=== PATIENT | female | born 1965 | race Two or more races ===

== ENCOUNTER 2020-09-24 10:29 | Outpatient (REF) | payer MEDICAID, SELFPAY ==
--- NOTE | ~2020-09-24 | MM_ITS ---
EXAMINATION: MM SCREENING DIGITAL BREAST TOMOSYNTHESIS, BILATERAL CLINICAL INFORMATION: Screening. Asymptomatic. The lifetime risk of breast cancer based on the Tyrer-Cuzick Model is 6%. COMPARISON: Mammography: 08/19/2019, 07/29/2018, 07/23/2017 TECHNIQUE: Digital breast tomosynthesis is performed in both the craniocaudal and mediolateral oblique views along with computer-aided detection (CAD). Synthesized 2D images are generated from the tomosynthesis. FINDINGS: The breasts are heterogeneously dense, which may obscure small masses (ACR BI-RADS breast composition Category c). There are no significant masses, abnormal calcifications, or other abnormalities. There is biopsy clip marker again noted posterior 1:00 left breast. Parenchymal pattern is similar to prior exams. The axilla and skin contours are unremarkable. No significant changes. MM/MM tomosynthesis screening BI IMPRESSION: No significant changes from prior studies. ASSESSMENT: BI-RADS 1: Negative RECOMMENDATION: Routine annual mammography screening. This patient's information was entered into a reminder system with a target due date for their next mammogram.
== END 2020-09-24 10:30 | disposition home or self-care (01) ==
LOC: HO.MAMMO 10:29
PROVIDERS: PCP Nurse Practitioner Family; Visit Provider Nurse Practitioner Family
DX: Z12.31 Encounter for screening mammogram for malignant neoplasm of breast (principal)
CPT/HCPCS: 77063; 77067

== ENCOUNTER 2021-01-19 10:30 | Emergency (ER) | payer MEDICAID, SELFPAY ==
--- NOTE | ~2021-01-19 | CT_ITS ---
EXAMINATION: CT ABDOMEN AND PELVIS WITHOUT CONTRAST CLINICAL INFORMATION: Left flank pain. COMPARISON: None TECHNIQUE: Multidetector volumetric imaging was performed from the superior aspect of the liver through the pubic symphysis. Sagittal and coronal reformatted images were obtained on the technologist's workstation. This CT examination was performed using dose optimization techniques as appropriate, variously including the following: *Automated exposure control *Adjustment of mA and/or kV according to patient size (this includes techniques or standardized protocols for targeted exams where dose is matched to indication/reason for exam; i.e. extremities or head) *Use of iterative reconstruction technique DLP: 600 mGy-cm FINDINGS: LUNG BASES: The visualized lung bases are unremarkable. LIVER, GALLBLADDER, AND BILIARY TREE: The liver is normal in size, shape, and attenuation. No focal hepatic lesion or biliary ductal dilatation is present. The gallbladder is unremarkable with no evidence of radiopaque gallstones, gallbladder wall thickening, or obvious pericholecystic inflammatory changes. PANCREAS: Unremarkable. SPLEEN: Unremarkable. ADRENAL GLANDS: Unremarkable. KIDNEYS AND URETERS: The kidneys are normal in size, shape, and attenuation. No hydronephrosis, hydroureter, or calculi seen. No perinephric stranding. BLADDER: There is diffuse bladder wall thickening measuring 5 mm. GASTROINTESTINAL TRACT: There is scattered stool and gas seen throughout the colon without any significant distention. The small bowel loops are normal caliber. Stomach is nondistended. Appendix is normal caliber. ABDOMINAL WALL: No significant hernia is appreciated. LYMPH NODES: Normal. VASCULAR: Unremarkable. PELVIC VISCERA: Unremarkable. OSSEOUS STRUCTURES: No lytic or sclerotic process seen. CT/CT abdomen pelvis wo con IMPRESSION: No acute intra-abdominal process seen. Mild constipation. No obstruction. Normal appendix No radiopaque urolith or hydroureteronephrosis seen.
[2021-01-19 10:34] VITALS: BP 128/75; PULSE 80; RESP 16; TEMP 36.4; O2SAT 96; BMI 33.2
[2021-01-19] MEDS: Lidocaine 4 % Patch ADH..PATCH 1 PATCH TRANSDERMA (11:01)
[2021-01-19] MEDS: oxyCODONE HCl Immed Release 5 MG TABLET PO (11:03)
[2021-01-19 11:14] LABS: Glucose Urine UA NEG (NEG); Leukocyte Esterase Urine NEG (NEG); Nitrite Urine NEG (NEG); Specific Gravity - Urine <= 1.005 (1.005-1.025); Urine Blood NEG (NEG); Urine Ketones NEG (NEG); Urine Protein NEG (NEG-TRACE)
[2021-01-19 11:15] LABS: Appearance Urine CLEAR; Color Urine STRAW
--- NOTE | 2021-01-19 12:18 | ED_ITS ---
HPI - Back Pain/Injury General Chief Complaint: Back Pain/Injury Stated Complaint: LOWER BACK PAIN Time Seen by Provider: 01/19/21 10:48 Source: patient Mode of arrival: ambulatory Limitations: no limitations History of Present Illness HPI Narrative: 55-year-old female with a past medical history of prediabetes, vertigo, hypothyroidism, hypertension hyperlipidemia presenting to the ED with complaints of atraumatic left mid to lower back pain that started approximately 3 days. She reports she has had back pain in the past although this is worse. She denies any other symptoms complaints or concerns at this time. Patient has been using Motrin and Flexeril and providing no symptomatic relief. MD elicited complaint: back pain Pertinent past history: prior back pain Onset (ago): day(s) (Three days worse today) Timing: constant and improved Severity: moderate Similar Symptoms Previously: Yes Quality: aching Location: lumbar spine and left flank Radiation: none Exacerbating factors: movement Relieving factors: none Context: other (She believes it started after mopping) Associated symptoms: denies other symptoms Work related injury: No Related Data Previous Rx's Medication Instructions Recorded acetaminophen [Tylenol Extra 1,000 mg PO QID PRN #14 tab 01/19/21 Strength] docusate sodium [Colace] 100 mg PO BID PRN #14 cap 01/19/21 lidocaine HCl [Aspercreme 1 appl TOPICAL BID PRN #120 g 01/19/21 (lidocaine HCl)] oxycodone 5 mg PO BID PRN #10 tab 01/19/21 prednisone 40 mg PO DAILY 5 Days #10 tab 01/19/21 Allergies Allergy/AdvReac Type Severity Reaction Status Date / Time No Known Allergies Allergy Unverified 04/12/20 16:38 Review of Systems Review of Systems: Constitutional : No trauma, No Weight loss, No Fever, No Chills, ENT/Mouth : No Hearing loss, No Ear Pain, No Nasal Congestion, No Sinus Pain, No Hoarseness, No sore throat, No Rhinorrhea, No Swallowing Difficulty Cardiovascular : No Chest Pain, No SOB Respiratory : No Cough, No Dyspnea Gastrointestinal : No Nausea, No Vomiting, No Diarrhea, No abdominal Pain, No Hematochezia, No Melena Genitourinary : No Dysuria, No Urinary Frequency, No Hematuria, No Urinary or Bowel Incontinence/retention Musculoskeletal : + Back pain, No neck pain, No joint stiffness, No joint swelling Skin : No Skin Lesions, No rash or signs of infection Neuro : No Weakness, No radiation, No Numbness, No Paresthesias, No headache, no loss of bowel or bladder incontinence, no saddle anesthesia, Focal weakness, No radiation Denies history of IV drug usage. Yes all other systems are reviewed and are negative [facility] Past Medical History Attestation statement: The following information was validated with the patient. Medical History Prediabetes Social History Social History Advance Directives: No Advance Directives Information Provided: No Patient : No Physical Exam Vital Signs: Vital Signs: Last Vital Signs Temp 97.6 F 01/19/21 10:34 Pulse 80 01/19/21 10:34 Resp 16 01/19/21 10:34 BP 128/75 01/19/21 10:34 Pulse Ox 96 01/19/21 10:34 Body Mass Index 33.2 vital signs have been reviewed as normal and appeared to be correct. Blood pressure normal. Heart rate normal. Respiration rate normal. Temperature normal. Oxygen saturation normal. Appearance: Alert. Oriented X3. No acute distress. Head: Normal external exam. Normocephalic. Atraumatic. No Cabrera signs noted. No raccoon eyes noted Eyes: PERRLA. EOMI. Conjunctiva and sclera normal. Eyelids normal. ENT: EAC normal. TM's Normal. Pharynx normal. Uvula midline. Moist mucous membranes. No trismus noted. No drooling noted. No muffled voice noted. Neck: Normal inspection. Neck supple. FROM. No adenopathy. Thyroid Normal. No meningeal signs. No neck mass noted. CVS: Normal heart rate and rhythm. Heart sound normal. No murmurs noted. Pulses normal throughout. Respiratory: No respiratory distress. Painless inspiration. Breath sounds normal. No wheezes/rales/rhonchi noted. Chest nontender. No accessory muscle usage noted or decreased air movement noted. Abdomen: Soft and nontender. Bowel sounds normal in all 4 quadrants. No distention noted. No organomegaly noted. No visible injury noted. Back: No CVA tenderness. Full range of motion noted. No obvious deformities, or edema. Mild para-spinal muscular tenderness from lumbar region to coccyx. Full ROM in back and lower extremities. 5/5 strength hip extension/flexion, abduc tion, adduction. Mild Lumbar pain with hip flexion against resistance. Straight leg raise test negative on right; Straight leg raise test negative on left; Reflexes normal ankle and knee bilaterally; EHL motor strength normal bilaterally. No rashes/lesion/induration/fluctuance or signs infection noted. Skin: Skin warm and dry. Normal skin color. Normal skin turgor. No rashes/lesions/lacerations noted. Extremities: No lower extremity edema. Extremities exhibit normal range of motion. Extremities nontender. Neuro: Oriented X 3. No motor deficit. No sensory deficit. Reflexes normal. Patient has a normal steady gait. Course Course Course Narrative: Pt c likely muscular pain, but could be herniated disc. Neuro exam shows no deficits. Not c/w AAA/epidural abscess/dissection.No high risk Hx (Incont, fever, immunosupp, recent surgery/LP, coag, signif trauma, wt loss, puls mass, hx/o Ca, TB, or IVDU) to warrant MRI. CT scan of abdomen pelvis without contrast obtained to evaluate for possible kidney stones although was negative. UA also within normal limits. Not c/w Pyelo/UTI/kidney stone/spinal fx. Not cauda equina syndrome. No additional imaging indicated at this time. DC c meds and f/u. MDM - Back Pain/Injury Medical Records Attestation: I reviewed the patient's medical records. Lab Data Attestation: I reviewed the patient's lab results. Labs: Lab Results 01/19/21 Range/Units 11:00 Urine Color STRAW Urine Appearance CLEAR Urine pH 6.0 (5.0-8.0) Ur Specific [place] <= 1.005 (1.005-1.025) Urine Protein NEG (NEG-TRACE) MG/DL Urine Glucose (UA) NEG (NEG) MG/DL Urine Ketones NEG (NEG) MG/DL Urine Blood NEG (NEG) Urine Nitrite NEG (NEG) Ur Leukocyte Esterase NEG (NEG) Imaging Data CT scan of abdomen pelvis without contrast: Attestation: I personally reviewed and interpreted this imaging study as follows: Radiologist's impression: FINDINGS: LUNG BASES: The visualized lung bases are unremarkable. LIVER, GALLBLADDER, AND BILIARY TREE: The liver is normal in size, shape, and attenuation. No focal hepatic lesion or biliary ductal dilatation is present. The gallbladder is unremarkable with no evidence of radiopaque gallstones, gallbladder wall thickening, or obvious pericholecystic inflammatory changes. PANCREAS: Unremarkable. SPLEEN: Unremarkable. ADRENAL GLANDS: Unremarkable. KIDNEYS AND URETERS: The kidneys are normal in size, shape, and attenuation. No hydronephrosis, hydroureter, or calculi seen. No perinephric stranding. BLADDER: There is diffuse bladder wall thickening measuring 5 mm. GASTROINTESTINAL TRACT: There is scattered stool and gas seen throughout the colon without any significant distention. The small bowel loops are normal caliber. Stomach is nondistended. Appendix is normal caliber. ABDOMINAL WALL: No significant hernia is appreciated. LYMPH NODES: Normal. VASCULAR: Unremarkable. PELVIC VISCERA: Unremarkable. OSSEOUS STRUCTURES: No lytic or sclerotic process seen. CT/CT abdomen pelvis wo con IMPRESSION: No acute intra-abdominal process seen. Mild constipation. No obstruction. Normal appendix No radiopaque urolith or hydroureteronephrosis seen. Discharge Plan Discharge Clinical Impression: Lumbar strain, Constipation, Muscle spasm Patient Disposition: Home, Self-Care Instructions: Constipation (ED), Low Back Strain (ED), Muscle Spasm (ED), Lower Back Exercises (ED) Prescriptions: New prednisone 20 mg tablet 40 mg PO DAILY 5 Days Qty: 10 RF: 0 acetaminophen [Tylenol Extra Strength] 500 mg tablet 1,000 mg PO QID PRN (Reason: fever or pain) Qty: 14 RF: 0 oxycodone 5 mg tablet 5 mg PO BID PRN (Reason: pain) Qty: 10 RF: 0 lidocaine HCl [Aspercreme (lidocaine HCl)] 4 % cream 1 appl topical BID PRN (Reason: pain) Qty: 120 RF: 0 docusate sodium [Colace] 100 mg capsule 100 mg PO BID PRN (Reason: Constipation) Qty: 14 RF: 0 Referrals: [facility] [Primary Care Provider] - 2 days Print Language: Greek
[2021-01-19 12:32] VITALS: RESP 17
== END 2021-01-19 12:41 | disposition home or self-care (01) ==
PROVIDERS: Physician Assistant Medical; Emergency Provider Emergency Medicine
DX: S39.012A Strain of muscle, fascia and tendon of lower back, initial encounter (principal); M62.838 Other muscle spasm; K59.00 Constipation, unspecified; I10 Essential (primary) hypertension; X58.XXXA Exposure to other specified factors, initial encounter; Y93.9 Activity, unspecified; Y92.9 Unspecified place or not applicable; Y99.9 Unspecified external cause status
CPT/HCPCS: 74176; 81003; 99284

== ENCOUNTER 2021-09-20 12:56 | Emergency (ER) | payer MEDICAID, SELFPAY ==
--- NOTE | 2021-09-20 | ECG_ITS ---
Test Reason : palpatations Blood Pressure : / mmHG Vent. Rate : 072 BPM Atrial Rate : 072 BPM P-R Int : 158 ms QRS Dur : 086 ms QT Int : 382 ms P-R-T Axes : 027 -16 -05 degrees QTc Int : 418 ms Normal sinus rhythm Minimal voltage criteria for LVH, may be normal variant ( R in aVL ) Borderline ECG No previous ECGs available Referred By: Generic ED Physician Electronically Signed By:LEONARDO REICH
--- NOTE | ~2021-09-20 | CT_ITS ---
EXAMINATION: CT ANGIOGRAM CHEST CLINICAL INFORMATION: Palpitations. Chest pain. Enlarged aorta. COMPARISON: Chest x-ray from earlier the same day TECHNIQUE: Multiple axial images were obtained through the chest after the administration of 70 mL of Omnipaque 350 intravenous contrast. Extensive vascular post-processing including two-dimensional and three-dimensional reformatted images were created and reviewed on an independent workstation. This CT examination was performed using dose optimization techniques as appropriate, variously including the following: *Automated exposure control *Adjustment of mA and/or kV according to patient size (this includes techniques or standardized protocols for targeted exams where dose is matched to indication/reason for exam; i.e. extremities or head) *Use of iterative reconstruction technique DLP: 440 mGy-cm FINDINGS: Evaluation of the proximal ascending thoracic aorta is limited due to artifact from respiratory motion. The thoracic aorta appears normal in caliber. The ascending thoracic aorta measures 3.1 x 3.2 cm, aortic arch 2.2 cm and descending thoracic aorta 2 cm in diameter. The descending thoracic aorta is tortuous. No evidence of aneurysm or dissection is seen. The great vessels appear normal in caliber. The heart is upper normal in size. There is no pericardial effusion. The pulmonary arteries appear normal in caliber. Dedicated CT PA gram was not performed however no pulmonary embolism is seen. The lungs are clear. There is no pleural effusion or pleural thickening. No chest wall mass or enlarged axillary lymph nodes are seen. Images through the upper abdomen demonstrate scarring in the pole of the right kidney. There may be a small left adrenal nodule. There are mild degenerative changes of the spine. CT/CT angio chest aorta IMPRESSION: Slightly limited exam due to artifact from motion. Normal caliber thoracic aorta. No evidence of aneurysm or dissection. The descending thoracic aorta is slightly tortuous. Right renal cortical thinning or scarring. Otherwise unremarkable exam. Fleischner guidelines were followed.
--- NOTE | ~2021-09-20 | XR_ITS ---
EXAMINATION: XR CHEST CLINICAL INFORMATION: Palpitations COMPARISON: None TECHNIQUE: Frontal view of the chest was obtained. FINDINGS: The cardiac silhouette is upper normal in size. The thoracic aorta may be slightly tortuous. Hilar and mediastinal contours are otherwise unremarkable. The lungs are clear. There is no pleural effusion or pneumothorax. Bony structures are unremarkable. XR/XR chest 1V IMPRESSION: Upper normal-size cardiac silhouette. Tortuous thoracic aorta.
[2021-09-20 12:58] VITALS: BP 134/75; PULSE 79; RESP 18; TEMP 36.7; O2SAT 99; BMI 34.7
--- NOTE | 2021-09-20 14:13 | ED_ITS ---
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 Patient states that for the last few weeks, she has had intermittent palpitations. Patient states that she was seen at an urgent care where they told her she has a sinus arrythmia. Patient states that she has high cholesterol and is pre-diabetic. Patient denies any dizziness, lightheadedness, abdominal pain, nausea, vomiting, fever, chills, blurry vision, double vision, loss of vision, chest pain, difficulty breathing, shortness of breath, back pain, night sweats, pain with urination, increased urinary frequency, increased urinary urgency, blood in her urine or stool, syncope or a near syncopal episode, recent trauma or falls, bowel incontinence, bladder incontinence, bowel retention, bladder retention, or any other complaints at this time. MD complaint: palpitations Related Data Previous Rx's Medication Instructions Recorded acetaminophen 500 mg tablet 1,000 mg PO QID PRN #14 tab 01/19/21 (Tylenol Extra Strength) docusate sodium 100 mg capsule 100 mg PO BID PRN #14 cap 01/19/21 (Colace) lidocaine HCl 4 % topical cream 1 appl TOPICAL BID PRN #120 g 01/19/21 (Aspercreme (lidocaine HCl)) oxycodone 5 mg tablet 5 mg PO BID PRN #10 tab 01/19/21 prednisone 20 mg tablet 40 mg PO DAILY 5 Days #10 tab 01/19/21 Allergies Allergy/AdvReac Type Severity Reaction Status Date / Time No Known Allergies Allergy Unverified 04/12/20 16:38 Review of Systems Constitutional: Constitutional: Reports no additional constitutional complaints, Denies chills, Denies fever(s) and Denies night sweats Eyes: Eyes: Reports no additional eye complaints, Denies blurry vision, Denies change in vision, Denies diplopia, Denies eye discharge, Denies loss of vision and Denies eye pain ENT: Denies dizziness Cardiovascular: Cardiovascular: Reports no additional cardiovascular complaints, Denies chest pain, Denies lightheadedness, Denies Loss of Cons ciousness and Denies dyspnea Respiratory: Respiratory: Reports no additional respiratory complaints and Denies dyspnea Gastrointestinal: Gastrointestinal: Reports no additional gastrointestinal complaints, Denies abdominal pain, Denies melena, Denies hematochezia, Denies change in bowel habits and Denies change in stool character Genitourinary: Genitourinary: Denies hematuria, Denies urinary frequency, Denies dysuria, Denies urinary incontinence, Denies urinary hesitancy and Denies urinary urgency Musculoskeletal: Musculoskeletal: Reports no additional musculoskeletal complaints, Denies numbness and Denies tingling Neurologic: Denies dizziness, Denies loss of vision, Denies numbness and Denies tingling Psychiatric: Psychiatric: Reports no additional psychiatric complaints Endocrine: Endocrine: Reports no additional endocrine complaints Hematologic/Lymphatic: Hematologic/Lymphatic: Reports no additional hematologic/lymphatic complaints Allergic/Immunologic: Allergic/Immunologic: Reports no additional allergic/immunologic complaints PMFSH Past Medical History Attestation statement: The following information was validated with the patient. Source: old records reviewed Medical History Prediabetes Social History Social History Advance Directives: No Advance Directives Information Provided: Yes Physical Exam Vital Signs: Vital Signs: Last Vital Signs Temp 98.0 F 09/20/21 12:58 Pulse 79 09/20/21 12:58 Resp 18 09/20/21 12:58 BP 134/75 09/20/21 12:58 Pulse Ox 99 09/20/21 12:58 BMI result Body Mass Index 34.7 Const: General: cooperative, no acute distress, alert and awake Nutritional Appearance: well nourished Orientation/consciousness: patient oriented x3 Limitations: no limitations HENMT: Head: Yes normal to inspection and Yes atraumatic Ears: hearing grossly normal bilaterally and external ears normal General nose exam: Normal external nose present, no nasal discharge noted and no epistaxis Face and sinus: Yes normal facial exam, No abrasion and No laceration Mouth: Normal oral and palatal mucosa present, no drooling and no muffled voice Eyes: General: appearance normal, both eyes and all related structures Periorbital: periorbital findings normal Eyelids: Yes eyelids normal Conjunctivae: conjunctivae normal Pupils: Equal, round and reactive pupils present EOM: EOMs intact bilaterally Neck: Neck: Yes normal visual inspection, Yes full ROM and Yes no lymphadenopathy Chest: Chest palpation & inspection: normal inspection of the chest Resp: Effort & Inspection: normal respiratory effort and able to speak in complete sentences Auscultation: clear to auscultation bilaterally Cardio: Rate: regular rate Rhythm: regular rhythm GI: Inspection: Yes normal to inspection Neuro: General: patient oriented x3 and moves all extremities Cranial nerves: Yes Equal, round and reactive pupils present Cognition (Neuro): normal cognition Motor exam (neuro): 5/5 motor strength present throughout Sensory Exam: Normal double simultaneous stimulation for sensation Coordination: [id number] test normal Extrem: General: Yes normal to inspection, Yes full ROM and Yes capillary refill normal Psych: Appearance: grossly normal Mental Status: mental status grossly norm al Affect: normal affect Attitude: cooperative Thought process: Normal thought process present Thought content: Normal thought content present Insight: Good insight present (Psych) MDM - Arrhythmia/Palpitations MDM Narrative Medical decision making narrative: Patient is a 56 year old female presenting to the emergency department today with palpitations. Patient's physical exam was unremarkable. Patient's blood work was unremarkable. Patient's EKG was unremarkable. Patient's chest x-ray showed no acute process however, it did show a torturus aorta. Patient's CT chest showed no acute process. I explained my physical exam findings as well as all test results to the patient. I answered all questions asked by the patient. I stressed the importance of the patient taking her medication as prescribed. 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 I stressed the importance of the patient returning to the emergency department immediately if her symptoms were to worsen or if she were to develop any dizziness, shortness of breath, difficulty breathing, chest pain, blurry vision, loss of vision, nausea, vomiting, abdominal pain, fever, chills, back pain, or any other complaints. Patient verbalized agreement and understanding with this treatment plan and discharge. Differential Diagnosis Differential diagnosis: Likely palpitations, ventricular premature beats and supraventricular tachycardia Medical Records Attestation: I reviewed the patient's medical records. Lab Data Attestation: I reviewed the patient's lab results. Result diagrams: 09/20/21 14:56 09/20/21 14:56 Labs: Lab Results 02/09/20/21 09/20/21 Range/Units 14:56 14:56 14:56 WBC 4.7 L (4.8-10.8) X10*3/uL RBC 4.46 (4.20-5.50) X10*6/uL Hgb 13.9 (12.0-16.0) g/dl Hct 40.1 (37.0-47.0) % MCV 89.9 (80.0-98.0) fL MCH 31.2 (27.0-33.0) pg MCHC 34.7 (31.0-35.0) g/dl RDW 12.0 (11.0-16.0) % Plt Count 250 (160-400) X10*3/uL MPV 9.4 (9.4-12.3) fL Immature Gran % (Auto) 0.2 (0.0-0.4) % Neut % (Auto) 44.2 L (45-73) % Lymph % (Auto) 40.5 H (20-40) % [place] % (Auto) 11.9 H (2-11) % Eos % (Auto) 2.8 (0-4) % Baso % (Auto) 0.4 (0-2) % Lymph # (Auto) 1.9 (1.2-4.9) X10*3/uL [place] # (Auto) 0.6 (0.1-1.2) X10*3/uL Eos # (Auto) 0.1 (0.0-0.4) X10*3/uL Baso # (Auto) 0.0 (0.0-0.2) X10*3/uL Abs Immat Gran (auto) 0.01 (0.00-0.03) X10*3/uL Absolute Neuts (auto) 2.1 (2.0-8.3) x10*3/uL Absolute Nucleated RBC 0.000 (0.0-0.012) X10*3/uL Nucleated RBC % (auto) 0.0 (0.0-0.2) /100WBC Sodium 141 (135-145) mmol/L Potassium 4.3 (3.3-5.1) mmol/L Chloride 104 (96-108) mmol/L Carbon Dioxide 28 (22-29) mmol/L Anion Gap 13 (12-20) BUN 13 (9-16) mg/dL Creatinine 0.74 (0.5-1.4) mg/dL Estim Creat Clear Calc 79.8 Estimated GFR > 60 Random Glucose 98 (60-115) mg/dL Calcium 10.1 (8.4-10.2) mg/dL Magnesium 2.1 (1.6-2.6) mg/dL Total Bilirubin 0.8 (0.0-1.0) mg/dL AST 19 (5-31) U/L ALT 24 (0-31) U/L Alkaline Phosphatase 73 (39-117) U/L Troponin I High Sens < 3.5 (<3.5-17.0) ng/L Total Protein 8.1 H (6.5-8.0) g/dL Albumin 4.5 (3.5-5.0) g/dL Imaging Data Chest x-ray: Attestation: I personally reviewed and interpreted this imaging study as follows: Radiologist's impression: EXAMINATION: XR CHEST CLINICAL INFORMATION: Palpitations COMPARISON: None TECHNIQUE: Frontal view of the chest was obtained. FINDINGS: The cardiac silhouette is upper normal in size. The thoracic aorta may be slightly tortuous. Hilar and mediastinal contours are otherwise unremarkable. The lungs are clear. There is no pleural effusion or pneumothorax. Bony structures are unremarkable. XR/XR chest 1V IMPRESSION: Upper normal-size cardiac silhouette. Tortuous thoracic aorta. ? Dictated By: Karena Mayo MD Signed By: Electronically signed by Karena Mayo MD 09/20/[address] scan chest: Attestation: I personally reviewed and interpreted this imaging study as follows: Radiologist's impression: EXAMINATION: CT ANGIOGRAM CHEST CLINICAL INFORMATION: Palpitations. Chest pain. Enlarged aorta.? COMPARISON: Chest x-ray from earlier the same day? TECHNIQUE: Multiple axial images were obtained through the chest after the administration of 70 mL of Omnipaque 350 intravenous contrast. Extensive vascular post-processing including two-dimensional and three-dimensional reformatted images were created and reviewed on an independent workstation. This CT examination was performed using dose optimization techniques as appropriate, variously including the following: *Automated exposure control *Adjustment of mA and/or kV according to patient size (this includes techniques or standardized protocols for targeted exams where dose is matched to indication/reason for exam; i.e. extremities or head) *Use of iterative reconstruction technique DLP: 440 mGy-cm FINDINGS: Evaluation of the proximal ascending thoracic aorta is limited due to artifact from respiratory motion. The thoracic aorta appears normal in caliber. The ascending thoracic aorta measures 3.1 x 3.2 cm, aortic arch 2.2 cm and descending thoracic aorta 2 cm in diameter. The descending thoracic aorta is tortuous. No evidence of aneurysm or dissection is seen. The great vessels appear normal in caliber. The heart is upper normal in size. There is no pericardial effusion. The pulmonary arteries appear normal in caliber. Dedicated CT PA gram was not performed however no pulmonary embolism is seen. The lungs are clear. There is no pleural effusion or pleural thickening. No chest wall mass or enlarged axillary lymph nodes are seen. Images through the upper abdomen demonstrate scarring in the pole of the right kidney. There may be a small left adrenal nodule. There are mild degenerative changes of the spine. CT/CT angio chest aorta IMPRESSION: Slightly limited exam due to artifact from motion. Normal caliber thoracic aorta. No evidence of aneurysm or dissection. The descending thoracic aorta is slightly tortuous. Right renal cortical thinning or scarring. Otherwise unremarkable exam.? ? Fleischner guidelines were followed. Dictated By: Karena Mayo MD Signed By: Electronically signed by Karena Mayo MD 09/20/21 1640 ECG Data Attestation: I personally reviewed and interpreted this ECG as follows: ECG interpretation date: 09/20/21 ECG interpretation time: 13:58 Prior ECG tracings: not available for review Interpretation: Vent. Rate : 072 BPM ? ? Atrial Rate : 072 BPM P-R Int : 158 ms? QRS Dur : 086 ms QT Int : 382 ms ? ? ? P-R-T Axes : 027 -16 -05 degrees QTc Int : 418 ms ? Normal sinus rhythm Minimal voltage criteria for LVH, may be normal variant ( R in aVL ) Borderline ECG No previous ECGs available Discharge Plan Discharge Clinical Impression: Heart palpitations Patient Disposition: Home, Self-Care Instructions: Heart Palpitations (DC) Additional Instructions: Follow up with your primary care provider. Return to the emergency department immediately if your symptoms worsen or if you develop any dizziness, shortness of breath, difficulty breathing, chest pain, blurry vision, loss of vision, nausea, vomiting, abdominal pain, fever, chills, back pain, or any other complaints. Prescriptions: No Action prednisone 20 mg tablet 40 mg PO DAILY 5 Days Qty: 10 0RF acetaminophen [Tylenol Extra Strength] 500 mg tablet 1,000 mg PO QID PRN (Reason: fever or pain) Qty: 14 0RF oxycodone 5 mg tablet 5 mg PO BID PRN (Reason: pain) Qty: 10 0RF lidocaine HCl [Aspercreme (lidocaine HCl)] 4 % cream 1 appl topical BID PRN (Reason: pain) Qty: 120 0RF docusate sodium [Colace] 100 mg capsule 100 mg PO BID PRN (Reason: Constipation) Qty: 14 0RF Print Language: Turkmen
[2021-09-20 15:00] LABS: MANUAL DIFF FLAG NO
[2021-09-20 15:02] LABS: Basophils Percent Auto 0.4 % (0-2); Eosinophils Absolute Auto 0.1 X10*3/uL (0.0-0.4); Eosinophils Percent Auto 2.8 % (0-4); Hematocrit 40.1 % (37.0-47.0); Hemoglobin 13.9 g/dl (12.0-16.0); Imm Gran Abs Auto 0.01 X10*3/uL (0.00-0.03); Imm Gran Pct Auto 0.2 % (0.0-0.4); Lymphocytes Absolute Auto 1.9 X10*3/uL (1.2-4.9); Lymphocytes Percent Auto 40.5 % (20-40); Mean Corpuscular HGB Conc 34.7 g/dl (31.0-35.0); Mean Corpuscular Hemoglobin 31.2 pg (27.0-33.0); Mean Corpuscular Volume 89.9 fL (80.0-98.0); Mean Platelet Volume 9.4 fL (9.4-12.3); Monocytes Absolute Auto 0.6 X10*3/uL (0.1-1.2); Monocytes Percent Auto 11.9 % (2-11); Neutrophils Absolute Auto 2.1 x10*3/uL (2.0-8.3); Neutrophils Percent Auto 44.2 % (45-73); Platelet Count 250 X10*3/uL (160-400); Red Blood Count 4.46 X10*6/uL (4.20-5.50); White Blood Count 4.7 X10*3/uL (4.8-10.8)
[2021-09-20 15:16] LABS: Alanine Aminotransferase 24 U/L (0-31); Albumin Level 4.5 g/dL (3.5-5.0); Alkaline Phosphatase 73 U/L (39-117); Anion Gap 13 (12-20); Aspartate Amino Transferase 19 U/L (5-31); Bilirubin Total 0.8 mg/dL (0.0-1.0); Blood Urea Nitrogen 13 mg/dL (9-16); Calcium 10.1 mg/dL (8.4-10.2); Carbon Dioxide 28 mmol/L (22-29); Chloride 104 mmol/L (96-108); Creatinine Clr Calc Pharmacy 79.8; Estimated Glomerular Filt Rate > 60; Glucose Random 98 mg/dL (60-115); Magnesium 2.1 mg/dL (1.6-2.6); Potassium 4.3 mmol/L (3.3-5.1); Sodium 141 mmol/L (135-145); Total Protein 8.1 g/dL (6.5-8.0)
[2021-09-20 15:25] LABS: Troponin-I High Sensitivity < 3.5 ng/L (<3.5-17.0)
[2021-09-20] MEDS: iohexoL 350 MG/ML 100 ML INFUS..BTL IV (16:11)
== END 2021-09-20 17:39 | disposition home or self-care (01) ==
PROVIDERS: Physician Assistant Medical; Emergency Provider Internal Medicine
DX: R00.2 Palpitations (principal); I49.9 Cardiac arrhythmia, unspecified; Z79.899 Other long term (current) drug therapy
CPT/HCPCS: 36415; 71045; 71275; 80053; 83735; 84484; 85025; 93005; 99283; 99284; Q9967

== ENCOUNTER 2021-10-01 13:15 | Outpatient (REF) | payer MEDICAID, SELFPAY ==
--- NOTE | ~2021-10-01 | MM_ITS ---
EXAMINATION: MM SCREENING DIGITAL BREAST TOMOSYNTHESIS, BILATERAL CLINICAL INFORMATION: Screening. Asymptomatic. The lifetime risk of breast cancer based on the Tyrer-Cuzick Model is 6%. COMPARISON: Mammography: 09/24/2020, 08/19/2019, 07/29/2018 TECHNIQUE: Digital breast tomosynthesis is performed in both the craniocaudal and mediolateral oblique views along with computer-aided detection (CAD). Synthesized 2D images are generated from the tomosynthesis. FINDINGS: The breasts are heterogeneously dense, which may obscure small masses (ACR BI-RADS breast composition Category c). There are no significant masses, abnormal calcifications, or other abnormalities. Parenchymal pattern is similar to prior studies. Biopsy clip marker again noted posterior central 12:30 o'clock left breast. There are no significant changes. MM/MM tomosynthesis screening BI IMPRESSION: No mammographic evidence of malignancy. ASSESSMENT: BI-RADS 1: Negative RECOMMENDATION: Routine annual mammography screening. This patient's information was entered into a reminder system with a target due date for their next mammogram.
== END 2021-10-01 13:16 | disposition home or self-care (01) ==
LOC: HO.MAMMO 13:15
PROVIDERS: PCP Registered Nurse Community Health; Visit Provider Registered Nurse Community Health
DX: Z12.31 Encounter for screening mammogram for malignant neoplasm of breast (principal)
CPT/HCPCS: 77063; 77067

== ENCOUNTER → 2021-11-21 12:28 | Outpatient (BNVA) | payer MEDICAID, SELFPAY | PROVIDERS: PCP Registered Nurse Community Health; Referring Provider Registered Nurse Community Health; Visit Provider Internal Medicine Cardiovascular Disease | DX: R00.2 Palpitations (principal) | CPT/HCPCS: 99202 ==

== ENCOUNTER → 2022-01-07 13:52 | Outpatient (REF) | payer MEDICAID, SELFPAY ==
--- NOTE | 2022-01-07 13:56 | CA_ITS ---
Transthoracic Echocardiogram Patient (Last, First, Middle): Nadege Whitney, Gender: Female Date of : 1965 Age: 56 Procedure Date: 01/07/2022 Procedure Type: Transthoracic Echocardiogram Location: OP Height: 152.4 cm Weight: 79.38 kg BSA: 1.76 m2 Heart Rate: bpm BP: 110 / 60 mmHg Manager Of Operations: TO/VH Referring MD: Isai Brooks MD Symptoms: R00.2 - Palpitations Study Quality: Adequate ECG Rhythm: Sinus Conclusions: - The left ventricular systolic function is normal. The calculated ejection fraction is 62% by biplane method. - No obvious valvular pathology seen on this study. Findings Left Ventricle Normal left ventricular cavity size. There is normal left ventricular wall thickness. The left ventricular systolic function is normal. The calculated ejection fraction is 62% by biplane method. There is no evidence of regional wall motion abnormalities. Diastolic function is normal for age. Right Ventricle Normal right ventricular cavity size and systolic function. Atria Both atria are normal in size. Aortic Valve There is a normal trileaflet aortic valve. There is no aortic valve stenosis. There is no aortic valve regurgitation. Mitral Valve The mitral valve appears normal. There is trace mitral valve regurgitation. There is no mitral valve stenosis. Pulmonic Valve The pulmonic valve is likely normal. Tricuspid Valve Normal tricuspid valve structure. There is trace tricuspid valve regurgitation. The pulmonary artery systolic pressure is normal. Great Vessels The aortic annulus, sinuses of valsalva, and asc aorta are normal in size. Venous The inferior vena cava is normal in size and collapses greater than 50% with inspiration. Pericardium/Pleural There is no evidence of pericardial effusion. Prior Study Comparison No prior study available for comparison. Recommendations, Care & Conclusions No obvious valvular pathology seen on this study. Measurements 2D Linear Measurements IVSd: 1.03 0.6-0.9/0.6-1.0 cm LVIDd: 4.60 3.9-5.3/4.2-5.9 cm LVIDd Index: 2.61 2.4-3.2/2.2-3.1 cm/m2 LVIDs: 3.03 2.0-3.6 cm LVPWd: 1.02 0.7-1.1 cm LA Diam: 2.60 2.7-3.8/3.0-4.0 cm LAIDs Index: 1.48 1.5-2.3 cm/m2 LV Mass: 204.61 67-162/88-224 g LV Mass Index: 116.26 43-95/49-115 g/m2 LVOT Diam: 2.10 3.0+(-)1.3 cm 2D Systolic Function EF 4C: 63.50 >55% EF 2C: 57.70 >55% EF BiP: 61.50 >55% Mitral Valve MV Pk E: 0.57 MV PK A: 0.63 MV Decel Time: 157.00 E/A: 0.90 E'Lateral: 10.30 E'Medial: 5.87 E/E' Med: 9.70 E/E' Lat: 5.50 PHT: 46.00 MVA PHT: 4.78 Decel Alcorn: 3.63 Aortic Valve AoV Pk Ronnie: 1.19 AoV Mn Ronnie: 0.85 AoV VTI: 0.25 AoV Pk Grad: 6.00 Aov Mn Grad: 3.00 MIKEL Cont.VTI: 2.64 LVOT LVOT Pk Ronnie: 0.90 LVOT Mn Ronnie: 0.62 LVOT VTI: 0.19 LVOT Pk Grad: 3.00 LVOT Mn Grad: 2.00 LVOT Diam: 2.10 LVOT Area: 3.46 Diastolic Function MV Pk E: 0.57 MV Pk A: 0.63 E/A: 0.90 E'Medial: 5.87 E/E' Med: 9.70 E' Laterial: 10.30 E/E' Lat: 5.50 Right Ventricle TAPSE (mm): 19.90 TVS' Ronnie: 11.60 Tricuspid Valve TR Pk Ronnie: 2.20 TR Pk Grad: 19.00 RA Press: 3.00 RVSP: 22.00 Great Vessels Aorta Sinus of Valsalva: 3.47 2.0-3.[address] Ridge: 2.57 1.7-3.4 cm Ao Asc: 3.10 2.1-3.4 cm Ao Arch: 2.50 Updated in Other Vendor System with Status of Final Elijah Childs MD electronically signed on 01/08/2022 9:17:27 AM with status of Final
--- NOTE | 2022-01-07 15:21 | ECG_ITS ---
Hook-up date: 2022-01-07 14:13:00 Duration: 47:52:00 Test Indications: PALPITATIONS Medications: [id number] QRS complexes 4 Ventricular ectopics which represent <1 % of total QRS comp. 2 Supraventricular ectopics which represent <1 % of total QRS comp. * Paced QRS complexs which represent % of total QRS comp. VENTRICULAR ECTOPY 4 Isolated 0 Bigeminal Cycles 0 Couplets 0 Runs 0 Beats in Runs * Beats LONGEST at * BPM at :: -- * Beats FASTEST at * BPM at :: -- SUPRAVENTRICULAR ECTOPY 2 Isolated 0 Couplets 0 Runs 0 Beats in Runs * Beats LONGEST at * BPM at :: -- * Beats FASTEST at * BPM at :: -- HEART RATES 52 MIN at 03:41:29 2022-01-08 72 AVG 109 MAX at 11:39:43 2022-01-08 LONGEST RR 1.0240 secs at 03:40:43 2022-01-08 S-T LEVELS Channel 1 - 128 mm at 14:13:00 2022-01-07 - 128 mm at 14:13:00 2022-01-07 Channel 2 - 128 mm at 14:13:00 2022-01-07 - 128 mm at 14:13:00 2022-01-07 Channel 3 - 128 mm at 03:33:21 -- - 128 mm at 03:33:21 Basic rhythm Normal sinus rhythm No long pause or profound bradycardia Very Rare ectopics Patient reported symptoms correlated with NSR Referred By: Isai Brooks Overread By: ISAI BROOKS MD
== END ==
LOC: HO.CARD 13:52
PROVIDERS: PCP Registered Nurse Community Health; Visit Provider Internal Medicine Cardiovascular Disease
DX: R00.2 Palpitations (principal)
CPT/HCPCS: 93225; 93226; 93306

== ENCOUNTER → 2022-01-21 13:39 | Outpatient (BNVA) | payer MEDICAID, SELFPAY | PROVIDERS: PCP Registered Nurse Community Health; Referring Provider Registered Nurse Community Health; Visit Provider Internal Medicine Cardiovascular Disease | DX: R00.2 Palpitations (principal) | CPT/HCPCS: 99212 ==

== ENCOUNTER 2022-06-13 08:50 | Outpatient (REF) | payer MEDICAID, SELFPAY ==
--- NOTE | ~2022-06-13 | MM_ITS ---
EXAMINATION: MM DIAGNOSTIC DIGITAL, RIGHT US BREAST TARGETED, RIGHT CLINICAL INFORMATION: Right axillary pain and swelling The lifetime risk of breast cancer based on the Tyrer-Cuzick Model is 5%. COMPARISON: Mammography: 10/01/2021 and studies dating back to 03/28/2014 TECHNIQUE: Digital mammography is performed in craniocaudal and mediolateral oblique views along with computer-aided detection (CAD). Targeted right breast ultrasound FINDINGS: There are scattered areas of fibroglandular density (ACR BI-RADS breast composition Category b). There are no significant masses, abnormal calcifications, or other abnormalities. There are no significant changes from prior study. Targeted right breast ultrasound did not demonstrate abnormal cystic or solid masses. No region of abnormal distal sound shadowing. No edematous change within the parenchyma is seen. There are a few prominent normal-appearing lymph nodes. There is some soft fluctuant tissue felt within the axilla but without circumscribed lipoma being identified. Results are discussed with the patient at time of visit. MM/MM diagnostic mammo unilat RT IMPRESSION: Stable appearance of the right breast without mammographic or ultrasound findings to suggest malignancy. ASSESSMENT: BI-RADS 1: Negative RECOMMENDATION: Routine annual mammography screening. Clinical follow-up for right axillary pain. This patient's information was entered into a reminder system with a target due date for their next mammogram.
== END 2022-06-13 08:51 | disposition home or self-care (01) ==
LOC: HO.MAMMO 08:50
PROVIDERS: PCP Registered Nurse; Visit Provider Registered Nurse
DX: M79.621 Pain in right upper arm (principal)
CPT/HCPCS: 76642; 77062; 77065

== ENCOUNTER 2022-07-03 10:47 | Outpatient (REF) | payer MEDICAID, SELFPAY ==
--- NOTE | ~2022-07-03 | XR_ITS ---
EXAMINATION: XR KNEE, LEFT CLINICAL INFORMATION: Chronic pain left knee COMPARISON: None TECHNIQUE: Four views of the left knee. FINDINGS: There is loss of medial compartment joint space with periarticular spurring. The lateral compartment joint space is preserved. Minimal loss of patellofemoral compartment joint space is seen. No visible acute fracture, bony erosive changes seen. No abnormal suprapatellar joint effusion seen. There is minimal anterosuperior patellar enthesophytes. The soft tissues are normal. XR/XR knee LT 4V IMPRESSION: Mild degenerative changes in the medial and patellofemoral compartments. No loose bodies, bony erosive changes or joint effusion. Minimal anterosuperior patellar enthesophytes.
== END 2022-07-03 10:48 | disposition home or self-care (01) ==
LOC: HO.XRAY 10:47
PROVIDERS: PCP Registered Nurse; Visit Provider Registered Nurse
DX: M25.562 Pain in left knee (principal)
CPT/HCPCS: 73564

== ENCOUNTER → 2022-09-09 14:36 | Outpatient (BNVA) | payer MEDICAID, SELFPAY | PROVIDERS: PCP Registered Nurse; Visit Provider Nurse Practitioner Family | DX: G47.19 Other hypersomnia (principal); R06.83 Snoring | CPT/HCPCS: 99202 ==

== ENCOUNTER → 2022-09-30 14:53 | Outpatient (REF) | payer MEDICAID, SELFPAY | LOC: HO.SL 14:53 | PROVIDERS: PCP Physician Assistant; Visit Provider Nurse Practitioner Family | DX: Z13.89 Encounter for screening for other disorder (principal) ==

== ENCOUNTER 2022-10-02 05:58 | Outpatient (REF) | payer MEDICAID, SELFPAY ==
--- NOTE | ~2022-10-02 | XR_ITS ---
EXAMINATION: XR KNEE AP STANDING CLINICAL INFORMATION: Right knee pain COMPARISON: None TECHNIQUE: AP bilateral standing view of the knees was obtained. FINDINGS: Bones and soft tissues are normal. No fracture or joint effusion. Alignment is anatomic. Mild narrowing of the bilateral medial tibiofemoral compartments with tiny osteophytes. No abnormal soft tissue calcification. XR/XR knee standing BI IMPRESSION: Mild osteoarthritis of the bilateral knees.
== END 2022-10-02 05:59 | disposition home or self-care (01) ==
LOC: HO.HOSX 05:58
PROVIDERS: Visit Provider Physician Assistant
DX: M17.12 Unilateral primary osteoarthritis, left knee (principal); M25.561 Pain in right knee
CPT/HCPCS: 73565; 99202

== ENCOUNTER 2022-10-31 14:23 | Outpatient (REF) | payer MEDICAID, SELFPAY ==
--- NOTE | ~2022-10-31 | MM_ITS ---
EXAMINATION: MM SCREENING DIGITAL BREAST TOMOSYNTHESIS, BILATERAL CLINICAL INFORMATION: Screening. Asymptomatic. The lifetime risk of breast cancer based on the Tyrer-Cuzick Model is 5%. COMPARISON: Mammography: 06/13/2022, 10/01/2021, 09/24/2020, 08/19/2019, 07/29/2018; ultrasound right breast 06/13/2022 TECHNIQUE: Digital breast tomosynthesis is performed in both the craniocaudal and mediolateral oblique views along with computer-aided detection (CAD). Synthesized 2D images are generated from the tomosynthesis. FINDINGS: The breasts are heterogeneously dense, which may obscure small masses (ACR BI-RADS breast composition Category c). There are no significant masses, abnormal calcifications, or other abnormalities. Parenchymal pattern is similar to prior studies. There is no developing density or architectural abnormality. There is a biopsy clip marker again seen posterior central 1:00 left breast. The axilla and skin contours are unremarkable. No significant changes. MM/MM tomosynthesis screening BI IMPRESSION: No mammographic evidence of malignancy. ASSESSMENT: BI-RADS 1: Negative RECOMMENDATION: Routine annual mammography screening. This patient's information was entered into a reminder system with a target due date for their next mammogram.
== END 2022-10-31 14:24 | disposition home or self-care (01) ==
LOC: HO.MAMMO 14:23
PROVIDERS: PCP Registered Nurse; Visit Provider Registered Nurse
DX: Z12.31 Encounter for screening mammogram for malignant neoplasm of breast (principal)
CPT/HCPCS: 77063; 77067

== ENCOUNTER → 2022-11-26 12:23 | Outpatient (REF) | payer MEDICAID, SELFPAY | LOC: HO.SL 12:23 | PROVIDERS: PCP Registered Nurse; Visit Provider Nurse Practitioner Family | DX: G47.19 Other hypersomnia (principal); R00.2 Palpitations; R06.83 Snoring | CPT/HCPCS: 95806 ==

== ENCOUNTER 2022-11-27 11:05 | Outpatient (REF) | payer MEDICAID, SELFPAY ==
--- NOTE | ~2022-11-27 | MR_ITS ---
EXAMINATION: MR BREAST WITHOUT AND WITH CONTRAST, BILATERAL CLINICAL INFORMATION: Right axillary pain. Prior reports of right axillary pain and swelling. Prior reports of chest pain and palpitations. COMPARISON: Mammography 10/31/2022. Chest CT 09/20/2021. TECHNIQUE: Imaging was performed with a dedicated breast coil. Prior to the administration of contrast, bilateral axial T1 and bilateral axial T2 weighted sequences were obtained. After the uneventful administration of?8.5 mL of Gadavist, dynamic contrast-enhanced VIBRANT series through the breasts in the axial plane were performed. Subtracted images were performed and reviewed. A delayed sagittal sequence through both breasts was acquired. Additionally, CAD post-processing, including maximum intensity projections, 3-D reconstructions and kinetic analysis, were performed an independent workstation and reviewed by the interpreting radiologist is a portion of this exam. FINDINGS: The breasts are comprised of scattered fibroglandular elements. The tissue undergoes mild background enhancement. LEFT BREAST: No left axillary mass. The left axillary lymph nodes are normal in appearance. Scattered foci of non-mass enhancement throughout the left breast. No suspicious mass, dominant non-mass enhancement or architectural distortion. No skin thickening or nipple retraction. A few T2 bright masses without enhancement in the left breast consistent with cysts, generally less than 10 mm in diameter. RIGHT BREAST: A suspicious 2 cm linear ductal non-mass enhancement at 12 o'clock (image 53/108) projecting 8 cm from the nipple. Type I enhancement kinetics. No mammographic correlate. Recommend MR biopsy. A suspicious 3 cm linear/segmental non-mass enhancement in the right breast 9 o'clock position, starting 6 cm from the nipple. Generally subthreshold enhancement kinetics. However, given MR morphology an MR biopsy is advised. A 6 mm linear enhancing right breast mass at 1 o'clock, 5 cm from the nipple. The mass is intensely T2 bright. Type I progressive enhancement kinetics. Linear nonenhancing septation, likely a fibroadenoma. Suggest MR directed diagnostic second look ultrasound. Biopsy as indicated. Although morphologically normal, right axillary nodes are slightly larger than those on the left. This is best appreciated on volume renderings. Recommend MR directed diagnostic ultrasound of the right axilla. Biopsy as indicated. There is no suspicious internal mammary chain or axillary adenopathy. Limited views of the chest and abdomen are unremarkable. MR/MR breast BI wo/w con IMPRESSION: 1. A suspicious 2 cm right breast linear ductal non-mass enhancement at 12 o'clock. Recommend MR biopsy. 2. A suspicious 3 cm linear/segmental non-mass enhancement at 9 o'clock on the right. Recommend MR biopsy. 3. An enhancing 6 mm right breast mass at 1 o'clock 5 cm from the nipple. Biopsy may be indicated. Recommend MR directed diagnostic second look ultrasound. 4. Nonspecific minor prominence of right axillary nodes. Recommend ultrasound and biopsy as indicated. ASSESSMENT: LEFT BREAST: BI-RADS 1-Negative RIGHT BREAST: BI-RADS 4, suspicious findings. RECOMMENDATIONS: 1. MR directed right MR biopsy 12 o'clock. 2. MR directed right biopsy 9 o'clock. 3. Right breast ultrasound mass 1 o'clock with biopsy as indicated. 4. Right axillary ultrasound for nodes. Biopsy as indicated.
== END 2022-11-27 11:06 | disposition home or self-care (01) ==
LOC: HO.MRI 11:05
PROVIDERS: PCP Registered Nurse; Visit Provider Registered Nurse
DX: M79.621 Pain in right upper arm (principal); N64.4 Mastodynia
CPT/HCPCS: 77049; A9585

== ENCOUNTER 2022-12-26 14:00 | Outpatient (RCR) | payer MEDICAID, SELFPAY ==
--- NOTE | 2022-11-19 14:10 | MHC.PT.EP ---
[facility] [place] Office [place] Office [place] Office [address] Laura Liang [address] [phone] F: [phone] F: [phone] F: [phone] F: [phone] Physical Therapy Plan of Care Date of Evaluation: Date of Surgery: Diagnosis: OA of L knee Assessment: Patient is a 57 year old R handed female who presents with s/s consistent with L knee pain. She does not work but does go to medical appointments, mu-ism and family gatherings. Patient past medical history includes pre-diabetic, chronic back pain and R cervical/shoulder pain. Current impairments include pain, posture, ROM, strength, activity tolerance and functional mobility. Functional limitations include decreased ability to stand, walk, perform yard work, get out into the community, negotiate stairs, sleep, and transfer. Patient is motivated with good rehab potential. Skilled PT will address impairments and functional limitations in order to achieve goals. Frequency and Duration: The patient will be seen 2x/week for 5 weeks Short Term Goals: I with HEP - 2 weeks AAROM flexion to 130 - 3 weeks SLB > 5 seconds - 3 weeks Halfway Goals: Able to walk/stand > 30 minutes without pain - 5 weeks LEFS 48/80 - 5 weeks LE strength 4/5 grossly - 5 weeks Max pain with ALDs - 5 weeks Treatment Plan: Modalities to reduce pain, spasms and effusion. Manual therapy to restore motion and function. Therapeutic exercise to improve strength and flexibility. Neuromuscular re-education for posture and balance. Therapeutic activities to return to functional activities of daily living. Electronically signed by: Dylon Smith, PT Please sign and return to therapist. Thank you for your referral.
--- NOTE | 2023-01-06 08:33 | MHC.PT.DC ---
[facility] [place] Office [place] Office [place] Office [address] Laura Liang [address] [phone] F: [phone] F: [phone] F: [phone] F: [phone] Physical Therapy Discharge Report Diagnosis: OA of L knee Date of Surgery: Date of Evaluation: 11/19/22 Date of Discharge: 12/27/22 Treatments to Date: 8 Cancellations to Date: No Shows to Date: Discharge Status: Improved Function Independent with HEP Discharge Summary: 12/26/22: pt has been feeling better overall with strenght. AAROM flexion 130. She is happy with progress and is ready and appropriate to d/c to HEP at this time. 12/24; Pt ROM WNL. Patella mobilty WNL. No c/o pain with palpation patella tendon. Pt I with HEP.. Pt has 1 [facility] PT VISIT AND SEES 12/26. 12/17; Pt challenged with balance exs. 12/10; Pt fatigued after exs. Challenged with STS.Pt also has L/S pain and had dif with supine to sit transfer. 12/03; Pt c/o L/S pain with SLR's. Pt had visible shaking with wall/TKE's. 12/01/22: pt continues to respond well to skilled PT. she does have other location pain but is doing well with exercise related to her knee. 11/28/22: pt is having less pain overall. skilled PT is focused on ROM, (AAROM flexion to 131 today), strength, balance and function. 11/25/22: pt has been feeling slightly better and compliant with HEP. we will continue to progress HEP NV. Patient is a 57 year old R handed female who presents with s/s consistent with L knee pain. 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 Patient past medical history includes pre-diabetic, chronic back pain and R cervical/shoulder pain. Current impairments include pain, posture, ROM, strength, activity tolerance and functional mobility. Functional limitations include decreased ability to stand, walk, perform yard work, get out into the community, negotiate stairs, sleep, and transfer. Patient is motivated with good rehab potential. Skilled PT will address impairments and functional limitations in order to achieve goals. martin Electronically signed by: Dylon Smith, PT Please sign and return to therapist. Thank you for your referral.
== END 2023-01-06 08:33 | disposition home or self-care (01) ==
LOC: HO.PTCHIC 14:00
PROVIDERS: PCP Registered Nurse; Visit Provider Physician Assistant
DX: M17.12 Unilateral primary osteoarthritis, left knee (principal)
CPT/HCPCS: 97110; 97140; 97162

== ENCOUNTER 2023-03-17 10:28 | Outpatient (AMB) | payer MEDICAID, SELFPAY ==
[2023-03-17 10:35] VITALS: BP 110/78; PULSE 73; O2SAT 96; BMI 35.2
--- NOTE | 2023-03-17 10:35 | A.OFFVIS_ITS ---
Intake Vital Signs 03/17/23 10:35 Height 5 ft Weight 180 lb BMI 35.2 BP 110/78 Blood Pressure Location Rt brachial Position Sitting Pulse 73 Pulse Source Pulse Oximeter Pulse Oximetry (%) 96 Oxygen Delivery Method Room Air Intake Visit Reasons: follow up for [place] - Confirmed Intake Note: Patient presents for follow up [place]. Licensed Insurance Agent Required: Yes Licensed Insurance Agent Name: Precious Masters Allergies No Known Allergies Allergy (Unverified 03/17/23 10:37) HPI HPI Comments History of Present Illness Details 57 y/o female patient presents for follow up of sleep study. The home sleep study result did not meet the criteria for sleep apnea. The AHI was 4/hr and oxygen aicha was 83%. Pt reports that the sleep study equipment was off when she woke up in the morning. Pt still experiences snoring, witnessed apneas, gasping episodes and excessive daytime sleepiness. She keeps falling asleep when she is inactive or in the car even very short distance. [facility] Medical History Prediabetes Surgical History Hx of tubal ligation Family History (Updated 09/09/22 @ 14:54 by NATY Jean) Father Tuberculosis Mother Diabetes Heart disease Thyroid condition Hyperlipidemia Sister Renal insufficiency Brother Thyroid condition Social History (Updated 10/02/22 @ 15:11 by NATY Garza) Alcohol intake: never Patient Tobacco Use Status: Never used Tobacco Current occupational status: unemployed Review of Systems Const All systems reviewed & are unremarkable except as noted in HPI and below ENT Reports Normal hearing present Neuro Reports Normal hearing present Physical Exam Vital Signs: BMI result Body Mass Index 35.2 Const General: cooperative and tired appearing Nutritional Appearance: obese Orientation/consciousness: patient oriented x3 Limitations: language barrier (Danish speaking only. ) HEENT Teeth and gingiva: other (mallampati grade 4) Neuro General: patient oriented x3 and gait normal Cranial nerves: Yes Bilaterally intact EOM present, Yes Normal facial strength present, Yes Midline tongue present, Yes Symmetric palate elevation present, Yes Normal hearing present, Yes Ability to bilaterally rotate head present and Yes Ability to bilaterally elevate shoulders present Cognition (Neuro): normal cognition Motor exam (neuro): 5/5 motor strength present throughout, Pronator motor function not present and no tremor noted Psych Appearance: grossly normal Mental Status: mental status grossly normal Affect: normal affect Attitude: cooperative Assessment & Plan Assessment & Plan (1) Excessive daytime sleepiness: Code(s): G47.19 - Other hypersomnia (2) Snoring: Code(s): R06.83 - Snoring Plan Pt's clinical symptoms including snoring, gasping and apnea episodes and excessive daytime sleepiness suspected [place] and the home sleep study result was inconclusive. Advised patient to undergo in lab sleep study for more detailed evaluation. Will f/u of sleep study result for appropriate treatment options. Orders: Orders RT PSG in-lab sleep study Today G47.19 - Other hypersomnia, I10 - Essential (primary) hypertension, R00.2 - Palpitations, R06.83 - Snoring Coding Level of Care Code Est Pt Level 3 (40531) Diagnoses Excessive daytime sleepiness G47.19 Snoring R06.83
== END 2023-03-17 10:45 | disposition home or self-care (01) ==
LOC: HO.HSMC 10:28
PROVIDERS: PCP Registered Nurse; Visit Provider Nurse Practitioner Family
DX: G47.19 Other hypersomnia (principal); R06.83 Snoring
CPT/HCPCS: 99213

== ENCOUNTER → 2023-03-17 10:28 | Outpatient (BNVA) | payer MEDICAID, SELFPAY | PROVIDERS: PCP Registered Nurse; Visit Provider Nurse Practitioner Family | DX: G47.19 Other hypersomnia (principal); R06.83 Snoring | CPT/HCPCS: 99213 ==

== ENCOUNTER → 2023-03-31 22:14 | Outpatient (BNV) | payer MEDICAID, SELFPAY | PROVIDERS: PCP Registered Nurse; Visit Provider Psychiatry & Neurology Neurology | DX: G47.33 Obstructive sleep apnea (adult) (pediatric) (principal) | CPT/HCPCS: 95810 ==

== ENCOUNTER → 2023-03-31 22:16 | Outpatient (REF) | payer MEDICAID, SELFPAY | LOC: HO.SL 22:16 | PROVIDERS: PCP Registered Nurse; Visit Provider Nurse Practitioner Family | DX: G47.33 Obstructive sleep apnea (adult) (pediatric) (principal); R06.83 Snoring; G47.19 Other hypersomnia | CPT/HCPCS: 95810 ==

== ENCOUNTER 2023-05-19 12:48 | Outpatient (AMB) | payer MEDICAID, SELFPAY ==
--- NOTE | 2023-05-19 12:51 | A.OFFVIS_ITS ---
Intake Vital Signs 05/19/23 12:53 Weight 179 lb 4 oz BP 130/60 Blood Pressure Location Lt brachial Position Sitting Pulse 69 Pulse Source Pulse Oximeter Pulse Oximetry (%) 96 Oxygen Delivery Method Room Air Intake Visit Reasons: 2 mnts f/u appt for sleep - Confirmed Intake Note: Pt presents today in fup [place] , pt states she sleeps very well, isnt a mouth breather like before Allergies No Known Allergies Allergy (Verified 05/19/23 12:55) HPI HPI Comments History of Present Illness Details 57 y/o female patient presents for follo w up of sleep study. The PSG sleep study result was significant for mild degree of sleep apnea. The AHI was 9/hr and oxygen aicha was 84%. She started APAP [id number] about two weeks ago. The compliance and therapy response reviewed. The usage days 14 days and average usage hours 3 hrs. The max pressure was 11 and the residual AHI was 0.7/hr. Pt reports sleeps well, less snoring, 8 hrs, feel refreshed and has more enerygy during daytime. [facility] Medical History Prediabetes Surgical History Hx of tubal ligation Family History Father Tuberculosis Mother Diabetes Heart disease Thyroid condition Hyperlipidemia Sister Renal insufficiency Brother Thyroid condition Social History Alcohol intake: never Patient Tobacco Use Status: Never used Tobacco Current occupational status: unemployed Review of Systems Const All systems reviewed & are unremarkable except as noted in HPI and below ENT Reports Normal hearing present Neuro Reports Normal hearing present Physical Exam Vital Signs: Last Vital Signs Pulse 69 05/19/23 12:53 BP 130/60 05/19/23 12:53 Pulse Ox 96 05/19/23 12:53 Oxygen Delivery Method Room Air 05/19/23 12:53 Const General: cooperative Nutritional Appearance: obese Orientation/consciousness: patient oriented x3 Limitations: language barrier (Persian speaking only. ) HEENT Teeth and gingiva: other (mallampati grade 4) Neuro General: patient oriented x3 and gait normal Cranial nerves: Yes Bilaterally intact EOM present, Yes Normal facial strength present, Yes Midline tongue present, Yes Symmetric palate elevation present, Yes Normal hearing present, Yes Ability to bilaterally rotate head present and Yes Ability to bilaterally elevate shoulders present Cognition (Neuro): normal cognition Motor exam (neuro): 5/5 motor strength present throughout, Pronator motor function not present and no tremor noted Psych Appearance: grossly normal Mental Status: mental status grossly normal Affect: normal affect Attitude: cooperative Assessment & Plan Assessment & Plan (1) [place] (obstructive sleep apnea): Comment: Mild degree of sleep apnea. The AHI was 9/hr and oxygen aicha was 84% Code(s): G47.33 - Obstructive sleep apnea (adult) (pediatric) Plan Continue to use APAP [id number] as patient experiences good clinical effects, less snoring and better quality sleep. Stressed compliance, use CPAP nightly and more than 4hrs. Wt reduction advised. Coding Level of Care Code Est Pt Level 3 (78060) Diagnoses TR[place] (obstructive sleep apnea) G47.33
[2023-05-19 12:53] VITALS: BP 130/60; PULSE 69; O2SAT 96
== END 2023-05-19 13:13 | disposition home or self-care (01) ==
PROVIDERS: PCP Registered Nurse; Visit Provider Nurse Practitioner Family
DX: G47.33 Obstructive sleep apnea (adult) (pediatric) (principal)
CPT/HCPCS: 99213

== ENCOUNTER → 2023-05-19 12:48 | Outpatient (BNVA) | payer MEDICAID, SELFPAY | PROVIDERS: PCP Registered Nurse; Visit Provider Nurse Practitioner Family | DX: G47.33 Obstructive sleep apnea (adult) (pediatric) (principal) | CPT/HCPCS: 99212 ==

== ENCOUNTER 2023-06-12 13:33 | Outpatient (REF) | payer MEDICAID, SELFPAY ==
--- NOTE | ~2023-06-12 | XR_ITS ---
EXAMINATION: XR LUMBOSACRAL SPINE CLINICAL INFORMATION: Lower back pain. COMPARISON: Lumbar spine radiographs dated 08/10/2019. TECHNIQUE: AP and lateral views of the lumbar spine and lateral view of the lumbosacral junction. FINDINGS: There is mild bony demineralization. Vertebral body heights are normal. There is a slight thoracolumbar dextroscoliosis. At L4-L5, there is a 6 mm anterolisthesis. No acute fracture or spondylolisthesis is seen. There is mild anterior spondylosis at L1-L2. The posterior elements are intact. There is facet arthropathy at L5-S1. The paravertebral soft tissues are unremarkable. XR/XR lumbar spine 2-3V IMPRESSION: 1. There is mild degenerative disc disease at L4-L5. 2. There is mild anterior spondylosis at L1-L2. 3. There is facet arthropathy at L5-S1. 4. There is a slight thoracolumbar dextroscoliosis.
--- NOTE | ~2023-06-12 | XR_ITS ---
EXAMINATION: XR HAND, RIGHT CLINICAL INFORMATION: Chronic right hand pain. COMPARISON: Radiographs dated 07/01/2016. TECHNIQUE: PA, lateral, and oblique views of the right hand. FINDINGS: Bony alignment and mineralization are normal. The proximal and distal carpal rows are intact. There is mild osteoarthritic change of the first carpometacarpal joint. No fracture or dislocation is seen. There is no abnormal bone erosion. No focal soft tissue swelling, gas or foreign body is seen. XR/XR hand RT min 3V IMPRESSION: 1. No fracture or dislocation is seen. 2. There is no abnormal bone erosion. 3. There is mild osteoarthritic change of the right first carpometacarpal joint.
== END 2023-06-12 13:34 | disposition home or self-care (01) ==
LOC: HO.HHCX 13:33
PROVIDERS: Visit Provider Registered Nurse
DX: M79.641 Pain in right hand (principal); M54.50 Low back pain, unspecified
CPT/HCPCS: 72100; 73130

== ENCOUNTER 2023-07-14 13:21 | Outpatient (AMB) | payer MEDICAID, SELFPAY ==
--- NOTE | 2023-07-14 13:36 | A.OFFVIS_ITS ---
Intake Vital Signs 07/14/23 13:48 Height 5 ft Weight 180 lb BMI 35.2 BP 138/82 Blood Pressure Location Rt brachial Pulse 72 Pulse Source Pulse Oximeter Pulse Oximetry (%) 96 Oxygen Delivery Method Room Air Intake Visit Reasons: DEGENERATIVE DISC DISEASE, LUMBAR/lvm Intake Note: Pain today 01/03 Web Operations Administrator Required: Yes Web Operations Administrator Language: Cpr Ambulance Driver Name: #[id number] Allergies No Known Allergies Allergy (Verified 05/19/23 12:55) HPI DEGENERATIVE DISC DISEASE, LUMBAR/lvm HPI Details Patient is a 57 years old Korean speaking female with past medical history of lumbar degenerative disc disease, back and knee arthritis, mild thoracolumbar dextroscoliosis presents today for initial evaluation of chronic low back pain. Denies any recent or past trauma, injury or falls. She attended physical therapy 4 months ago which increased her pain. Denies previous spine surgery or injections. Pain is constant and is rated at 9/10. Back pain is axial and also radiates into right buttock and right lateral hip. Pain affects her daily activities, functioning, sleep, social activities, mood and quality of life. She is interested in interventional treatments for her axial low back and right sacroiliac joint pain. She also reports mild bilateral knee pain which she would like to address later. Denies any fever, abdominal or groin pain, bladder or bowel incontinence or saddle anesthesia. Location Lower back pain, bilateral knee pain Duration Chronic pain >10 years Characteristics of symptom or complaint Shooting, aching, throbbing, sharp, stabbing, tiring, hurting, sore Aggravating or associated factors Prolonged sitting, standing, lifting, pulling, bending Relieving factors Laying down, Tylenol, Motrin, heat therapy Treatment PT- made pain worse PFSH Medical History Prediabetes Surgical History Hx of tubal ligation Family History Father Tuberculosis Mother Diabetes Heart disease Thyroid condition Hyperlipidemia Sister Renal insufficiency Brother Thyroid condition Social History Alcohol intake: never Patient Tobacco Use Status: Never used Tobacco Current occupational status: unemployed Review of Systems Const All systems reviewed & are unremarkable except as noted in HPI and below Denies body aches, Denies chills, Reports difficulty sleeping, Reports fatigue, Denies fever(s), Denies frequent falls, Denies malaise, Denies weakness and Denies weight loss Musc Reports as per HPI, Reports back pain, Denies myalgias, Reports arthralgias, Denies joint swelling, Reports limited range of motion, Denies muscle weakness, Denies numbness, Denies radiating pain into limb, Reports stiffness and Denies tingling Neuro Denies frequent falls, Denies numbness, Denies tingling and Denies weakness Endo Reports fatigue Physical Exam Vital Signs: Last Vital Signs Pulse 72 07/14/23 13:48 BP 138/82 07/14/23 13:48 Pulse Ox 96 07/14/23 13:48 Oxygen Delivery Method Room Air 07/14/23 13:48 BMI result Body Mass Index 35.2 General: Appears afebrile. Alert and oriented. Mood and affect appropriate. Follows and participates in conversation appropriately. Respiratory effort is unlabored. No cough. Able to transition from sit to stand unassisted. Ambulates with bilaterally normal heel strike and toe off. Back/Spine/Pelvis Other: Patient is able to walk and stand on heels and tip toes with no difficulties demonstrating good motor tone. No limping. Can flex forward to 70-75 degrees and extend to 5-10 degrees before experiencing lumbar pain. Demonstrates 5/5 strength of quadriceps bilaterally as well as flexion/dorsiflexion of bilateral feet against resistance. 2+ pedal pulses bilaterally. Straight leg rise with dorsiflexion negative bilaterally. +2 patellar and achilles reflexes bilaterally. Facet loading test positive bilaterally. Ti sign, Flavio?s, Gaenslen, Pelvic compression and Stinchfield tests are positive on the right. No groin pain with I/E hip rotations. Significant paraspinals tenderness mostly on the right side, mid and lower back. Valsalva maneuver negative. Cervical Spine: cervical ROM normal, cervical muscular tenderness and No Cervi gal spine tenderness Thoracic/Lumbar Spine: thoracic and lumbar spine normal to inspection, No Thoracic/lumbar spine scar(s), Lasegue's sign negative, straight leg raise negative bilaterally, pain with thoraco-lumbar ROM, No thoracic spinal tenderness and lumbar spinal tenderness (L4-S1) Pelvis: buttock tenderness on the right, no unilateral elevation of iliac crest and no sciatic notch tenderness Sacroiliac joints: on the right tender to palpation and on the left nontender Results Reviewed Results Reviewed: XR LUMBOSACRAL SPINE 06/12/23 CLINICAL INFORMATION: Lower back pain. COMPARISON: Lumbar spine radiographs dated 08/10/2019. FINDINGS: There is mild bony demineralization. Vertebral body heights are normal. There is a slight thoracolumbar dextroscoliosis. At L4-L5, there is a 6 mm anterolisthesis. No acute fracture or spondylolisthesis is seen. There is mild anterior spondylosis at L1-L2. The posterior elements are intact. There is facet arthropathy at L5-S1. The paravertebral soft tissues are unremarkable. IMPRESSION: 1. There is mild degenerative disc disease at L4-L5. 2. There is mild anterior spondylosis at L1-L2. 3. There is facet arthropathy at L5-S1. 4. There is a slight thoracolumbar dextroscoliosis. XR/XR knee standing BI 10/02/22 IMPRESSION: Mild osteoarthritis of the bilateral knees. Assessment & Plan Assessment & Plan (1) Lumbosacral spondylosis: Code(s): M47.817 - Spondylosis without myelopathy or radiculopathy, lumbosacral region (2) Muscle spasm of back: Code(s): M62.830 - Muscle spasm of back (3) Lumbar degenerative disc disease: Code(s): M51.36 - Other intervertebral disc degeneration, lumbar region (4) Sacroiliac joint pain: Code(s): M53.3 - Sacrococcygeal disorders, not elsewhere classified Plan Treatment options for axial low back and right SI joint pain are reviewed and discussed in detail with patient with assistance of medical project management instructor. Informational pamphlets provided to patient. For axial low back pain, schedule Diagnostic Bilateral L3-L4-DR L5 MBB with local and fluoroscopy. If she has significant relief from the diagnostic blocks for her axial low back pain, will consider either therapeutic injections, Sprint PNS or RFA depending on her preference. If no pain relief, will proceed with diagnostic right SIJ injection. Patient is not on anticoagulation. She is pre- diabetic. Scripts provided for acute on chronic low back pain for methocarbamol, naproxen and lidocaine patches. Side effects and precautions were reviewed with patient. All questions were answered and the patient is in agreement with the treatment plan. Will follow up after injections or sooner if needed. Justification for interventional therapy: ? Patient with average pain > 6/10 ? Patient has exhausted conservative therapy The risks, consequences, alternatives, and benefits of various treatment options were discussed with the patient in great detail, including conservative management, injections and procedures. Medications: New methocarbamol 750 mg PO Q8H 30 days PRN 90 tabs 0RF muscle spasm M47.817 - Spondylosis without myelopathy or radiculopathy, lumbosacral region, M62.830 - Muscle spasm of back naproxen Take it with food and full glass of water. 500 mg PO BID 30 days PRN 60 tabs 1RF pain M47.817 - Spondylosis without myelopathy or radiculopathy, lumbosacral region, M51.36 - Other intervertebral disc degeneration, lumbar region lidocaine 5% 1 patch topical DAILY 30 days 30 ea 1RF pain M47.817 - Spondylosis without myelopathy or radiculopathy, lumbosacral region Coding Level of Care Code New Pt Level 4 (05229) Diagnoses Lumbosacral spondylosis M47.817 Muscle spasm of back M62.830 Lumbar degenerative disc disease M51.36 Sacroiliac joint pain M53.3
[2023-07-14 13:48] VITALS: BP 138/82; PULSE 72; O2SAT 96; BMI 35.2
== END 2023-07-14 14:12 | disposition home or self-care (01) ==
PROVIDERS: PCP Registered Nurse; Visit Provider Nurse Practitioner Family
DX: M47.817 Spondylosis without myelopathy or radiculopathy, lumbosacral region (principal); M62.830 Muscle spasm of back; M51.36 Other intervertebral disc degeneration, lumbar region; M53.3 Sacrococcygeal disorders, not elsewhere classified
CPT/HCPCS: 99204

== ENCOUNTER → 2023-07-14 13:21 | Outpatient (BNVA) | payer MEDICAID, SELFPAY | PROVIDERS: PCP Registered Nurse; Visit Provider Nurse Practitioner Family | DX: M47.817 Spondylosis without myelopathy or radiculopathy, lumbosacral region (principal); M62.830 Muscle spasm of back; M51.36 Other intervertebral disc degeneration, lumbar region; M53.3 Sacrococcygeal disorders, not elsewhere classified | CPT/HCPCS: 99212 ==

== ENCOUNTER 2023-09-01 06:12 | Outpatient (REF) | payer MEDICAID, SELFPAY ==
--- NOTE | ~2023-09-01 | FL_ITS ---
EXAMINATION: XR FLUOROSCOPY WITH IMAGES CLINICAL INFORMATION: Other intervertebral disc degeneration, lumbar region COMPARISON: None available. TECHNIQUE: Fluoroscopy Supervised By: Dr. Umesh Peoples. Fluoroscopy Time: 0.6 minutes. Cumulative Dose: 14.8 mGy. DAP: 0.257 Gycm2. Images: 4. FINDINGS: Fluoroscopic guidance in treatment room On the first image, AP view, the tip of a needle is positioned adjacent to the left lateral L5 vertebral body with injection of contrast. On the second image, AP view, the tip of the needle is seen adjacent to the right lateral L5 vertebral body with contrast injected On the third image, oblique view, the tip of the needle projects over the right lateral L5 with injection of contrast. On the fourth image, oblique view, the tip of a needle projects over the right lateral L4 vertebral body with injection of contrast. FL/FL guidance in treatment room IMPRESSION: Fluoroscopic guidance provided for Dr. Peoples, as described above.
== END 2023-09-01 06:13 | disposition home or self-care (01) ==
LOC: CF 06:12
PROVIDERS: Visit Provider Anesthesiology
DX: M47.817 Spondylosis without myelopathy or radiculopathy, lumbosacral region (principal); M51.36 Other intervertebral disc degeneration, lumbar region
CPT/HCPCS: 64493; 64494; J2795; Q9967

== ENCOUNTER 2023-09-01 09:55 | Outpatient (AMB) | payer MEDICAID, SELFPAY ==
--- NOTE | 2023-09-01 10:06 | A.OFFVIS_ITS ---
Intake Vital Signs 09/01/23 10:58 09/01/23 10:58 Height 5 ft 5 ft Weight 180 lb 180 lb BMI 35.2 35.2 BP 146/72 H 130/78 Blood Pressure Location Lt brachial Lt brachial Position Sitting Sitting Respiration 12 12 Pulse 61 61 Pulse Source Pulse Oximeter Pulse Oximeter Pulse Oximetry (%) 97 96 Oxygen Delivery Method Room Air Room Air Comment pre-op post-op Intake Visit Reasons: BILATERAL DIAGNOSTIC L3, L4, DRL5 MBB Allergies No Known Allergies Allergy (Verified 09/01/23 10:59) PFSH Medical History Prediabetes Surgical History Hx of tubal ligation Family History Father Tuberculosis Mother Diabetes Heart disease Thyroid condition Hyperlipidemia Sister Renal insufficiency Brother Thyroid condition Social History Alcohol intake: never Patient Tobacco Use Status: Never used Tobacco Current occupational status: unemployed Physical Exam Vital Signs: Last Vital Signs Pulse 61 09/01/23 10:58 Resp 12 09/01/23 10:58 BP 130/78 09/01/23 10:58 Pulse Ox 96 09/01/23 10:58 Oxygen Delivery Method Room Air 09/01/23 10:58 BMI result Body Mass Index 35.2 Assessment & Plan Assessment & Plan (1) Lumbosacral spondylosis: Code(s): M47.817 - Spondylosis without myelopathy or radiculopathy, lumbosacral region Plan Diagnostic medial branch block L3,L4 dorsal ramus L5 bilateral.? ? ?Informed consent was explained to the patient. All questions were explained and? answered.? The patient was taken inside the operating room where she was positioned prone on the operating table. Time-out was performed delineating correct site, side, the nature of the procedure, patient's allergy, . All operating room staff was participating in OR time-out procedure. ? ? The lower back was prepped with ChloraPrep and draped with sterile towels.? C- arm was brought over the operating field and sq picture of L4-, L5 vertebra and S1 AREA were delineated on the screen.? Point of interest were delineated as confluence of superior articular process of L4 and L5 vertebra bilaterally with corresponding transverse processes as well as confluence of the sacral alae bilaterally with superior articular process of S1.? The projection of the point of interest to the skin were injected with the small amount of local anesthetic lidocaine 2% 1-1.5 cc.? After that 22 gauge 3.5 inch spinal needle was driven sequentially to the points of interest in tunnel vision fashion. After needles gently contacted the bone at the point of interests the needle was injected with small amount of the contrast.? The injection of the contrast did not demonstrate any intravascular or intrathecal spread of the contrast.? After that injection of the? ropivacaine 0.5%-1cc was performed at each needle location.??after that the needles were removed and Bandaids were applied. ? Upon completion of the injections? needle was? removed and sterile Band-Aids were applied.? The patient tolerated procedure very well. Orders: Orders FL guidance in treatment room Today M51.36 - Other intervertebral disc degeneration, lumbar region Coding Level of Care Code Procedure Only Diagnoses Lumbosacral spondylosis M47.817
[2023-09-01 10:58] VITALS: BP 130/78; BP 146/72; PULSE 61; RESP 12; O2SAT 96; O2SAT 97; BMI 35.2
== END 2023-09-01 11:19 | disposition home or self-care (01) ==
LOC: HO.PMCPRC 09:55
PROVIDERS: PCP Registered Nurse; Visit Provider Anesthesiology
DX: M47.817 Spondylosis without myelopathy or radiculopathy, lumbosacral region (principal)
CPT/HCPCS: 64493; 64494

== ENCOUNTER 2023-10-19 12:33 | Outpatient (REF) | payer MEDICAID, SELFPAY ==
--- NOTE | ~2023-10-19 | XR_ITS ---
EXAMINATION: XR FOOT, RIGHT CLINICAL INFORMATION: Order states calcaneal spur of right foot. COMPARISON: None available. TECHNIQUE: AP, lateral, and oblique views of the right foot. FINDINGS: Moderate plantar calcaneal spur. Mild degenerative changes with hypertrophic change in the 1st metatarsophalangeal joint. XR/XR foot RT min 3V IMPRESSION: 1. Moderate plantar calcaneal spur. 2. Mild degenerative changes 1st metatarsophalangeal joint. This study was presented today 10/19/2023 for interpretation. Stat results provided at this time as requested by referring provider.
== END 2023-10-19 12:34 | disposition home or self-care (01) ==
LOC: HO.HHCX 12:33
PROVIDERS: Visit Provider Internal Medicine
DX: M77.31 Calcaneal spur, right foot (principal)
CPT/HCPCS: 73630

== ENCOUNTER 2023-10-19 12:53 | Outpatient (REF) | payer MEDICAID, SELFPAY ==
[2023-10-19 16:10] LABS: MANUAL DIFF FLAG NO
[2023-10-19 16:21] LABS: Basophils Percent Auto 0.4 % (0-2); Eosinophils Absolute Auto 0.2 X10*3/uL (0.0-0.4); Eosinophils Percent Auto 4.4 % (0-4); Hematocrit 39.9 % (37.0-47.0); Hemoglobin 13.7 g/dl (12.0-16.0); Imm Gran Abs Auto 0.01 X10*3/uL (0.00-0.03); Imm Gran Pct Auto 0.2 % (0.0-0.4); Lymphocytes Absolute Auto 1.7 X10*3/uL (1.2-4.9); Mean Corpuscular HGB Conc 34.3 g/dl (31.0-35.0); Mean Corpuscular Hemoglobin 31.7 pg (27.0-33.0); Mean Corpuscular Volume 92.4 fL (80.0-98.0); Mean Platelet Volume 9.5 fL (9.4-12.3); Monocytes Absolute Auto 0.4 X10*3/uL (0.1-1.2); Monocytes Percent Auto 7.9 % (2-11); Neutrophils Absolute Auto 2.5 x10*3/uL (2.0-8.3); Neutrophils Percent Auto 52.1 % (45-73); Platelet Count 269 X10*3/uL (160-400); Red Blood Count 4.32 X10*6/uL (4.20-5.50); Red Cell Distribution Width 12.3 % (11.0-16.0); White Blood Count 4.8 X10*3/uL (4.8-10.8)
[2023-10-19 16:28] LABS: Estimated Average Glucose 114 mg/dL; Hemoglobin A1c % 5.6 % (<6.0)
[2023-10-19 16:55] LABS: Alanine Aminotransferase 20 U/L (0-31); Albumin Level 4.7 g/dL (3.5-5.0); Alkaline Phosphatase 72 U/L (39-117); Anion Gap 14 (12-20); Aspartate Amino Transferase 19 U/L (5-31); Bilirubin Total 0.9 mg/dL (0.0-1.0); Blood Urea Nitrogen 9 mg/dL (9-16); Calcium 9.8 mg/dL (8.4-10.2); Carbon Dioxide 28 mmol/L (22-29); Chloride 105 mmol/L (96-108); Cholesterol 181 mg/dL (<200); Estimated Glomerular Filt Rate > 60; Glucose Random 96 mg/dL (60-115); HDL Cholesterol 44 mg/dL (>40); LDL Cholesterol Calculated 107 mg/dL (<100); Sodium 143 mmol/L (135-145); Total Protein 8.4 g/dL (6.5-8.0); Triglycerides 151 mg/dL (<150)
[2023-10-19 17:16] LABS: TSH reflex Free T4 0.29 uIU/mL (0.32-4.0)
[2023-10-19 17:48] LABS: Free T4 (Free Thyroxine) 1.77 ng/dL (0.71-1.85)
[2023-10-20 04:37] LABS: HBS Num1 181.32 mIU/mL (0-7.99); HBc Num1 0.16 S/CO (0.00-0.79); HBsAGNum1 0.29 S/CO (0.00-0.99); HIV AB/AG Nonreactive (Nonreactive); HIV Num 1 0.05 S/CO (0.00-0.99); Hepatitis B Core Antibody Nonreactive (Nonreactive); Hepatitis B Surface Antigen Negative (Negative); ~Hepatitis B Surface Antibody REACTIVE (Nonreactive)
[2023-10-20 11:38] LABS: RPR Rapid Plasma Reagin NON-REACTIVE (NON-REACTIVE)
[2023-10-21 06:58] LABS: HCV Log PCR <1.18 NOT DETECTED Log IU/mL (NOT DETECTED); HepC Viral Load <15 NOT DETECTED IU/mL (NOT DETECTED)
== END 2023-10-19 12:54 | disposition home or self-care (01) ==
LOC: HO.HHCL 12:53
PROVIDERS: Visit Provider Registered Nurse
DX: Z00.00 Encounter for general adult medical examination without abnormal findings (principal); R09.81 Nasal congestion
CPT/HCPCS: 0241U; 36415; 80053; 80061; 83036; 84439; 84443; 85025; 86592; 86704; 86706; 87340; 87389; 87522

== ENCOUNTER 2023-10-19 15:42 | Outpatient (REF) | payer MEDICAID, SELFPAY ==
[2023-10-19 18:18] LABS: Influenza A PCR NEGATIVE (Negative); Influenza B PCR NEGATIVE (Negative); Resp Syncy Virus RNA Qual PCR NEGATIVE (Negative); SARS COV2 PCR INHOUSE NEGATIVE (Negative)
== END 2023-10-19 15:43 | disposition home or self-care (01) ==
LOC: HO.CHCLNP 15:42
PROVIDERS: Visit Provider Registered Nurse
DX: R09.81 Nasal congestion (principal)
CPT/HCPCS: 0241U

== ENCOUNTER 2023-10-28 10:50 | Outpatient (REF) | payer MEDICAID, SELFPAY ==
--- NOTE | ~2023-10-28 | XR_ITS ---
EXAMINATION: XR WRIST, RIGHT CLINICAL INFORMATION: Right wrist pain. COMPARISON: Right wrist 07/01/2016. Right hand 06/12/2023. TECHNIQUE: PA, lateral, and oblique views of the right wrist. FINDINGS: Mild degenerative changes at the triscaphe joint and the first carpometacarpal joint. There is a new well corticated 2 mm ossicle along the ulnar styloid when compared to 07/01/2016 which may represent a remote avulsion injury or ligamental calcification. This is similar to 06/12/2023. No acute fracture. No suspicious bone lesion. XR/XR wrist RT min 3V IMPRESSION: Mild degenerative changes at the triscaphe joint and first carpometacarpal joint.
== END 2023-10-28 10:51 | disposition home or self-care (01) ==
LOC: HO.HOSX 10:50
PROVIDERS: Visit Provider Physician Assistant
DX: M25.531 Pain in right wrist (principal)
CPT/HCPCS: 73110; 99212

== ENCOUNTER 2023-10-28 14:23 | Outpatient (AMB) | payer MEDICAID, SELFPAY ==
[2023-10-28 14:31] VITALS: BMI 35.2
--- NOTE | 2023-10-28 14:31 | A.OFFVIS_ITS ---
Intake Vital Signs 10/28/23 14:31 Height 5 ft Weight 180 lb BMI 35.2 Intake Visit Reasons: New Prob - RT Wrist pain Intake Note: Nadege a 58 year old right hand dominant female who presents today for an evaluation of right wrist pain. Patient reports ongoing pain for a year. She estates that she has noticed that her fingers also get swollen. No hx of injury. She states that her pain is on the dorsal aspect of the wrist and is radiates up to her forearm. Patient has finds mild relief when taking Tylenol/ibuprofen. Patient has tried icing but she states that her pain is worse when she applies it. Patient doesn't find relief when she is using her wrist brace. 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 She states she has pain at the dorsal aspect of her wrist which radiates up to her forearm. She also c/o swelling, numbness, and tingling in her 1st, 2nd, and 3rd finger. She denies any catching or locking in her hand. She finds mild relief with Tylenol and ibuprofen. She has tried icing however her pain gets worsened after applying it. She finds no relief with her wrist brace. She reports she now has pain in her left wrist as well. [facility] Medical History Prediabetes Surgical History Hx of tubal ligation Family History Father Tuberculosis Mother Diabetes Heart disease Thyroid condition Hyperlipidemia Sister Renal insufficiency Brother Thyroid condition Social History (Updated 10/28/23 @ 14:49 by NATY Garza) Alcohol intake: never Patient Tobacco Use Status: Never used Tobacco Current occupational status: unemployed Current occupation: right hand dominant Review of Systems Const All systems reviewed & are unremarkable except as noted in HPI and below Physical Exam Vital Signs: BMI result Body Mass Index 35.2 Extrem Other: Right elbow: Skin intact. No erythema or swelling. ROM full without pain. Tenderness over the lateral epicondyle and pain with resisted wrist extension. NVI. Assessment & Plan Assessment & Plan (1) Lateral epicondylitis, right elbow: Code(s): M77.11 - Lateral epicondylitis, right elbow Plan We discussed options which include PT, NSAIDs and injections. The patient will defer on the injection today and proceed with PT and NSAIDs. She was also given a prescription of Celebrex to help with her swelling and pain. If symptoms pe rsist, the patient will contact me for an injection, otherwise, PRN. Orders: Orders XR wrist RT min 3V Today M25.531 - Pain in right wrist OT Evaluation and Treatment Today M77.11 - Lateral epicondylitis, right elbow Medications: New celecoxib (Celebrex) 200 mg PO BID 60 caps 3RF 30 days Patient Instructions: Scribed for Tobias Lorenzana PA-C, by Riley Mccarthy clinical medical transcriptionist, on 10/28/2023 at 3:00 PM EST. I, Tobias Lorenzana PA-C, have personally reviewed and agree with the information entered by the scribe. Coding Level of Care Code New Pt Level 3 (18156) Diagnoses Lateral epicondylitis, right elbow M77.11
== END 2023-10-28 15:41 | disposition home or self-care (01) ==
PROVIDERS: PCP Registered Nurse; Visit Provider Physician Assistant
DX: M77.11 Lateral epicondylitis, right elbow (principal)
CPT/HCPCS: 99213

== ENCOUNTER 2023-11-20 12:05 | Outpatient (REF) | payer MEDICAID, SELFPAY ==
--- NOTE | ~2023-11-20 | MM_ITS ---
EXAMINATION: MM DIAGNOSTIC DIGITAL BREAST TOMOSYNTHESIS, BILATERAL US BREAST LIMITED, RIGHT MAMMOGRAPHY: CLINICAL INFORMATION: 58-year-old female, complaining of palpable subcutaneous mass in the right low axillary region, felt x2 days, marked by the technologist. Patient has history of benign right breast MR biopsy. Patient has history of benign left-sided biopsy in 2013. Patient here for bilateral screening as well. COMPARISON: Mammography: 10/31/2022, 06/13/2022, 10/01/2021, 09/24/2020 08/19/2019, and dating back to 2015. MRI breasts: 11/27/2022. TECHNIQUE: Digital breast tomosynthesis is performed in both the craniocaudal and mediolateral oblique views along with computer-aided detection (CAD). Synthesized 2D images are generated from the tomosynthesis. In addition, full-field right 3-D digital mediolateral view was obtained, as well as spot compression 3-D views in the right CC and MLO projections. This was followed by targeted right breast ultrasound. FINDINGS: The breasts are heterogeneously dense, which may obscure small masses (ACR BI-RADS breast composition Category c). A BB marker has been placed in the low axillary region indicating the area of palpable concern. There is a subjacent triangular-shaped isodense circumscribed mass, with one focus of fat attenuation, possibly a fatty hilum, correlating with the focus of palpable concern. This will be evaluated by ultrasound. Post benign biopsy clips noted in both breasts. There are a few subcentimeter oval and round masses in both breasts, predominantly within dense fibroglandular tissue, most consistent with small cysts. These are benign. There are no suspicious masses, suspicious grouped calcifications, or areas of architectural distortion in either breast. The parenchymal pattern is stable from prior exams. No skin abnormalities. No left axillary abnormalities. ULTRASOUND: CLINICAL INFORMATION: As above. COMPARISON: None TECHNIQUE: Targeted sonographic evaluation was performed using a high frequency linear transducer. Attention was given to the low right axilla in the region of palpable concern. Selected archived documentation. FINDINGS: RIGHT LOWER AXILLA: -Correlating with the focus of palpable concern, there is a 4 x 4 x 5 mm round hypoechoic subcutaneous mass, with surrounding echogenic fat, microlobulated margins, no associated skin thinning, internal color Doppler signal as well as surrounding increased color Doppler flow suggesting inflammation. Direct visualization of the overlying skin demonstrated no evidence of puncta or skin tract. The patient states she has not felt well x3 days. Abnormality is not painful. There is no overlying bruising. Overall, the finding is felt to most likely represent an inflamed lymph node in the subcutaneous region. Differential includes a focus of fat necrosis, or much less likely unusual presentation of a dermal sebaceous cyst. A three-week interval ultrasound follow-up is suggested to assess for resolution or interval change, as biopsy is contraindicated if the lesion is a sebaceous cyst which has become infected. MM/MM tomosynthesis diagnostic BI IMPRESSION: -There are no findings suggestive of malignancy in either breast. There are stable benign findings. -Focus of palpable concern in the right lower axilla appears to correlate with a hypoechoic, microlobulated 4 x 4 x 5 mm mass, with surrounding echogenic fat, internal and external increased color Doppler flow, possible fatty hilum on mammography, and no definite dermal origin. This is most likely a reactive lymph node versus a focus of fat necrosis, and much less likely a dermal lesion such as an inflamed sebaceous cyst. Because biopsy would be contraindicated in that case, and the patient states she has felt sick x3 days, a three-week close interval ultrasound follow-up is recommended to assess for resolution or interval change. If no change at that time, biopsy would be indicated. -Findings and recommendations were discussed with the patient who is in agreement with the overall plan. ASSESSMENT: BI-RADS 3: Probably Benign RECOMMENDATION: Repeat diagnostic ultrasound right axilla in 3 weeks. This patient's information was entered into a reminder system with a target due date for their next mammogram.
== END 2023-11-20 12:06 | disposition home or self-care (01) ==
LOC: HO.MAMMO 12:05
PROVIDERS: PCP Registered Nurse; Visit Provider Registered Nurse
DX: N63.31 Unspecified lump in axillary tail of the right breast (principal)
CPT/HCPCS: 76642; 77062; 77066

== ENCOUNTER → 2023-11-20 12:15 | Outpatient (BNV) | payer MEDICAID, SELFPAY | PROVIDERS: PCP Registered Nurse; Visit Provider Radiology Diagnostic Radiology | DX: N60.01 Solitary cyst of right breast (principal); N60.02 Solitary cyst of left breast | CPT/HCPCS: 76642; 77062; 77066 ==

== ENCOUNTER 2023-12-07 12:30 | Outpatient (REF) | payer MEDICAID, SELFPAY ==
--- NOTE | ~2023-12-07 | US_ITS ---
EXAMINATION: US DIAGNOSTIC ULTRASOUND BREAST, RIGHT CLINICAL INFORMATION: The patient presents for recommended, short interval three-week follow-up of a palpable sonographic finding of the right breast 12 cm from the nipple. This was noted on diagnostic ultrasound from 11/20/2023. COMPARISON: This study is compared with the prior ultrasound from 11/20/2023. TECHNIQUE: Ultrasound of the breast is performed with real-time damon scale imaging and color Doppler. FINDINGS: Sonography of the 11:00 position of the right breast 12 cm from the nipple was performed. In this location, there is an irregular hypoechoic structure measuring 5 mm x 4 mm x 4 mm. It has a poorly marginated echogenic cuff and surrounding hypervascularity. It does not have appeared to have a connection to the skin on sonography. When comparing with the prior study, it is not changed in overall size. Since this represents a palpable, sonographically indeterminate entity, ultrasound-guided biopsy is advised. Results are discussed with the patient at time of visit. US/US breast RT limited mamm only IMPRESSION: Ultrasound-guided biopsy advised for indeterminate 5 mm palpable mass at the 11:00 position of the right breast 12 cm from the nipple. ASSESSMENT: BI-RADS 4 - Suspicious finding RECOMMENDATION: Biopsy recommended This patient's information was entered into a reminder system with a target due date for their next mammogram.
== END 2023-12-07 12:31 | disposition home or self-care (01) ==
LOC: HO.MAMMO 12:30
PROVIDERS: PCP Registered Nurse; Visit Provider Registered Nurse
DX: R92.2 Inconclusive mammogram (principal)
CPT/HCPCS: 76642

== ENCOUNTER → 2023-12-07 13:00 | Outpatient (BNV) | payer MEDICAID, SELFPAY | PROVIDERS: PCP Registered Nurse; Visit Provider Radiology Diagnostic Radiology | DX: N63.10 Unspecified lump in the right breast, unspecified quadrant (principal) | CPT/HCPCS: 76642 ==

== ENCOUNTER 2023-12-08 13:38 | Outpatient (REF) | payer MEDICAID, SELFPAY | END 2023-12-08 13:39 | disposition home or self-care (01) | LOC: HO.LNP 13:38 | PROVIDERS: PCP Registered Nurse; Visit Provider Surgery | DX: M79.89 Other specified soft tissue disorders (principal) | CPT/HCPCS: 11402; 88304; 88307; 88312; 99202 ==

== ENCOUNTER 2023-12-08 13:38 | Outpatient (AMB) | payer MEDICAID, SELFPAY ==
--- NOTE | 2023-12-08 13:42 | MHC.OFFVIS ---
Vital Signs 12/08/23 13:45 Height 5 ft Weight 179 lb BMI 35.0 BP 118/67 Blood Pressure Location Rt brachial Position Sitting Pulse 60 Intake Visit Reasons: USBx RT 11 o'clock mass Intake Note: Patient referred for US guided bx 11 o'clock Rt br. Patient c/o: feels lump on Rt sup breast X2wks. Bx scheduled 12-09-23. Survey Instrument Operator Required: Yes Survey Instrument Operator Name: Precious ALFONSO Accompanied by: Self / Same As Patient Allergies No Known Allergies Allergy (Verified 12/08/23 13:47) Medication List - Last Reconciled 12/08/23 by Ky Murray MD albuterol sulfate 90 mcg/actuation (Ventolin HFA) 2 puffs inhalation Q6H PRN celecoxib (Celebrex) 200 mg PO BID 30 days cholecalciferol (vitamin D3) 50 mcg PO DAILY docusate sodium (Colace) 100 mg PO BID PRN fluticasone propionate 50 mcg/actuation 1 spray intranasal DAILY ibuprofen 600 mg PO QID PRN ketotifen fumarate 0.025%(0.035%) (Eye Itch Relief) 1 drp ophthalmic (eye) levothyroxine 137 mcg PO QAM lidocaine 5% 1 patch topical DAILY 30 days lidocaine HCl 4% (Aspercreme (lidocaine HCl)) 1 appl topical BID PRN loratadine 10 mg PO DAILY PRN methocarbamol 750 mg PO Q8H PRN 30 days multivitamin 1 tab PO DAILY naproxen 500 mg PO BID PRN 30 days pravastatin 40 mg PO BEDTIME pravastatin 80 mg PO BEDTIME propranolol 40 mg PO BID HPI Comments Details: Patient noticed a proximally 2 weeks ago soft tissue mass of the upper outer quadrant of her left breast. Quit steadily she had mammogram and ultrasound which confirmed this process. Patient has no other breast issues or complaints. She denies any other masses, discharge, skin changes. Family history negative for breast pathology. Patient is . Chart was reviewed and patient evaluated [facility] Medical History (Updated 12/08/23 @ 13:49 by NATY Coughlin) High cholesterol Prediabetes Surgical History (Updated 12/08/23 @ 14:41 by Ky Murray MD) Hx of tubal ligation Family History Father Tuberculosis Mother Diabetes Heart disease Thyroid condition Hyperlipidemia Sister Renal insufficiency Brother Thyroid condition Social History Alcohol intake: never Patient Tobacco Use Status: Never used Tobacco Current occupational status: unemployed Current occupation: right hand dominant Physical Exam Vital Signs: Last Vital Signs Pulse 60 12/08/23 13:45 BP 118/67 12/08/23 13:45 BMI result Body Mass Index 35.0 Chest Other: No obvious cervical, periclavicular, or axillary adenopathy bilaterally. Left breast negative. Right breast demonstrates a soft tissue mass in the upper-outer quadrant. This is consistent with a cystic type process perhaps an epidermal inclusion cyst. Breast exams otherwise negative. No evidence of any mass, discharges or other skin changes aside from what is noted above. Office Procedures Excision Details: After appropriate positioning, patient underwent 1% lidocaine and Betadine prep and a transverse incision was made in the upper outer quadrant of the soft tissue of the right breast and carried down through skin, subcutaneous tissue, were uneventfully excision of the soft tissue mass was performed. Specimen sent to pathology. Wound was irrigated, secured hemostasis, and closed using running subcuticular 3-0 Vicryl suture followed by Steri-Strips and sterile dressings. Patient tolerated procedure well. 81696-cqpbe/arms/legs 1.1-2cm Procedure code (CPT) selection complete Office Meds lidocaine 1 %-epinephrine 1:100,000 injection solution Performing Provider: Ky Murray MD Performing Location: [facility] Administered by: Ky Murray MD on 12/08/23 14:41 Dose Route Admin Location Dispensed Lot Number Expiration Date [facility] Director Athletic 10 mL Infiltration 10 mL Assessment & Plan Assessment & Plan (1) Soft tissue mass: Code(s): M79.89 - Other specified soft tissue disorders Category: Surgical Plan I discussed with the patient that this is a soft tissue mass and not likely to be a breast process. Recommendation is for the office excision of this. Risks, benefits, alternatives of this were reviewed with the patient and included but not limited to bleeding, infection, recurrence, numbness, pain, scarring and the patient wishes to proceed. All questions answered. Consent was signed. Orders: Orders AMB Excision Today M79.89 - Other specified soft tissue disorders Medications: New lidocaine-epinephrine 1 %-1:100,000 10 mL Infiltration ONCE 30 mL 0RF M79.89 - Other specified soft tissue disorders Patient Instructions: Patient has been given local instructions including shower in 2 days, no strenuous activities, ice periodically, Motrin or Tylenol and will see me as directed or p.r.n.. All questions answered. Coding Level of Care Code New Pt Level 5 (06808) Diagnoses Soft tissue mass M79.89 CPT Codes Trunk/Arms/Legs - CPT: 57199-inmrq/arms/legs 1.1-2cm ([id number])
[2023-12-08 13:45] VITALS: BP 118/67; PULSE 60; BMI 35.0
== END 2023-12-08 14:17 | disposition home or self-care (01) ==
PROVIDERS: PCP Registered Nurse; Visit Provider Surgery
DX: M79.89 Other specified soft tissue disorders (principal); L72.0 Epidermal cyst
CPT/HCPCS: 11402; 99204

== ENCOUNTER 2023-12-15 10:22 | Outpatient (AMB) | payer MEDICAID, SELFPAY ==
--- NOTE | 2023-12-15 10:38 | A.OFFVIS_ITS ---
Intake Visit Reasons: follow up USBx RT 11 o'clock mass Intake Note: Patient here s/o exc Rt upper chest. Reports incision healing well. Patient c/o: itch, tenderness along surrounding site on chest and breast. Denies oozing, redness. Desk Pens Assembler Required: No Accompanied by: Self / Same As Patient Allergies No Known Allergies Allergy (Verified 12/15/23 10:39) HPI Comments Details: Patient presents for follow-up. She has no incisional issues or complaints. Pathology is benign. PFSH Medical History High cholesterol Prediabetes Surgical History Hx of tubal ligation Family History Father Tuberculosis Mother Diabetes Heart disease Thyroid condition Hyperlipidemia Sister Renal insufficiency Brother Thyroid condition Social History Alcohol intake: never Patient Tobacco Use Status: Never used Tobacco Current occupational status: unemployed Current occupation: right hand dominant Physical Exam Chest Other: Incision clean dry and intact healing very well. Remainder breast exam negative Assessment & Plan Assessment & Plan (1) Soft tissue mass: Code(s): M79.89 - Other specified soft tissue disorders Category: Surgical Plan: Current plan is to obtain a follow-up right breast upper outer quadrant ultrasound and direct further therapy based on this in 6 months' time. All questions answered. Patient will see me after the ultrasound visit or p.r.n.. Patient was encouraged to self-breast exams. Plan See above Orders: Orders US breast RT limited 6 Months M79.89 - Other specified soft tissue disorders Coding Level of Care Code Global (70784) Diagnoses Soft tissue mass M79.89
== END 2023-12-15 10:46 | disposition home or self-care (01) ==
PROVIDERS: PCP Registered Nurse; Visit Provider Surgery
DX: M79.89 Other specified soft tissue disorders (principal)
CPT/HCPCS: 99024

== ENCOUNTER → 2023-12-15 10:22 | Outpatient (BNVA) | payer MEDICAID, SELFPAY | PROVIDERS: PCP Registered Nurse; Visit Provider Surgery | DX: M79.89 Other specified soft tissue disorders (principal) | CPT/HCPCS: 99212 ==

== ENCOUNTER 2024-01-11 11:30 | Outpatient (RCR) | payer MEDICAID, SELFPAY ==
--- NOTE | 2024-01-11 11:54 | MHC.OT.DC ---
[address] [phone] F: [phone] Occupational Therapy Discharge Note Patient Name: Nadege Whitney Provider: Tobias Lorenzana PA-C Diagnosis: (R)Lateral Epicondylitis Date of Evaluation: 11/12/23 Date of Discharge: 01/11/24 Treatments to Date: 11 Discharge Status: Achieved Goals Improved Function Independent with HEP Discharge Summary: Nadege was referred to Ot w/ right lateral epicondylitis. She is doing well overall with decrease in pain. She has good follow through w/ nighttime orthosis wear and CFB wear, reports decreasing strenuous activities at home, still having trouble with mopping and homecare tasks, but reports primarily due to hand pain versus elbow. Therapy goals met and pt Ind w/ self management of lateral epicondylitis. She does have right hand pain consistent w/ OA, she plans to speak w/ PCP for further management needs, but we have educated on simple joint protection, activity modification and exercises. Electronically Signed By: Abbey Urbano OTR/L CHT Reviewed/agree with student documentation: Therapist: Please Sign and return to therapist, thank you for your referral.
== END 2024-01-11 11:55 | disposition home or self-care (01) ==
LOC: HO.OT 11:30
PROVIDERS: PCP Registered Nurse; Visit Provider Physician Assistant
DX: M77.11 Lateral epicondylitis, right elbow (principal)
CPT/HCPCS: 29125; 97110; 97140; 97166; 97760

== ENCOUNTER 2024-02-23 12:45 | Outpatient (REF) | payer MEDICAID, SELFPAY ==
--- NOTE | ~2024-02-23 | XR_ITS ---
EXAMINATION: XR KNEE, LEFT CLINICAL INFORMATION: Chronic knee pain. COMPARISON: Left knee July 03, 2022 TECHNIQUE: Four views of the left knee. FINDINGS: Degenerative joint narrowing of the femoral tibial joint. Medial joint narrowing greater than lateral joint narrowing. Small marginal bone spurs of femur and tibia at the medial femoral tibial joint. Minimal joint narrowing of the patellofemoral joint. Compared to prior study July 03, 2022 there has not been substantial change. XR/XR knee LT 3V IMPRESSION: Degenerative joint narrowing of the femoral tibial joint. No significant change since July 03, 2022.
--- NOTE | ~2024-02-23 | XR_ITS ---
EXAMINATION: XR KNEE, RIGHT CLINICAL INFORMATION: Chronic knee pain. COMPARISON: Right knee October 02, 2022. TECHNIQUE: 3 views of the right knee. FINDINGS: Mild degenerative joint narrowing of the femoral tibial joint. Minimal marginal bone spurs of the distal femur involving the periarticular bone of the medial femoral tibial joint. Patellofemoral joint is normal. No bone erosions. No chondrocalcinosis. No joint effusion. Compared to prior study 2022 there is no substantial change. XR/XR knee RT 3V IMPRESSION: Mild degenerative joint narrowing of the femoral tibial joint.
== END 2024-02-23 12:46 | disposition home or self-care (01) ==
LOC: HO.HHCX 12:45
PROVIDERS: Visit Provider Registered Nurse
DX: M25.562 Pain in left knee (principal); M25.561 Pain in right knee; G89.29 Other chronic pain
CPT/HCPCS: 36415; 73562; 82306; 84439; 84443

== ENCOUNTER 2024-02-23 13:19 | Outpatient (REF) | payer MEDICAID, SELFPAY ==
[2024-02-23 17:40] LABS: TSH reflex Free T4 0.29 uIU/mL (0.32-4.0); Vitamin D 25-OH Total 76.8 ng/mL (>30)
[2024-02-23 18:38] LABS: Free T4 (Free Thyroxine) 1.51 ng/dL (0.71-1.85)
== END 2024-02-23 13:20 | disposition home or self-care (01) ==
LOC: HO.HHCL 13:19
PROVIDERS: Visit Provider Registered Nurse
DX: E03.8 Other specified hypothyroidism (principal); E55.9 Vitamin D deficiency, unspecified
CPT/HCPCS: 36415; 82306; 84439; 84443

== ENCOUNTER 2024-03-09 12:44 | Outpatient (AMB) | payer MEDICAID, SELFPAY ==
--- NOTE | 2024-03-09 12:49 | MHC.OFFVIS ---
Vital Signs 03/09/24 12:50 Height 5 ft Weight 181 lb BMI 35.3 Intake Visit Reasons: 4M follow up-CONF Intake Note: Patient presents for 4 month follow up. patient here for follow up Teaching Fellow Required: Yes Teaching Fellow Name: Precious Masters Information Interpreted: non-clinical & clinical Allergies No Known Allergies Allergy (Verified 03/09/24 12:54) HPI Comments Details: 58-yr-old female presents for follow-up visit of sleep apnea. Pt denies any significant interval medical history changes. Pt states she is using APAP, when she uses it, she sleeps well, feels more rested and more energized. She did not realize that she was not using it for at least 4 hrs. 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 She states she has not rec'd new CPAP supplies since receiving her machine. She also brought in a denial letter from [facility] for Oxygen to [facility], from Aug 2023- we called [facility]- they states likely the request for O2 was in error, and should have been for the APAP- which she now has. Compliance Report Usage 02/07/2024 - 03/07/2024 Usage days 18/30 days (60%) Usage days >= 4 hours 6 days (20%) Usage days < 4 hours 12 days (40%) Average usage (days used) 3 hours 15 minutes AirSense 11 AutoSet Serial number [id number] Mode AutoSet Min Pressure 5 cmH2O Max Pressure 15 cmH2O EPR Fulltime EPR level 2 Response Standard Therapy Pressure Maximum Pressure: 12.3 cmH2O Maximum Leaks: 27.4 Events per hour AI: 1.3 HI: 0.2 AHI: 1.5/hr Apnea Index Central: 0.1 Obstructive: 1.0 Unknown: 0.2/hr PFSH Medical History High cholesterol Prediabetes Surgical History Hx of tubal ligation Family History Father Tuberculosis Mother Diabetes Heart disease Thyroid condition Hyperlipidemia Sister Renal insufficiency Brother Thyroid condition Social History (Reviewed 03/09/24 @ 12:54 by PAULINE Jean Alcohol intake: never Patient Tobacco Use Status: Never used Tobacco Current occupational status: unemployed Current occupation: right hand dominant Review of Systems Const All systems reviewed & are unremarkable except as noted in HPI and below Physical Exam Vital Signs: BMI result Body Mass Index 35.3 Const General: no acute distress Orientation/consciousness: patient oriented x3 HEENT Other: Mallampati stage Resp Effort & Inspection: normal respiratory effort and able to speak in complete sentences Neuro General: patient oriented x3 Psych Mental Status: mental status grossly normal Speech and movement: Clear speech present Attitude: cooperative Results Reviewed Results Reviewed: PAP compliance report- see HPI Assessment & Plan Assessment & Plan (1) [place] (obstructive sleep apnea): Comment: Mild degree of sleep apnea. The AHI was 9/hr and oxygen aicha was 84% Code(s): G47.33 - Obstructive sleep apnea (adult) (pediatric) Category: Medical Plan Continue APAP 5-15 cmH2O w/ EPR 2 nightly w/ goal of using > 4 hours, as pt has had good clinical effect from use.. Clean CPAP machine and supplies routinely. Change CPAP supplies routinely- will request supply refill. order written. Pt to contact us or respiratory company, [facility], with any questions or concerns. Coding Level of Care Code Est Pt Level 3 (98032) Diagnoses [place] (obstructive sleep apnea) G47.33
[2024-03-09 12:50] VITALS: BMI 35.3
== END 2024-03-09 13:31 | disposition home or self-care (01) ==
PROVIDERS: PCP Registered Nurse; Visit Provider Nurse Practitioner Family
DX: G47.33 Obstructive sleep apnea (adult) (pediatric) (principal)
CPT/HCPCS: 99213

== ENCOUNTER → 2024-03-09 12:44 | Outpatient (BNVA) | payer MEDICAID, SELFPAY | PROVIDERS: PCP Registered Nurse; Visit Provider Nurse Practitioner Family | DX: G47.33 Obstructive sleep apnea (adult) (pediatric) (principal); Z99.89 Dependence on other enabling machines and devices | CPT/HCPCS: 99212 ==

== ENCOUNTER 2024-03-18 12:35 | Outpatient (REF) | payer MEDICAID, SELFPAY ==
[2024-03-18 14:17] LABS: TSH reflex Free T4 0.62 uIU/mL (0.32-4.0)
== END 2024-03-18 12:36 | disposition home or self-care (01) ==
LOC: HO.HHCL 12:35
PROVIDERS: Visit Provider Registered Nurse
DX: E03.8 Other specified hypothyroidism (principal)
CPT/HCPCS: 36415; 84443

== ENCOUNTER 2024-04-13 13:24 | Outpatient (AMB) | payer MEDICAID, SELFPAY ==
--- NOTE | 2024-04-13 13:49 | MHC.OFFVIS ---
Intake Visit Reasons: OV- B/L knee arthritis Intake Note: Nadege is a 58 year old female who presents today for a follow up of her bilateral knee OA. Patient reports she is looking to get a injection in her left knee. She states that her left knee is worse that her right. Patient would like to start with the left knee with the injection. She mentions that she was walking for 40 min and she felt both of her thighs numb. Software Engineer Web Services Services: Software Engineer Web Services Present ([place] ([id number])) Allergies No Known Allergies Allergy (Verified 04/13/24 13:57) Medication List - Last Reconciled 04/13/24 by Tobias Lorenzana PA-C albuterol sulfate 90 mcg/actuation (Ventolin HFA) 2 puffs inhalation Q6H PRN celecoxib (Celebrex) 200 mg PO BID 30 days cholecalciferol (vitamin D3) 50 mcg PO DAILY docusate sodium (Colace) 100 mg PO BID PRN fluticasone propionate 50 mcg/actuation 1 spray intranasal DAILY ibuprofen 600 mg PO QID PRN ketotifen fumarate 0.025%(0.035%) (Eye Itch Relief) 1 drp ophthalmic (eye) levothyroxine 137 mcg PO QAM lidocaine 5% 1 patch topical DAILY 30 days lidocaine HCl 4% (Aspercreme (lidocaine HCl)) 1 appl topical BID PRN loratadine 10 mg PO DAILY PRN methocarbamol 750 mg PO Q8H PRN 30 days multivitamin 1 tab PO DAILY naproxen 500 mg PO BID PRN 30 days pravastatin 40 mg PO BEDTIME pravastatin 80 mg PO BEDTIME propranolol 40 mg PO BID HPI HPI OV- B/L knee arthritis: Details: The patient is a 58-year-old female who returns to the office today with machine repairman on the speaker phone for bilateral knee arthritis. She states her left knee is worse than the right knee. She noticed numbness in her both thighs if she walks for 40 minutes or more. She denies getting injection on the last visit. She was previously seen in September 2022 for the knee and did underwent physical therapy with no benefit. She gets pain mostly in front of the knee. She denies having diabetes mellitus, but admits to having prediabetes with no diagnosis. [facility] Medical History High cholesterol Prediabetes Surgical History Hx of tubal ligation Family History Father Tuberculosis Mother Diabetes Heart disease Thyroid condition Hyperlipidemia Sister Renal insufficiency Brother Thyroid condition Social History Alcohol intake: never Patient Tobacco Use Status: Never used Tobacco Current occupational status: unemployed Current occupation: right hand dominant Review of Systems Const All systems reviewed & are unremarkable except as noted in HPI and below Physical Exam Const General: cooperative and no acute distress Orientation/consciousness: patient oriented x3 Resp Effort & Inspection: normal respiratory effort and able to speak in complete sentences Cardio Peripheral pulses: Peripheral pulses 2+ throughout Neuro General: patient oriented x3 Extrem Other: Bilateral knee: Skin intact, no erythema or joint effusion. Tenderness along the medial joint line. Full ROM with crepitus. Negative Carlo?s. No ligamentous laxity. NVI. Office Procedures Joint Injection/Aspiration Joint Injection/Aspiration Primary Site: right knee Secondary Site: left knee Prep: site was prepped using aseptic technique, ethochloride spray was applied and injection warnings given Injected: 40 mg of, DepoMedrol, with 8 mL of, 1% plain lidocaine and in the joint Approach Used: anterolateral Procedure: The patient tolerated the procedure well and there was some relief with the local anesthesia Coding 92956 - Glenohumeral/Tronchanteric Bursa/Intraarticular Procedure code (CPT) selection complete Results Reviewed Results Reviewed: XR knee RT 3V 02/23/24 IMPRESSION: Mild degenerative joint narrowing of the femoral tibial joint. Assessment & Plan Assessment & Plan (1) Osteoarthritis of knees, bilateral: Code(s): M17.0 - Bilateral primary osteoarthritis of knee Category: Medical Qualifiers: Osteoarthritis type: primary Qualified Code(s): M17.0 - Bilateral primary osteoarthritis of knee Plan We discussed options today, which include steroid injection. The patient did consent to move forward with the injection, which was tolerated well. I recommended rest, ice, and elevation and OTC anti-inflammatories as needed for discomfort. If symptoms persist over the next 6-8 weeks, they will contact the office, otherwise as needed. Scribed for Tobias Lorenzana PA-C, by Naa Rosario medical transcription radiology, on 04/13/2024 at 13:45 AM Tobias MOODY PA-C, have personally reviewed and agree with the information entered by the scribe. Coding Level of Care Code Est Pt Level 3 (34531) Complex EM visit Add On G2211 Diagnoses Primary osteoarthritis of both knees M17.0 Osteoarthritis type: primary CPT Codes Coding - Joint 7: 13767 - Glenohumeral/Tronchanteric Bursa/Intraarticular ([id number])
== END 2024-04-13 21:10 | disposition home or self-care (01) ==
LOC: HO.HOS 13:24
PROVIDERS: PCP Registered Nurse; Visit Provider Physician Assistant
DX: M17.0 Bilateral primary osteoarthritis of knee (principal)
CPT/HCPCS: 20610; 99213

== ENCOUNTER → 2024-04-13 13:24 | Outpatient (BNVA) | payer MEDICAID, SELFPAY | PROVIDERS: PCP Registered Nurse; Visit Provider Physician Assistant | DX: M17.0 Bilateral primary osteoarthritis of knee (principal) | CPT/HCPCS: 20610; 99212; J1010 ==

== ENCOUNTER 2024-05-23 11:48 | Outpatient (REF) | payer MEDICAID, SELFPAY ==
[2024-05-23 11:57] VITALS: BP 139/80; PULSE 55; RESP 16; TEMP 36; O2SAT 96; BMI 34.3
== END 2024-05-23 11:49 | disposition home or self-care (01) ==
LOC: HO.MS 11:48
PROVIDERS: PCP Registered Nurse; Visit Provider Ophthalmology
PROC: (CPT 11310; principal; 2024-05-23 15:10)
DX: L82.1 Other seborrheic keratosis (principal); L81.9 Disorder of pigmentation, unspecified
CPT/HCPCS: 11310 ×2; 88305; J2004

== ENCOUNTER 2024-06-10 12:49 | Outpatient (REF) | payer MEDICAID, SELFPAY | END 2024-06-10 12:50 | disposition home or self-care (01) | LOC: HO.CHCLNP 12:49 | PROVIDERS: Visit Provider Registered Nurse | DX: Z13.89 Encounter for screening for other disorder (principal) | CPT/HCPCS: 87633 ==

== ENCOUNTER 2024-07-28 09:27 | Outpatient (REF) | payer MEDICAID, SELFPAY ==
--- NOTE | ~2024-07-28 | US_ITS ---
CLINICAL HISTORY: ABD DISTENTION Exam: 1. Ultrasound of the abdomen, complete. 2. Duplex ultrasound of the main portal vein. Comparison: None. Findings: Liver is of diffuse increased echotexture without focal lesion or intrahepatic biliary ductal dilatation. Common bile duct is within normal limits. Gallbladder is unremarkable without gallbladder wall thickening, pericholecystic fluid, or cholelithiasis. Pancreas and spleen are unremarkable. Kidneys are of normal echotexture without focal lesion, nephrolithiasis, hydronephrosis. Aorta and inferior vena cava are patent. No free fluid. Duplex evaluation of the main portal vein was performed. This included real-time grayscale, color spectral Doppler analysis, and color Doppler flow imaging. Main portal vein is patent with hepatopetal flow. Impression: 1. Echogenic liver. This can be seen with fatty infiltration or medical liver disease. 2. Otherwise, unremarkable abdominal ultrasound. This document has been electronically signed by: Mark León MD on 07/30/2024 07:59:46
--- OUTSIDE RECORDS SUMMARY | 2024-07-28 09:29 | XMS_ITS ---
Author Organization [facility] Address [address] [place] [phone] Care Team Providers Care Order Booker Name Role Phone ABRAHAM CANELA MD Primary Care Provider Unavaila Xavier Fleming Unavailable [phone] ALLERGIES No Known Allergies REASON FOR VISIT Patient presents today for a discuss screening colonoscopy MEDICATIONS Medication SIG (Take, Route, Frequency, Duration) Notes Start Date End Date Status Multivitamin - TAKE 1 TABLET BY MOUTH EVERY DAY WITH FOOD Oral for 90 Z0000,Unavail able Active Levothyroxine Sodium 137 MCG TAKE 1 TABLET BY MOUTH EVERY DAY BEFORE BREAKFAST Orally Once a day E038,Unavaila ble Active Ventolin HFA 108 (90 Base) MCG/ACT INHALE 2 PUFFS BY MOUTH EVERY 6 HOURS NEEDED FOR WHEEZING Inhalation for 25 Active Pravastatin Sodium 80 MG TAKE 1 TABLET BY MOUTH AT BEDTIME Oral for 90 E7849,Unavail able Active Propranolol HCl 40 MG TAKE 1 TABLET BY MOUTH TWICE DAILY Oral for 90 Active Sodium Chloride Acti ve Meclizine HCl Active Sennosides 8.6 MG 2 tablets at bedtime as needed Orally Once a day for 30 day(s) Active Methocarbamol 750 MG 1 tablet Orally every 4 hrs for 30 day(s) Active Ketotifen Fumarate A ctive Omeprazole Magnesium 20 MG 1 tablet 1/2 to 1 hour before morning meal Orally Once a day for 30 day(s) Active Ibuprofen 600 MG TAKE 1 TABLET BY MOUTH EVERY 8 HOURS NEEDED FOR PAIN OR FEVER Oral for 33 Not-Taking Lidocaine 5 % APPLY 1 PATCH TOPICALLY TO SKIN, LEAVE ON FOR 12 HOURS AND OFF FOR 12 HOURS DIRECTED External for 30 [id number],Unavai lable Active Simethicone 80 MG 1 tablet after meals and at bedtime as needed Orally Four times a day Active Naprosyn 500 MG 1 tablet with food or milk as needed Orally every 12 hrs Active Loratadine 10 MG TAKE 1 TABLET BY MOUTH EVERY DAY NEEDED Oral for 90 Active D3 Super Strength 50 MCG (2000 UT) TAKE 1 CAPSULE BY MOUTH EVERY DAY Oral for 90 Active Acetaminophen Extra Strength 500 MG TAKE 1 TABLET BY MOUTH EVERY 8 HOURS NEEDED FOR MODERATE PAIN OR FEVER Oral for 10 Active SOCIAL HISTORY Tobacco Use: Social History Observation Description Date Details (start date - stop date) Never Smoker NA - NA Sex Assigned At : Social History Observation Description Sex Assigned At Unknown Tobacco Use/Smoking Question Answer Notes Patient is a nonsmoker Alcohol Screen Question Answer Notes Did you have a drink containing alcohol in the p ast year? No Points 0 Interpretation Negative PROBLEMS Problem Type ICD Code Onset Dates Problem Status W/U Status Risk SNOMED Code Notes Problem Colon cancer screening (Z12.11) Active confirmed Colon cancer screening (883049461) Problem Chronic GERD (K21.9) Active confirmed Gastroesophagea l reflux disease (disorder) (199901774) Problem Chronic constipation (K59.09) Active confirmed Chronic constipation (065441703) Problem Abdominal bloating (R14.0) Active confirmed Abdominal bloat ing (694433223) Problem Abdominal discomfort, epigastric (R10.13) Active confirmed Epigastric pain (05999724) VITAL SIGNS BMI 34.33 kg/m2 07/08/2024 Blood pressure systolic 00 mm Hg 07/08/20 24 Blood pressure diastolic 00 mm Hg 024 Height 4 ft 11 in in 07/08/2024 Weight 170 lbs 07/08/2024 Encounters Encounter Location Date Provider Diagnosis [facility] [address] [place] [phone] 07/08/2024 Xavier Valverde Colon cancer screeni ng Z12.11 ; Chronic GERD K21.9 ; Chronic constipation K59.09 ; Abdominal bloating R14.0 and Abdominal discomfort, epigastric R10.13 ASSESSMENTS Encounter Date Diagnosis Assessment Notes Treatment Notes Treatment Clinical Notes 07/08/2024 Colon cancer screening (ICD-10 - Z12.11) Stop Naprosyn for 1 week before the procedures 07/08/2024 Chronic GERD (ICD-10 - K21.9) 07/08/2024 Chronic constipation (ICD-10 - K59.09) 07/08/2024 Abdominal bloating (ICD-10 - R14.0) 07/08/2024 Abdominal discomfort, epigastric (ICD-10 - R10.13) PLAN OF TREATMENT Treatment Notes Assessment Notes Colon cancer screening Stop Naprosyn for 1 week before the procedures Pending Test Test Name Order Date US abdomen complete 07/08/2024 Future Test Test Name Order Date UPPER GI ENDOSCOPY 07/08/2024 COLONOSCOPY 07/08/2024 Next Appt Details Follow Up: prn, Reason: Provider Name:Xavier Chung Valverde , 10/17/2024 11:50:00 AM, [address] [place] [address], [phone], Progress Notes * Examination Category Sub-Category Detail Notes General Examination GENERAL APPEARANCE: pleasant , well nourished, well developed, in no acute distress HEAD: EYES: sclera non-icteric EARS: NOSE: THROAT: NECK/THYROID: no cervical lymphade nopathy, neck supple HEART: S1, S2 normal CHEST: LUNGS: clear to auscultatio n bilaterally ABDOMEN: normal bowel sounds, no guarding or rigidity, no guarding or rigidity, no masses palpable, soft, nontender, nondistended NEUROLOGIC: alert and oriented SKIN: nonjaundiced, no spi neftaly angiomata EXTREMITIES: no edema PERIPHERAL PULSES: BACK: BREASTS: MUSCULOSKELETAL: MALE GENITOURINARY: LYMPH NODES: RECTAL EXAM: FEMALE GENITOURINARY: ORAL CAVITY: mucosa moist
--- OUTSIDE RECORDS SUMMARY | 2024-07-28 09:30 | XMS_ITS | Patient Health Record ---
Author Organization [facility] Address [address] [place] [address] Care Team Providers Care Line Prep Cook Name Role Phone ABRAHAM CANELA MD Primary Care Provider Xavier Banda Unavailable [phone] ALLERGIES No Known Allergies REASON FOR REFERRAL Referring Provider First Name ABRAHAM Referring Provider Last Name HILTON Referred Organization [facility] Referred Provider Xavier Valverde Referred Address [address],[place], [place],[address], Referred Provider Specialty Gastroentero logy Referral Priority Routine MEDICATIONS Medication SIG (Take, Route, Frequency, Duration) Notes Start Date End Date Status Sodium Chloride Acti ve Meclizine HCl Active Multivitamin - TAKE 1 TABLET BY MOUTH EVERY DAY WITH FOOD Oral for 90 Z0000,Unavail able Active Sennosides 8.6 MG 2 tablets at bedtime as needed Orally Once a day for 30 day(s) Active Omeprazole Magnesium 20 MG 1 tablet 1/2 to 1 hour before morning meal Orally Once a day for 30 day(s) Active Methocarbamol 750 MG 1 tablet Orally every 4 hrs for 30 day(s) Active Ketotifen Fumarate A ctive Ibuprofen 600 MG TAKE 1 TABLET BY MOUTH EVERY 8 HOURS NEEDED FOR PAIN OR FEVER Oral for 33 Not-Taking Loratadine 10 MG TAKE 1 TABLET BY MOUTH EVERY DAY NEEDED Oral for 90 Active D3 Super Strength 50 MCG (1999 UT) TAKE 1 CAPSULE BY MOUTH EVERY DAY Oral for 90 Active Lidocaine 5 % APPLY 1 PATCH TOPICALLY TO SKIN, LEAVE ON FOR 12 HOURS AND OFF FOR 12 HOURS DIRECTED External for 30 [id number],Unavai lable Active Acetaminophen Extra Strength 500 MG TAKE 1 TABLET BY MOUTH EVERY 8 HOURS NEEDED FOR MODERATE PAIN OR FEVER Oral for 10 Active Levothyroxine Sodium 137 MCG TAKE 1 TABLET BY MOUTH EVERY DAY BEFORE BREAKFAST Orally Once a day E038,Unavaila ble Active Ventolin HFA 108 (90 Base) MCG/ACT INHALE 2 PUFFS BY MOUTH EVERY 6 HOURS NEEDED FOR WHEEZING Inhalation for 25 Active Simethicone 80 MG 1 tablet after meals and at bedtime as needed Orally Four times a day Active Pravastatin Sodium 80 MG TAKE 1 TABLET BY MOUTH AT BEDTIME Oral for 90 E7849,Unavail able Active Naprosyn 500 MG 1 tablet with food or milk as needed Orally every 12 hrs Active Propranolol HCl 40 MG TAKE 1 TABLET BY MOUTH TWICE DAILY Oral for 90 Active SOCIAL HISTORY Tobacco Use: Social History [...] screening (Z12.11) Active confirmed Colon cancer screening (976794133) Problem Chronic GERD (K21.9) Active confirmed Gastroesophagea l reflux disease (disorder) (916297333) Problem Chronic constipation (K59.09) Active confirmed Chronic constipation (664373875) Problem Abdominal bloating (R14.0) Active confirmed Abdominal bloat ing (185047280) Problem Abdominal discomfort, epigastric (R10.13) Active confirmed Epigastric pain (33705299) VITAL SIGNS Blood pressure diastolic 00 mm Hg 07/08/2024 Height 4 ft 11 in in 07/08/2024 Blood pressure systolic 00 mm Hg 07/08/2024 Weight 170 lbs 07/08/2024 BMI 34.33 kg/m2 07/08/2024 Encounters Encounter Location Date Provider Diagnosis [facility] [address] [place] [address] 07/08/2024 Xavier Valverde Colon cancer screeni ng [...] epigastric (ICD-10 - R10.13) PLAN OF TREATMENT Pending Test Test Name Order Date US abdomen complete 07/08/2024 Future Test Test Name Order Date UPPER GI ENDOSCOPY 07/08/2024 COLONOSCOPY 07/08/2024 Next Appt Details Provider Name:Xavier Sheldon Valverde , 10/17/2024 11:50:00 AM, [address] [place] [address] , [place], [place], [id number], Insurance Providers Payer Name Payer Address Payer Phone Subscriber Number Group Number Insured Name Patient Relationship to Insured Coverage Start Date Coverage End Date [facility] [address] [place] [address] [id number] JESUSITA MONGE Self - patient is the insured MEDICAL (GENERAL) HISTORY Medical History History ICD Code Heart papitations Pre-diabeteic Arthritis Hypothyroidism Hyperlipidemia Denies ID,DM,CVA,renal disease Asthma GERD Surgical History Surgery Date(Month/Year) BTL
== END 2024-07-28 09:28 | disposition home or self-care (01) ==
LOC: HO.US 09:27
PROVIDERS: PCP Registered Nurse; Visit Provider Internal Medicine
DX: R10.13 Epigastric pain (principal); R14.0 Abdominal distension (gaseous)
CPT/HCPCS: 76700

== ENCOUNTER → 2024-07-28 09:29 | Outpatient (BNV) | payer MEDICAID, SELFPAY | PROVIDERS: PCP Registered Nurse; Visit Provider Radiology Diagnostic Radiology | DX: K76.89 Other specified diseases of liver (principal) | CPT/HCPCS: 76700 ==

== ENCOUNTER 2024-08-12 11:35 | Outpatient (REF) | payer MEDICAID, SELFPAY | END 2024-08-12 11:36 | disposition home or self-care (01) | LOC: HO.MAMMO 11:35 | PROVIDERS: PCP Registered Nurse; Visit Provider Surgery | DX: Z13.89 Encounter for screening for other disorder (principal) ==

== ENCOUNTER 2024-09-08 12:47 | Outpatient (REF) | payer MEDICAID, SELFPAY ==
--- NOTE | ~2024-09-08 | US_ITS ---
EXAMINATION: US DIAGNOSTIC ULTRASOUND BREAST, RIGHT CLINICAL INFORMATION: Follow up after right axillary excisional biopsy of a benign probable sebaceous cysts.. COMPARISON: Comparison is made with relevant prior imaging. TECHNIQUE: Ultrasound of the breast is performed with real-time damon scale imaging and color Doppler. FINDINGS: Targeted color Doppler ultrasound in the axilla at 11:00 2 cm from nipple demonstrates normal fibroglandular breast tissue. There is no sonographic abnormality. The previously seen sebaceous cyst has been excised. Results are discussed with the patient at time of visit. US/US breast RT limited mamm only IMPRESSION: Normal fibronodular breast tissue. ASSESSMENT: BI-RADS 1: Negative RECOMMENDATION: Routine annual mammography screening. This patient's information was entered into a reminder system with a target due date for their next mammogram. Electronically signed by: Sherry Reyes DO 09/08/2024 01:26 PM YARELY
--- OUTSIDE RECORDS SUMMARY | 2024-09-08 12:54 | XMS_ITS | Clinical Summary ---
Author Organization [email or web address] Address [address] [facility] [address] [place] [address] Care Team Providers Care Control Clerk Head Name Role Phone PujaNeema laguna SALES PROJECT ENGINEER Primary Care Provider [phone] Avis Benson Unavailable [phone] Ciro Vegas DPM Unavailable [phone] Lara Lorenzana Unavailable Allergies No known active allergies Medications fluticasone (Flonase) 50 MCG/ACT nasal spray inhale 1 spray (50MCG) by intranasal route every day in each nostril 2 Active sodium chloride (Iosco) 0.65 % nasal spray 1 spray if needed in the morning, at noon, and at bedtime. 8 Active sennosides (Senokot) 8.6 MG tablet Take 1-2 tablets by mouth if needed at bedtime for constipation. 8 Active Skin Protectants, Misc. (eucerin) cream Apply topically every 12 (twelve) hours. 9 Active Capsaicin 0.025 % lotionIndications: Pain Apply 2 mg topically in the morning, at noon, and at bedtime. 60 mL 1 2 Active meclizine (Antivert) 25 MG tabletIndications: Meniere's disease, unspecified laterality Take 0.5 tablets (12.5 mg) by mouth if needed in the morning, at noon, and at bedtime for dizziness. 60 tablet 1 2 Active Diclofenac Sodium 1 % creamIndications:C hronic pain of left knee Apply 3x daily to the left knee for pain 50 g 2 3 Active ibuprofen 600 MG tabletIndications: Pain Take 1 tablet by mouth four times a day as needed for pain 60 tablet 2 3 Active ketotifen (Zaditor) 0.025 % ophthalmic solutionIndication s:Allergic conjunctivitis of both eyes Administer 1 drop into affected eye(s) if needed in the morning and at bedtime (eye itching and redness). 5 mL 3 3 Active albuterol (Ventolin HFA) 108 (90 Base) MCG/ACT inhaler INHALE 2 PUFFS BY MOUTH EVERY 6 HOURS NEEDED FOR WHEEZING 18 g 11 3 Active Acetaminophen Extra Strength 500 MG tabletIndications: Pain TAKE 2 TABLETS BY MOUTH EVERY 8 HOURS NEEDED FOR MILD PAIN, MODERATE PAIN, FEVER OR HEADACHE 100 tablet 2 3 Active ibuprofen 600 MG tablet Take 1 tablet (600 mg) by mouth every 8 (eight) hours if needed for moderate pain or fever. 100 tablet 3 3 Active pravastatin (Pravachol) 80 MG tabletIndications: Other hyperlipidemia TAKE 1 TABLET BY MOUTH AT BEDTIME 90 tablet 3 4 Active methocarbamol (Robaxin) 750 MG tablet Take 750 mg by mouth every 8 (eight) hours if needed for muscle spasms. 3 Active lidocaine (Lidoderm) 5 % patch APPLY 1 PATCH TOPICALLY TO SKIN, LEAVE ON FOR 12 HOURS AND OFF FOR 12 HOURS DIRECTED 4 Active naproxen (Naprosyn) 500 MG tablet TAKE 1 TABLET BY MOUTH TWICE DAILY NEEDED FOR PAIN TAKE WITH FOOD AND A FULL GLASS OF WATER 4 Active cholecalciferol (D3 Super Strength) 50 MCG (2000 UT) capsule TAKE 1 CAPSULE BY MOUTH EVERY DAY 90 capsule 3 4 Active loratadine (Claritin) 10 MG tablet TAKE 1 TABLET BY MOUTH EVERY DAY NEEDED 90 tablet 3 4 Active omeprazole OTC (PriLOSEC OTC) 20 MG EC tablet Take 1 tablet (20 mg) by mouth before breakfast. Do not crush, chew, or split. 30 tablet 11 4 025 Active glucose blood (FREESTYLE LITE) test stripIndications:I mpaired glucose tolerance 1 each by Other route Once daily. 100 each 11 4 Active TRUEplus Lancets 33G miscIndications:Im paired glucose tolerance Place 1 each on the skin Once daily. 100 each 11 4 Active Multiple Vitamin (Multivitamin) tabletIndications: Routine health maintenance TAKE 1 TABLET BY MOUTH EVERY DAY WITH FOOD 90 tablet 3 4 Active levothyroxine (Synthroid, Levoxyl) 125 MCG tabletIndications: Other specified hypothyroidism TAKE 1 TABLET BY MOUTH EVERY DAY BEFORE BREAKFAST 90 tablet 1 4 Active simethicone (Mylicon) 80 MG tabletIndications: Flatulence Take 1-2 tablets (80-160 mg) by mouth every 8 (eight) hours if needed (bloating, gasses). 60 tablet 3 4 Active propranolol (Inderal) 40 MG tablet Take 1 tablet (40 mg) by mouth every 12 (twelve) hours. 180 tablet 5 Active Active Problems Problem Noted Date Diagnosed Date Primary osteoarthritis of both knees 06/10/2024 Overview (06/12/2024): [place] [facility] Lorenzana. Received steroid injection left knee in Mar 2024 XR January 2024: Degenerative joint narrowing of the femoral tibial joint. (Bilateral) Plantar fascial fibromatosis 03/06/2024 Overview (06/12/2024): Followed by Dr. Vegas - [facility] Podiatry Received injection of right heel plantar fascia in October 2023 & Apr 2024. reports symptom relief s/p injection Assessment & Plan (03/06/2024 9:17 PM EDT): - Received injection of right heel plantar fascia in October 2023, reports symptom relief s/p injection Abnormal finding on mammography 03/06/2024 Overview (03/06/2024): 11/20/23: Mammo diagnostic bilateral, BIRADS 3. Recommended repeat diagnostic US of right axilla in 3 weeks. 12/07/23: US diagnostic right breast - BIRADS 4, recommended biopsy. 12/08/23: [facility] [place] - Dr. Murray. Referred for US guided biopsy 11 o'clock right breast. Impression - soft tissue mass and not likely to be a breast process recommendation for in office excision of the breast lesion. Pathology report: Fibroadipose tissue with abscess formation and lymphohistiocytic inflammation; no microorganisms identified. The differential includes an inflammatory response to a foreign body, infection or ruptured epidermal inclusion cyst. 12/15/23: [facility] [place] - Dr. Murray. Pathology benign, incision healing well. Plan: follow up right breast upper outer quadrant ultrasound and direct further therapy based on this in 6 months. Next mammo due: May 2024 Localized primary osteoarthr itis of carpometacarpal (CMC) joint of right wrist 07/05/2023 Overview (07/05/2023): XR Right hand 06/12/23: IMPRESSION: 1. No fracture or dislocation is seen. 2. There is no abnormal bone erosion. 3. There is mild osteoarthritic change of the right first carpometacarpal joint. Assessment & Plan (07/05/2023 10:13 PM EST): -Reviewed XR results, encouraged symptomatic management and discussed consideration of referral to specialist. -Referral to [facility] Ortho - Hand Specialist for further eval DDD (degenerative disc disease), lumbar 07/05/20 Overview (10/20/2023): May 2023: Lumbar XR: 1. There is mild degenerative disc disease at L4-L5. 2. There is mild anterior spondylosis at L1-L2. 3. There is facet arthropathy at L5-S1. 4. There is a slight thoracolumbar dextroscoliosis. Referral to [facility] [place] Pain Management placed 07/05/23: [facility] [place] [place] Pain Mangement - Dr. Peoples. Eval for spondylosis - completed diagnostic medial branch block L3, L4 dorsal ramus L5 bialteral. Assessment & Plan (07/05/2023 10:16 PM EST): -Discussed options including symptomatic management, physical therapy, physiatry. -Pt interested in referral to [facility] [place], referral sent Healthcare maintenance 06/12/2023 Overview (07/28/2024): Pap: NILM, HPV neg December 2020. Due December 2025 Mammo: Diagnostic mammo due May 2024 Colon CA screening: referral to GI placed 02/22/24 (Initial consult scheduled 07/08/24). Cologuard POSITIVE 07/22/24. Last PE: 02/22/24 Assessment & Plan (10/20/2023 8:07 PM EDT): -Lab work ordered as below, follow up for PE in 2-3 months. Pain, axillary, right 12/27/2022 Overview (03/11/2023): MRI results bilateral breasts 11/27/22 with the following impression: 1. A suspicious 2 cm right breast linear ductal non-mass enhancement at 12 o'clock. Recommend MR biopsy. 2. A suspicious 3 cm linear/segmental non-mass enhancement at 9 o'clock on the right. Recommend MR biopsy. 3. An enhancing 6 mm right breast mass at 1 o'clock 5cm from the nipple. Biopsy may be indicated. Recommend MR directed diagnostic second look ultrasound. 4. Nonspecific minor prominence of right axillary nodes. Recommend ultrasound and biopsy as indicated. Recommendations: 1. MR directed right MR biopsy 12 o'clock 2. MR directed right biopsy 9 o'clock 3. Right breast ultrasound mass 1 o'clock with biopsy as indicated 4. Right axillary ultrasound for nodes. Biopsy as indicated. -Following with [facility] -01/06/23: Breast, right, 1 o? clock, 5 cm from nipple, ultrasound guided core needle biopsy (ribbon clip): Fibroadenoma with myxoid stroma, apocrine metaplasia, sclerosing adenosis. No malignant or atypical lesions described. Recommend follow up in 6 months. -Referral to Plastic Surgeon on 03/11/23 Assessment & Plan (12/27/2022 2:36 PM EDT): Received benefit from PT right arm and interested in returning. Referral placed to renew PT services: ?? [facility] ?? Phone number: Essential tremor 07/01/2022 Assessment & Plan (03/11/2023 8:55 AM EDT): -Continue following with Neurology, renewal for referral placed 03/11/23 -Cont propranolol 40mg BID Assessment & Plan (07/02/2022 10:41 AM EST): -Continue following with Neurology -Cont propranolol 40mg BID Vitamin D deficiency 06/13/2022 Assessment & Plan (07/02/2022 10:42 AM EST): -Check Vit D levels Allergic rhinitis 11/20/2015 Hyperlipidemia 11/20/2015 Assessment & Plan (07/02/2022 10:41 AM EST): -Continue with pravastatin nightly and low fat diet Hypothyroidism 11/20/2015 Overview (03/06/2024): -Continue with levothyroxine 125mcg daily Lab Results Component Value Date TSH 0.47 08/19/2022 Assessment & Plan (06/12/2024 7:01 PM EST): - Repeat TSH ordered Assessment & Plan (03/06/2024 9:16 PM EDT): -Pt reports that she was given 137mcg instead of 125mcg during refill. Will re- check TSH, although may be overly suppressed given dosage. Return to 125mcg daily. Assessment & Plan (07/02/2022 10:42 AM EST): -Check TSH -Continues with levothyroxine 150mg daily Impaired glucose tolerance 11/20/2015 Assessment & Plan (07/02/2022 10:41 AM EST): -Referral to Nutrition Meniere's disease 11/20/2015 Assessment & Plan (07/02/2022 10:41 AM EST): -Currently recieving vestibular therapy at [facility], interested in possibly switching locations -Meclizine PRN -Pt to call with new referral info Obesity 11/20/2015 Palpitations 11/20/2015 TRENTON (obstructive sleep apnea) 11/20/2015 Overview (06/12/2024): 05/20/23: [facility] [place] [place] - JUDY Forbes. Started on APAP 5-15cm H20 2 weeks prior to PSG sleep study sig for mild degree sleep apnea. pt feeling better, less snoring, feels refreshed, and has more daytime energy. Consult Feb 2024: compliance data reviewed. Cont with current settings, using > 4 hrs/night. Supply company: [facility] Assessment & Plan (03/11/2023 8:52 AM EDT): -History of TRENTON -[place] sleep [place] [facility] 11/26/22 did not meet criteria for sleep apnea -Upcoming follow up scheduled with [facility] [place] [facility] Sleep for further discussion (Feb 2023) Assessment & Plan (07/02/2022 10:54 AM EST): -Last sleep study in 2014 -Pt reporting snoring at night, repeat sleep study to see if CPAP indicated at this time Resolved Problems Problem Noted Date Diagnosed Date Resolved Date Bronchitis 05/22/2023 06/12/2023 Assessment & Plan (05/22/2023 6:16 PM EDT): Pt w ongoing productive cough and wheezing -w reactive airway dx Denies hx of asthma VS wnl -received here albuterol NBX tx with improvement of wheezing -azithromycin 500 mg x1 f by 250 mg daily for 4 days -guaifenesin -supportive tx -albuterol inh prn -alarm signs and symptoms discussed w pt Encounters Date Type Department Care Team Description 08/12/2024 1:15 PM EST Immunization [facility] [address], [place] [phone] Mel Egan LPN Encounter for immunization (Primary Dx) 08/12/2024 Travel 08/08/2024 Refill [facility] [address], [place] [phone] Neema Landon FNP 08/08/2024 Refill [facility] [address] [place], [place] [phone] Neema Landon FNP 07/29/2024 Telephone [facility] [address] [place] [address] Anna Nieves RN Results 07/28/2024 Orders Only [facility] [address] [place] [address] Neema Landon SALES PROJECT ENGINEER Positive colorectal cancer screening using Cologuard test (Primary Dx); Healthcare maintenance 07/05/2024 Telephone [facility] [address] [place] [address] Neema Landon, SALES PROJECT ENGINEER 06/13/2024 3:00 PM EST Clinical Support [facility] [address] [place] [address] Impaired glucose tolerance (Primary Dx); Other hyperlipidemia 06/13/2024 Travel 06/10/2024 10:15 AM EST Office Visit [facility] [address] [place] [address] Neema Landon, SUSAN Viral syndrome (Primary Dx); Primary osteoarthritis of both knees; Healthcare maintenance; Other specified hypothyroidism; Flatulence; Plantar fascial fibromatosis; TRENTON (obstructive sleep apnea); Screening for colon cancer 06/10/2024 Orders Only [facility] [address] [place] [address] Neema Landon, SALES PROJECT ENGINEER 06/10/2024 Telephone [facility] [address] [place] [address] Neema Landon FNP TEST NOT PERFROMED 06/10/2024 Travel 06/09/2024 Telephone [facility] [address] [place] [address] Nica Mann MA Chart Prep from Last 3 Months Immunizations Name Administration Dates Next Due Hep B, adult 06/29/2008,01/31/2008,11/10/2007 Influenza injectable quadriv alent IIV4 with preservative 04/22/2019,07/09/2017,05/21/2015 Influenza injectable quadriv alent preservative free 06/12/2023,05/23/2022,05/08/2021,2017,07/01/2016 Influenza, IIV3, injectable 06/02/2014, 1 Influenza, Split (incl. sameera fied surface antigen) 04/21/2013,04/09/2012 Influenza, seasonal, injecta ble, preservative free 08/12/2024 Moderna Covid-19 Vaccine 12+ 08/21/2021,01/08/20 21,12/14/2020 Pfizer Covid-19 Vaccine 12+ 08/12/2024 Pfizer Covid-19 Vaccine 12+ Bivalent 05/23/2022 TD (adult), 2 Lf tetanus tox oid, preservative free, adsorbed 11/10/2007,06/25/1998 Tdap 03/10/2023,01/20/2013 Zoster, Recombinant 04/30/2020,02/29/2020 Family History Medical History Relation Name Comments Diabetes Mother Heart disease Mother Hypertension Mother renal disease Mother Hypertension Sister renal disease Sister Relation Name Status Comments Mother Sister Social History Tobacco Use Types Packs/Day Years Used Date Smoking Tobacco: Never Passive Smoke Exposure: Never Smokeless Tobacco: Never Tobacco Cessation:Counseling Given: Not Answered Alcohol Use Standard Drinks/Week Comments Never 0 (1 standard drink = 0.6 oz pur e alcohol) Alcohol Answer Date Recorded Frequency of Alcohol Consumption Not on file 02/22/2024 Average Number of Drinks Not on file 024 Frequency of Binge Drinking Not on file 01/25 Score 0 02/22/2024 Depression Answer Date Recorded Patient Health Questionnaire-9 Score 6 10/19/2023 Patient Health Questionnaire-9 Score 6 10/19/2023 Last PHQ-9: Questionnaire Data Not on file 0 10/19/2023 Housing Stability Answer Date Recorded What is your housing situation today? I have clara melo 02/12/[address] you li ve. Do you have problems with any of the following? None of the above 02/12/2024 Food Insecurity Answer Date Recorded Within the past 12 months, y ou worried that your food would run out before you got money to buy more: Never True 02/12/2024 Within the past 12 months,th e food you bought just didn't last and you didn't have enough money to get more: Never True Transportation Answer Date Recorded In the past 12 months, has l ack of transportation kept you from medical appts, meetings, work or from getting things needed for daily living? No 02/22/2024 Utilities Answer Date Recorded In the past 12 months, has t he electric, gas, oil or water company threatened to shut off services in your home? No 02/12/2024 Depression Answer Date Recorded Patient Health Questionnaire-2 Score 0 10/19/2023 Internet Access Answer Date Recorded Internet Access Q1 Yes 03/28/2024 Internet Access Q2 Not on file 03/28/2024 Comments Unknown Sex and Gender Information Value Date Recorded Sex Assigned at Female 05/26/2022 10:15 AM EDT Legal Sex Female 10:15 AM EDT Gender Identity Female 06/12/2023 7:10 AM EST Sexual Orientation Choose not to disclose 2021 10:15 AM EDT Last Filed Vital Signs Vital Sign Reading Time Taken Comments Blood Pressure 112/68 06/10/2024 10:10 AM EST Pulse 67 06/10/2024 10:10 AM EST Temperature 36.5 ??C (97.7 ??F) 06/10/2024 10:[address] Respiratory Rate 18 06/10/2024 10:10 AM EST Oxygen Saturation 96% 06/10/2024 10:10 AM EST Inhaled Oxygen Concentration - - Weight 80.4 kg (177 lb 3.2 oz) 06/16/2024 11:59 AM EST Height 151.8 cm (4' 11.76 ) 06/16/2024 11:59 AM EST Body Mass Index 34.89 06/16/2024 11:59 AM EST Plan of Treatment Health Maintenance Due Date Last Done Comments CT Colonography 1965 Colonoscopy 1965 FIT 1965 FOBT 1965 Sigmoidoscopy 1965 Pneumococcal Vaccine: 50+ Years (1 of 1 - PCV) 2015 Pap Smear 01/02/2024 01/01/2021 Diagnostic Breast Imaging 06/08/20242023, 11/20/2023, 11/20/2023 Depression Screening 10/18/2024 10/19/2023, 10/19/19 24 Alcohol/Substance Use Screening 02/21/2025 02/22/2024 SDOH Screening 02/21/2025 02/22/2024 Tobacco Screening 06/10/2025 06/10/2024 Colorectal Cancer Screening 07/22/2025 FIT DNA/Cologuard 07/22/2025 07/22/2024 Cervical Cancer Screening 01/01/2026 HPV/Cotest 01/01/2026 01/01/2021 Lipid Panel 10/18/2028 10/19/2023, 07/28, 07/02/2022, Additional history exists DTaP/Tdap/Td Vaccines (3 - Td or Tdap) 03/10/2033 03/10/2023, 01/20/2013, 11/10/2007, Additional history exists RSV Patients and Patients Aged 60 years or older (1 - 1-dose 75+ series) 2040 Hepatitis B Vaccines Completed 06/29/2008, 01/31/2008, 11/10/2007 Zoster Vaccines Completed 04/30/2020, 02/29/2020 HIV Screening Completed 10/19/2023, 05/08/2020 Hepatitis C Screening Completed 10/19/2023, 015 COVID-19 Vaccine Completed 08/12/2024, , 08/21/2021, Additional history exists Influenza Vaccine Completed 08/12/2024, , 05/23/2022, Additional history exists HIB Vaccines Aged Out No longer eligi ble based on patient's age to complete this topic HPV Vaccines Aged Out No longer eligi ble based on patient's age to complete this topic Hepatitis A Vaccines Aged Out No long er eligible based on patient's age to complete this topic IPV Vaccines Aged Out No longer eligi ble based on patient's age to complete this topic Meningococcal Vaccine Aged Out No dejan alan eligible based on patient's age to complete this topic RSV under 20 months Aged Out No longe r eligible based on patient's age to complete this topic Rotavirus Vaccines Aged Out No longer eligible based on patient's age to complete this topic Procedures Procedure Name Priority Date/Time Associated Diagnosis Comments US ABDOMEN COMPLETE Routine 07/30/2024 7 :59 AM EST LAB COLOGUARD?? COLON CANCER SCREEN Routine 07/22/2024 1:50 PM EST Screening for colon cancer POCT RAPID COVID ANTIGEN Routine 06/13/2024 8:55 AM EST Viral syndrome POCT INFLUENZA B Routine 06/13/2024 8:55 AM EST Viral syndrome POCT RAPID STREP A Routine 06/13/2024 8: 54 AM EST Viral syndrome POCT INFLUENZA A Routine 06/13/2024 8:53 AM EST Viral syndrome CANCELLED SEROLOGY Routine 06/10/2024 3: 06 PM EST RESPIRATORY VIRAL PANEL PCR Routine 06/10/2024 11:13 AM EST BI US BREAST LIMITED RIGHT Routine 12/07/2023 1:33 PM EDT HEPATITIS C VIRAL RNA, QUANTITATIVE, REAL-TIME PCR Routine 10/19/2023 1:00 PM EDT Healthcare maintenance HIV 1/2 ANTIGEN/ANTIBODY, FOURTH GENERATION W/RFL Routine 10/19/2023 1:00 PM EDT Healthcare maintenance LIPID PANEL, STANDARD Routine 10/19/2023 1:00 PM EDT Healthcare maintenance HPV MRNA E6/E7 Routine 01/01/2021 6:38 PM EDT THINPREP PAP Routine 01/01/2021 6:38 PM EDT from Last 3 Months or Most Recently Relevant to Health Maintenance Results * US Abdomen Complete (07/30/2024 7:59 AM EST) Anatomical Region Laterality Modality Abdomen Ultrasound 07/30/2024 7:5 9 AM EST Narrative 07/30/2024 8:01 AM EST ? [facility] [facility] ?[address] ?[place] [address] ? Ultrasound Report ? Signed ? Patient: Whitney,Nadege ?MR#: [id number] ?? [birth year] ? : 1965 ?Acct:[id number] ? Age/Sex: 59 / F ?ADM Date: 07/28/24 ? Loc: HO.US ? Attending Dr: Xavier Valverde MD ? Ordering Physician: Xavier Valverde MD ?? Date of Service: 07/28/24 ?? Procedure(s): US abdomen complete ?? Accession Number(s): [id number] ? cc: Neema Landon; Xavier Valverde MD ? CLINICAL HISTORY: ABD DISTENTION ? Exam: ? 1. Ultrasound of the abdomen, complete. ? 2. Duplex ultrasound of the main portal vein. ? Comparison: None. ? Findings: ? Liver is of diffuse increased echotexture without focal lesion or ?? intrahepatic biliary ductal dilatation. ?? Common bile duct is within normal limits. ?? Gallbladder is unremarkable without gallbladder wall thickening, ?? pericholecystic fluid, or cholelithiasis. ?? Pancreas and spleen are unremarkable. ?? Kidneys are of normal echotexture without focal lesion, nephrolithiasis, ?? hydronephrosis. ?? Aorta and inferior vena cava are patent. ?? No free fluid. ? Duplex evaluation of the main portal vein was performed. This included ?? real-time grayscale, color spectral Doppler analysis, and color Doppler ?? flow imaging. Main portal vein is patent with hepatopetal flow. ? Impression: ? 1. Echogenic liver. This can be seen with fatty infiltration or medical ?? liver disease. ? 2. Otherwise, unremarkable abdominal ultrasound. ? This document has been electronically signed by: Mark León MD on ?? 07/30/2024 07:59:46 ? Dictated By: ?Mark León MD ? Signed By: ?<Electronically signed by Mark León MD in OV> ? 07/30/24 0800 ? DD/ 0759 ? TD/TT: 07/30/24 0759 ? Radiation Control Specialist: ? Procedure Note Dionne Almonte - 07/30/[address] [address] Ultrasound Report Signed Patient: Nadege Whitney#: [id number] 02 : 1965Acct:[id number] Age/Sex: 59 / FADM Date: 07/28/24 Loc: HO.US Attending Dr: Xavier Valverde MD Ordering Physician: Xavier Valverde MD Date of Service: 07/28/24 Procedure(s): US abdomen complete Accession Number(s): [id number] cc: Neema Landon; Xavier Valverde MD CLINICAL HISTORY: ABD DISTENTION Exam: 1. Ultrasound of the abdomen, complete. 2. Duplex ultrasound of the main portal vein. Comparison: None. Findings: Liver is of diffuse increased echotexture without focal lesion or intrahepatic biliary ductal dilatation. Common bile duct is within normal limits. Gallbladder is unremarkable without gallbladder wall thickening, pericholecystic fluid, or cholelithiasis. Pancreas and spleen are unremarkable. Kidneys are of normal echotexture without focal lesion, nephrolithiasis, hydronephrosis. Aorta and inferior vena cava are patent. No free fluid. Duplex evaluation of the main portal vein was performed. This included real-time grayscale, color spectral Doppler analysis, and color Doppler flow imaging. Main portal vein is patent with hepatopetal flow. Impression: 1. Echogenic liver. This can be seen with fatty infiltration or medical liver disease. 2. Otherwise, unremarkable abdominal ultrasound. This document has been electronically signed by: Mark León MD on 07/30/2024 07:59:46 Dictated By: Mark León MD Signed By: <Electronically signed by Mark León MD in OV> 07/30/24 0800 DD/ 0759 TD/TT: 07/30/24 0759 Radiation Control Specialist: [facility] External Provider IMG US PROCEDURES Final Result * (ABNORMAL) Cologuard?? colon cancer screening (07/22/2024 1:50 PM EST) Cologuard Result Positive( A) Negative 07/27/2024 5:01 AM EST [employer] (CLIA #:[id number]) Comment: POSITIVE TEST RESULT. A positive Cologuard result should be followed with a colonoscopy or visual examination of the colon. The normal value (reference range) for this assay is negative. TEST DESCRIPTION: Composite algorithmic analysis of stool DNA-biomarkers with hemoglobin immunoassay. ?? Quantitative values of individual biomarkers are not reportable and are not associated with individual biomarker result reference ranges. Cologuard is intended for colorectal cancer screening of adults of either sex, 45 years or older, who are at average-risk for colorectal cancer (CRC). Cologuard has been approved for use by the U.S. FDA. The performance of Cologuard was established in a cross sectional study of average-risk adults aged 50-84. Cologuard performance in patients ages 45 to 49 years was estimated by sub-group analysis of near-age groups. Colonoscopies performed for a positive result may find as the most clinically significant lesion: colorectal cancer [4.0%], advanced adenoma (including sessile serrated polyps greater than or equal to 1cm diameter) [20%] or non- advanced adenoma [31%]; or no colorectal neoplasia [45%]. These estimates are derived from a prospective cross-sectional screening study of 10,000 individuals at average risk for colorectal cancer who were screened with both Cologuard and colonoscopy. (Dave Colon et al, N Engl J Med 2014;370(14):8355-2845.) Cologuard may produce a false negative or false positive result (no colorectal cancer or precancerous polyp present at colonoscopy follow up). A negative Cologuard test result does not guarantee the absence of CRC or advanced adenoma (pre-cancer). The current Cologuard screening interval is every 3 years. ([place] [employer] and U.S. Multi-Society Task Force). Cologuard performance data in a 10,000 patient pivotal study using colonoscopy as the reference method can be accessed at the following location: www.Golf121/results. Additional description of the Cologuard test process, warnings and precautions can be found at www.Liquiteriard.com. Stool specimen (specimen) 07/22/2024 1:50 PM EST 2024 12:04 PM EST Neema [facility] VANITA RAM Final Result [employer] (CLIA #:[id number]) [address] [place] [address], * POCT Rapid Covid-19 BinaxNOW (06/13/2024 8:55 AM EST) [facility] Rapid COVID Ag Negative Comment:internal controls pa ssed QC Media Lot # [id number] Lot# Expiration Date [id number] Swab 06/13/2024 8:55 AM EST Neema Phalen SALES PROJECT ENGINEER POINT OF CARE TEST ENTER/EDIT ORDERABLES Final Result * POCT Rapid Influenza B OSOM (06/13/2024 8:55 AM EST) [facility] Rapid Influenza B Ag Negative Negative, Indeterminate Comment:internal controls lisa ssed QC Media Lot # [id number] Lot# Expiration Date , Swab 06/13/2024 8:55 AM EST Neema Phalen SALES PROJECT ENGINEER POINT OF CARE TEST ENTER/EDIT ORDERABLES Final Result * POCT Rapid Strep A OSOM (06/13/2024 8:54 AM EST) [facility] Rapid Strep A Screen Negative Negative, None Detected Comment:internal controls lisa ssed QC Media Lot # [id number] Lot# Expiration Date ,025 Swab 06/13/2024 8:54 AM EST Neema Phalen SALES PROJECT ENGINEER POINT OF CARE TEST ENTER/EDIT ORDERABLES Final Result * POCT Rapid Influenza A OSOM (06/13/2024 8:53 AM EST) [facility] Rapid Influenza A Ag Negative Negative, Indeterminate Comment:internal controls pa ssed QC Media Lot # [id number] Lot# Expiration Date Swab Nasopharyngeal structure / Unknown 06/13/2024 8:53 AM EST us Neema Phalen SALES PROJECT ENGINEER POINT OF CARE TEST ENTER/EDIT ORDERABLES Final Result * Cancelled Serology (06/10/2024 3:06 PM EST) Cancelled Serology SEE NOTE [facility] Comment:RESPIRATORY PATHOGEN PANEL NOT PERFORMEDSPECIMEN REJECTED: ONLY THE SWAB TIP (FROM NASAL) SUBMITTEDIN THE VIRAL CULTURE MEDIA. PLEASE REORDER AND RECOLLECT ASNEEDED.Test not performed called to Sherrill Flaherty 06/10/24 at 1445 byHOMANDEEP. 06/10/2024 3:06 PM EST 06/10/2024 3:07 PM EST us Neema Landon SALES PROJECT ENGINEER HISTORICAL/NON ORDERABLE LABS Final Result [facility] [address] [place] [address] [phone] * Respiratory Viral Panel PCR (06/10/2024 11:13 AM EST) Pathologist [facility] Adenovirus PCR TNP Not Detect. [facility] Bordetella pertussis PCR TNP Not Detect. [facility] Bordetella parapertussis PCR TNP Not Detect. [facility] Chlamydia pneumoniae PCR TNP Not Detect. [facility] Coronavirus 229E PCR TNP Not Detect. [facility] Coronavirus HKU1 PCR TNP Not Detect. [facility] Coronavirus NL63 PCR TNP Not Detect. [facility] Coronavirus OC43 PCR TNP Not Detect. [facility] SARS-CoV-2 PCR TNP Not Detect. [facility] Comment:SARS-CoV-2 not detec jason by real-time RT-PCR.Note: If clinical suspicion for Sars-CoV-2 is high, continueto maintain precautions and consider repeat testing.Test results should be interpreted in the context ofclinical findings and other laboratory data.Rare polymorphisms exist that could lead to false-negativeor false-positive results. If results do not match theclinical findings, additional testing should be considered.Results reported to [facility].This test has been authorized by the FDA under the EmergencyUse Authorization (EUA) for use by authorized laboratories. Influenza A PCR TNP Not Detect. [facility] Influenza B PCR TNP Not Detect. [facility] Human metapneumovirus PCR TNP Not Detect. [facility] Rhino/Enterovirus PCR TNP Not Detect. [facility] Mycoplasma pneumoniae PCR TNP Not Detect. [facility] Parainfluenza 1 PCR TNP Not Detect. [facility] Parainfluenza 2 PCR TNP Not Detect. [facility] Parainfluenza 3 PCR TNP Not Detect. [facility] Parainfluenza 4 PCR TNP Not Detect. [facility] RSV PCR TNP Not Detect. [facility] Resp Panel NA Note See Note [facility] Comment:SPECIMEN REJECTED: O NLY SWAB TIP (FROM NASAL) SUBMITTED INTHE VIRAL CULTURE MEDIA. PLEASE REORDER AND RECOLLECT ASNEEDED.Test not performed called to Sherrill Flaherty 06/10/2024 at 1445by SARAHI. 06/10/2024 11:1 3 AM EST 06/10/2024 2:00 PM EST us Neema Landon SALES PROJECT ENGINEER LAB BLOOD ORDERABLES Final Res ult Performing Organization Address [facility]/State/[facility] Co de Phone Number [facility] [address] [place] [phone] * BI US Breast Limited Right (12/07/2023 1:33 PM EDT) Anatomical Region Laterality Modality Breast Right Ultrasound 12/07/2023 1:33 PM EDT Narrative 12/08/2023 7:00 AM EDT ? [facility] ? [address] ?[place] [address] ? Ultrasound Report ? Signed ? Patient: Whitney,Nadege ?MR#: [id number] ?? 02 ? : 1965 ?Acct:[id number] ? Age/Sex: 58 / F ?ADM Date: 05/13/24 ? Loc: HO.MAMMO ? Attending Dr: Neema DAVIS ? Ordering Physician: Neema Landon ?? Date of Service: 12/07/23 ?? Procedure(s): US breast RT limited mamm only ?? Accession Number(s): [id number] ? cc: Neema Landon ? EXAMINATION: ?? US DIAGNOSTIC ULTRASOUND BREAST, RIGHT ? CLINICAL INFORMATION: ? The patient presents for recommended, short interval three-week ?? follow-up of a palpable sonographic finding of the right breast 12 cm ?? from the nipple. This was noted on diagnostic ultrasound from ?? 11/20/2023. ? COMPARISON: ?? This study is compared with the prior ultrasound from 11/20/2023. ? TECHNIQUE: ?? Ultrasound of the breast is performed with real-time damon scale imaging ?? and color Doppler. ? FINDINGS: ?? Sonography of the 11:00 position of the right breast 12 cm from the ?? nipple was performed. In this location, there is an irregular ?? hypoechoic structure measuring 5 mm x 4 mm x 4 mm. It has a poorly ?? marginated echogenic cuff and surrounding hypervascularity. It does not ?? have appeared to have a connection to the skin on sonography. When ?? comparing with the prior study, it is not changed in overall size. ?? Since this represents a palpable, sonographically indeterminate entity, ?? ultrasound-guided biopsy is advised. Results are discussed with the ?? patient at time of visit. ? US/US breast RT limited mamm only ?? IMPRESSION: ?? Ultrasound-guided biopsy advised for indeterminate 5 mm palpable mass ?? at the 11:00 position of the right breast 12 cm from the nipple. ? ASSESSMENT: ? BI-RADS 4 - Suspicious finding ? RECOMMENDATION: ?? Biopsy recommended ? This patient's information was entered into a reminder system with a ?? target due date for their next mammogram. ? Dictated By: ?Carolin Ortiz MD ? Signed By: ?<Electronically signed by Carolin Ortiz MD in OV> ? 12/08/23 06 ? DD/ ? TD/TT: ? Radiation Control Specialist: ? Procedure Note Dionne Almonte - 12/08/2023 [facility] [address] [place], [place] [address] Ultrasound Report Signed Patient: Nadege WhitneyMR#: [id number] 02 : 1965Acct:[id number] Age/Sex: 58 / FADM Date: 12/07/23 Loc: HO.MAMMO Attending Dr: Neema DAVIS Ordering Physician: Neema Landon Date of Service: 12/07/23 Procedure(s): US breast RT limited mamm only Accession Number(s): [id number] cc: Neema Landon EXAMINATION: US DIAGNOSTIC ULTRASOUND BREAST, RIGHT CLINICAL INFORMATION: The patient presents for recommended, short interval three-week follow-up of a palpable sonographic finding of the right breast 12 cm from the nipple. This was noted on diagnostic ultrasound from 11/20/2023. COMPARISON: This study is compared with the prior ultrasound from 11/20/2023. TECHNIQUE: Ultrasound of the breast is performed with real-time damon scale imaging and color Doppler. FINDINGS: Sonography of the 11:00 position of the right breast 12 cm from the nipple was performed. In this location, there is an irregular hypoechoic structure measuring 5 mm x 4 mm x 4 mm. It has a poorly marginated echogenic cuff and surrounding hypervascularity. It does not have appeared to have a connection to the skin on sonography. When comparing with the prior study, it is not changed in overall size. Since this represents a palpable, sonographically indeterminate entity, ultrasound-guided biopsy is advised. Results are discussed with the patient at time of visit. US/US breast RT limited mamm only IMPRESSION: Ultrasound-guided biopsy advised for indeterminate 5 mm palpable mass at the 11:00 position of the right breast 12 cm from the nipple. ASSESSMENT: BI-RADS 4 - Suspicious finding RECOMMENDATION: Biopsy recommended This patient's information was entered into a reminder system with a target due date for their next mammogram. Dictated By: Carolin Ortiz MD Signed By: <Electronically signed by Carolin Ortiz MD in OV> 12/08/23 0656 DD/ 1333 TD/TT: Radiation Control Specialist: us Neema DAVIS IMG US PROCEDURES Final Result * Hepatitis C Viral RNA, Quantitative, Real-Time PCR (10/19/2023 1:00 PM EDT) Hepatitis C Viral Load <15 NOT DETECTED NOT DETECTED IU/mL [facility] HCV Log PCR <1.18 NOT DETECTED NOT DETECTED Log IU/mL [facility] Comment:This test was perfor med using Real-Time Polymerase ChainReaction.Reportable Range: 15 IU/mL to 100,000,000 IU/mL(1.18 Log IU/mL to 8.00 Log IU/mL).The analytical performance characteristics of thisassay have been determined by [employer].The modifications have not been cleared or approved bythe FDA. This assay has been validated pursuant to theCLIA regulations and is used for clinical purposes.For more information on this test, go to:http://education.[employer]/faq/LQP73w9(This link is being provided for informational/educational purposes only.)THIS TEST WAS PERFORMED AT[employer] [place] [phone] FIGUEROA MD Blood 10/19/2023 1:00 PM EDT 10/19/2023 3:55 PM EDT Neema Landon [facility] BLOOD ORDERABLES Final Res ult [facility] [address] [place] [phone] [phone] * HIV-1/2 Antigen and Antibodies, Fourth Generation, with Reflexes (10/19/2023 1:00 PM EDT) Pathologist [facility] HIV AB/AG Nonreactive Nonreactive [facility] Comment:HIV-1 p24 Ag and/or HIV-1/HIV-2 Ab not detected.A test result that is nonreactive does not exclude thepossibility of exposure to or infection with HIV-1 and/orHIV-2. Nonreactive results in this assay for individualswith prior exposure to HIV-1 and/or HIV-2 may be due toantigen and antibody levels that are below the limit ofdetection of this assay.The [employer] HIV Ag/Ab Combo assay result andsupplemental assay results should be interpreted inconjunction with the patient's clinical presentation,history and other laboratory results. If the results areinconsistent with clinical evidence, additional testing issuggested to confirm the result. Blood Venous blood specimen / Unknown 10/19/2023 1:00 PM EDT 10/19/2023 3:55 PM EDT Neema Landon [facility] BLOOD ORDERABLES Final Res ult [facility] [address] [place] [phone] * (ABNORMAL) Lipid Panel, Standard (10/19/2023 1:00 PM EDT) Triglycerides 151(H) <150 mg/dL [facility] Comment:Desirable Triglyceri de: less than 150 mg/dLBorderline High Triglyceride 150-199 mg/dLHigh Triglyceride: 200-499 mg/dLVery High Triglyceride: greater than or equal to 5OO mg/dL Cholesterol 181 <200 mg/dL [facility] Comment:Desirable Cholestero l: less than 200 mg/dLBorderline High Cholesterol: 200-239 mg/dLHigh Cholesterol: greater than 239 mg/dL LDL Cholesterol Calculated 107(H) <100 mg/dL [facility] Comment:Desirable LDL: less than 100 mg/dLNear Optimal/Above Optimal LDL: 110- 129 mg/dLBorderline High LDL: 130-159 mg/dLHigh LDL: 160-189 mg/dLVery High LDL: greater than or equal to 190 mg/dL HDL Cholesterol 44 >40 mg/dL [facility] Comment:Desirable HDL: great er than 40 mg/dL Note: This HDL assay may give artificially low results in patients with liver disease. Blood Venous blood specimen / Unknown 10/19/2023 1:00 PM EDT 10/19/2023 3:55 PM EDT Neema Landon [facility] BLOOD ORDERABLES Final Res ult Performing Organization Address [facility] Co de Phone Number [facility] [address] [place] [address] [phone] * THINPREP PAP (01/01/2021 6:38 PM EDT) Clinical Information: None given [facility] COMMENT SEE COMMENT [facility] Comment: EXPLANATORY NOTE: ? The Pap is a screening test for cervical cancer. It is ?? not a diagnostic test and is subject to false negative ?? and false positive results. It is most reliable when a ?? satisfactory sample, regularly obtained, is submitted ?? with relevant clinical findings and history, and when ?? the Pap result is evaluated along with historic and ?? current clinical information. ?? Substation Operator Automatic : SEE COMMENT [facility] Comment: YP, CT(ASCP) CT screening location: [address] ??[address] Interpretation/R esult: Negative for intraepithelial lesion or malignancy. [facility] LMP: NONE GIVEN [facility] Prev. BX: NONE [facility]IVEN [facility] Prev. PAP: NONE GIVEN [facility] SOURCE: None given [facility] Statement Of Adequacy: SEE COMMENT [facility] Comment: Satisfactory for evaluation. Endocervical/transformation zone component present. Age and/or menstrual status not provided 01/01/2021 6:38 PM EDT Jing Segundo NP LAB PATHOLOGY ORDERABLES Final Result Performing Organization Address City/[facility]/ZIP Co de Phone Number [facility] [address] * HPV mRNA E6/E7 (01/01/2021 6:38 PM EDT) HPV nRNA E6/E7 Not Detected Not Detected [facility] Comment: Methodology: Knife Operator-Mediated Amplification This assay detects E6/E7 viral messenger RNA (mRNA) from 14 high-risk HPV types (16,18,31,33,35,39,45,51,52,56,58,59,66,68). ? The analytical performance characteristics of this assay have been determined by [employer]. The modifications have not been cleared or approved by the FDA. This assay has been validated pursuant to the CLIA regulations and is used for clinical purposes. ?? For additional information, please refer to http://education.[employer]/faq/YWB328c5 (This link if provided for information/ educational purposes only.) NO COLLECTION DATE RECEIVED. WE HAVE USED THE DATE THE SPECIMEN WAS RECEIVED BY THIS LABORATORY THE COLLECTION DATE. IF THIS IS INCORRECT, PLEASE CONTACT CLIENT SERVICES. PHONE NUMBER: ?? 01/01/2021 6:38 PM EDT us Jing Segundo NP LAB BLOOD ORDERABLES Final Res ult Performing Organization Address City/State/[facility] Co de Phone Number [facility] [address] from Last 3 Months or Most Recently Relevant to Health Maintenance Insurance [employer] C3 Care Teams Control Clerk Head Relationship Specialty Start Date End Date Neema Landon FNP [address] [place] [address] PCP - General Family Medicine 03/26/22 Avis Benson [address] [place] [phone] Sleep Medicine 06/12/24 Ciro Vegas DPM [address] [place] [address] Podiatry 06/12/24 Lara Lorenzana PA [address] [place] [phone] Orthopaedic Surgery 06/12/24
--- OUTSIDE RECORDS SUMMARY | 2024-09-08 12:54 | XMS_ITS | Encounter Summary ---
Author Organization [employer] Address [address] [place] [address] Care Team Providers Care Color Making Supervisor Name Role Phone Neema Landon SENIOR POWER SCHEDULER Primary Care Provider [phone] Avis Benson Unavailable Ciro Vegas DPM Unavailable Lara Lorenzana Unavailable Reason for Visit * Reason Comments Med Refill Encounter Details Date Type Department Care Team (Late st Contact Info) Description 08/08/2024 Refill [facility] [address] [place] [address] Neema Landon FNP [address] [place] [address] Social History Tobacco Use Types Packs/Day Years Used Date Smoking Tobacco: Never Passive Smoke Exposure: Never Smokeless Tobacco: Never Alcohol Use Standard Drinks/Week Comments Never 0 [...] not to disclose 2021 10:15 AM EDT documented as of this encounter Plan of Treatment Not on file documented as of this encounter Visit Diagnoses Not on filedocumented in this encounter Additional Health Concerns Assessment Noted Time PHQ-9 Depression Total Score: 6 10/19/19 24 10:03 AM EDT documented as of this encounter Care Teams Color Making Supervisor Relationship Specialty Start Date End Date Neema Landon FNP [address] [place] [address] PCP - General Family Medicine 03/26/22 Avis Benson [address] [place] [address] [address] [place] [address] Sleep Medicine 06/12/24 Ciro Vegas DPM [address] [place] [address] Podiatry 06/12/24 Lara Lorenzana PA [address] [place] [address] [address] [place] [address] Orthopaedic Surgery 06/12/24 documented as of this encounter
--- OUTSIDE RECORDS SUMMARY | 2024-09-08 12:54 | XMS_ITS ---
Author Organization [facility] Address [address] [place] [phone] Care Team Providers Care Tracer Lathe Set Up Operator Name Role Phone ABRAHAM CANELA MD Primary Care Provider Unavaila Xavier Fleming Unavailable [phone] ALLERGIES No Known Allergies REASON FOR VISIT [...] FOR 12 HOURS DIRECTED External for 30 [id number],Unavai lable Active Simethicone 80 MG 1 tablet [...] screening (Z12.11) Active confirmed Colon cancer screening (038994982) Problem Chronic GERD (K21.9) Active confirmed Gastroesophagea l reflux disease (disorder) (916013348) Problem Chronic constipation (K59.09) Active confirmed Chronic constipation (102441331) Problem Abdominal bloating (R14.0) Active confirmed Abdominal bloat ing (638557295) Problem Abdominal discomfort, epigastric (R10.13) Active confirmed Epigastric pain (31905530) VITAL SIGNS BMI 34.33 kg/m2 07/08/2024 Blood pressure systolic 00 mm Hg 07/08/20 24 Blood pressure diastolic 00 mm Hg 024 Height 4 ft 11 in in 07/08/2024 Weight 170 lbs 07/08/2024 Encounters Encounter Location Date Provider Diagnosis [facility] [address] [place] [phone] 07/08/2024 Xavier Valverde Colon cancer screeni ng [...] Reason: Provider Name:Xavier Chung Valverde , 10/17/2024 10:50:00 AM, [address] [place] [address], [phone], Progress Notes * Examination Category Sub-Category Detail [...]
--- OUTSIDE RECORDS SUMMARY | 2024-09-08 12:54 | XMS_ITS | Patient Health Record ---
Author Organization [facility] Address [address] [place] [phone] Care Team Providers Care Body Mechanic Apprentice Name Role Phone ABRAHAM CANELA MD Primary Care Provider Xavier Banda [phone] ALLERGIES No Known Allergies RESULTS Component Value Reference Range Notes US abdomen complete (Not yet reviewed by provider) Interpretation: Performing Lab: Notes/Report: [address] [address] Ultrasound Report Signed Patient: Jesusita Monge MR#: [id number] 02 : 1965 Acct:[id number] Age/Sex: 59 / F ADM Date: 07/28/24 Loc: HO.US Attending Dr: Xavier Valverde MD Ordering Physician: Xavier Valverde MD Date of Service: 07/28/24 Procedure(s): US abdomen complete Accession Number(s): [id number] cc: Abraham Canela CARPET LAYER HELPER; Xavier Valverde MD CLINICAL HISTORY: ABD DISTENTION [...] León MD in OV> 07/30/24 0800 DD/ 8 TD/TT: 07/30/24758 Promotions Assistant Sales Marketing: REASON FOR REFERRAL Referring Provider First Name ABRAHAM Referring Provider Last Name [facility] Referred Organization [facility] Referred Provider Xavier Valverde Referred Address [address] [place] [address],[address],[address], Referred Provider Specialty Gastroentero logy Referral Priority [...] FOR 12 HOURS DIRECTED External for 30 [id number],Unavai lable Active Acetaminophen Extra Strength 500 MG [...] screening (Z12.11) Active confirmed Colon cancer screening (037850254) Problem Chronic GERD (K21.9) Active confirmed Gastroesophagea l reflux disease (disorder) (012254351) Problem Chronic constipation (K59.09) Active confirmed Chronic constipation (283992473) Problem Abdominal bloating (R14.0) Active confirmed Abdominal bloat ing (652729016) Problem Abdominal discomfort, epigastric (R10.13) Active confirmed Epigastric pain (59547842) VITAL SIGNS Blood pressure diastolic 00 mm Hg 07/08/2024 Height 4 ft 11 in in 07/08/2024 Blood pressure systolic 00 mm Hg 07/08/2024 Weight 170 lbs 07/08/2024 BMI 34.33 kg/m2 07/08/2024 Encounters Encounter Location Date Provider Diagnosis [facility] [address] [place] [phone] 07/08/2024 Xavier Valverde Colon cancer screeni ng [...] Name Order Date US abdomen complete 07/08/2024 US abdomen complete 07/30/2024 Future Test Test Name Order Date UPPER GI ENDOSCOPY 07/08/2024 COLONOSCOPY 07/08/2024 Next Appt Details Provider Name:Xavier Chung Valverde , 10/17/2024 10:50:00 AM, [address] [place] [address] , [place], [place], [phone], Insurance Providers Payer Name Payer Address Payer Phone Subscriber Number Group Number Insured Name Patient Relationship to Insured Coverage Start Date Coverage End Date [facility] [address] [place] [phone] [id number] JESUSITA MONGE Self - patient is the insured MEDICAL (GENERAL) HISTORY Medical History History ICD Code Heart papitations Pre-diabeteic Arthritis Hypothyroidism Hyperlipidemia Denies IA,DM,CVA,renal disease Asthma GERD Surgical History Surgery Date(Month/Year) BTL
--- OUTSIDE RECORDS SUMMARY | 2024-09-08 12:54 | XMS_ITS | Encounter Summary ---
Author Organization [employer] Address [address] [facility] 7t [place] [address] Care Team Providers Care Applications Packager Name Role Phone Pujajase Neema SLACKLINE OPERATOR Primary Care Provider [phone] Avis Benson Unavailable [phone] Ciro Vegas DPM Unavailable [phone] Lara Lorenzana Unavailable Reason for Visit * Reason Comments Med Refill Encounter Details Date Type Department Care Team (Late st Contact Info) Description 07/04/2023 Refill [facility] [address] [place] [address] Belia Duckworth MD [address] [place] [address] Social History Tobacco Use Types Packs/Day Years Used Date Smoking Tobacco: Never Passive Smoke Exposure: Never Smokeless Tobacco: Never Alcohol Use Standard Drinks/Week Comments Never 0 (1 standard drink = 0.6 oz pur e alcohol) Depression Answer Date Recorded Patient Health Questionnaire-9 Score 6 07/01/2022 Housing Stability Answer Date Recorded What is your housing situation today? I have clara lorie 05/11/[address] you li ve. Do you have problems with any of the following? None of the above 05/11/2023 Food Insecurity Answer Date Recorded Within the past 12 months, y ou worried that your food would run out before you got money to buy more: Never True 05/11/2023 Within the past 12 months,th e food you bought just didn't last and you didn't have enough money to get more: Never True Transportation Answer Date Recorded In the past 12 months, has l ack of transportation kept you from medical appts, meetings, work or from getting things needed for daily living? No 05/11/2023 Utilities Answer Date Recorded In the past 12 months, has t he electric, gas, oil or water company threatened to shut off services in your home? No 05/11/2023 Depression Answer Date Recorded Patient Health Questionnaire-2 Score 1 07/01/2022 Comments Unknown Sex and Gender Information Value [...] Noted Time PHQ-9 Depression Total Score: 6 07/01/20 22 9:18 AM EST documented as of this encounter Care Teams Applications Packager Relationship Specialty Start Date End Date Neema Landon FNP [address] [place] [address] PCP - General Family Medicine 03/26/22 Avis Benson [address] [place] [address] Sleep Medicine 06/12/24 Ciro Vegas DPM [address] [place] [address] Podiatry 06/12/24 Lara Lorenzana PA [address] [place] [address] Orthopaedic Surgery 06/12/24 documented as of this encounter
--- OUTSIDE RECORDS SUMMARY | 2024-09-08 12:54 | XMS_ITS | Encounter Summary ---
Author Organization [employer] Address [address] [facility] [address] 7t [place] [address] Care Team Providers Care Machine Cleaner Name Role Phone Neema Landon JAILER Primary Care Provider [phone] Avis Benson Unavailable [phone] Ciro Vegas DPM Unavailable [phone] Lara Lorenzana Unavailable Encounter Details Date Type Department Care Team (Latest Contact Info) Description 08/12/2024 Travel Social History Tobacco Use Types Packs/Day Years [...] housing situation today? I have clara lorie 02/12/[address] you li [...] documented as of this encounter Care Teams Machine Cleaner Relationship Specialty Start Date End Date Neema Landon FNP 230 [place] [address] PCP - General Family Medicine 03/26/22 Avis Benson [address] [place] [address] Sleep Medicine 06/12/24 Ciro Vegas DPM [address] [address] Podiatry 06/12/24 Lara Lorenzana PA [address] [place] [address] Orthopaedic Surgery 06/12/24 documented as of this encounter
--- OUTSIDE RECORDS SUMMARY | 2024-09-08 12:54 | XMS_ITS | Encounter Summary ---
Author Organization [employer] Address [address] [facility] [address] 7t [place] [address] Care Team Providers Care Consumer Advocate Name Role Phone Pujajase Neema MICROWAVE SUPERVISOR Primary Care Provider [phone] Avis Benson Unavailable [phone] Ciro Vegas DPM Unavailable [phone] Lara Lorenzana Unavailable Encounter Details Date Type Department Care Team (Late st Contact Info) Description 08/12/2024 1:15 PM EST Immunization [facility] [address] [place] [address] Mel Egan LPN Encounter for immunization (Primary Dx) Social History Tobacco Use Types Packs/Day Years [...] the past 12 months, has t he [employer], gas, oil or water [employer] threatened to shut off services in your [...] AM EDT documented as of this encounter Progress Notes * Mel Egan LPN - 08/12/2024 1:15 PM EST Subjective Patient ID: Nadege Whitney is a 59 y.o. female who presentshere to receive Fluarix Trivalent, Preservative-Free, [id number] seasonal Influenza vaccine. Pt's Influenza Intake form, and guardian reporting, indicated no contraindication to vaccination. Pt educated as to potential side effects of vaccine including fever, muscle aches & headache. Pt tolerated injection well and monitored for 15 minutes post injection. Pt here for 1208-8922 Trumakerkat, TVDeck, 12 yr+, vaccine. Pt questionnaire indicates that ptis eligible to receive vaccine. Pt denies allergies to vaccine components. Pt educated as to signs/symptoms of Covid infection and potential side effects of vaccination including low grade fevers, intermittent chills, fatigue, body aches and swelling/redness/pain at injection site. Pt informed of benefits of adequate hydration post vaccinations. Pt tolerated injection well and monitored for 15 minutes documented in this encounter Plan of Treatment Not on file documented as of this encounter Visit Diagnoses Diagnosis Encounter for immunization- Primary documented in this encounter Additional Health Concerns Assessment Noted Time PHQ-9 Depression Total Score: 6 10/19/19 24 10:03 AM EDT documented as of this encounter Care Teams Consumer Advocate Relationship Specialty Start Date End Date Neema Landon FNP [address] [place] [address] PCP - General Family Medicine 03/26/22 Avis Benson [address] [place] [address] Sleep Medicine 06/12/24 Ciro Vegas DPM [address] [place] [address] Podiatry 06/12/24 Lara Lorenzana PA [address] [place] [address] Orthopaedic Surgery 06/12/24 documented as of this encounter
--- OUTSIDE RECORDS SUMMARY | 2024-09-08 12:54 | XMS_ITS | Encounter Summary ---
Author Organization [employer] Address [address] [facility] [address] 7t [place] [address] Care Team Providers Care Intermission Coordinator Name Role Phone Neema Landon Primary Care Provider [phone] Avis Benson Unavailable [phone] Ciro Vegas DPM Unavailable [phone] Lara Lorenzana Unavailable Reason for Visit * Reason Onset Date Comments status on script 07/02/2022 Encounter Details Date Type Department Care Team (Late st Contact Info) Description 07/02/2022 Telephone [facility] [address] [place] [address] Neema Landon FNP [address] [place] [address] status on script Social History Tobacco Use Types Packs/Day Years Used Date Smoking Tobacco: Never Smokeless Tobacco: Never Alcohol Use Standard Drinks/Week Comments Never 0 (1 standard drink = 0.6 oz pur e alcohol) Depression Answer Date Recorded Patient Health Questionnaire-9 Score 6 07/01/2022 Depression Answer Date Recorded Patient Health Questionnaire-2 Score 1 07/01/2022 Comments Unknown Sex and Gender Information Value Date Recorded Sex Assigned at Female 05/26/2022 10:15 AM EDT Legal Sex Female 10:15 AM EDT Gender Identity Female 06/12/2023 7:10 AM EST Sexual Orientation Choose not to disclose 2021 10:15 AM EDT COVID-19 Exposure Response Date Recorded In the last 10 days, have yo u been in contact with someone who was confirmed or suspected to have Coronavirus/COVID-19? No / Unsure 07/01/2022 8:41 AM EST documented as of this encounter Miscellaneous Notes * Telephone Encounter - Nita Reich - 07/02/2022 2:09 PM EST TC from Pt calling requesting status on Rosuvastatin sodium 40mg. Pt stated was talked yesterday onappt with Provider. PCP Dipesh documented in this encounter Plan of Treatment Not on file documented as of this encounter Visit Diagnoses Not on filedocumented in this encounter Additional Health Concerns Assessment Noted Time PHQ-9 Depression Total Score: 6 07/01/20 22 9:18 AM EST documented as of this encounter Care Teams Intermission Coordinator Relationship Specialty Start Date End Date Neema Landon FNP [address] [place] [address] PCP - General Family Medicine 03/26/22 Avis Benson [address] [place] [address] Sleep Medicine 06/12/24 Ciro Vegas DPM [address] [place] [address] Podiatry 06/12/24 Lara Lorenzana PA [address] [place] [address] Orthopaedic Surgery 06/12/24 documented as of this encounter
--- OUTSIDE RECORDS SUMMARY | 2024-09-08 12:54 | XMS_ITS | Encounter Summary ---
Author Organization [facility] Address [address] [facility] [facility] [address] 7t [place] [address] Care Team Providers Care Pool Coordinator Name Role Phone Neema Landon Primary Care Provider [phone] Avis Benson Unavailable Ciro Vegas DPM Unavailable [phone] Lara Lorenzana Unavailable Encounter Details Date Type Department Care Team (Latest Contact Info) Description 04/04/2019 Abstract [facility] CONVERSION[facility] Dental, Provider, DDS Social History Tobacco Use Types Packs/Day Years Used Date Smoking Tobacco: Never Assessed Comments Unknown Sex and Gender Information Value [...] Diagnoses Not on filedocumented in this encounter Care Teams Pool Coordinator Relationship Specialty Start Date End Date Neema Landon FNP 230 [place] [address] PCP - General Family Medicine 03/26/22 Avis Benson [address] [facility] 3rd [place] [address] Sleep Medicine 06/12/24 Ciro Vegas DPM [address] [place] [address] Podiatry 06/12/24 Lara Lorenzana PA [address] [place] [address] 3[address] [place] [address] Orthopaedic Surgery 06/12/24 documented as of this encounter
== END 2024-09-08 12:48 | disposition home or self-care (01) ==
LOC: HO.MAMMO 12:47
PROVIDERS: PCP Registered Nurse; Visit Provider Surgery
DX: N60.01 Solitary cyst of right breast (principal)
CPT/HCPCS: 76642

== ENCOUNTER → 2024-09-08 13:00 | Outpatient (BNV) | payer MEDICAID, SELFPAY | PROVIDERS: PCP Registered Nurse; Visit Provider Internal Medicine | DX: Z86.000 Personal history of in-situ neoplasm of breast (principal) | CPT/HCPCS: 76642 ==

== ENCOUNTER 2024-09-21 10:30 | Outpatient (AMB) | payer MEDICAID, SELFPAY ==
--- NOTE | 2024-09-21 11:02 | MHC.OFFVIS ---
Vital Signs 09/21/24 11:05 Height 4 ft 11 in Weight 179 lb BMI 36.1 BP 120/80 Blood Pressure Location Lt brachial Position Sitting Pulse 73 Pulse Source Pulse Oximeter Pulse Oximetry (%) 96 Oxygen Delivery Method Room Air Intake Visit Reasons: Follow up 6mo Accompanied by: Self / Same As Patient Allergies No Known Allergies Allergy (Verified 09/21/24 11:05) HPI Comments Details: 59-yr-old female presents for follow-up visit of sleep apnea. Her sleep apnea management involves the use of a CPAP machine, which she describes as inconsistent in effectiveness due to her fluctuating adherence. Notably, her adherence decreased in July due to an episode of the flu, affecting symptom control. She is trying to use the CPAP for more than 4 hours, however her nighttime sleep is frequently disrupted due to her neighbor's below fighting and making a lot of noise. She does have residual daytime sleepiness, and takes daytime naps. She did not realize that she could use the CPAP during her daytime naps.Overall, she tolerates her CPAP machine well and finds it effective when she is able to use it more regularly. Her CPAP mask is over a year old, and the seal is broken down. She does clean her CPAP supplies regularly. She does use distilled water in her CPAP machine to water reservoir. [facility] Compliance Report Usage 06/23/2024 - 09/20/2024 Usage days 50/90 days (56 %) Usage days >= 4 hours 20 days (22 %) Usage days < 4 hours 30 days (33 %) Average usage (days used) 3 hours 15 minutes AirSense 11 AutoSet Serial number [id number] Mode AutoSet Min Pressure 5 cmH2O Max Pressure 15 cmH2O EPR Fulltime EPR level 2 Response Standard Therapy Pressure Maximum Pressure: 11.7 cmH2O Maximum Leaks: 34.3 Residual events per hour AI: AI: 1.1 HI: 0.1 AHI: 1.2 Apnea Index Central: 0.1 Obstructive: 0.7 Unknown: 0.3 PFSH Medical History High cholesterol Prediabetes Surgical History Hx of tubal ligation Family History Father Tuberculosis Mother Diabetes Heart disease Thyroid condition Hyperlipidemia Sister Renal insufficiency Brother Thyroid condition Social History Alcohol intake: never Patient Tobacco Use Status: Never used Tobacco Current occupational status: unemployed Current occupation: right hand dominant Physical Exam Vital Signs: Last Vital Signs Pulse 73 09/21/24 11:05 BP 120/80 09/21/24 11:05 Pulse Ox 96 09/21/24 11:05 Oxygen Delivery Method Room Air 09/21/24 11:05 BMI result Body Mass Index 36.1 Const General: no acute distress Orientation/consciousness: patient oriented x3 Resp Effort & Inspection: normal respiratory effort and able to speak in complete sentences Neuro General: patient oriented x3 Psych Mental Status: mental status grossly normal Speech and movement: Clear speech present Attitude: cooperative Assessment & Plan Assessment & Plan (1) TR[place]ON (obstructive sleep apnea): Comment: Mild degree of sleep apnea. The AHI was 9/hr and oxygen aicha was 84% Code(s): G47.33 - Obstructive sleep apnea (adult) (pediatric) Category: Medical Plan - Continue APAP 5-15 cmH2O w/ EPR 2 nightly w/ goal of using > 4 hours, as pt has had good clinical effect from use with good reduction in residual AHI. - Use CPAP while sleeping at night and during daytime naps, which should help improve overall PAP compliance rates. - Clean CPAP machine and supplies routinely. - Use distilled water in CPAP water reservoir. - Change CPAP supplies routinely. - New CPAP supply refill order written today. - Pt to contact us or respiratory company, [facility], with any questions or concerns. Pt to follow-up in 6 months or sooner prn. Patient was informed and verbally consented to the use of an ambient scribe for clinic note documentation during this visit. Coding Level of Care Code Est Pt Level 3 (72606) Diagnoses TRENTON (obstructive sleep apnea) G47.33
[2024-09-21 11:05] VITALS: BP 120/80; PULSE 73; O2SAT 96; BMI 36.1
--- OUTSIDE RECORDS SUMMARY | 2024-09-21 12:56 | XMS_ITS ---
Author Organization [facility] Address [address] [place] [address] Care Team Providers Care Railroad Police Name Role Phone ABRAHAM CANELA MD Primary Care Provider Unavaila Xavier Fleming Unavailable [phone] ALLERGIES No Known Allergies REASON FOR VISIT [...] FOR 12 HOURS DIRECTED External for 30 [id number],Unavai lable Active Simethicone 80 MG 1 tablet [...] screening (Z12.11) Active confirmed Colon cancer screening (913556116) Problem Chronic GERD (K21.9) Active confirmed Gastroesophagea l reflux disease (disorder) (819664751) Problem Chronic constipation (K59.09) Active confirmed Chronic constipation (892008036) Problem Abdominal bloating (R14.0) Active confirmed Abdominal bloat ing (548382921) Problem Abdominal discomfort, epigastric (R10.13) Active confirmed Epigastric pain (72612082) VITAL SIGNS Blood pressure systolic 00 mm Hg 07/08/20 24 Blood pressure diastolic 00 mm Hg 024 Height 4 ft 11 in in 07/08/2024 Weight 170 lbs 07/08/2024 BMI 34.33 kg/m2 07/08/2024 Encounters Encounter Location Date Provider Diagnosis [facility] [address] [place] [phone] 07/08/2024 Xavier Valverde Colon cancer screeni ng [...] Name:Xavier Chung Valverde , 10/17/2024 10:50:00 AM, [address] [place] [address], [phone], Progress Notes * Examination Category Sub-Category Detail [...]
--- OUTSIDE RECORDS SUMMARY | 2024-09-21 12:56 | XMS_ITS | Encounter Summary ---
Author Organization [employer] Address [address] [facility] [address] 7t [place] [address] Care Team Providers Care Plate Shear Operator Name Role Phone Neema Landon Primary Care Provider [phone] Avis Benson Unavailable [phone] Ciro Vegas DPM Unavailable Lara Lorenzana Unavailable Reason for Visit * Reason Onset Date Comments status on script 07/02/2022 Encounter Details Date Type Department Care Team (Late st Contact Info) Description 07/02/2022 Telephone [facility] MEDICINE 230 [place] [address] Neema Landon FNP [address] [place] [address] status on script Social History Tobacco Use [...] documented in this encounter Plan of Treatment Upcoming Encounters Date Type Department Care Team (Late st Contact Info) Description 10/21/2024 2:30 PM EDT Office Visit [facility] 505 [place] [address] Neema Landon FNP 505 [place] [address] documented as of this encounter Visit Diagnoses Not on filedocumented in this encounter Additional Health Concerns Assessment Noted Time PHQ-9 Depression Total Score: 6 07/01/20 22 9:18 AM EST documented as of this encounter Care Teams Plate Shear Operator Relationship Specialty Start Date End Date Neema Landon FNP [address] [place] [address] PCP - General Family Medicine 03/26/22 Avis Benson [address] [place] [address] Sleep Medicine 06/12/24 Ciro Vegas DPM [address] [place] [address] Podiatry 06/12/24 Lara Lorenzana PA [address] [place] [address] Orthopaedic Surgery 06/12/24 documented as of this encounter
--- OUTSIDE RECORDS SUMMARY | 2024-09-21 12:56 | XMS_ITS | Patient Health Record ---
Author Organization [facility] Address [address] [place] [phone] Care Team Providers Care Ski Technician Name Role Phone ABRAHAM CANELA MD Primary Care Provider Xavier Banda [phone] ALLERGIES No Known Allergies RESULTS Component Value Reference Range Notes US abdomen complete (Not yet reviewed by provider) Interpretation: Performing Lab: Notes/Report: [address] [address] Ultrasound Report Signed Patient: Jesusita Monge MR#: [id number] [birth year] : 1965 Acct:[id number] Age/Sex: 59 / F ADM Date: 07/28/24 Loc: HO.US Attending Dr: Xavier Valverde MD Ordering Physician: Xavier Valverde MD Date of Service: 07/28/24 Procedure(s): US abdomen complete Accession Number(s): [id number] cc: Abraham Canela BANKRUPTCY ATTORNEY; Xavier Valverde MD CLINICAL HISTORY: ABD DISTENTION [...] OV> 07/30/24 0800 DD/ 8 TD/TT: 07/30/24758 Upholstery Sewer: REASON FOR REFERRAL Referring Provider First Name ABRAHAM Referring Provider Last Name [facility] Referred Organization [facility] Referred Provider Xavier Valverde Referred Address [address] [place] [address],[address],[address], Referred Provider Specialty Gastroentero logy Referral Priority [...] FOR 12 HOURS DIRECTED External for 30 T15179,Unavai lable Active Acetaminophen Extra Strength 500 MG [...] screening (Z12.11) Active confirmed Colon cancer screening (325310529) Problem Abdominal bloating (R14.0) Active confirmed Abdominal bloat ing (582970223) Problem Abdominal discomfort, epigastric (R10.13) Active confirmed Epigastric pain (03126424) Problem Chronic constipation (K59.09) Active confirmed Chronic constipation (674048261) Problem Chronic GERD (K21.9) Active confirmed Gastroesophagea l reflux disease (disorder) (294600602) VITAL SIGNS Blood pressure diastolic 00 mm Hg 07/08/2024 Height 4 ft 11 in in 07/08/2024 Blood pressure systolic 00 mm Hg 07/08/2024 Weight 170 lbs 07/08/2024 BMI 34.33 kg/m2 07/08/2024 Encounters Encounter Location Date Provider Diagnosis [facility] [address] [place] [phone] 07/08/2024 Xavier Valverde Colon cancer screeni ng [...] Test Name Order Date US abdomen complete 07/30/2024 US abdomen complete 07/08/2024 Future Test Test Name Order Date UPPER GI ENDOSCOPY 07/08/2024 COLONOSCOPY 07/08/2024 Next Appt Details Provider Name:Xavier Chung Valverde , 10/17/2024 10:50:00 AM, [address] [place] [address] , [place], [place], [phone], Insurance Providers Payer Name Payer Address Payer Phone Subscriber Number Group Number Insured Name Patient Relationship to Insured Coverage Start Date Coverage End Date [facility]ICA[facility] [address] [place] [phone] [id number] JESUSITA MONGE Self - patient is the insured MEDICAL (GENERAL) HISTORY Medical History History ICD Code Heart papitations Pre-diabeteic Arthritis Hypothyroidism Hyperlipidemia Denies NV,DM,CVA,renal disease Asthma GERD Surgical History Surgery Date(Month/Year) BTL
--- OUTSIDE RECORDS SUMMARY | 2024-09-21 12:56 | XMS_ITS | Encounter Summary ---
Author Organization [employer] Address [address] [facility] [address] 7t [place] [address] Care Team Providers Care Powersaw Supervisor Name Role Phone Neema Landon SHEET METAL WORKER SUPERVISOR Primary Care Provider [phone] Avis Benson Unavailable [phone] Ciro Vegas DPM Unavailable Lara Lorenzana Unavailable Reason for Visit * Reason Onset Date Comments August recall 09/14/2024 Encounter Details Date Type Department Care Team ([facility] Contact Info) Description 09/14/2024 Telephone [facility] [address] [place] [address] Neema Landon FNP [address] [place] [address] August recall Social History Tobacco Use Types Packs/Day Years [...] AM EDT documented as of this encounter Miscellaneous Notes * Telephone Encounter - Nica Salinas MA - 09/14/2024 2:46 PM EST Telephone call to patient to schedule the following recall: Visit type: Follow up Appointment notes: Chronic conditions Patient agree to appointment on 10/21/2024 at 2:30 PM with Dipesh . documented in this encounter Plan of Treatment Upcoming Encounters Date Type Department Care Team ([facility] Contact Info) Description 10/21/2024 2:30 PM EDT Office Visit [facility]ED[facility] [address] [place] [address] Neema Landon FNP [address] [place] [address] documented as of this encounter Visit Diagnoses Not on filedocumented in this encounter Additional Health Concerns Assessment Noted Time PHQ-9 Depression Total Score: 6 10/19/19 24 10:03 AM EDT documented as of this encounter Care Teams Powersaw Supervisor Relationship Specialty Start Date End Date Neema Landon FNP [address] [place] [address] PCP - General Family Medicine 03/26/22 Avis Benson [address] [place] [address] Sleep Medicine 06/12/24 Ciro Vegas DPM [address] [place] [address] Podiatry 06/12/24 Lara Lorenzana PA [address] [place] [address] Orthopaedic Surgery 06/12/24 documented as of this encounter
--- OUTSIDE RECORDS SUMMARY | 2024-09-21 12:56 | XMS_ITS | Encounter Summary ---
Author Organization [employer] Address [address] [place] [address] Care Team Providers Care Showplace Manager Name Role Phone PujaNeema laguna CHEMICAL ENGINEERING TEACHER Primary Care Provider [phone] Avis Benson Unavailable [phone] Ciro Vegas DPM Unavailable [phone] Lara Lorenzana Unavailable Encounter Details Date Type Department Care Team (Late st Contact Info) Description 09/08/2024 Orders Only [facility] External Provider, [facility] Social History Tobacco Use Types Packs/Day Years [...] as of this encounter Plan of Treatment Upcoming Encounters Date Type Department Care Team (Late st Contact Info) Description 10/21/2024 2:30 PM EDT Office Visit [facility] [address] [place] [address] Neema Landon, SUSAN [address] [place] [address] documented as of this encounter Procedures Procedure Name Priority Date/Time Associated Diagnosis Comments BI US BREAST LIMITED RIGHT Routine 09/08/2024 1:00 PM EST documented in this encounter Results * BI US Breast Limited Right (09/08/2024 1:00 PM EST) Anatomical Region Laterality Modality Breast Right Ultrasound 09/08/2024 1:00 PM EST Narrative 09/08/2024 1:29 PM EST ? [facility] ? [address] ?[place] [address] ? Ultrasound Report ? Signed ? Patient: Whitney,Nadege ?MR#: [id number] ?? 02 ? : 1965 ?Acct:[id number] ? Age/Sex: 59 / F ?ADM Date: 02/13/25 ? Loc: HO.MAMMO ? Attending Dr: Ky Murray MD ? Ordering Physician: Ky Murray MD ?? Date of Service: 09/08/24 ?? Procedure(s): US breast RT limited mamm only ?? Accession Number(s): [id number] ? cc: Neema Landon; Ky Murray MD ? EXAMINATION: ?? US DIAGNOSTIC ULTRASOUND BREAST, RIGHT ? CLINICAL INFORMATION: ? Follow up after right axillary excisional biopsy of a benign probable ?? sebaceous cysts.. ? COMPARISON: ?? Comparison is made with relevant prior imaging. ? TECHNIQUE: ?? Ultrasound of the breast is performed with real-time damon scale imaging ?? and color Doppler. ? FINDINGS: ?? Targeted color Doppler ultrasound in the axilla at 11:00 2 cm from ?? nipple demonstrates normal fibroglandular breast tissue. There is no ?? sonographic abnormality. The previously seen sebaceous cyst has been ?? excised. ? Results are discussed with the patient at time of visit. ? US/US breast RT limited mamm only ?? IMPRESSION: ?? Normal fibronodular breast tissue. ? ASSESSMENT: ? BI-RADS 1: Negative ? RECOMMENDATION: ?? Routine annual mammography screening. ? This patient's information was entered into a reminder system with a ?? target due date for their next mammogram. ? Electronically signed by: ??Sherry Reyes DO ??09/08/2024 01:26 PM EST ? Dictated By: ?Sherry Reyes DO ? Signed By: ?<Electronically signed by Sherry Reyes, DO in OV> ? 09/08/24 1326 ? DD/ 1300 ? TD/TT: 09/08/24 1322 ? Senior Analysis Specialist: ? Procedure Note Gage, Dionne - 09/08/2024 [facility] [address] [place] [address] [place] [address] Ultrasound Report Signed Patient: Nadege WhitneyMR#: [id number] 02 : 1965Acct:[id number] Age/Sex: 59 / FADM Date: 09/08/24 Loc: HO.MAMMO Attending Dr: Ky Murray MD Ordering Physician: Ky Murray MD Date of Service: 09/08/24 Procedure(s): US breast RT limited mamm only Accession Number(s): [id number] cc: Neema Landon; Ky Murray MD EXAMINATION: US DIAGNOSTIC ULTRASOUND BREAST, RIGHT CLINICAL INFORMATION: Follow up after right axillary excisional biopsy of a benign probable sebaceous cysts.. COMPARISON: Comparison is made with relevant prior imaging. TECHNIQUE: Ultrasound of the breast is performed with real-time damon scale imaging and color Doppler. FINDINGS: Targeted color Doppler ultrasound in the axilla at 11:00 2 cm from nipple demonstrates normal fibroglandular breast tissue. There is no sonographic abnormality. The previously seen sebaceous cyst has been excised. Results are discussed with the patient at time of visit. US/US breast RT limited mamm only IMPRESSION: Normal fibronodular breast tissue. ASSESSMENT: BI-RADS 1: Negative RECOMMENDATION: Routine annual mammography screening. This patient's information was entered into a reminder system with a target due date for their next mammogram. Electronically signed by: Sherry Reyes DO 09/08/2024 01:26 PM [facility] Dictated By: Sherry Reyes DO Signed By: <Electronically signed by Sherry Reyes DO in OV> 09/08/24 1326 DD/ 1300 TD/TT: 09/08/24 1322 Senior Analysis Specialist: [facility] External Provider IMG US PROCEDURES Edited Result - Final documented in this encounter Visit Diagnoses Not on filedocumented in this encounter Additional Health Concerns Assessment Noted Time PHQ-9 Depression Total Score: 6 10/19/19 24 10:03 AM EDT documented as of this encounter Care Teams Showplace Manager Relationship Specialty Start Date End Date Neema Landon FNP [address] [place] [id number] PCP - General Family Medicine 03/26/22 Avis Benson [address] [place] [address] Sleep Medicine 06/12/24 Ciro Vegas DPM [address] [place] [address] Podiatry 06/12/24 Lara Lorenzana PA [address] [place] [phone] Orthopaedic Surgery 06/12/24 documented as of this encounter
--- OUTSIDE RECORDS SUMMARY | 2024-09-21 12:56 | XMS_ITS | Encounter Summary ---
Author Organization [employer] Address [address] [place] [address] Care Team Providers Care Tractor Drill Operator Name Role Phone Neema Landon NEWS PHOTOGRAPHER Primary Care Provider [phone] Avis Benson Unavailable Ciro Vegas DPM Unavailable Lara Lorenzana Unavailable Reason for Visit * Reason Comments Med Refill Encounter Details Date Type Department Care Team (Late st Contact Info) Description 08/08/2024 Refill [facility] [address] [place] [address] Neema Landon FNP [address] [place] [address] Social History Tobacco Use Types Packs/Day Years [...] 2:30 PM EDT Office Visit [facility] [address] [place] [address] Neema Landon FNP [address] [place] [address] documented as of this encounter Visit Diagnoses Not on filedocumented in this encounter Additional Health Concerns Assessment Noted Time PHQ-9 Depression Total Score: 6 10/19/19 24 10:03 AM EDT documented as of this encounter Care Teams Tractor Drill Operator Relationship Specialty Start Date End Date Neema Landon FNP [address] [place] [phone] PCP - General Family Medicine 03/26/22 Avis [facility] [address] [place] [address] Sleep Medicine 06/12/24 Ciro Vegas DPM [address] [place] [address] Podiatry 06/12/24 Lara Lorenzana PA [address] [place] [address] Orthopaedic Surgery 06/12/24 documented as of this encounter
--- OUTSIDE RECORDS SUMMARY | 2024-09-21 12:56 | XMS_ITS | Encounter Summary ---
Author Organization [employer] Address [address] [facility] [place] [address] Care Team Providers Care All Around Patternmaker Name Role Phone Pujajase Neema PROJECT MANAGER/DESIGN MANAGER Primary Care Provider [phone] Avis Benson Unavailable [phone] Ciro Vegas DPM Unavailable [phone] Lara Lorenzana Unavailable Reason for Visit * Reason Comments Med Refill Encounter Details Date Type Department Care Team (Late st Contact Info) Description 07/04/2023 Refill [facility] [address] [place] [address] Belia Duckworth MD [address] [place] [address] Social History Tobacco Use Types Packs/Day Years Used Date Smoking Tobacco: Never Passive Smoke Exposure: Never Smokeless Tobacco: Never Alcohol Use Standard Drinks/Week Comments Never 0 (1 standard drink = 0.6 oz pur e alcohol) Depression Answer Date Recorded Patient Health Questionnaire-9 Score 6 07/01/2022 Housing Stability Answer Date Recorded What is your housing situation today? I have claar lorie 05/11/[address] you [...] 10/21/2024 2:30 PM EDT Office Visit [facility] [address] [place] [address] Neema Landon FNP [address] [place] [address] documented as of this encounter Visit Diagnoses Not on filedocumented in this encounter Additional Health Concerns Assessment Noted Time PHQ-9 Depression Total Score: 6 07/01/20 22 9:18 AM EST documented as of this encounter Care Teams All Around Patternmaker Relationship Specialty Start Date End Date Neema Landon FNP [address] [place] [address] PCP - General Family Medicine 03/26/22 Avis Benson [address] [place] [address] 3rd [place] [address] Sleep Medicine 06/12/24 Ciro Vegas DPM [address] [place] [phone] Podiatry 06/12/24 Lara Lorenzana PA [address] [place] [address] [address]LO[address] [place] [address] Orthopaedic Surgery 06/12/24 documented as of this encounter
--- OUTSIDE RECORDS SUMMARY | 2024-09-21 12:56 | XMS_ITS | Clinical Summary ---
Author Organization [employer] Address [address] [facility] 7[address] [place] [address] Care Team Providers Care Head Start Director Name Role Phone PujaNeema laguna ANIMAL LABORATORY HELPER Primary Care Provider [phone] Avis Benson Unavailable [phone] Ciro Vegas DPM Unavailable [phone] Lara Lorenzana Unavailable Allergies No known active allergies Medications fluticasone (Flonase) 50 MCG/ACT nasal spray inhale 1 spray (50MCG) by intranasal route every day in each nostril 2 Active sodium chloride (Costilla) 0.65 % nasal spray 1 spray if [...] both knees 06/10/2024 Overview (06/12/2024): Following with [facility] Mela Lorenzana. Received steroid injection left knee in Mar 2024 XR January 2024: Degenerative joint narrowing of the femoral tibial joint. (Bilateral) Plantar fascial fibromatosis 03/06/2024 Overview (06/12/2024): Followed by Dr. Vegas - [facility] Podiatry Received injection of right heel plantar [...] breast - BIRADS 4, recommended biopsy. 12/08/23: [facility] General Surgeons - Dr. Murray. Referred for [...] infection or ruptured epidermal inclusion cyst. 12/15/23: [facility] Surgery - Dr. Murray. Pathology benign, incision [...] consideration of referral to specialist. -Referral to [facility] Ortho - Hand Specialist for further eval DDD (degenerative disc disease), lumbar 07/05/20 Overview (10/20/2023): May 2023: Lumbar XR: 1. There is mild degenerative disc disease at L4-L5. 2. There is mild anterior spondylosis at L1-L2. 3. There is facet arthropathy at L5-S1. 4. There is a slight thoracolumbar dextroscoliosis. Referral to [facility] Pain Management placed 07/05/23: [facility] Pain Mangement - Dr. Peoples. Eval for spondylosis - completed diagnostic medial branch block L3, L4 dorsal ramus L5 bialteral. Assessment & Plan (07/05/2023 10:16 PM EST): -Discussed options including symptomatic management, physical therapy, physiatry. -Pt interested in referral to [facility] Pain Management, referral sent Healthcare maintenance 06/12/2023 [...] for nodes. Biopsy as indicated. -Following with [facility] -01/06/23: Breast, right, 1 [...] Referral placed to renew PT services: ?? Health Plan [facility] ?? Phone number: Essential tremor 07/01/2022 Assessment [...] AM EST): -Currently recieving vestibular therapy at [facility], interested in possibly switching locations -Meclizine PRN -Pt to call with new referral info Obesity 11/20/2015 Palpitations 11/20/2015 [place] (obstructive sleep apnea) 11/20/2015 Overview (06/12/2024): 05/20/23: [facility] Neurology & Sleep - JUDY Forbes. Started on APAP 5-15cm H20 2 weeks prior to PSG sleep study sig for mild degree sleep apnea. pt feeling better, less snoring, feels refreshed, and has more daytime energy. Consult Feb 2024: compliance data reviewed. Cont with current settings, using > 4 hrs/night. Supply company: [facility] Assessment & Plan (03/11/2023 8:52 AM EDT): -History of [place] -Home sleep study through [facility] 11/26/22 did not meet criteria for sleep apnea -Upcoming follow up scheduled with [facility] Neuro and Sleep for further discussion (Feb [...] Encounters Date Type Department Care Team Description 09/14/2024 Telephone [facility] MED [facility] PEDS [address] [place], [place] [phone] Neema Landon FNP August recall 09/08/2024 Orders Only [facility] External Provider, [facility] 08/12/2024 1:15 PM EST Immunization [facility] MEDICINE [address] [place], [place] [phone] Mel Egan LPN Encounter for immunization (Primary Dx) 08/12/2024 Travel 08/08/2024 Refill [facility] MED[facility] [address] [place], [place] [phone] Neema Landon FNP 08/08/2024 Refill [facility] PEDS [address] [place], [place] [phone] Neema Landon FNP 07/29/2024 Telephone [facility] MED & PEDS [address] [place], [place] [phone] Anna Nieves RN Results 07/28/2024 Orders Only [facility]EDS [address] [place], [place] [phone] Neema Landon FNP Positive colorectal cancer screening using Cologuard test (Primary Dx); Healthcare maintenance 07/05/2024 Telephone [facility] MED & PEDS [address] [place], [place] [phone] Neema Landon FNP from Last 3 Months Immunizations Name Administration [...] is your housing situation today? I have claradanielle melo 02/12/[address] you [...] 06/16/2024 11:59 AM EST Plan of Treatment Upcoming Encounters Date Type Department Care Team (Late st Contact Info) Description 10/21/2024 2:30 PM EDT Office Visit [facility] MED & PEDS [address] [place] [address] Neema Landon, SUSAN [address] [place] [address] Health Maintenance Due Date Last Done Comments CT Colonography 1965 Colonoscopy 1965 FIT 1965 FOBT 1965 Sigmoidoscopy 1965 Pneumococcal Vaccine: 50+ Years (1 of 1 - PCV) 2015 Pap Smear 01/02/2024 01/01/2021 Depression Screening 10/18/2024 10/19/2023, 10/19/19 24 Alcohol/Substance Use Screening 02/21/2025 02/22/2024 SDOH Screening 02/21/2025 02/22/2024 Tobacco Screening 06/10/2025 06/10/2024 Colorectal Cancer Screening 07/22/2025 FIT DNA/Cologuard 07/22/2025 07/22/2024 Cervical Cancer Screening 01/01/2026 HPV/Cotest 01/01/2026 01/01/2021 Mammogram 09/08/2026 09/08/2024, 0509/2023, 11/20/2023, Additional history exists Lipid Panel 10/18/2028 10/19/2023, 07/28, 07/02/2022, Additional [...] LIMITED RIGHT Routine 09/08/2024 1:00 PM EST US ABDOMEN COMPLETE Routine 07/30/2024 7 :59 AM EST LAB COLOGUARD?? COLON CANCER SCREEN Routine 07/22/2024 1:50 PM EST Screening for colon cancer HEPATITIS C VIRAL RNA, QUANTITATIVE, REAL-TIME PCR [...] Recently Relevant to Health Maintenance Results * BI US Breast Limited Right (09/08/2024 1:00 PM EST) Anatomical Region Laterality Modality Breast Right Ultrasound 09/08/2024 1:00 PM EST Narrative 09/08/2024 1:29 PM EST ? [facility] [place] ? [address] ?[place] [address] ? Ultrasound Report ? Signed ? Patient: Whitney,Nadege ?MR#: [id number] ?? 02 ? : 1965 ?Acct:[id number] ? Age/Sex: 59 / F ?ADM Date: 09/08/24 ? Loc: HO.MAMMO ? Attending Dr: Ky Murray MD ? Ordering Physician: Ky Murray MD ?? Date of Service: 09/08/24 ?? Procedure(s): US breast RT limited mamm only ?? Accession Number(s): [id number] ? cc: Neema Landon; Ky Murray MD [...] ??Sherry Reyes DO ??09/08/2024 01:26 PM EST ?? RP ? Dictated By: ?Sherry Reyes DO ? Signed By: ?<Electronically signed by Sherry Reyes, DO in OV> ? 09/08/24 1326 ? DD/ 1300 ? TD/TT: 09/08/24 1322 ? Director Ship: ? Procedure Note Donabdiaster, Image - 09/08/2024 [facility] [address] [place] [address] Ultrasound Report Signed Patient: Nadege WhitneyMR#: [id number] 02 : 1965Acct:[id number] Age/Sex: 59 / FADM Date: 09/08/24 Loc: HO.MAMMO Attending Dr: Ky Murray MD Ordering Physician: Ky Murray MD Date of Service: 09/08/24 Procedure(s): US breast RT limited mamm only Accession Number(s): [id number] cc: Neema LandonP; Ky Murray MD EXAMINATION: US DIAGNOSTIC ULTRASOUND [...] by: Sherry Reyes DO 09/08/2024 01:26 PM EST RP Dictated By: Sherry Reyes DO Signed By: <Electronically signed by Sherry Reyes DO in OV> 09/08/24 1326 DD/ 1300 TD/TT: 09/08/24 1322 Director Ship: [facility] External Provider IMG US PROCEDURES Edited Result - Final * US Abdomen Complete (07/30/2024 7:59 AM EST) Anatomical Region Laterality Modality Abdomen Ultrasound 07/30/2024 7:59 AM EST Narrative 07/30/2024 8:01 AM EST ? [facility] ?[address] ?[place] [address] ? Ultrasound Report ? Signed ? Patient: Whitney,Nadege ?MR#: [id number] ?? 02 ? : 1965 ?Acct:[id number] ? Age/Sex: 59 / F ?ADM Date: 07/28/24 ? Loc: HO.US ? Attending Dr: Xavier Valverde MD ? Ordering Physician: Xavier Valverde MD ?? Date of Service: 07/28/24 ?? Procedure(s): US abdomen complete ?? Accession Number(s): [id number] ? cc: Neema Landon; Xavier Valverde MD [...] DD/ 0759 ? TD/TT: 07/30/24 0759 ? Director Ship: ? Procedure Note Donotuseinterpreter, Image - 07/30/2024 [place] [address] Ultrasound Report Signed Patient: Nadege WhitneyMR#: [id number] 02 : 1965Acct:[id number] Age/Sex: 59 / FADM Date: 07/28/24 Loc: HO.US Attending Dr: Xavier Valverde MD Ordering Physician: Xavier Valverde MD Date of Service: 07/28/24 Procedure(s): US abdomen complete Accession Number(s): [id number] cc: Neema Landon; Xavier Valverde MD CLINICAL [...] signed by Mark León MD in OV> 07/30/24799 DD/ 8 TD/TT: 07/30/24758 Director Ship: [facility] External Provider IMG US PROCEDURES Final Result * (ABNORMAL) Cologuard?? colon cancer screening (07/22/2024 1:50 PM EST) Cologuard Result Positive( A) Negative 07/27/2024 5:01 AM EST [facility] (CLIA #:[id number]) Comment: POSITIVE TEST RESULT. A positive Cologuard [...] screened with both Cologuard and colonoscopy. (Dave Wilson al, N Engl J Med 2014;370(14):4799-2993.) Cologuard may produce a false negative or false positive result (no colorectal cancer or precancerous polyp present at colonoscopy follow up). A negative Cologuard test result does not guarantee the absence of CRC or advanced adenoma (pre-cancer). The current Cologuard screening interval is every 3 years. ([place] Cancer Society and U.S. Multi-Society Task Force). Cologuard performance data in a 10,000 patient pivotal study using colonoscopy as the reference method can be accessed at the following location: www.[employer].com/results. Additional description of the Cologuard test process, warnings and precautions can be found at www.cologQqbaobao.comrd.com. Stool specimen (specimen) 07/22/2024 1:50 PM EST 2024 12:04 PM EST Neema Landon [facility]LE[facility] DI[facility]ST[facility] VANITA RAM Final Result [facility] (CLIA #:[id number]) [address] [place] [address], * Hepatitis C Viral RNA, Quantitative, Real-Time PCR (10/19/2023 1:00 PM EDT) Hepatitis C Viral Load <15 NOT DETECTED NOT DETECTED IU/mL [facility] HCV Log PCR <1.18 NOT DETECTED NOT DETECTED Log IU/mL [facility] Comment:This test was perfor med using Real-Time Polymerase ChainReaction.Reportable Range: 15 IU/mL to 100,000,000 IU/mL(1.18 Log IU/mL to 8.00 Log IU/mL).The analytical performance characteristics of thisassay have been determined by [employer] [facility].The modifications have not been cleared or approved bythe FDA. This assay has been validated pursuant to theCLIA regulations and is used for clinical purposes.For more information on this test, go to:http://education.[employer]/faq/RIZ94p6(This link is being provided for informational/educational purposes only.)THIS TEST WAS PERFORMED AT:[employer] [place] [id number] FIGUEROA MD Blood 10/19/2023 1:00 PM EDT 10/19/2023 3:55 PM EDT Neema Landon [facility] BLOOD ORDERABLES Final Res ult Performing Organization Address [facility] Co de Phone Number [facility] [address] [place] [address] [phone] * HIV-1/2 Antigen and Antibodies, Fourth Generation, with Reflexes (10/19/2023 1:00 PM EDT) Pathologist [facility] HIV AB/AG Nonreactive Nonreactive [facility] Comment:HIV-1 p24 Ag and/or HIV-1/HIV-2 Ab not detected.A test result that is nonreactive does not exclude thepossibility of exposure to or infection with HIV-1 and/orHIV-2. Nonreactive results in this assay for individualswith prior exposure to HIV-1 and/or HIV-2 may be due toantigen and antibody levels that are below the limit ofdetection of this assay.The [employer] HIV Ag/Ab Combo assay result andsupplemental assay results should be interpreted inconjunction with the patient's clinical presentation,history and other laboratory results. If the results areinconsistent with clinical evidence, additional testing issuggested to confirm the result. Blood Venous blood specimen / Unknown 10/19/2023 1:00 PM EDT 10/19/2023 3:55 PM EDT Neema Landon [facility] BLOOD ORDERABLES Final Res ult Performing Organization Address [facility]/ZIP Co de Phone Number [facility] [address] [place] [address] [phone] * (ABNORMAL) Lipid Panel, Standard (10/19/2023 1:00 PM EDT) Triglycerides 151(H) <150 mg/dL [facility] Comment:Desirable Triglyceri de: less than 150 mg/dLBorderline High Triglyceride 150-199 mg/dLHigh Triglyceride: 200-499 mg/dLVery High Triglyceride: greater than or equal to 5OO mg/dL Cholesterol 181 <200 mg/dL [facility] Comment:Desirable Cholestero l: less than 200 mg/dLBorderline High Cholesterol: 200-239 mg/dLHigh Cholesterol: greater than 239 mg/dL LDL Cholesterol Calculated 107(H) <100 mg/dL [facility] Comment:Desirable LDL: less than 100 mg/dLNear Optimal/Above Optimal LDL: 110- 129 mg/dLBorderline High LDL: 130-159 mg/dLHigh LDL: 160-189 mg/dLVery High LDL: greater than or equal to 190 mg/dL HDL Cholesterol 44 >40 mg/dL [facility] Comment:Desirable HDL: great er than 40 mg/dL Note: This HDL assay may give artificially low results in patients with liver disease. Blood Venous blood specimen / Unknown 10/19/2023 1:00 PM EDT 10/19/2023 3:55 PM EDT Neema Landon ANIMAL LABORATORY HELPER LAB BLOOD ORDERABLES Final Res ult [facility] [address] [place] [phone] * THINPREP PAP (01/01/2021 6:38 PM EDT) Clinical Information: None given [facility] COMMENT SEE COMMENT [facility]OUND[facility] ON [...] historic and ?? current clinical information. ?? Geothermal Plant Manager : SEE COMMENT [facility] Comment: YP, CT(ASCP) CT screening location: [address] ??[address] Interpretation/R esult: Negative for intraepithelial lesion or malignancy. [facility] LMP: NONE GIVEN [facility] Prev. BX: NONE GIVEN [facility] Prev. PAP: NONE GIVEN FOUNDAT[facility] ON LAB SYSTEM SOURCE: None given [facility] Statement Of Adequacy: SEE COMMENT [facility] Comment: Satisfactory for evaluation. Endocervical/transformation zone component present. Age and/or menstrual status not provided 01/01/2021 6:38 PM EDT Jing Sanya [facility] LAB PATHOLOGY ORDERABLES Final Result Performing Organization Address [facility] Co de Phone Number [facility] [address] * HPV mRNA E6/E7 (01/01/2021 6:38 PM EDT) HPV nRNA E6/E7 Not Detected Not Detected [facility] Comment: Methodology: Professor Of Fine Art-Mediated Amplification This assay detects E6/E7 viral messenger RNA (mRNA) from 14 high-risk HPV types (16,18,31,33,35,39,45,51,52,56,58,59,66,68). ? The analytical performance characteristics of this assay have been determined by [employer] [facility]. The modifications have not been cleared or approved by the FDA. This assay has been validated pursuant to the CLIA regulations and is used for clinical purposes. ?? For additional information, please refer to http://education.[employer]/faq/LFQ888d1 (This link if provided for information/ educational purposes only.) NO COLLECTION DATE RECEIVED. WE HAVE USED THE DATE THE SPECIMEN WAS RECEIVED BY THIS LABORATORY THE COLLECTION DATE. IF THIS IS INCORRECT, PLEASE CONTACT CLIENT SERVICES. PHONE NUMBER: ?? 01/01/2021 6:38 PM EDT Jing Sanya [facility] LAB BLOOD ORDERABLES Final Res ult Performing Organization Address [facility] Co de Phone Number [facility] [address] from Last 3 Months or Most Recently Relevant to Health Maintenance Insurance [facility] C3 * Guarantor: Nadege Whitney Account Type Relation to Patient Date of Phone Billing Address Personal/Family Self [address] Care Teams Head Start Director Relationship Specialty Start Date End Date Neema Landon FNP [address] [place] [phone] PCP - General Family Medicine 03/26/22 Avis Benson [address] [place] [phone] Sleep Medicine 06/12/24 Ciro Vegas DPM [address] [place] [address] Podiatry 06/12/24 Lara Lorenzana PA [address] [place] [address] Orthopaedic Surgery 06/12/24
--- OUTSIDE RECORDS SUMMARY | 2024-09-21 12:56 | XMS_ITS | Encounter Summary ---
Author Organization [employer] Address [address] [place] [address] Care Team Providers Care Vessel Traffic Officer Name Role Phone Neema Landon Primary Care Provider [phone] Avis Benson Unavailable Ciro Veags DPM Unavailable Lara Lorenzana Unavailable Encounter Details Date Type Department Care Team (Latest Contact Info) Description 04/04/2019 Abstract [facility] CONVERSIONS Dental, Provider, DDS Social History Tobacco [...] Description 10/21/2024 2:30 PM EDT Office Visit [facility] MED & PEDS [address] [place] [address] Neema Landon FNP [address] [place] [address] documented as of this encounter Visit Diagnoses Not on filedocumented in this encounter Care Teams Vessel Traffic Officer Relationship Specialty Start Date End Date Neema Landon FNP [address] [place] [phone] PCP - General Family Medicine 03/26/22 Avis Benson [address] [place] [phone] Sleep Medicine 06/12/24 Ciro Vegas DPM [address] [place] [phone] Podiatry 06/12/24 Lara Lorenzana PA [address] [place] [phone] Orthopaedic Surgery 06/12/24 documented as of this encounter
== END 2024-09-21 11:29 | disposition home or self-care (01) ==
PROVIDERS: PCP Registered Nurse; Visit Provider Nurse Practitioner Family
DX: G47.33 Obstructive sleep apnea (adult) (pediatric) (principal)
CPT/HCPCS: 99213

== ENCOUNTER → 2024-09-21 10:30 | Outpatient (BNVA) | payer MEDICAID, SELFPAY | PROVIDERS: PCP Registered Nurse; Visit Provider Nurse Practitioner Family | DX: G47.33 Obstructive sleep apnea (adult) (pediatric) (principal) | CPT/HCPCS: 99212 ==

== ENCOUNTER 2024-10-17 09:19 | Day surgery (SDC) | payer MEDICAID, SELFPAY ==
[2024-10-13 15:03] VITALS: BMI 34.3
--- NOTE | 2024-10-14 10:40 | HO.ANESPROP2 ---
Documented by User: Yajaira Lion NP 10/14/24 10:40 HPI - Anesthesia Eval Consult details Narrative: 59yo M for Upper Endoscopy and Colonoscopy [facility] Active Problems Active Problems: All Active Problems Osteoarthritis of knees, bilateral (Acute) Soft tissue mass (Acute) Lateral epicondylitis, right elbow (Acute) Sacroiliac joint pain (Acute) Lumbar degenerative disc disease (Acute) Muscle spasm of back (Acute) Lumbosacral spondylosis (Acute) [place] (obstructive sleep apnea) (Acute) Osteoarthritis of left knee (Acute) Excessive daytime sleepiness (Acute) Snoring (Acute) Palpitations (Acute) Hyperlipidemia (Acute) Hypertension (Acute) Hypothyroidism (Acute) Vertigo (Acute) Prediabetes (Acute) Past Medical History Medical History (Updated 10/13/24 @ 15:04 by Monica Vargas RN) GERD (gastroesophageal reflux disease) Asthma Hypothyroid Hyperlipidemia HTN (hypertension) Lumbar degenerative disc disease Arthritis Sleep apnea High cholesterol Prediabetes Family History Family History Father Tuberculosis Mother Diabetes Heart disease Thyroid condition Hyperlipidemia Sister Renal insufficiency Brother Thyroid condition Surgical History Surgical History (Updated 10/13/24 @ 15:03 by Monica Vargas RN) History of esophagogastroduodenoscopy (EGD) Hx of tubal ligation Social History Social History Are you a primary hearing care professional to a significant other at home: No Do you presently have visiting nurse or other home services: No Alcohol intake: never Patient Tobacco Use Status: Former Tobacco user Use of substances other than those prescribed or required for medical reasons: No Have you been hit, kicked, punched, or otherwise hurt by someone within the past year? If so, by whom?: No Are you DNR?: No Advance Directives: No Advance Directives Information Provided: Yes Recently lost weight without trying: No Nutrition Risks: No Nutritional Risk Patient : No Current occupational status: unemployed Current occupation: right hand dominant Meds Allergies Allergy/AdvReac Type Severity Reaction Status Date / Time No Known Allergies Allergy Verified 10/17/24 10:10 Home Medications ?Medication ?Instructions ?Recorded ?Confirmed ?Last Taken ?Type cholecalciferol (vitamin D3) 50 50 mcg PO DAILY 11/21/21 10/13/24 Unknown History mcg (2,000 unit) capsule fluticasone propionate 50 1 spray intranasal DAILY 11/21/21 10/13/24 Unknown History mcg/actuation nasal spray,suspension loratadine 10 mg tablet 10 mg PO DAILY PRN Allergy Symptoms 11/21/21 10/13/24 Unknown History multivitamin 1 tab PO DAILY 11/21/21 10/13/24 Unknown History propranolol 40 mg tablet 40 mg PO BID 01/21/22 10/13/24 Unknown History ibuprofen 600 mg tablet 600 mg PO QID PRN pain 10/02/22 04/13/24 Unknown History levothyroxine 137 mcg tablet 137 mcg PO QAM 10/02/22 10/17/24 10/17/24 History albuterol sulfate 90 mcg/actuation 2 puff inhalation Q6H PRN wheezing 07/14/23 10/13/24 Unknown History aerosol inhaler (Ventolin HFA) ketotifen fumarate 0.025 % (0.035 1 drp ophthalmic (eye) DAILY 07/14/23 10/13/24 Unknown History %) eye drops (Eye Itch Relief) itching of eye pravastatin 80 mg tablet 80 mg PO BEDTIME 07/14/23 10/13/24 Unknown History omeprazole 20 mg capsule,delayed 20 mg PO QAM 10/13/24 10/13/24 Unknown History release Exam Height,Weight and Vital Signs: Height 4 ft 11 in Weight 77.111 kg Assessment and Plan Assessment Anesthesia Assessment: Chart Reviewed Documented by User: Norbert Montoya MD 10/17/24 10:49 [facility] Past Medical History Medical History (Updated 10/13/24 @ 15:04 by Monica Vargas RN) GERD (gastroesophageal reflux disease) Asthma Hypothyroid Hyperlipidemia HTN (hypertension) Lumbar degenerative disc disease Arthritis Sleep apnea High cholesterol Prediabetes Family History Family History Father Tuberculosis Mother Diabetes Heart disease Thyroid condition Hyperlipidemia Sister Renal insufficiency Brother Thyroid condition Family history of problems with anesthesia: No Surgical History Surgical History (Updated 10/13/24 @ 15:03 by Monica Vargas RN) History of esophagogastroduodenoscopy (EGD) Hx of tubal ligation History of Problems with Anesthesia: No Social History Social History Are you a primary hearing care professional to a significant other at home: No Do you presently have visiting nurse or other home services: No Alcohol intake: never Patient Tobacco Use Status: Former Tobacco user Use of substances other than those prescribed or required for medical reasons: No Have you been hit, kicked, punched, or otherwise hurt by someone within the past year? If so, by whom?: No Are you DNR?: No Advance Directives: No Advance Directives Information Provided: Yes Recently lost weight without trying: No Nutrition Risks: No Nutritional Risk Patient : No Current occupational status: unemployed Current occupation: right hand dominant Meds Allergies Allergy/AdvReac Type Severity Reaction Status Date / Time No Known Allergies Allergy Verified 10/17/24 10:10 Home Medications ?Medication ?Instructions ?Recorded ?Confirmed ?Last Taken ?Type cholecalciferol (vitamin D3) 50 50 mcg PO DAILY 11/21/21 10/13/24 Unknown History mcg (2,000 unit) capsule fluticasone propionate 50 1 spray intranasal DAILY 11/21/21 10/13/24 Unknown History mcg/actuation nasal spray,suspension loratadine 10 mg tablet 10 mg PO DAILY PRN Allergy Symptoms 11/21/21 10/13/24 Unknown History multivitamin 1 tab PO DAILY 11/21/21 10/13/24 Unknown History propranolol 40 mg tablet 40 mg PO BID 01/21/22 10/13/24 Unknown History ibuprofen 600 mg tablet 600 mg PO QID PRN pain 10/02/22 04/13/24 Unknown History levothyroxine 137 mcg tablet 137 mcg PO QAM 10/02/22 10/17/24 10/17/24 History albuterol sulfate 90 mcg/actuation 2 puff inhalation Q6H PRN wheezing 07/14/23 10/13/24 Unknown History aerosol inhaler (Ventolin HFA) ketotifen fumarate 0.025 % (0.035 1 drp ophthalmic (eye) DAILY 07/14/23 10/13/24 Unknown History %) eye drops (Eye Itch Relief) itching of eye pravastatin 80 mg tablet 80 mg PO BEDTIME 07/14/23 10/13/24 Unknown History omeprazole 20 mg capsule,delayed 20 mg PO QAM 10/13/24 10/13/24 Unknown History release Exam Airway Mallampati Class: III TM Dist: >3cm Neck ROM: Full Assessment and Plan Assessment Anesthesia Assessment: Anesthesia Plan Discussed Final Anesthetic Review Family History of Problems with Anesthesia: No History of Problems with Anesthesia: No NPO: Yes ASA Class: III Final Preanesthetic Review: No Changes in Pt Med Stat, Meds/Allgs Chart Reviewed, Consent Obtained/Reviewed and Anes Risks/Benef Reviewed Patient Risk: Intermediate Procedure Risk: Low Anesthetic Plan Anesthetic Plan: TIVA Disposition: Standard PACU
[2024-10-17 10:11] VITALS: BP 118/74; PULSE 99; RESP 14; TEMP 36.7; O2SAT 94; BMI 34.7
[2024-10-17] MEDS: Lactated Ringers 1,000 ML 100 ML IVCONT (10:31)
[2024-10-17 10:32] LABS: Glucose, Whole Blood 108 mg/dL (60-115)
[2024-10-17 11:51] VITALS: BP 97/61; PULSE 93; RESP 16; TEMP 36.6; O2SAT 94
--- NOTE | 2024-10-17 11:58 | P.BOP_ITS ---
Brief Operative Note Date of Service: 10/17/24 Pre-op diagnosis: GERD, Screening Post-op diagnosis: other (Hiatal hernia, Colon polyps) Procedure: EGD with bx, Colonoscopy to the cecum with bx/removal of polyps Surgeon: Xavier Valverde MD Anesthesia: MAC Was an Data Acquisition Technician used for this Procedure?: No Estimated blood loss (mL): 2.0 Pathology: other (A. Gastric antrum B. Polyps at 20cm) Condition: stable Disposition: PACU
[2024-10-17 12:05] VITALS: BP 124/75; PULSE 84; RESP 16; O2SAT 94
[2024-10-17 12:20] VITALS: BP 116/77; PULSE 83; RESP 16; TEMP 36.8; O2SAT 95
--- NOTE | 2024-10-17 14:31 | OP_ITS ---
DATE OF SERVICE: 10/17/2024 SURGEON: Xavier Valverde MD INDICATIONS: The patient presents for evaluation of gastroesophageal reflux, abdominal discomfort, and colorectal cancer screening. Full consent has been obtained from her for both procedures, including risks of bleeding and perforation. PREOPERATIVE DIAGNOSIS: POSTOPERATIVE DIAGNOSIS: PROCEDURE PERFORMED: Esophagogastroduodenoscopy with biopsies, and colonoscopy to the cecum with biopsy and removal of polyps. ESTIMATED BLOOD LOSS: COMPLICATIONS: ANESTHESIA: Medication used, monitored anesthesia care. ASSISTANTS: SPECIMENS: PREOPERATIVE DIAGNOSES: Gastroesophageal reflux, abdominal discomfort, and colorectal cancer screening. POSTOPERATIVE DIAGNOSES: Gastroesophageal reflux, abdominal discomfort, and colorectal cancer screening, small hiatal hernia, small colon polyps, diverticulosis, and internal hemorrhoids. DESCRIPTION OF PROCEDURE: The patient was placed in the left lateral decubitus position. The Olympus video gastroscope was passed in the posterior oropharynx and upper esophagus under direct vision. The scope was passed slowly to the distal esophagus. The gastroesophageal junction appeared normal at 38 cm. There was no sign of any esophagitis nor Cerrato esophagus. There was a small hiatal hernia visible. The scope was advanced to the pylorus, and the duodenum was cannulated to the descending portion. The duodenum including the bulb appeared normal without mass or ulceration. The scope was withdrawn back in the stomach. The gastric antrum had some areas of pallor and erythema but no erosions or ulceration. There was good peristalsis. Biopsies were obtained from the antrum. The scope was retroflexed visualizing the proximal stomach carefully, which appeared normal, without any sign of mass or ulceration. The scope was straightened. The scope was withdrawn back to the esophagus. The esophageal mucosa appeared normal. The scope was withdrawn from the patient. She was turned around for the colonoscopy. The digital rectal exam revealed no abnormalities. The Olympus video pediatric colonoscope was entered into the rectum, advanced easily to the cecum. Once in the cecum, I did identify normal-appearing cecal pouch with appendiceal orifice and a normal-appearing ileocecal valve. There was transillumination of light deep in the right lower quadrant. The entire cecum and ileocecal valve appeared normal. The scope was slowly withdrawn assessing all mucosal surfaces carefully. Preparation was excellent. At 20 cm, were several less than 10 mm hyperplastic appearing polyps, several of which were biopsied. I did not visualize any other polyps, colitis, nor angiodysplasia. There was a mild amount of sigmoid diverticulosis. In the rectum, scope was retroflexed visualizing internal hemorrhoids, but no other pathology. The rectal mucosa appeared normal. The scope was straightened and withdrawn from the patient. She tolerated the procedure well and was returned to the recovery area in stable condition. IMPRESSION: 1. Small hiatal hernia. 2. Rule out gastritis. 3. Small colon polyps. 4. Diverticulosis. 5. Internal hemorrhoids. PLAN: The results of the biopsies will be checked. If the colon polyps are tubular adenomas, I would recommend a followup colonoscopy in 5 years. If they are all hyperplastic, I would recommend a followup coloscopy in 10 years. She will continue omeprazole for symptomatic relief of reflux. She did have a recent abdominal ultrasound in July that was negative for gallstones or any other pathology. MD DONNA Kim/VIDAL / [phone]
== END 2024-10-17 12:56 | disposition home or self-care (01) ==
PROVIDERS: PCP Registered Nurse; Visit Provider Internal Medicine
PROC: (CPT 45380; principal; 2024-10-17 10:50)
DX: Z12.11 Encounter for screening for malignant neoplasm of colon (principal); K63.5 Polyp of colon; K57.30 Diverticulosis of large intestine without perforation or abscess without bleeding; K64.8 Other hemorrhoids; K59.09 Other constipation; K21.9 Gastro-esophageal reflux disease without esophagitis; R10.13 Epigastric pain; R14.0 Abdominal distension (gaseous); K44.9 Diaphragmatic hernia without obstruction or gangrene; J45.909 Unspecified asthma, uncomplicated; E78.5 Hyperlipidemia, unspecified; E03.9 Hypothyroidism, unspecified; R73.03 Prediabetes; Z79.1 Long term (current) use of non-steroidal anti-inflammatories (NSAID); Z79.899 Other long term (current) drug therapy
CPT/HCPCS: 45380; 43239; 82947; 88305; 88313; 88342; J2003; J2704

== ENCOUNTER 2024-10-21 15:41 | Outpatient (REF) | payer MEDICAID, SELFPAY ==
[2024-10-21 17:58] LABS: MANUAL DIFF FLAG NO
[2024-10-21 18:05] LABS: Basophils Absolute Auto 0.1 X10*3/uL (0.0-0.2); Eosinophils Absolute Auto 0.2 X10*3/uL (0.0-0.4); Eosinophils Percent Auto 3.4 % (0-4); Hematocrit 37.4 % (37.0-47.0); Hemoglobin 12.8 g/dl (12.0-16.0); Imm Gran Abs Auto 0.01 X10*3/uL (0.00-0.03); Imm Gran Pct Auto 0.2 % (0.0-0.4); Lymphocytes Percent Auto 39.6 % (20-40); Mean Corpuscular HGB Conc 34.2 g/dl (31.0-35.0); Mean Corpuscular Hemoglobin 31.2 pg (27.0-33.0); Mean Corpuscular Volume 91.2 fL (80.0-98.0); Mean Platelet Volume 9.7 fL (9.4-12.3); Monocytes Absolute Auto 0.5 X10*3/uL (0.1-1.2); Monocytes Percent Auto 10.1 % (2-11); Neutrophils Absolute Auto 2.3 x10*3/uL (2.0-8.3); Neutrophils Percent Auto 45.7 % (45-73); Platelet Count 302 X10*3/uL (160-400); Red Cell Distribution Width 12.1 % (11.0-16.0); White Blood Count 4.9 X10*3/uL (4.8-10.8)
[2024-10-21 18:12] LABS: Estimated Average Glucose 120 mg/dL; Hemoglobin A1c % 5.8 % (<6.0)
[2024-10-21 18:24] LABS: Alanine Aminotransferase 13 U/L (0-31); Albumin Level 4.3 g/dL (3.5-5.0); Alkaline Phosphatase 69 U/L (39-117); Anion Gap 10 (12-20); Aspartate Amino Transferase 21 U/L (5-31); Bilirubin Total 0.6 mg/dL (0.0-1.0); Blood Urea Nitrogen 10 mg/dL (9-16); Calcium 9.3 mg/dL (8.4-10.2); Carbon Dioxide 28 mmol/L (22-29); Chloride 107 mmol/L (96-108); Estimated Glomerular Filt Rate > 60; Glucose Random 87 mg/dL (60-115); Potassium 3.8 mmol/L (3.3-5.1); Sodium 141 mmol/L (135-145); Total Protein 7.8 g/dL (6.5-8.0)
[2024-10-21 18:34] LABS: Creatinine Urine 67.83 mg/dL; Microalbum/Creatinine Ratio Ur 10.3 ug/mg cr (<30)
[2024-10-21 18:39] LABS: TSH reflex Free T4 0.71 uIU/mL (0.32-4.0)
== END 2024-10-21 15:42 | disposition home or self-care (01) ==
LOC: HO.CHCLDS 15:41
PROVIDERS: Visit Provider Registered Nurse
DX: Z00.00 Encounter for general adult medical examination without abnormal findings (principal)
CPT/HCPCS: 36415; 80053; 82043; 82570; 83036; 84443; 85025

== ENCOUNTER 2024-12-23 12:19 | Outpatient (REF) | payer MEDICAID, SELFPAY ==
--- OUTSIDE RECORDS SUMMARY | 2024-12-23 12:52 | XMS_ITS | Encounter Summary ---
Author Organization [employer] Address [address] [facility] [address] [place] [address] Care Team Providers Care Office Machine Mechanic Name Role Phone PujaNeema laguna COURT BAILIFF Primary Care Provider [phone] Avis Benson Unavailable [phone] Ciro Vegas DPM Unavailable [phone] Lara Lorenzana Unavailable Reason for Visit * Reason Comments Med Refill Encounter Details Date Type Department Care Team (Late st Contact Info) Description 07/04/2023 Refill [facility] [address] [place] [address] Belia Duckworth MD [address] [place] [address] Social History Tobacco Use Types Packs/Day Years [...] Upcoming Encounters Date Type Department Care Team ([facility] st Contact Info) Description 01/20/2025 11:30 AM EDT Office Visit [facility] [address] [place] [address] Neema Landon FNP [address] [place] [address] documented as of this encounter Visit Diagnoses Not on filedocumented in this encounter Additional Health Concerns Assessment Noted Time PHQ-9 Depression Total Score: 6 07/01/20 22 9:18 AM EST documented as of this encounter Care Teams Office Machine Mechanic Relationship Specialty Start Date End Date Neema Landon FNP [address] [place] [address] PCP - General Family Medicine 03/26/22 Avis Benson [address] [place] [address] [address] [place] [address] Sleep Medicine 06/12/24 Ciro Vegas DPM [address] [address] Podiatry 06/12/24 Lara Lorenzana PA [address] FLO[address] [place] [address] Orthopaedic Surgery 06/12/24 documented as of this encounter
== END 2024-12-23 12:20 | disposition home or self-care (01) ==
LOC: HO.MAMMO 12:19
PROVIDERS: PCP Registered Nurse; Visit Provider Registered Nurse
DX: Z12.31 Encounter for screening mammogram for malignant neoplasm of breast (principal)
CPT/HCPCS: 77063; 77067

== ENCOUNTER → 2024-12-23 13:00 | Outpatient (BNV) | payer MEDICAID, SELFPAY | PROVIDERS: PCP Registered Nurse; Visit Provider Internal Medicine | DX: Z12.31 Encounter for screening mammogram for malignant neoplasm of breast (principal) | CPT/HCPCS: 77063; 77067 ==

== ENCOUNTER 2025-01-20 12:46 | Outpatient (REF) | payer MEDICAID, SELFPAY ==
--- OUTSIDE RECORDS SUMMARY | 2025-01-20 13:21 | XMS_ITS | Encounter Summary ---
Author Organization [employer] Address [address] [facility] [address] [place] [address] Care Team Providers Care Solo Musician Name Role Phone PujaNeema laguna CITRIX ADMINISTRATOR Primary Care Provider [phone] Avis Benson Unavailable [phone] Ciro Vegas DPM Unavailable [phone] Lara Lorenzana Unavailable Reason for Visit * Reason Comments Med Refill Encounter Details Date Type Department Care Team (Late st Contact Info) Description 07/04/2023 Refill [facility] [address] [place] [address] Belia Duckworth MD [address] [place] [address] Social History Tobacco Use Types Packs/Day Years [...] Care Team (Late st Contact Info) Description 01/26/2025 1:00 PM EDT Clinical Support [facility] [address] [place] [address] 04/17/2025 10:30 AM EDT Office Visit [facility] [address] [place] [address] Neema Landon FNP [address] [place] [address] documented as of this encounter Visit Diagnoses Not on filedocumented in this encounter Additional Health Concerns Assessment Noted Time PHQ-9 Depression Total Score: 6 07/01/20 22 9:18 AM EST documented as of this encounter Care Teams Solo Musician Relationship Specialty Start Date End Date Neema Landon FNP [address] [place] [address] PCP - General Family Medicine 03/26/22 Avis Benson [address] [place] [address] Sleep Medicine 06/12/24 Ciro Vegas DPM [address] [place] [address] Podiatry 06/12/24 Lara Lorenzana PA [address] [place] [address] [address] [place] [address] Orthopaedic Surgery 06/12/24 documented as of this encounter
[2025-01-20 14:26] LABS: Rheumatoid Factor 15.2 IU/mL (<15.0)
[2025-01-20 14:34] LABS: C Reactive Protein 0.58 mg/dL (< or = 0.50)
[2025-01-20 14:57] LABS: Erythrocyte Sedimentation Rate 18 MM/HR (0-20)
[2025-01-23 10:50] LABS: Anti Nuclear Antibody Screen NEGATIVE (NEGATIVE)
== END 2025-01-20 12:47 | disposition home or self-care (01) ==
LOC: HO.CHCLDS 12:46
PROVIDERS: Visit Provider Registered Nurse
DX: M25.50 Pain in unspecified joint (principal)
CPT/HCPCS: 36415; 85652; 86038; 86140; 86431

== ENCOUNTER 2025-03-06 08:26 | Outpatient (REF) | payer MEDICAID, SELFPAY ==
--- OUTSIDE RECORDS SUMMARY | 2024-10-17 06:50 | XMS_ITS ---
Author Organization [facility] Address [address] [place] [phone] Care Team Providers Care Satellite Project Site Monitor Name Role Phone ABRAHAM CANELA MD Primary Care Provider Xavier Banda [phone] REASON FOR VISIT screening colonoscopy/reflux Encounters Encounter Location Date Provider Diagnosis [facility] [place] [address] [place] [id number] 10/17/2024 Xavier Valverde Colon cancer scree jorge [...] * HERMINIO MONGEB: 5 (59 yo F)Acc No.[id number]:10/17/2024 EGD and COL/MAC Patient: JESUSITA OWUSU Provider: Nabor Valverde MD :1965 A ge:59 Y S ex:Female Date:10/17/2024 Address:[facility] [place], [id number] Pcp:ABRAHAM CANELA MD Subjective: * Chief Complaints: [...] 5380 COLONOSCOPY AND BIOPSY, Modifiers: [place] , [address] UPPER GI ENDOSCOPY, BIOPSY * * The named appointment provid er may or may not be the originator of this progress note, and it is not deemed complete until electronically signed by the appointment provider. Sign off status: Pending * Provider: Nabor Valverde MD Date: 0 10/17/2024 Generated for Judi castro/Chuck/Miriamitting on: 0 03/07/2025 08:42 AM EDT
--- NOTE | ~2025-03-06 | XR_ITS ---
EXAMINATION: XR HAND 3 OR MORE VIEWS RIGHT HISTORY: M79.641 - Pain in right hand COMPARISON: Comparison is made with the prior examination dated 06/12/2023. FINDINGS: Three views of the right hand are submitted. Osseous mineralization is normal. There is no fracture or dislocation. There is mild osteoarthritis of the 1st carpometacarpal joint. The soft tissues are unremarkable. XR/XR hand RT min 3V IMPRESSION: Mild osteoarthritis of the 1st carpometacarpal joint. Electronically signed by: Xavier Guzman MD 03/06/2025 02:28 PM EDT
--- OUTSIDE RECORDS SUMMARY | 2025-03-07 08:43 | XMS_ITS | Clinical Summary ---
Author Organization [employer] Address [address] [place] [address] 7[address] [place] [address] Care Team Providers Care Distribution Center Manager Name Role Phone PujaNeema laguna PREASSEMBLER PRINTED CIRCUIT BOARD Primary Care Provider [phone] Avis Benson Unavailable [phone] Ciro Vegas DPM Unavailable [phone] Lara Lorenzana Unavailable Allergies No known active allergies Medications fluticasone (Flonase) 50 MCG/ACT nasal spray inhale 1 spray (50MCG) by intranasal route every day in each nostril 10/11/19 22 Active sodium chloride (Emery) 0.65 % nasal spray 1 spray if [...] both knees 06/10/2024 Overview (06/12/2024): Following with [facility] Mela Lorenzana. Received steroid injection left knee in Mar 2024 XR January 2024: Degenerative joint narrowing of the femoral tibial joint. (Bilateral) Plantar fascial fibromatosis 03/06/2024 Overview (06/12/2024): Followed by Dr. Vegas - [facility] Podiatry Received injection of right [...] breast - BIRADS 4, recommended biopsy. 12/08/23: [facility] General Surgeons - Dr. Murray. Referred for [...] infection or ruptured epidermal inclusion cyst. 12/15/23: [facility] Surgery - Dr. Murray. Pathology benign, incision [...] to specialist. Voltaren gel prescribed. -Referral to [facility] Ortho - Hand Specialist for further eval Assessment & Plan (07/05/2023 10:13 PM EST): -Reviewed XR results, encouraged symptomatic management and discussed consideration of referral to specialist. -Referral to [facility] Ortho - Hand Specialist for further eval DDD (degenerative disc disease), lumbar 07/05/20 Overview (10/20/2023): May 2023: Lumbar XR: 1. There is mild degenerative disc disease at L4-L5. 2. There is mild anterior spondylosis at L1-L2. 3. There is facet arthropathy at L5-S1. 4. There is a slight thoracolumbar dextroscoliosis. Referral to [facility] Pain Management placed 07/05/23: [facility] Pain Mangement - Dr. Peoples. Eval for spondylosis - completed diagnostic medial branch block L3, L4 dorsal ramus L5 bialteral. Assessment & Plan (07/05/2023 10:16 PM EST): -Discussed options including symptomatic management, physical therapy, physiatry. -Pt interested in referral to [facility] Pain Management, referral sent Healthcare maintenance 06/12/2023 Overview (01/20/2025): Pap: NILM, HPV neg December 2020. Due December 2025 Mammo: BIRADS 2 in November 2024 Colonoscopy: 10/17/2024 at [facility], hyperplastic polyps. Repeat 10 years. Last PE: [...] for nodes. Biopsy as indicated. -Following with [facility] -01/06/23: Breast, right, 1 o [...] returning. Referral placed to renew PT services: [facility] Phone number: Essential tremor 07/01/2022 Assessment & Plan (03/11/2023 8:55 AM EDT): -Continue following with Neurology, renewal for referral placed 03/11/23 -Cont propranolol 40mg BID Assessment & Plan (07/02/2022 10:41 AM EST): -Continue following with Neurology -Cont propranolol 40mg BID Vitamin D deficiency 06/13/2022 Assessment & Plan (01/20/2025 1:02 PM EDT): Lab Results Component Value Date [id number] 76.8 02/23/2024 - Continues on preventative dose [...] AM EST): -Currently recieving vestibular therapy at [facility], interested in possibly switching locations -Meclizine PRN -Pt to call with new referral info Obesity 11/20/2015 Palpitations 11/20/2015 TRENTON (obstructive sleep apnea) 11/20/2015 Overview (06/12/2024): 05/20/23: [facility] Neurology & Sleep - JUDY Forbes. Started on APAP 5-15cm H20 2 weeks prior to PSG sleep study sig for mild degree sleep apnea. pt feeling better, less snoring, feels refreshed, and has more daytime energy. Consult Feb 2024: compliance data reviewed. Cont with current settings, using > 4 hrs/night. Supply company: [facility] [facility] Assessment & Plan (01/20/2025 1:03 PM EDT): - Cont following with specialist Assessment & Plan (03/11/2023 8:52 AM EDT): -History of TRENTON -Home sleep study through [facility] 11/26/22 did not meet criteria for sleep apnea -Upcoming follow up scheduled with [facility] Neuro and Sleep for further discussion (Feb [...] Type Department Care Team Description 02/28/2025 Telephone [facility] [address] [place] [phone] Neema Landon FNP Med Refill 02/27/2025 Refill [facility] [address] [place] [address] Nadja Gonzáles MD 01/26/2025 1:00 PM EDT Clinical Support [facility] [address] [place] [address] Courtney Ayers RN Impacted cerumen of right ear [H61.21] 01/26/2025 Results Follow-Up [facility] [address] [place] [address] Neema Landon FNP Rheumatoid Factor, C-reactive Protein, Sed Rate by Modified Westergren, ANAYA Screen,IFA, with Reflex to Titer and Pattern 01/26/2025 Travel 01/20/2025 11:30 AM EDT Office Visit [facility] [address], [place] [phone] Neema Landon FNP Localized primary osteoarthritis of carpometacarpal (CMC) joint of right wrist (Primary Dx); Allergic conjunctivitis of both eyes; Polyarthralgia; Prediabetes; Vitamin D deficiency; TRENTON (obstructive sleep apnea); Healthcare maintenance; Excessive cerumen in right ear canal 01/20/2025 Patient Outreach [facility] [address] [place] [address] Neema Landon FNP Care Coordination (CHW outreach for SDOH PT-1 and food needs-LVM ) 01/20/2025 Travel 01/03/2025 Telephone [facility] [address], [place] [phone] Neema Landon FNP January01/03/2025 Travel 01/01/2025 Refill [facility] [address] [place] [address] Patricia Figueroa FNP 01/01/2025 Refill [facility] [address] [place] [address] Neema Landon FNP 12/23/2024 Orders Only [facility] [address], [place] [phone] Neema Landon FNP from Last 3 Months [...] Description 04/17/2025 10:30 AM EDT Office Visit [facility] [address] [place] [address] Neema Landon FNP [address] [place] [address] Health Maintenance Due Date Last Done Comments [...] Sedimentation Rate 18 0 - 20 MM/HR [facility] Comment:Patients with polycy themia and many hemoglobin abnormalitiesmay have depressed sed rates whereas patients with anemiamay have elevated sed rates. Blood Venous blood specimen / Unknown 01/20/2025 12:47 PM EDT 01/20/2025 2:10 PM EDT Neema Landon PREASSEMBLER [employer]ED [employer] BOARD LAB BLOOD ORDERABLES Final Res ult Performing Organization Address [facility] Co de Phone Number [facility] [address] [place] [phone] * (ABNORMAL) Rheumatoid Factor (01/20/2025 12:47 PM EDT) Rheumatoid Factor 15.2(H) <15.0 IU/mL [facility] Blood Venous blood specimen / Unknown 01/20/2025 12:47 PM EDT 01/20/2025 2:10 PM EDT Neema Landon PREASSEMBLER [employer]ARD LAB BLOOD ORDERABLES Final Res ult Performing Organization Address [facility] Co de Phone Number [facility] [address] [place] [phone] * (ABNORMAL) C-reactive Protein (01/20/2025 12:47 PM EDT) C Reactive Protein 0.58(H) < or = 0.50 mg/dL [facility] Blood Venous blood specimen / Unknown 01/20/2025 12:47 PM EDT 01/20/2025 2:05 PM EDT Neema Landon PREASSEM[employer]ER [employer]ARD LAB BLOOD ORDERABLES Final Res ult Performing Organization Address [facility] de Phone Number [facility] [address] [place] [phone] * ANAYA Screen,IFA, with Reflex to Titer and Pattern (01/20/2025 12:47 PM EDT) Anti Nuclear Antibody Screen NEGATIVE NEGATIVE [facility] Comment:ANAYA IFA is a first l [...] clinicallysuspected inflammatory myopathies.AC-0: NegativeInternational Consensus on ANAYA Patterns(https://doi.org/10.1515/insw-9963-8107)For additional information, please refer tohttp://education.[employer]/faq/QBX368(This link is being provided for informational/educational purposes only.)THIS TEST WAS PERFORMED AT:[address] [place] [phone] FIGUEROA MD ANAYA Titer [facility] ANAYA Pattern [facility] ANAYA TITER 2 (REF LAB) [facility] ANAYA Pattern 2 [facility] ANAYA TITER 3 [facility] ANAYA PATTERN 3 [facility] Blood Venous blood specimen / Unknown 01/20/2025 12:47 PM EDT 01/20/2025 2:10 PM EDT us Neema Landon PREASSEMBLER [employer] BOARD LAB BLOOD ORDERABLES Final Res ult [facility] [address] [place] [address] [phone] * BI Mammogram Screening Tomosynthesis Bilateral (12/23/2024 12:47 PM EDT) Anatomical Region Laterality Modality Breast Bilateral Mammography 12/23/2024 12:4 7 PM EDT Narrative 12/31/2024 11:24 AM EDT [address] [place] [address] Mammography Report Signed Patient: Nadege Whitney MR#: [id number] [birth year] : 1965 Acct:[id number] Age/Sex: 59 / F ADM Date: 12/23/24 Loc: MAMMO Attending Dr: Neema Landon PREASSEMBLER [employer] BOARD Ordering Physician: Neema Landon Results: 2Benig n Findings Date of Service: 12/23/24 Follow Up: 1 Year From Orig ina Mammogram Procedure(s): MM tomosynthesis screening BI Accession Number(s): [id number] cc: Neema Landon EXAMINATION: MM SCREENING DIGITAL [...] 12/31/24 1121 DD/ 1247 TD/TT: 12/23/24 1305 Aviation Electronic Warfare Operator: Procedure Note Donotuseinterpreter, Image - 12/31/2024 Aniket [facility] [address] [place], [place] [address] Mammography Report Signed Patient: Nadege WhitneyMR#: [id number] 02 : 1965Acct:[id number] Age/Sex: 59 / FADM Date: 12/23/24 Loc: MAMMO Attending Dr: Neema Landon PREASSEMBLER [employer] BOARD Ordering Physician: Neema Landon FNPResults: 2Benig n Findings Date of Service: 12/23/24Follow Up: 1 Year From Orig ina Mammogram Procedure(s): MM tomosynthesis screening BI Accession Number(s): [id number] cc: Neema Landon EXAMINATION: MM SCREENING DIGITAL [...] 12/31/24 1121 DD/ 1247 TD/TT: 12/23/24 1305 Aviation Electronic Warfare Operator: Neema Landon PREASSEMBLER [employer]ED [employer] BOARD IMG BI PROCEDURES Edited Resul t - Final * Hemoglobin A1c (10/21/2024 3:42 PM EDT) Hemoglobin A1c 5.8 <6.0 % [facility] Comment:Hemoglobin A1C Refer ence Range Adults: 4.8 - 6.0 % Non diabetic: < 6.0 % Goal: < 7.0 %Additional Action Suggested: > 8.0 %Note: Hemoglobin A1c results are invalid for patients with abnormal amounts of HbF. Blood transfusions may impact the HbA1c concentration in the patient sample. Estimated Average Glucose 120 mg/dL [facility] Comment:eAG = Estimated ave rage glucose which is %A1C expressed asaverage glucose, using the formula of the S6E-AutrrkrUhqpsmc Glucose study (ADAG), Diabetes Care, Vol.31,#8,2007 Blood Venous blood specimen / Unknown 10/21/2024 3:42 PM EDT 10/21/2024 5:57 PM EDT Neema Landon PREASSEMBLER [employer] BOARD LAB BLOOD ORDERABLES Final Res ult [facility] [address] [place] [address] [phone] * Colonoscopy (10/17/2024 7:22 AM EDT) Historical Provider HEALTH MAINTENANCE Final Result * (ABNORMAL) Cologuard?? colon cancer screening (07/22/2024 1:50 PM EST) Cologuard Result Positive( A) Negative 07/27/2024 5:01 AM EST [facility] (CLIA #:[id number]) Comment: POSITIVE TEST RESULT. A positive Cologuard [...] (Dave Wilson al, N Engl J Med 2014;370(14):0062-7321.) Cologuard may produce a false negative or false positive result (no colorectal cancer or precancerous polyp present at colonoscopy follow up). A negative Cologuard test result does not guarantee the absence of CRC or advanced adenoma (pre-cancer). The current Cologuard screening interval is every 3 years. ([place] Cancer Society and U.S. Multi-Society Task Force). Cologuard performance data in a 10,000 patient pivotal study using colonoscopy as the reference method can be accessed at the following location: www.[employer].Car reviews/results. Additional description of the Cologuard test process, warnings and precautions can be found at www.[employer].Car reviews. Stool specimen (specimen) 07/22/2024 1:50 PM EST 2024 12:04 PM EST Neema Landon [facility] VANITA RAM Final Result [facility] (CLIA #:[id number]) [address] [place] [address], * Hepatitis C Viral RNA, Quantitative, Real-Time PCR (10/19/2023 1:00 PM EDT) Hepatitis C Viral Load <15 NOT DETECTED NOT DETECTED IU/mL [facility] HCV Log PCR <1.18 NOT DETECTED NOT DETECTED Log IU/mL [facility] Comment:This test was perfor med using Real-Time Polymerase ChainReaction.Reportable Range: 15 IU/mL to 100,000,000 IU/mL(1.18 Log IU/mL to 8.00 Log IU/mL).The analytical performance characteristics of thisassay have been determined by [employer].The modifications have not been cleared or approved bythe FDA. This assay has been validated pursuant to theCLIA regulations and is used for clinical purposes.For more information on this test, go to:http://education.[employer]/faq/ODF74t8(This link is being provided for informational/educational purposes only.)THIS TEST WAS PERFORMED AT:[address] [place] [phone] FIGUEROA MD Blood 10/19/2023 1:00 PM EDT 10/19/2023 3:55 PM EDT us Neema Landon PREASSEMBLER [employer]ED [employer] BOARD LAB BLOOD ORDERABLES Final Res ult Performing Organization Address [facility]/ZIP Co de Phone Number [facility] [address] [place] [phone] * HIV-1/2 Antigen and Antibodies, Fourth Generation, with Reflexes (10/19/2023 1:00 PM EDT) Pathologist [facility] HIV AB/AG Nonreactive Nonreactive [facility] Comment:HIV-1 p24 Ag and/or HIV-1/HIV-2 Ab not detected.A test result that is nonreactive does not exclude thepossibility of exposure to or infection with HIV-1 and/orHIV-2. Nonreactive results in this assay for individualswith prior exposure to HIV-1 and/or HIV-2 may be due toantigen and antibody levels that are below the limit ofdetection of this assay.The [employer] HIV Ag/Ab Combo assay result andsupplemental assay results should be interpreted inconjunction with the patient's clinical presentation,history and other laboratory results. If the results areinconsistent with clinical evidence, additional testing issuggested to confirm the result. Blood Venous blood specimen / Unknown 10/19/2023 1:00 PM EDT 10/19/2023 3:55 PM EDT us Neema Landon PREASSEMBLER PR[employer] CIRCUIT BOARD LAB BLOOD ORDERABLES Final Res ult Performing Organization Address City/[facility]/ZIP Co de Phone Number [facility] [address] [place] [address] [phone] * (ABNORMAL) Lipid Panel, Standard (10/19/2023 1:00 PM EDT) Triglycerides 151(H) <150 mg/dL [facility] Comment:Desirable Triglyceri de: less than 150 mg/dLBorderline High Triglyceride 150-199 mg/dLHigh Triglyceride: 200-499 mg/dLVery High Triglyceride: greater than or equal to 5OO mg/dL Cholesterol 181 <200 mg/dL [facility] Comment:Desirable Cholestero l: less than 200 mg/dLBorderline High Cholesterol: 200-239 mg/dLHigh Cholesterol: greater than 239 mg/dL LDL Cholesterol Calculated 107(H) <100 mg/dL [facility] Comment:Desirable LDL: less than 100 mg/dLNear Optimal/Above Optimal LDL: 110- 129 mg/dLBorderline High LDL: 130-159 mg/dLHigh LDL: 160-189 mg/dLVery High LDL: greater than or equal to 190 mg/dL HDL Cholesterol 44 >40 mg/dL [facility] Comment:Desirable HDL: great er than 40 mg/dL Note: This HDL assay may give artificially low results in patients with liver disease. Blood Venous blood specimen / Unknown 10/19/2023 1:00 PM EDT 10/19/2023 3:55 PM EDT Neema Landon [facility] BLOOD ORDERABLES Final Res ult [facility] [address] [place] [address] [phone] * THINPREP PAP (01/01/2021 6:38 PM [...] along with historic and current clinical information. Quality Supervisor : SEE COMMENT [facility] Comment: YP, CT(ASCP) CT screening location: [place] [address] Interpretation/R esult: Negative for intraepithelial lesion or malignancy. [facility] LMP: NONE GIVEN [facility] Prev. BX: NONE GIVEN [facility] Prev. PAP: NONE GIVEN [facility] SOURCE: None given [facility] Statement Of Adequacy: SEE COMMENT [facility] Comment: Satisfactory for evaluation. Endocervical/transformation zone component present. Age and/or menstrual status not provided 01/01/2021 6:38 PM EDT Jing Segundo NP LAB PATHOLOGY ORDERABLES Final Result [facility] [address] * HPV mRNA E6/E7 (01/01/2021 6:38 PM EDT) HPV nRNA E6/E7 Not Detected Not Detected [facility] Comment: Methodology: Flotation Tender Helper-Mediated Amplification This assay detects E6/E7 viral messenger RNA (mRNA) from 14 high-risk HPV types (16,18,31,33,35,39,45,51,52,56,58,59,66,68). The analytical performance characteristics of this assay have been determined by [facility]. The modifications have not been cleared or approved by the FDA. This assay has been validated pursuant to the CLIA regulations and is used for clinical purposes. For additional information, please refer to http://education.[employer].Car reviews/faq/OBF634x0 (This link if provided for information/ educational purposes only.) NO COLLECTION DATE RECEIVED. WE HAVE USED THE DATE THE SPECIMEN WAS RECEIVED BY THIS LABORATORY THE COLLECTION DATE. IF THIS IS INCORRECT, PLEASE CONTACT CLIENT SERVICES. PHONE NUMBER: 01/01/2021 6:38 PM EDT Jing Arvidson OTOLOGIST LAB BLOOD ORDERABLES Final Res ult [facility] [address] from Last 3 Months or Most Recently Relevant to Health Maintenance Insurance Sw[employer] C3 * Guarantor: Nadege Whitney Account Type Relation to Patient Date of Phone Billing Address Personal/Family Self [address] Care Teams Distribution Center Manager Relationship Specialty Start Date End Date Neema Landon FNP [address] [place] [phone] PCP - General Family Medicine 03/26/22 Avis Benson [address] [place] [phone] Sleep Medicine 06/12/24 Ciro Vegas DPM [address] [place] [phone] Podiatry 06/12/24 Lara Lorenzana PA [address] [place] [address] [address] [place] [address] Orthopaedic Surgery 06/12/24
== END 2025-03-06 08:27 | disposition home or self-care (01) ==
LOC: HO.HOSX 08:26
DX: M18.11 Unilateral primary osteoarthritis of first carpometacarpal joint, right hand (principal); M65.4 Radial styloid tenosynovitis [de Quervain]; M79.641 Pain in right hand
CPT/HCPCS: 73130; 99212

== ENCOUNTER 2025-03-06 12:48 | Outpatient (AMB) | payer MEDICAID, SELFPAY ==
--- OUTSIDE RECORDS SUMMARY | 2024-10-17 06:50 | XMS_ITS ---
Author Organization [facility] Address [address] [place] [phone] Care Team Providers Care Senior Software Engineer Analytics Name Role Phone ABRAHAM CANELA MD Primary Care Provider Xavier Banda [phone] REASON FOR VISIT screening colonoscopy/reflux Encounters Encounter Location Date Provider Diagnosis [facility] [place] [address] [place] [id number] 10/17/2024 Xavier Valverde Colon cancer scree jorge [...] * HERMINIO MONGEB: 5 (59 yo F)Acc No.[id number]:10/17/2024 EGD and COL/MAC Patient: JESUSITA OWUSU Provider: Nabor Valverde MD :1965 A ge:59 Y S ex:Female Date:10/17/2024 Address:[facility] [place], [id number] Pcp:ABRAHAM CANELA MD Subjective: * Chief Complaints: [...] 5380 COLONOSCOPY AND BIOPSY, Modifiers: [place] , [address] UPPER GI ENDOSCOPY, BIOPSY * * The named appointment provid er may or may not be the originator of this progress note, and it is not deemed complete until electronically signed by the appointment provider. Sign off status: Pending * Provider: Nabor Valverde MD Date: 10/17/2024 Generated for Judi castro/Chuck/Miriamitting on: 0 03/06/2025 12:53 PM EDT
--- OUTSIDE RECORDS SUMMARY | 2025-03-06 12:53 | XMS_ITS | Clinical Summary ---
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 10/21/19 18 Active sennosides (Senokot) 8.6 MG tablet Take 1-2 tablets by mouth if needed at bedtime for constipation. 07/12/20 18 Active Skin Protectants, Misc. (eucerin) cream Apply topically every 12 (twelve) hours. 10/02/19 19 Active Capsaicin 0.025 % lotionIndications :Pain Apply 2 mg topically in the morning, at noon, and at bedtime. 60 mL 1 07/01/20 22 Active meclizine (Antivert) 25 MG tabletIndications :Meniere's disease, unspecified laterality Take 0.5 tablets (12.5 mg) by mouth if needed in the morning, at noon, and at bedtime for dizziness. 60 tablet 1 07/01/20 22 Active Diclofenac Sodium 1 % creamIndications: Chronic pain of left knee Apply 3x daily to the left knee for pain 50 g 2 08/19/19 23 Active ibuprofen 600 MG tabletIndications :Pain Take 1 tablet by mouth four times a day as needed for pain 60 tablet 2 09/11/19 23 Active albuterol (Ventolin HFA) 108 (90 Base) MCG/ACT inhaler INHALE 2 PUFFS BY MOUTH EVERY 6 HOURS NEEDED FOR WHEEZING 18 g 11 07/06/20 23 Active ibuprofen 600 MG tablet Take 1 tablet (600 mg) by mouth every 8 (eight) hours if needed for moderate pain or fever. 100 tablet 3 07/10/20 23 Active glucose blood (FREESTYLE LITE) test stripIndications: Impaired glucose tolerance 1 each by Other route Once daily. 100 each 02/22/20 24 Active TRUEplus Lancets 33G miscIndications:I mpaired glucose tolerance Place 1 each on the skin Once daily. 100 each 02/22/20 24 Active Multiple Vitamin (Multivitamin) tabletIndications :Routine health maintenance TAKE 1 TABLET BY MOUTH EVERY DAY WITH FOOD 90 tablet 3 05/23/20 24 Active simethicone (Mylicon) 80 MG tabletIndications :Flatulence Take 1-2 tablets (80-160 mg) by mouth every 8 (eight) hours if needed (bloating, gasses). 60 tablet 3 06/10/20 24 Active pravastatin (Pravachol) 80 MG tabletIndications :Other hyperlipidemia TAKE 1 TABLET BY MOUTH AT BEDTIME 90 tablet 3 10/08/19 25 Active naproxen (Naprosyn) 500 MG tabletIndications :Pain TAKE 1 TABLET BY MOUTH TWICE DAILY NEEDED FOR PAIN TAKE WITH FOOD AND A FULL GLASS OF WATER 60 tablet 2 10/22/19 25 Active Acetaminophen Extra Strength 500 MG tabletIndications :Pain TAKE 2 TABLETS BY MOUTH EVERY 8 HOURS NEEDED FOR MILD PAIN, MODERATE PAIN, FEVER OR HEADACHE 100 tablet 2 10/22/19 25 Active lidocaine (Lidoderm) 5 % patchIndications: Pain Remove & discard patch within 12 hours or as directed by MD.APPLY 1 PATCH TOPICALLY TO SKIN, LEAVE ON FOR 12 HOURS AND OFF FOR 12 HOURS DIRECTED 30 patch 2 10/22/19 25 Active methocarbamol (Robaxin) 750 MG tabletIndications :Pain Take 1 tablet (750 mg) by mouth every 8 (eight) hours if needed for muscle spasms. 60 tablet 1 10/22/19 25 Active levothyroxine (Synthroid, Levoxyl) 125 MCG tabletIndications :Other specified hypothyroidism TAKE 1 TABLET BY MOUTH EVERY DAY BEFORE BREAKFAST 90 tablet 1 11/17/19 25 Active omeprazole (PriLOSEC) [address] capsule TAKE 1 CAPSULE BY MOUTH EVERY DAY BEFORE BREAKFAST, DO NOT BREAK, CRUSH, DISSOLVE OR CHEW 90 capsule 3 01/03/20 25 Active loratadine (Claritin) 10 MG tablet TAKE 1 TABLET BY MOUTH EVERY DAY NEEDED 90 tablet 3 01/03/20 25 Active cholecalciferol 1000 units capsule Take 1,000 Units by mouth Once per day. 90 capsule 3 01/03/20 25 Active Ketotifen Fumarate 0.035 % solutionIndicatio ns:Allergic conjunctivitis of both eyes Administer 1 drop into affected eye(s) if needed in the morning and at bedtime (eye itching and redness). 10 mL 2 01/21/20 25 Active Diclofenac Sodium 1 % gel Apply thin layer by topical route (quantity as directed on package insert) to affected area of pain 3 times daily as needed. 50 g 3 01/21/20 25 Active propranolol (Inderal) 40 MG tablet TAKE 1 TABLET BY MOUTH EVERY TWELVE HOURS 180 tablet 1 02/29/20 25 Active propranolol (Inderal) 40 MG tablet TAKE 1 TABLET BY MOUTH EVERY TWELVE HOURS 180 tablet 11/18/19 25 2024 Discontinued Active Problems Problem Noted Date Diagnosed Date GERD (gastroesophageal reflux disease) Overview (10/23/2024): Cont omeprazole 20mg daily PRN EGD September 2024 - There was no sign of any esophagitis nor Cerrato esophagus. There was a small hiatal hernia visible Path demonstrated Antral-type mucosa with mild chronic inactive inflammation; no Helicobacter organisms seen. Primary osteoarthritis of both knees 06/10/2024 Overview (06/12/2024): Following with [facility] Mela Lorenzana. Received steroid injection left knee in Mar 2024 XR January 2024: Degenerative joint narrowing of the femoral tibial joint. (Bilateral) Plantar fascial fibromatosis 03/06/2024 Overview (06/12/2024): Followed by Dr. Vegas - [facility] Podiatry Received injection of right heel plantar [...] breast - BIRADS 4, recommended biopsy. 12/08/23: [facility] General Surgeons - Dr. Murray. Referred for [...] infection or ruptured epidermal inclusion cyst. 12/15/23: [facility] Surgery - Dr. Murray. Pathology benign, incision [...] right first carpometacarpal joint. Assessment & Plan (01/20/2025 1:03 PM EDT): -Reviewed XR results, encouraged symptomatic management and discussed consideration of referral to specialist. Voltaren gel prescribed. -Referral to [facility] Ortho - Hand Specialist for further eval Assessment & Plan (07/05/2023 10:13 PM EST): -Reviewed XR results, encouraged symptomatic management and discussed consideration of referral to specialist. -Referral to [facility] Ortho - Hand Specialist for further eval DDD (degenerative disc disease), lumbar 07/05/20 Overview (10/20/2023): May 2023: Lumbar XR: 1. There is mild degenerative disc disease at L4-L5. 2. There is mild anterior spondylosis at L1-L2. 3. There is facet arthropathy at L5-S1. 4. There is a slight thoracolumbar dextroscoliosis. Referral to [facility] Pain Management placed 07/05/23: [facility] Pain Mangement - Dr. Peoples. Eval for spondylosis - completed diagnostic medial branch block L3, L4 dorsal ramus L5 bialteral. Assessment & Plan (07/05/2023 10:16 PM EST): -Discussed options including symptomatic management, physical therapy, physiatry. -Pt interested in referral to [facility] Pain Management, referral sent Healthcare maintenance 06/12/2023 Overview (01/20/2025): Pap: NILM, HPV neg December 2020. Due December 2025 Mammo: BIRADS 2 in November 2024 Colonoscopy: 10/17/2024 at [facility], hyperplastic polyps. Repeat 10 years. Last PE: 02/22/24 Assessment & Plan (10/20/2023 [...] for nodes. Biopsy as indicated. -Following with [facility] -01/06/23: Breast, right, 1 o c lock, 5 cm from nipple, ultrasound guided core needle biopsy (ribbon clip): Fibroadenoma with myxoid stroma, apocrine metaplasia, sclerosing adenosis. No malignant or atypical lesions described. Recommend follow up in 6 months. -Referral to Plastic Surgeon on 03/11/23 Assessment & Plan (12/27/2022 2:36 PM EDT): Received benefit from PT right arm and interested in returning. Referral placed to renew PT services: [facility] Phone number: Essential tremor 07/01/2022 Assessment & Plan (03/11/2023 8:55 AM EDT): -Continue following with Neurology, renewal for referral placed 03/11/23 -Cont propranolol 40mg BID Assessment & Plan (07/02/2022 10:41 AM EST): -Continue following with Neurology -Cont propranolol 40mg BID Vitamin D deficiency 06/13/2022 Assessment & Plan (01/20/2025 1:02 PM EDT): Lab Results Component Value Date [id number] 76.8 02/23/2024 - Continues on preventative dose of 1000 units daily, may consider dc Assessment & Plan (07/02/2022 10:42 AM EST): [...] -Check TSH -Continues with levothyroxine 150mg daily Prediabetes 11/20/2015 Assessment & Plan (01/20/2025 1:01 PM EDT): Lab Results Component Value Date HGBA1C 5.8 10/21/2024 - Lifestyle interventions encouraged Assessment & Plan (07/02/2022 10:41 AM EST): -Referral to Nutrition Meniere's disease 11/20/2015 Assessment & Plan (07/02/2022 10:41 AM EST): -Currently recieving vestibular therapy at [facility], interested in possibly switching locations -Meclizine PRN -Pt to call with new referral info Obesity 11/20/2015 Palpitations 11/20/2015 TRENTON (obstructive sleep apnea) 11/20/2015 Overview (06/12/2024): 05/20/23: [facility] Neurology & Sleep - JUDY Forbes. Started on APAP 5-15cm H20 2 weeks prior to PSG sleep study sig for mild degree sleep apnea. pt feeling better, less snoring, feels refreshed, and has more daytime energy. Consult Feb 2024: compliance data reviewed. Cont with current settings, using > 4 hrs/night. Supply company: [facility] Assessment & Plan (01/20/2025 1:03 PM EDT): - Cont following with specialist Assessment & Plan (03/11/2023 8:52 AM EDT): -History of TRENTON -Home sleep study through [facility] 11/26/22 did not meet criteria for sleep apnea -Upcoming follow up scheduled with [facility] Neuro and Sleep for further discussion (Feb [...] Encounters Date Type Department Care Team Description 02/28/2025 Telephone [facility] [address] [place] [phone] Neema Landon FNP Med Refill 02/27/2025 Refill [facility] [address] [place] [address] Nadja Gonzáles MD 01/26/2025 1:00 PM EDT Clinical Support [facility] [address] [place] [address] Courtney Ayers RN Impacted cerumen of right ear [H61.21] 01/26/2025 Results Follow-Up [facility] [address] [place] [address] Neema Landon FNP Rheumatoid Factor, C-reactive Protein, Sed Rate by Modified Westergren, ANAYA Screen,IFA, with Reflex to Titer and Pattern 01/26/2025 Travel 01/20/2025 11:30 AM EDT Office Visit [facility] [address], [place] [phone] Neema Landon FNP Localized primary osteoarthritis of carpometacarpal (CMC) joint of right wrist (Primary Dx); Allergic conjunctivitis of both eyes; Polyarthralgia; Prediabetes; Vitamin D deficiency; TRENTON (obstructive sleep apnea); Healthcare maintenance; Excessive cerumen in right ear canal 01/20/2025 Patient Outreach [facility] [address] [place] [phone] Neema Landon FNP Care Coordination (CHW outreach for SDOH PT-1 and food needs-LVM ) 01/20/2025 Travel 01/03/2025 Telephone [facility] [address], [place] [phone] Neema Landon FNP January01/03/2025 Travel 01/01/2025 Refill [facility] [address] [place] [address] Patricia Figueroa FNP 01/01/2025 Refill [facility] [address] [place] [address] Neema Landon FNP 12/23/2024 Orders Only [facility] [address], [place] [phone] Neema Landon FNP from Last 3 Months Immunizations Immunization Administration Dates Next Due Hep B, adult [...] Answer Date Recorded Patient Health Questionnaire-9 Score 4 10/21/2024 Patient Health Questionnaire-9 Score 4 10/21/2024 Last PHQ-9: Questionnaire Data Not on file 0 10/21/2024 Housing Stability Answer Date Recorded What is [...] Date Recorded Patient Health Questionnaire-2 Score 1 10/21/2024 Internet Access Answer Date Recorded Internet Access [...] Sign Reading Time Taken Comments Blood Pressure 130/75 01/20/2025 11:36 AM EDT Pulse 64 01/20/2025 11:36 AM EDT Temperature 36.5 C (97.7 F) 01/20/2025 11:36 AM EDT Respiratory Rate 14 01/20/2025 11:36 AM EDT Oxygen Saturation 98% 01/20/2025 11:36 AM EDT Inhaled Oxygen Concentration - - Weight 80.7 kg (178 lb) 01/20/2025 11:36 AM EDT Height 151.1 cm (4' 11.5 ) 01/20/2025 11:36 AM E DT Body Mass Index 35.35 01/20/2025 11:36 AM EDT Plan of Treatment Upcoming Encounters Date Type Department Care Team (Late st Contact Info) Description 04/17/2025 10:30 AM EDT Office Visit [facility] [address] [place] [address] Neema Landon FNP [address] [place] [address] Health Maintenance Due Date Last Done Comments CT Colonography 1965 FIT 1965 FOBT 1965 Sigmoidoscopy 1965 Disability Screening 1965 Alcohol/Substance Use Screening 1977 Pneumococcal Vaccine: 50+ Years (1 of 1 - PCV) 2015 Pap Smear 01/02/2024 01/01/2021 SDOH Screening 02/21/2025 02/22/2024 Influenza Vaccine (#1) 2025 , 06/12/2023, 05/23/2022, Additional history exists Depression Screening 10/21/2025 10/21/2024, 10/22/19 25 Diabetes: Hemoglobin A1C 10/21/2025 025, 10/19/2023, 05/08/2020 Tobacco Screening 10/21/2025 10/21/2024 Mammogram 12/23/2025 12/23/2024, 08/27, 12/07/2023, Additional history exists Cervical Cancer Screening 01/01/2026 HPV/Cotest 01/01/2026 01/01/2021 FIT DNA/Cologuard 07/22/2027 07/22/2024 Lipid Panel 10/18/2028 10/19/2023, 07/28, 07/02/2022, Additional history exists DTaP/Tdap/Td Vaccines (3 - Td or Tdap) 03/10/2033 03/10/2023, 01/20/2013, 11/10/2007, Additional history exists Colonoscopy 10/17/2034 10/17/2024 Colorectal Cancer Screening 10/17/2034 RSV Patients and Patients Aged 60 years or older (1 - 1-dose 75+ series) 2040 Hepatitis B Vaccines Completed 06/29/2008, 01/31/2008, 11/10/2007 Zoster Vaccines Completed 04/30/2020, 02/29/2020 HIV Screening Completed 10/19/2023, 05/08/2020 Hepatitis C Screening Completed 10/19/2023, 015 COVID-19 Vaccine Completed 08/12/2024, , 08/21/2021, Additional history exists HIB Vaccines Aged Out [...] patient's age to complete this topic Meningococcal B Vaccine Aged Out No l onger eligible based on patient's age to complete [...] Procedure Name Priority Date/Time Associated Diagnosis Comments ANAYA SCREEN, IFA, W/REFL TITER AND PATTERN Routine 01/20/2025 12:47 PM EDT Polyarthralgia SED RATE BY MODIFIED WESTERGREN Routine 01/20/2025 12:47 PM EDT Polyarthralgia C-REACTIVE PROTEIN Routine 01/20/2025 12 :47 PM EDT Polyarthralgia RHEUMATOID FACTOR Routine 01/20/2025 12: 47 PM EDT Polyarthralgia BI MAMMOGRAM SCREENING TOMOSYNTHESIS BILATERAL Routine 12/23/2024 12:47 PM EDT HEMOGLOBIN A1C Routine 10/21/2024 3:42 PM EDT Healthcare maintenance HM COLONOSCOPY Routine 10/17/2024 7:22 AM EDT LAB COLOGUARD COLON CANCER SCREEN Routine 07/22/2024 1:50 PM [...] Recently Relevant to Health Maintenance Results * Sed Rate by Modified Westergren (01/20/2025 12:47 PM EDT) Erythrocyte Sedimentation Rate 18 0 - 20 MM/HR [facility] Comment:Patients with polycy themia and many hemoglobin abnormalitiesmay have depressed sed rates whereas patients with anemiamay have elevated sed rates. Blood Venous blood specimen / Unknown 01/20/2025 12:47 PM EDT 01/20/2025 2:10 PM EDT Neema Landon NOUGAT CANDY MAKER HELPER LAB BLOOD ORDERABLES Final Res ult Performing Organization Address [facility] Co de Phone Number [facility] [address] [place] [phone] * (ABNORMAL) Rheumatoid Factor (01/20/2025 12:47 PM EDT) Rheumatoid Factor 15.2(H) <15.0 IU/mL [facility] Blood Venous blood specimen / Unknown 01/20/2025 12:47 PM EDT 01/20/2025 2:10 PM EDT Neema Landon NOUGAT CANDY MAKER HELPER LAB BLOOD ORDERABLES Final Res ult Performing Organization Address [facility] Co de Phone Number [facility] [address] [place] [phone] * (ABNORMAL) C-reactive Protein (01/20/2025 12:47 PM EDT) C Reactive Protein 0.58(H) < or = 0.50 mg/dL [facility] Blood Venous blood specimen / Unknown 01/20/2025 12:47 PM EDT 01/20/2025 2:05 PM EDT Neema Landon NOUGAT CANDY MAKER HELPER LAB BLOOD ORDERABLES Final Res ult Performing Organization Address [facility] de Phone Number [facility] [address] [place] [phone] * ANAYA Screen,IFA, with Reflex to Titer and Pattern (01/20/2025 12:47 PM EDT) Anti Nuclear Antibody Screen NEGATIVE NEGATIVE [facility] Comment:ANAYA IFA is a first l ine screen for detecting thepresence of up to approximately 150 autoantibodies invarious autoimmune diseases. A negative ANAYA IFA resultsuggests an ANAYA-associated autoimmune disease is notpresent at this time, but is not definitive. If thereis high clinical suspicion for Sjogren's syndrome,testing for anti-SS-A/Ro antibody should be considered.Anti-Aimee-1 antibody should be considered for clinicallysuspected inflammatory myopathies.AC-0: NegativeInternational Consensus on ANAYA Patterns(https://doi.org/10.1515/pgjw-0219-6021)For additional information, please refer tohttp://education.Time Bomb Deals/faq/HXS140(This link is being provided for informational/educational purposes only.)THIS TEST WAS PERFORMED AT:[facility] [place] [phone] FIGUEROA MD ANAYA Titer [facility] ANAYA Pattern [facility] ANAYA TITER 2 (REF LAB) [facility] ANAYA Pattern 2 [facility] ANAYA TITER 3 [facility] ANAYA PATTERN 3 [facility] Blood Venous blood specimen / Unknown 01/20/2025 12:47 PM EDT 01/20/2025 2:10 PM EDT us Neema Landon NOUGAT CANDY MAKER HELPER LAB BLOOD ORDERABLES Final Res ult [facility] [address] [place] [phone] [phone] * BI Mammogram Screening Tomosynthesis Bilateral (12/23/2024 12:47 PM EDT) Anatomical Region Laterality Modality Breast Bilateral Mammography 12/23/2024 12:4 7 PM EDT Narrative 12/31/2024 11:24 AM EDT [address] [place] [address] Mammography Report Signed Patient: Nadege Whitney MR#: [id number] [birth year] : 1965 Acct:[id number] Age/Sex: 59 / F ADM Date: 12/23/24 Loc: MAMMO Attending Dr: Neema Landon NOUGAT CANDY MAKER HELPER Ordering Physician: Neema Landon Results: 2Benig n Findings Date of Service: 12/23/24 Follow Up: 1 Year From Orig ina Mammogram Procedure(s): MM tomosynthesis screening BI Accession Number(s): [id number] cc: Neema Landon EXAMINATION: MM SCREENING DIGITAL BREAST TOMOSYNTHESIS, BILATERAL CLINICAL INFORMATION: Screening. Asymptomatic. COMPARISON: Mammography: Comparison is made with available priors TECHNIQUE: Digital breast mammography with tomosynthesis is performed in both the craniocaudal and mediolateral oblique views along with computer-aided detection (CAD). FINDINGS: The breasts are heterogeneously dense, which may obscure small masses (ACR BI-RADS breast composition Category c). Bilateral marker clips. There are no significant masses, abnormal calcifications, or other abnormalities. MM/MM tomosynthesis screening BI IMPRESSION: No mammographic evidence of malignancy. ASSESSMENT: BI-RADS BI-RADS 2 - Benign Findings RECOMMENDATION: Routine annual mammography screening. 1 year F/U This examination should not preclude the clinical evaluation of a suspicious palpable abnormality. This patient's information was entered into a reminder system with a target due date for their next mammogram. Electronically signed by: Sherry Reyes DO 12/31/2024 11:21 AM EDT Dictated By: Sherry Reyes DO Signed By: <Electronically signed by Sherry Reyes DO in OV> 12/31/24 1121 DD/ 1247 TD/TT: 12/23/24 1305 Furniture Designer: Procedure Note Donotuseinterpreter, Image - 12/31/2024 Aniket [facility] [address] [place], [place] [address] Mammography Report Signed Patient: Nadege WhitneyMR#: [id number] 02 : 1965Acct:[id number] Age/Sex: 59 / FADM Date: 12/23/24 Loc: MAMMO Attending Dr: Neema Landon NOUGAT CANDY MAKER HELPER Ordering Physician: Neema Landon FNPResults: 2Benig n Findings Date of Service: 12/23/24Follow Up: 1 Year From Orig ina Mammogram Procedure(s): MM tomosynthesis screening BI Accession Number(s): [id number] cc: Neema aLndon EXAMINATION: MM SCREENING DIGITAL BREAST TOMOSYNTHESIS, BILATERAL CLINICAL INFORMATION: Screening. Asymptomatic. COMPARISON: Mammography: Comparison is made with available priors TECHNIQUE: Digital breast mammography with tomosynthesis is performed in both the craniocaudal and mediolateral oblique views along with computer-aided detection (CAD). FINDINGS: The breasts are heterogeneously dense, which may obscure small masses (ACR BI-RADS breast composition Category c). Bilateral marker clips. There are no significant masses, abnormal calcifications, or other abnormalities. MM/MM tomosynthesis screening BI IMPRESSION: No mammographic evidence of malignancy. ASSESSMENT: BI-RADS BI-RADS 2 - Benign Findings RECOMMENDATION: Routine annual mammography screening. 1 year F/U This examination should not preclude the clinical evaluation of a suspicious palpable abnormality. This patient's information was entered into a reminder system with a target due date for their next mammogram. Electronically signed by: Sherry Reyes DO 12/31/2024 11:21 AM EDT Dictated By: Sherry Reyes DO Signed By: <Electronically signed by Sherry Reyes DO in OV> 12/31/24 1121 DD/ 1247 TD/TT: 12/23/24 1305 Furniture Designer: Neema Landon NOUGAT CANDY MAKER HELPER IMG BI PROCEDURES Edited Resul t - Final * Hemoglobin A1c (10/21/2024 3:42 PM EDT) Hemoglobin A1c 5.8 <6.0 % [facility] Comment:Hemoglobin A1C Refer ence Range Adults: 4.8 - 6.0 % Non diabetic: < 6.0 % Goal: < 7.0 %Additional Action Suggested: > 8.0 %Note: Hemoglobin A1c results are invalid for patients with abnormal amounts of HbF. Blood transfusions may impact the HbA1c concentration in the patient sample. Estimated Average Glucose 120 mg/dL [facility] Comment:eAG = Estimated ave rage glucose which is %A1C expressed asaverage glucose, using the formula of the V4J-DvtryltPiopaec Glucose study (ADAG), Diabetes Care, Vol.31,#8,2007 Blood Venous blood specimen / Unknown 10/21/2024 3:42 PM EDT 10/21/2024 5:57 PM EDT Neema Landon NOUGAT CANDY MAKER HELPER LAB BLOOD ORDERABLES Final Res ult [facility] [address] [place] [phone] [phone] * Colonoscopy (10/17/2024 7:22 AM EDT) Historical Provider HEALTH MAINTENANCE Final Result * (ABNORMAL) Cologuard?? colon cancer screening (07/22/2024 1:50 PM EST) Cologuard Result Positive( A) Negative 07/27/2024 5:01 AM EST [place] (CLIA #:[id number]) Comment: POSITIVE TEST RESULT. A positive Cologuard result should be followed with a colonoscopy or visual examination of the colon. The normal value (reference range) for this assay is negative. TEST DESCRIPTION: Composite algorithmic analysis of stool DNA-biomarkers with hemoglobin immunoassay. Quantitative values of individual biomarkers are not [...] (Dave Wilson al, N Engl J Med 2014;370(14):8236-7744.) Cologuard may produce a false negative or false positive result (no colorectal cancer or precancerous polyp present at colonoscopy follow up). A negative Cologuard test result does not guarantee the absence of CRC or advanced adenoma (pre-cancer). The current Cologuard screening interval is every 3 years. ([place] [employer] and U.S. Multi-Society Task Force). Cologuard performance data in a 10,000 patient pivotal study using colonoscopy as the reference method can be accessed at the following location: www.Jamii.Edicy/results. Additional description of the Cologuard test process, warnings and precautions can be found at www.BBL Enterprisesrd.Edicy. Stool specimen (specimen) 07/22/2024 1:50 PM EST 2024 12:04 PM EST Neema Landon [facility] DIAGNOSTICS VANITA RAM Final Result [place] (CLIA #:[id number]) [address] [place] [address], * Hepatitis C Viral RNA, Quantitative, Real-Time PCR (10/19/2023 1:00 PM EDT) Hepatitis C Viral Load <15 NOT DETECTED NOT DETECTED IU/mL [facility] HCV Log PCR <1.18 NOT DETECTED NOT DETECTED Log IU/mL [facility] Comment:This test was perfor med using Real-Time Polymerase ChainReaction.Reportable Range: 15 IU/mL to 100,000,000 IU/mL(1.18 Log IU/mL to 8.00 Log IU/mL).The analytical performance characteristics of thisassay have been determined by [facility].The modifications have not been cleared or approved bythe FDA. This assay has been validated pursuant to theCLIA regulations and is used for clinical purposes.For more information on this test, go to:http://education.Ku6/faq/MUO59a3(This link is being provided for informational/educational purposes only.)THIS TEST WAS PERFORMED AT:[facility] [place] [id number] FIGUEROA MD Blood 10/19/2023 1:00 PM EDT 10/19/2023 3:55 PM EDT us Neema Landon NOUGAT CANDY MAKER HELPER LAB BLOOD ORDERABLES Final Res ult Performing Organization Address [facility]/ZIP Co de Phone Number [facility] [address] [place] [address] [phone] * HIV-1/2 Antigen and Antibodies, Fourth Generation, with Reflexes (10/19/2023 1:00 PM EDT) Pathologist [facility] HIV AB/AG Nonreactive Nonreactive [facility] Comment:HIV-1 p24 Ag and/or HIV-1/HIV-2 Ab not detected.A test result that is nonreactive does not exclude thepossibility of exposure to or infection with HIV-1 and/orHIV-2. Nonreactive results in this assay for individualswith prior exposure to HIV-1 and/or HIV-2 may be due toantigen and antibody levels that are below the limit ofdetection of this assay.The [employer] HIV Ag/Ab Combo assay result andsupplemental assay results should be interpreted inconjunction with the patient's clinical presentation,history and other laboratory results. If the results areinconsistent with clinical evidence, additional testing issuggested to confirm the result. Blood Venous blood specimen / Unknown 10/19/2023 1:00 PM EDT 10/19/2023 3:55 PM EDT us Neema Landon [employer]OUGAT [employer]AND[employer] MAKER HELPER LAB BLOOD ORDERABLES Final Res ult Performing Organization Address City/[facility]/ZIP Co de Phone Number [facility] [address] [place] [address] [phone] * (ABNORMAL) Lipid Panel, Standard (10/19/2023 1:00 PM EDT) Triglycerides 151(H) <150 mg/dL [facility] Comment:Desirable Triglyceri de: less than 150 mg/dLBorderline High Triglyceride 150-199 mg/dLHigh Triglyceride: 200-499 mg/dLVery High Triglyceride: greater than or equal to 5OO mg/dL Cholesterol 181 <200 mg/dL [facility] Comment:Desirable Cholestero l: less than 200 mg/dLBorderline High Cholesterol: 200-239 mg/dLHigh Cholesterol: greater than 239 mg/dL LDL Cholesterol Calculated 107(H) <100 mg/dL [facility] Comment:Desirable LDL: less than 100 mg/dLNear Optimal/Above Optimal LDL: 110- 129 mg/dLBorderline High LDL: 130-159 mg/dLHigh LDL: 160-189 mg/dLVery High LDL: greater than or equal to 190 mg/dL HDL Cholesterol 44 >40 mg/dL [facility] Comment:Desirable HDL: great er than 40 mg/dL Note: This HDL assay may give artificially low results in patients with liver disease. Blood Venous blood specimen / Unknown 10/19/2023 1:00 PM EDT 10/19/2023 3:55 PM EDT Neema Landon [facility] LAB BLOOD ORDERABLES Final Res ult [facility] [address] [place] [address] [phone] * THINPREP PAP (01/01/2021 6:38 PM EDT) Clinical Information: None given [facility] COMMENT SEE COMMENT [facility] Comment: EXPLANATORY NOTE: The Pap is a screening test for cervical cancer. It is not a diagnostic test and is subject to false negative and false positive results. It is most reliable when a satisfactory sample, regularly obtained, is submitted with relevant clinical findings and history, and when the Pap result is evaluated along with historic and current clinical information. Environmental Conflict Manager : SEE COMMENT [facility] Comment: YP, CT(ASCP) CT screening location: [place] [address] Interpretation/R esult: Negative for intraepithelial lesion or malignancy. [facility] LMP: NONE [facility]EN [facility] Prev. BX: NONE [facility]IV[facility] Prev. PAP: NONE [facility]IVEN [facility] SOURCE: None given [facility] Statement Of Adequacy: SEE COMMENT [facility] Comment: Satisfactory for evaluation. Endocervical/transformation zone component present. Age and/or menstrual status not provided 01/01/2021 6:38 PM EDT Jing Segundo NP LAB PATHOLOGY ORDERABLES Final Result [facility] [address] * HPV mRNA E6/E7 (01/01/2021 6:38 PM EDT) HPV nRNA E6/E7 Not Detected Not Detected [facility] Comment: Methodology: Rice Dryer Mechanic-Mediated Amplification This assay detects E6/E7 viral messenger RNA (mRNA) from 14 high-risk HPV types (16,18,31,33,35,39,45,51,52,56,58,59,66,68). The analytical performance characteristics of this assay have been determined by [facility]. The modifications have not been cleared or approved by the FDA. This assay has been validated pursuant to the CLIA regulations and is used for clinical purposes. For additional information, please refer to http://education.[employer].Edicy/faq/KHJ038r4 (This link if provided for information/ educational purposes only.) NO COLLECTION DATE RECEIVED. WE HAVE USED THE DATE THE SPECIMEN WAS RECEIVED BY THIS LABORATORY THE COLLECTION DATE. IF THIS IS INCORRECT, PLEASE CONTACT CLIENT SERVICES. 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
--- NOTE | 2025-03-06 13:03 | MHC.OFFVIS ---
Vital Signs 03/06/25 13:04 Height 4 ft 11 in Weight 171 lb BMI 34.5 Handedness Right Intake Visit Reasons: New prob- RT wrist CMC joint OA Intake Note: Nadege is a 59 year old right hand dominant female who presents today for a new problem visit for evaluation of right wrist CMC joint osteoarthritis. Patient reports pain has been present for a very long time, but recently it has worsened, primarily on the dorsal aspect, with associated numbness. She feels like her hands are too weak, having difficulty opening lids. She describes the pain as itch . She is concerned for some small veins that are more popping out around the same area of pain. Patient is also expressing worsening right index finger locking and catching. Patient is taking naproxen with some relief. Denies previous injuries or surgeries to the hands. Allergies No Known Allergies Allergy (Verified 03/06/25 13:10) HPI HPI New prob- RT wrist CMC joint OA: Details: Nadege is a 59 year old right hand dominant female who presents today for a new problem visit for evaluation of right wrist CMC joint osteoarthritis. Patient reports pain has been present for a very long time, but recently it has worsened, primarily on the dorsal aspect, with associated numbness. She feels like her hands are too weak, having difficulty opening lids. She describes the pain as itch . Patient reports that the pain radiates from the base of the thumb into the thumb itself, and into the forearm. She is concerned for some small veins that are more popping out around the same area of pain. Patient is also expressing worsening right index finger locking and catching. Patient is taking naproxen with some relief. Denies previous injuries or surgeries to the hands. [facility] Medical History (Updated 03/06/25 @ 18:16 by TAYLOR Chen) GERD (gastroesophageal reflux disease) Asthma Hypothyroid Hyperlipidemia HTN (hypertension) Lumbar degenerative disc disease Arthritis Sleep apnea High cholesterol Prediabetes Surgical History (Updated 10/13/24 @ 15:03 by Monica Vargas RN) History of esophagogastroduodenoscopy (EGD) Hx of tubal ligation Family History Father Tuberculosis Mother Diabetes Heart disease Thyroid condition Hyperlipidemia Sister Renal insufficiency Brother Thyroid condition Social History Are you a primary adult live in caregiver to a significant other at home: No Do you presently have visiting nurse or other home services: No Alcohol intake: never Patient Tobacco Use Status: Former Tobacco user Current occupational status: unemployed Current occupation: right hand dominant Review of Systems Const All systems reviewed & are unremarkable except as noted in HPI and below Physical Exam Vital Signs: BMI result Body Mass Index 34.5 Extrem Other: Patient is alert, oriented, and in no acute distress. Neuro: Normal sensation of the tips of all digits of the right hand at this time Vascular: Cap refill brisk Pain: Tenderness to palpation noted of right radial styloid Mildly positive CMC grind on the right Significant pain with Parish test on the right ROM: Patient is able to make a closed fist and extend all digits of the right hand fully and without difficulty Skin: No lacerations or abrasions. General: No ecchymosis, erythema, or evidence of infection. Psych: Appears grossly normal Affect normal Attitude cooperative Results Reviewed Results Reviewed: X-rays obtained in the office today and independently reviewed by me, Mynor Braun PA-C, demonstrate [id number] osteoarthritis of the 1st CMC joint of the right thumb. Assessment & Plan Assessment & Plan (1) Arthritis of carpometacarpal (CMC) joint of right thumb: Code(s): M18.11 - Unilateral primary osteoarthritis of first carpometacarpal joint, right hand Category: Medical (2) De Quervain's tenosynovitis, right: Code(s): M65.4 - Radial styloid tenosynovitis [de Quervain] Category: Medical Plan 1. De Quervain tenosynovitis, right 2. Right basal joint arthritis Patient is educated about these conditions Patient is educated about the treatment options available, namely occupational therapy, injections, and potential surgical intervention if other more conservative treatment measures fail Patient would like to proceed with occupational therapy and bracing Patient is educated that based on her physical exam findings, I feel it is much more likely that it is her de Quervain tenosynovitis that has causing her significant pain rather than her basal joint arthritis, however it is possible that both are causing her discomfort Patient understands this OT referral placed for range of motion and strengthening of the right thumb and wrist in the setting of de Quervain tenosynovitis and basal joint arthritis Follow-up as needed with any acute concerns Orders: Orders XR hand RT min 3V Today M79.641 - Pain in right hand OT Evaluation and Treatment Today M18.11 - Unilateral primary osteoarthritis of first carpometacarpal joint, right hand, M65.4 - Radial styloid tenosynovitis [de Quervain] Coding Level of Care Code New Pt Level 3 (57516) Diagnoses Arthritis of carpometacarpal (CMC) joint of right thumb M18.11 De Quervain's tenosynovitis, right M65.4
[2025-03-06 13:04] VITALS: BMI 34.5
== END 2025-03-06 13:31 | disposition home or self-care (01) ==
LOC: HO.HOS 12:49
PROVIDERS: PCP Registered Nurse
DX: M18.11 Unilateral primary osteoarthritis of first carpometacarpal joint, right hand (principal); M65.4 Radial styloid tenosynovitis [de Quervain]
CPT/HCPCS: 99213

== ENCOUNTER → 2025-03-06 12:51 | Outpatient (BNV) | payer MEDICAID, SELFPAY | PROVIDERS: Visit Provider Radiology Diagnostic Radiology | DX: M79.641 Pain in right hand (principal) | CPT/HCPCS: 73130 ==

== ENCOUNTER 2025-03-24 10:59 | Outpatient (AMB) | payer MEDICAID, SELFPAY ==
--- OUTSIDE RECORDS SUMMARY | 2024-10-17 06:50 | XMS_ITS ---
Author Organization [facility] Address [address] [place] [phone] Care Team Providers Care Metal Sander And Finisher Name Role Phone ABRAHAM CANELA MD Primary Care Provider Xavier Banda [phone] REASON FOR VISIT screening colonoscopy/reflux Encounters Encounter Location Date Provider Diagnosis [facility] [place] [address] [place] [id number] 10/17/2024 Xavier Valverde Colon cancer scree jorge [...] * HERMINIO MONGEB: 5 (59 yo F)Acc No.[id number]:10/17/2024 EGD and COL/MAC Patient: JESUSITA OWUSU Provider: Nabor Valverde MD :1965 A ge:59 Y S ex:Female Date:10/17/2024 Address:[facility] [place], [id number] Pcp:ABRAHAM CANELA MD Subjective: * Chief Complaints: [...] 5380 COLONOSCOPY AND BIOPSY, Modifiers: [place] , [address] UPPER GI ENDOSCOPY, BIOPSY * * The named appointment provid er may or may not be the originator of this progress note, and it is not deemed complete until electronically signed by the appointment provider. Sign off status: Pending * Provider: Nabor Valverde MD Date: 0 10/17/2024 Generated for Judi castro/Chuck/Miriamitting on: 0 03/24/2025 11:43 AM EDT
--- NOTE | 2025-03-24 11:26 | A.OFFVIS_ITS ---
Vital Signs 03/24/25 11:27 Height 4 ft 11 in Weight 181 lb BMI 36.6 BP 120/80 Blood Pressure Location Rt brachial Position Sitting Pulse 67 Pulse Oximetry (%) 95 Oxygen Delivery Method Room Air Intake Visit Reasons: 6 mnts f/u appt Intake Note: Patient presents 6 month follow up for TRENTON- compliance in chart Chamfering Machine Operator Required: Yes Chamfering Machine Operator Services: Chamfering Machine Operator Offered & Declined Chamfering Machine Operator Name: When provider comes in Accompanied by: Self / Same As Patient Allergies No Known Allergies Allergy (Verified 03/24/25 11:26) HPI Comments Details: 59-yr-old female presents for follow-up visit of sleep apnea. Patient reports she continues to sleep well with her CPAP machine and feels better when she uses it. However, she also note some sleep interruptions due to leg cramps and joint pains can interfere with her sleep quality. She does have a history of anemia. She endorses some restlessness at rest. However, she is again having an issue with her mask. Her daughter has called her respiratory company to have this addressed-they are waiting on a response. She does clean her CPAP supplies regularly. She does use distilled water in her CPAP machine to water reservoir. [facility] Compliance Report Usage 12/17/2024 - 03/19/2025 Usage days 70% Usage days >= 4 hours 41% Usage days < 4 hours 30 days (33 %) Average usage (days used) 4 hours 14 minutes AirSense 11 AutoSet Serial number [id number] Mode AutoSet Min Pressure 5-15 cmH2O EPR level 2 Response Maximum Pressure: 13.3 cmH2O Median leaks 1.5 L/min Maximum Leaks: 19.3 L/min Residual AHI: 1.2 per hour [facility] Medical History (Updated 03/24/25 @ 12:12 by SUSAN Huber) Anemia GERD (gastroesophageal reflux disease) Asthma Hypothyroid Hyperlipidemia HTN (hypertension) Lumbar degenerative disc disease Arthritis Sleep apnea High cholesterol Prediabetes Surgical History History of esophagogastroduodenoscopy (EGD) Hx of tubal ligation Family History Father Tuberculosis Mother Diabetes Heart disease Thyroid condition Hyperlipidemia Sister Renal insufficiency Brother Thyroid condition Social History Are you a primary daytime caregiver to a significant other at home: No Do you presently have visiting nurse or other home services: No Alcohol intake: never Patient Tobacco Use Status: Former Tobacco user Current occupational status: unemployed Current occupation: right hand dominant Physical Exam Vital Signs: Last Vital Signs Pulse 67 03/24/25 11:27 BP 120/80 03/24/25 11:27 Pulse Ox 95 03/24/25 11:27 Oxygen Delivery Method Room Air 03/24/25 11:27 BMI result Body Mass Index 36.6 Const General: no acute distress Orientation/consciousness: patient oriented x3 Resp Effort & Inspection: normal respiratory effort and able to speak in complete sentences Neuro General: patient oriented x3 Cranial nerves: Yes CN's II-XII intact bilaterally Gait exam (Neuro): Normal gait present Psych Mental Status: mental status grossly normal Speech and movement: Clear speech present Attitude: cooperative Assessment & Plan Assessment & Plan (1) TRENTON (obstructive sleep apnea): Comment: Mild degree of sleep apnea. The AHI was 9/hr and oxygen aicha was 84% Code(s): G47.33 - Obstructive sleep apnea (adult) (pediatric) Category: Medical (2) Muscle spasm of both lower legs: Code(s): M62.838 - Other muscle spasm Category: Medical Plan * Continue APAP 5-15 cmH2O w/ EPR 2 nightly w/ goal of using > 4 hours, as pt has had good clinical effect from use with good reduction in residual AHI. * Use CPAP while sleeping at night and during daytime naps, which should help improve overall PAP compliance rates. * Clean CPAP machine and supplies routinely. * Use distilled water in CPAP water reservoir. * Change CPAP supplies routinely. * Contact us or respiratory company, [facility], with any questions or concerns. * Check labs for common etiologies of leg cramps, fatigue, joint pains which are interfering with sleep quality. Will follow-up upon review of above and patient to follow-up in clinic in 6 months or sooner prn. Orders: Orders Ferritin 03/24/25 D64.9 - Anemia, unspecified, E78.5 - Hyperlipidemia, unspecified, I10 - Essential (primary) hypertension, M17.12 - Unilateral primary osteoarthritis, left knee, M62.838 - Other muscle spasm IRON PROFILE 03/24/25 D64.9 - Anemia, unspecified, E78.5 - Hyperlipidemia, unspecified, I10 - Essential (primary) hypertension, M17.12 - Unilateral primary osteoarthritis, left knee, M62.838 - Other muscle spasm C Reactive Protein 03/24/25 D64.9 - Anemia, unspecified, E78.5 - Hyperl ipidemia, unspecified, I10 - Essential (primary) hypertension, M17.12 - Unilateral primary osteoarthritis, left knee, M62.838 - Other muscle spasm Methylmalonic Acid 03/24/25 D64.9 - Anemia, unspecified, E78.5 - Hyperlipidemia, unspecified, I10 - Essential (primary) hypertension, M17.12 - Unilateral primary osteoarthritis, left knee, M62.838 - Other muscle spasm Magnesium 03/24/25 D64.9 - Anemia, unspecified, E78.5 - Hyperlipidemia, unspecified, I10 - Essential (primary) hypertension, M17.12 - Unilateral primary osteoarthritis, left knee, M62.838 - Other muscle spasm Complete Blood Count Auto Diff 03/24/25 D64.9 - Anemia, unspecified, E78.5 - Hyperlipidemia, unspecified, I10 - Essential (primary) hypertension, M17.12 - Unilateral primary osteoarthritis, left knee, M62.838 - Other muscle spasm Comprehensive Kimberly. Panel Fast 03/24/25 D64.9 - Anemia, unspecified, E78.5 - Hyperlipidemia, unspecified, I10 - Essential (primary) hypertension, M17.12 - Unilateral primary osteoarthritis, left knee, M62.838 - Other muscle spasm Vitamin B12 and Folate 03/24/25 D64.9 - Anemia, unspecified, E78.5 - Hyperlipidemia, unspecified, I10 - Essential (primary) hypertension, M17.12 - Unilateral primary osteoarthritis, left knee, M62.838 - Other muscle spasm Vitamin D 25-OH (D2 and D3) 03/24/25 D64.9 - Anemia, unspecified, E55.9 - Vitamin D deficiency, unspecified, E78.5 - Hyperlipidemia, unspecified, I10 - Essential (primary) hypertension, M17.12 - Unilateral primary osteoarthritis, left knee, M62.838 - Other muscle spasm Vitamin B1 03/24/25 D64.9 - Anemia, unspecified, E51.9 - Thiamine deficiency, unspecified, E78.5 - Hyperlipidemia, unspecified, I10 - Essential (primary) hypertension, M17.12 - Unilateral primary osteoarthritis, left knee, M62.838 - Other muscle spasm Vitamin B6 03/24/25 D64.9 - Anemia, unspecified, E78.5 - Hyperlipidemia, unspecified, I10 - Essential (primary) hypertension, M17.12 - Unilateral primary osteoarthritis, left knee, M62.838 - Other muscle spasm Homocysteine 03/24/25 D64.9 - Anemia, unspecified, E78.5 - Hyperlipidemia, unspecified, I10 - Essential (primary) hypertension, M17.12 - Unilateral primary osteoarthritis, left knee, M62.838 - Other muscle spasm Coding Level of Care Code Est Pt Level 4 (10917) Diagnoses TRENTON (obstructive sleep apnea) G47.33 Muscle spasm of both lower legs M62.838
[2025-03-24 11:27] VITALS: BP 120/80; PULSE 67; O2SAT 95; BMI 36.6
--- OUTSIDE RECORDS SUMMARY | 2025-03-24 11:43 | XMS_ITS | Patient Health Record ---
Author Organization [facility] Address [address] [place] [address] Care Team Providers Care Glass Polisher Name Role Phone ABRAHAM CANELA MD Primary Care Provider Xavier Banda [phone] Allergies No Known Allergies Results Component Value Reference Range Notes US abdomen complete Reviewed date:10/16/2024 08:36:38 PM Interpretation: Performing Lab: Notes/Report: [address] [address] Ultrasound Report Signed Patient: Jesusita Monge MR#: [id number] [birth year] : 1965 Acct:[id number] Age/Sex: 59 / F ADM Date: 07/28/24 Loc: HO.US Attending Dr: Xavier Valverde MD Ordering Physician: Xavier Valverde MD Date of Service: 07/28/24 Procedure(s): US abdomen complete Accession Number(s): [id number] cc: Abraham Canela GRANITE WORKER; Xavier Valverde MD CLINICAL HISTORY: ABD DISTENTION [...] OV> 07/30/24 0800 DD/ 8 TD/TT: 07/30/24758 Matching Machine Operator: Glucose, Whole Blood Reviewed date:10/17/2024 10:29:37 PM Interpretation: Performing Lab:[facility], [address] [place] [id number] Notes/Report: Glucose, Whole Blood 108 60-115 mg/dL METER # : [id number] Pathology (Not yet reviewed by provider) Interpretation: Performing Lab:[address] [address] Notes/Report: Reason For Referral Referring Provider First Name ABRAHAM Referring Provider Last Name [facility] Referred Organization [facility] Referred Provider Xavier Valverde Referred Address [address] [place] [address],[address],[address], Referred Provider Specialty Gastroentero logy Referral Priority Routine Medications Medication SIG (Take, Route, Frequency, Duration) Notes [...] FOR 12 HOURS DIRECTED External for 30 G49672,Unavai lable Active Acetaminophen Extra Strength 500 MG [...] MOUTH TWICE DAILY Oral for 90 Active Social History Tobacco Use: Social History Observation Description Date Details (start date - stop date) Never Smoker NA - NA Tobacco Use/Smoking Question Answer Notes Patient is a nonsmoker Alcohol Screen Question Answer Notes Did you have a drink containing alcohol in the p ast year? No Points 0 Interpretation Negative Problems Problem Type SNOMED Code ICD Code Onset Dates Problem Status W/U Status Risk Notes Problem Colon cancer screening (376501323) Colon cancer screening (Z12.11) Active confirmed Problem Abdominal bloating (176039102) Abdominal bloating (R14.0) Active confirmed Problem Epigastric pain (89825927) Abdominal discomfort, epigastric (R10.13) Active confirmed Problem Chronic constipation (944908757) Chronic constipation (K59.09) Active confirmed Problem Gastroesophageal reflux disease (disorder) (454159008) Chronic GERD (K21.9) Active confirmed Vital Signs Blood pressure diastolic 00 mm Hg 07/08/2024 Height 4 ft 11 in in 07/08/2024 Blood pressure systolic 00 mm Hg 07/08/2024 Weight 170 lbs 07/08/2024 BMI 34.33 kg/m2 07/08/2024 Encounters Encounter Location Date Provider Diagnosis [facility] Outpatient [address] [place] [phone] 10/17/2024 Xavier Valverde Colon cancer screeni ng Z12.11 ; Colon polyps K63.5 ; Diverticulosis of large intestine without perforation or abscess without bleeding K57.30 ; Other hemorrhoids K64.8 ; Hiatal hernia K44.9 and Gastro-esophageal reflux disease without esophagitis K21.9 [facility] [address] [place] [address] 07/08/2024 Xavier Valverde Colon cancer screeni ng Z12.11 ; Chronic GERD K21.9 ; Chronic constipation K59.09 ; Abdominal bloating R14.0 and Abdominal discomfort, epigastric R10.13 [facility] [address] [place] [address] 10/14/2024 Xavier Valverde [facility] [address] [place] [phone] 10/17/2024 Xavier Valverde Assessments Encounter Date Diagnosis (ICD Code) Assessment Notes Treatment Notes Treatment Clinical Notes Section Notes 10/17/2024 Colon cancer screening (ICD-10 - Z12.11) 10/17/2024 Colon polyps (ICD-10 - K63.5) 07/08/2024 Colon cancer screening (ICD-10 - Z12.11) Stop Naprosyn for 1 week before the procedures Overall, Jesusita appears well. We did review her GI symptoms and I did recommend an upper endoscopy for evaluation of her ongoing issues of reflux which it sound like she has had on a long-standing basis. It would be important to rule out any component of significant esophagitis, Cerrato's esophagus, and/or hiatal hernia. I advised her to continue omeprazole but to try using it daily to see if that gives her better and longer lasting Relief. I also recommended a colonoscopy primarily for screening purposes as she has never had one. We did review the rationale for that regard to colon cancer prevention. Full consent was obtained from her for both procedures, including risks of bleeding and perforation. The procedures will be done monitored anesthesia care. In regard to her abdominal discomfort I advised her that this most likely is related to some constipation and some mild irritable bowel syndrome. I did advise to continue the simethicone as needed and to continue her Metamucil on a daily basis with plenty of water. I did recommend abdominal ultrasound to definitively exclude symptomatic gallstones as a contributing factor as well. Of note, we will have a pediatrician/medical doctor present on the day of her procedures at the hospital. Jesusita was comfortable with this plan. Thank you again for allowing me to participate in Jesusita's care. I shall continue to keep you advised of her progress. 07/08/2024 Chronic GERD (ICD-10 - K21.9) Overall, Jesusita appears well. We did review her GI symptoms and I did recommend an upper endoscopy for evaluation of her ongoing issues of reflux which it sound like she has had on a long-standing basis. It would be important to rule out any component of significant esophagitis, Cerrato's esophagus, and/or hiatal hernia. I advised her to continue omeprazole but to try using it daily to see if that gives her better and longer lasting Relief. I also recommended a colonoscopy primarily for screening purposes as she has never had one. We did review the rationale for that regard to colon cancer prevention. Full consent was obtained from her for both procedures, including risks of bleeding and perforation. The procedures will be done monitored anesthesia care. In regard to her abdominal discomfort I advised her that this most likely is related to some constipation and some mild irritable bowel syndrome. I did advise to continue the simethicone as needed and to continue her Metamucil on a daily basis with plenty of water. I did recommend abdominal ultrasound to definitively exclude symptomatic gallstones as a contributing factor as well. Of note, we will have a pediatrician/medical doctor present on the day of her procedures at the hospital. Jesusita was comfortable with this plan. Thank you again for allowing me to participate in Jesusita's care. I shall continue to keep you advised of her progress. 10/17/2024 Diverticulosis of large intestine without perforation or abscess without bleeding (ICD-10 - K57.30) 07/08/2024 Chronic constipation (ICD-10 - K59.09) Overall, Jesusita appears well. We did review her GI symptoms and I did recommend an upper endoscopy for evaluation of her ongoing issues of reflux which it sound like she has had on a long-standing basis. It would be important to rule out any component of significant esophagitis, Cerrato's esophagus, and/or hiatal hernia. I advised her to continue omeprazole but to try using it daily to see if that gives her better and longer lasting Relief. I also recommended a colonoscopy primarily for screening purposes as she has never had one. We did review the rationale for that regard to colon cancer prevention. Full consent was obtained from her for both procedures, including risks of bleeding and perforation. The procedures will be done monitored anesthesia care. In regard to her abdominal discomfort I advised her that this most likely is related to some constipation and some mild irritable bowel syndrome. I did advise to continue the simethicone as needed and to continue her Metamucil on a daily basis with plenty of water. I did recommend abdominal ultrasound to definitively exclude symptomatic gallstones as a contributing factor as well. Of note, we will have a pediatrician/medical doctor present on the day of her procedures at the hospital. Jesusita was comfortable with this plan. Thank you again for allowing me to participate in Jesusita's care. I shall continue to keep you advised of her progress. 10/17/2024 Other hemorrhoids (ICD-10 - K64.8) 07/08/2024 Abdominal bloating (ICD-10 - R14.0) Overall, Jesusita appears well. We did review her GI symptoms and I did recommend an upper endoscopy for evaluation of her ongoing issues of reflux which it sound like she has had on a long-standing basis. It would be important to rule out any component of significant esophagitis, Cerrato's esophagus, and/or hiatal hernia. I advised her to continue omeprazole but to try using it daily to see if that gives her better and longer lasting Relief. I also recommended a colonoscopy primarily for screening purposes as she has never had one. We did review the rationale for that regard to colon cancer prevention. Full consent was obtained from her for both procedures, including risks of bleeding and perforation. The procedures will be done monitored anesthesia care. In regard to her abdominal discomfort I advised her that this most likely is related to some constipation and some mild irritable bowel syndrome. I did advise to continue the simethicone as needed and to continue her Metamucil on a daily basis with plenty of water. I did recommend abdominal ultrasound to definitively exclude symptomatic gallstones as a contributing factor as well. Of note, we will have a pediatrician/medical doctor present on the day of her procedures at the hospital. Jesusita was comfortable with this plan. Thank you again for allowing me to participate in Jesusita's care. I shall continue to keep you advised of her progress. 10/17/2024 Hiatal hernia (ICD-10 - K44.9) 07/08/2024 Abdominal discomfort, epigastric (ICD-10 - R10.13) Overall, Jesusita appears well. We did review her GI symptoms and I did recommend an upper endoscopy for evaluation of her ongoing issues of reflux which it sound like she has had on a long-standing basis. It would be important to rule out any component of significant esophagitis, Cerrato's esophagus, and/or hiatal hernia. I advised her to continue omeprazole but to try using it daily to see if that gives her better and longer lasting Relief. I also recommended a colonoscopy primarily for screening purposes as she has never had one. We did review the rationale for that regard to colon cancer prevention. Full consent was obtained from her for both procedures, including risks of bleeding and perforation. The procedures will be done monitored anesthesia care. In regard to her abdominal discomfort I advised her that this most likely is related to some constipation and some mild irritable bowel syndrome. I did advise to continue the simethicone as needed and to continue her Metamucil on a daily basis with plenty of water. I did recommend abdominal ultrasound to definitively exclude symptomatic gallstones as a contributing factor as well. Of note, we will have a pediatrician/medical doctor present on the day of her procedures at the hospital. Jesusita was comfortable with this plan. Thank you again for allowing me to participate in Jesusita's care. I shall continue to keep you advised of her progress. 10/17/2024 Gastro-esophageal reflux disease without esophagitis (ICD-10 - K21.9) Plan Of Treatment Pending Test Test Name Order Date Pathology 10/17/2024 US abdomen complete 07/08/2024 Future Test Test Name Order Date UPPER GI ENDOSCOPY 07/08/2024 COLONOSCOPY 07/08/2024 Insurance Providers Payer Name Payer Address Payer Phone Subscriber Number Group Number Insured Name Patient Relationship to Insured Coverage Start Date Coverage End Date [facility] [address] [place] [phone] [id number] SALEEM JESUSITA Self - patient is the insured Medical (General) History Medical History History ICD Code Heart papitations Pre-diabeteic Arthritis Hypothyroidism Hyperlipidemia Denies [place],DM,CVA,renal disease Asthma GERD Surgical History Surgery Date(Month/Year) BTL
== END 2025-03-24 12:16 | disposition home or self-care (01) ==
LOC: HO.HSMS 11:00
PROVIDERS: PCP Registered Nurse; Visit Provider Nurse Practitioner Family
DX: G47.33 Obstructive sleep apnea (adult) (pediatric) (principal); M62.838 Other muscle spasm
CPT/HCPCS: 99214

== ENCOUNTER → 2025-03-24 10:59 | Outpatient (BNVA) | payer MEDICAID, SELFPAY | PROVIDERS: PCP Registered Nurse; Visit Provider Nurse Practitioner Family | DX: G47.33 Obstructive sleep apnea (adult) (pediatric) (principal); M62.838 Other muscle spasm; D64.9 Anemia, unspecified; M17.12 Unilateral primary osteoarthritis, left knee; E78.5 Hyperlipidemia, unspecified; I10 Essential (primary) hypertension | CPT/HCPCS: 99212 ==

== ENCOUNTER 2025-03-30 09:27 | Outpatient (REF) | payer MEDICAID, SELFPAY ==
--- OUTSIDE RECORDS SUMMARY | 2024-10-17 06:50 | XMS_ITS ---
Author Organization [facility] Address [address] [place] [phone] Care Team Providers Care Brand Coordinator Name Role Phone ABRAHAM CANELA MD Primary Care Provider Xavier Banda [phone] REASON FOR VISIT screening colonoscopy/reflux Encounters Encounter Location Date Provider Diagnosis [facility] [place] [address] [place] [id number] 10/17/2024 Xavier Valverde Colon cancer scree jorge [...] * HERMINIO MONGEB: 5 (59 yo F)Acc No.[id number]:10/17/2024 EGD and COL/MAC Patient: JESUSITA OWUSU Provider: Nabor Valverde MD :1965 A ge:59 Y S ex:Female Date:10/17/2024 Address:[facility] [id number] Pcp:ABRAHAM CANELA MD Subjective: * Chief Complaints: [...] 5380 COLONOSCOPY AND BIOPSY, Modifiers: [place] , [address] UPPER GI ENDOSCOPY, BIOPSY * * The named appointment provid er may or may not be the originator of this progress note, and it is not deemed complete until electronically signed by the appointment provider. Sign off status: Pending * Provider: Nabor Valverde MD Date: 0 10/17/2024 Generated for Judi castro/Chuck/Monicasmitting on: 0 03/30/2025 10:11 AM EDT
[2025-03-30 10:02] LABS: MANUAL DIFF FLAG NO
--- OUTSIDE RECORDS SUMMARY | 2025-03-30 10:12 | XMS_ITS | Encounter Summary ---
Author Organization [facility] Address [address] [place] [address] Care Team Providers Care Detail Sergeant Name Role Phone Neema Landon DRIVER Primary Care Provider [phone] Avis Benson Unavailable Ciro Vegas DPM Unavailable Lara Lorenzana Unavailable Reason for Visit * Reason Comments Med Refill Encounter Details Date Type Department Care Team ([facility] Contact Info) Description 08/08/2024 Refill [facility] [address] [place] [address] Neema Landon FNP [address] [place] [address] Social History Tobacco Use Types Packs/Day Years [...] Description 04/17/2025 10:30 AM EDT Office Visit [facility] MED [facility] PEDS [address] [place] [address] Neema Landon FNP [address] [place] [address] documented as of this encounter Visit Diagnoses Not on filedocumented in this encounter Additional Health Concerns Assessment Noted Time PHQ-9 Depression Total Score: 6 10/19/19 24 10:03 AM EDT documented as of this encounter Care Teams Detail Sergeant Relationship Specialty Start Date End Date Neema Landon FNP [address] [place] [phone] PCP - General Family Medicine 03/26/22 Avis Benson [address] [place] [address] [address] [place] [address] Sleep Medicine 06/12/24 Ciro Vegas DPM [address] [place] [id number] Podiatry 06/12/24 Lara Lorenzana PA [address] [place] [address] Orthopaedic Surgery 06/12/24 documented as of this encounter
--- OUTSIDE RECORDS SUMMARY | 2025-03-30 10:12 | XMS_ITS | Patient Health Record ---
Author Organization [facility] Address [address] [place] [phone] Care Team Providers Care Radioactivity Technician Name Role Phone ABRAHAM CANELA MD Primary Care Provider Xavier Banda [phone] Allergies No Known Allergies Results Component Value Reference Range Notes US abdomen complete Reviewed date:10/16/2024 08:36:38 PM Interpretation: Performing Lab: Notes/Report: [address] [address] Ultrasound Report Signed Patient: Jesusita Monge MR#: [id number] 02 : 1965 Acct:[id number] Age/Sex: 59 / F ADM Date: 07/28/24 Loc: HO.US Attending Dr: Xavier Valverde MD Ordering Physician: Xavier Valverde MD Date of Service: 07/28/24 Procedure(s): US abdomen complete Accession Number(s): [id number] cc: Abraham Canela TRAVELING SECRETARY; Xavier Valverde MD CLINICAL HISTORY: ABD DISTENTION [...] OV> 07/30/24 0800 DD/ 8 TD/TT: 07/30/24758 Construction Quality Control Manager: Glucose, Whole Blood Reviewed date:10/17/2024 10:29:37 PM Interpretation: Performing Lab:[facility], [address] [place] [id number] Notes/Report: Glucose, Whole Blood 108 60-115 mg/dL METER # : [id number] Pathology (Not yet reviewed by provider) Interpretation: Performing Lab:[address] [address] Notes/Report: Reason For Referral Referring Provider First Name ABRAHAM Referring Provider Last Name [facility] Referred Organization [facility] Referred Provider Xavier Valverde Referred Address [address] [place] [address],[address],[address], Referred Provider Specialty Gastroentero logy Referral Priority [...] FOR 12 HOURS DIRECTED External for 30 K03401,Unavai lable Active Acetaminophen Extra Strength 500 MG [...] Status Risk Notes Problem Colon cancer screening (983005352) Colon cancer screening (Z12.11) Active confirmed Problem Abdominal bloating (986126710) Abdominal bloating (R14.0) Active confirmed Problem Epigastric pain (93351353) Abdominal discomfort, epigastric (R10.13) Active confirmed Problem Chronic constipation (198882866) Chronic constipation (K59.09) Active confirmed Problem Gastroesophageal reflux disease (disorder) (826891747) Chronic GERD (K21.9) Active confirmed Vital Signs Blood pressure diastolic 00 mm Hg 07/08/2024 Height 4 ft 11 in in 07/08/2024 Blood pressure systolic 00 mm Hg 07/08/2024 Weight 170 lbs 07/08/2024 BMI 34.33 kg/m2 07/08/2024 Encounters Encounter Location Date Provider Diagnosis [facility] [address] [place] [id number] 10/17/2024 Xavier Valverde Colon cancer screeni ng Z12.11 ; Colon polyps K63.5 ; Diverticulosis of large intestine without perforation or abscess without bleeding K57.30 ; Other hemorrhoids K64.8 ; Hiatal hernia K44.9 and Gastro-esophageal reflux disease without esophagitis K21.9 [facility] [address] [place] [address] 07/08/2024 Xavier Valverde Colon cancer screeni ng Z12.11 ; Chronic GERD K21.9 ; Chronic constipation K59.09 ; Abdominal bloating R14.0 and Abdominal discomfort, epigastric R10.13 [facility] [address] [place] [address] 10/14/2024 Xavier Valverde [facility] [address] [place] [phone] 10/17/2024 Xavier Valverde Assessments Encounter Date Diagnosis [...] well. Of note, we will have a medical delivery driver present on the day of her procedures [...] well. Of note, we will have a medical delivery driver present on the day of her procedures [...] well. Of note, we will have a medical delivery driver present on the day of her procedures [...] well. Of note, we will have a medical delivery driver present on the day of her procedures [...] well. Of note, we will have a medical delivery driver present on the day of her procedures [...] Start Date Coverage End Date [facility] [address] [place] [phone] [id number] SALEEM JESUSITA Self - patient is the insured Medical (General) History Medical History History ICD Code Heart papitations Pre-diabeteic Arthritis Hypothyroidism Hyperlipidemia Denies NH,DM,CVA,renal disease Asthma GERD Surgical History Surgery Date(Month/Year) BTL
--- OUTSIDE RECORDS SUMMARY | 2025-03-30 10:12 | XMS_ITS | Clinical Summary ---
Author Organization [employer] Address [address] [facility] [address] [place] [address] Care Team Providers Care Industrial Laborer Name Role Phone PujaNeema laguna BOBBIN TRUCKER Primary Care Provider [phone] Avis Benson Unavailable [phone] Ciro Vegas DPM Unavailable [phone] Lara Lorenzana Unavailable Allergies No known active allergies Medications fluticasone (Flonase) 50 MCG/ACT nasal spray inhale 1 spray (50MCG) by intranasal route every day in each nostril 2 Active sodium chloride ([place]) 0.65 % nasal spray 1 spray if [...] for pain 60 tablet 2 3 Active albuterol (Ventolin HFA) 108 (90 Base) MCG/ACT inhaler INHALE 2 PUFFS BY MOUTH EVERY 6 HOURS NEEDED FOR WHEEZING 18 g 11 3 Active ibuprofen 600 MG tablet Take 1 tablet (600 mg) by mouth every 8 (eight) hours if needed for moderate pain or fever. 100 tablet 3 3 Active glucose blood (FREESTYLE LITE) test stripIndications:I mpaired glucose tolerance 1 each by Other route Once daily. 100 each 11 4 Active TRUEplus Lancets 33G miscIndications:Im paired glucose tolerance Place 1 each on the skin Once daily. 100 each 11 4 Active Multiple Vitamin (Multivitamin) tabletIndications: Routine health maintenance TAKE 1 TABLET BY MOUTH EVERY DAY WITH FOOD 90 tablet 3 4 Active simethicone (Mylicon) 80 MG tabletIndications: Flatulence Take 1-2 tablets (80-160 mg) by mouth every 8 (eight) hours if needed (bloating, gasses). 60 tablet 3 4 Active pravastatin (Pravachol) 80 MG tabletIndications: Other hyperlipidemia TAKE 1 TABLET BY MOUTH AT BEDTIME 90 tablet 3 5 Active naproxen (Naprosyn) 500 MG tabletIndications: Pain TAKE 1 TABLET BY MOUTH TWICE DAILY NEEDED FOR PAIN TAKE WITH FOOD AND A FULL GLASS OF WATER 60 tablet 2 5 Active Acetaminophen Extra Strength 500 MG tabletIndications: Pain TAKE 2 TABLETS BY MOUTH EVERY 8 HOURS NEEDED FOR MILD PAIN, MODERATE PAIN, FEVER OR HEADACHE 100 tablet 2 5 Active lidocaine (Lidoderm) 5 % patchIndications:P ain Remove & discard patch within 12 hours or as directed by .APPLY 1 PATCH TOPICALLY TO SKIN, LEAVE ON FOR 12 HOURS AND OFF FOR 12 HOURS DIRECTED 30 patch 2 5 Active methocarbamol (Robaxin) 750 MG tabletIndications: Pain Take 1 tablet (750 mg) by mouth every 8 (eight) hours if needed for muscle spasms. 60 tablet 1 5 Active levothyroxine (Synthroid, Levoxyl) 125 MCG tabletIndications: Other specified hypothyroidism TAKE 1 TABLET BY MOUTH EVERY DAY BEFORE BREAKFAST 90 tablet 1 5 Active omeprazole (PriLOSEC) [address] capsule TAKE 1 CAPSULE BY MOUTH EVERY DAY BEFORE BREAKFAST, DO NOT BREAK, CRUSH, DISSOLVE OR CHEW 90 capsule 3 5 Active loratadine (Claritin) 10 MG tablet TAKE 1 TABLET BY MOUTH EVERY DAY NEEDED 90 tablet 3 5 Active cholecalciferol 1000 units capsule Take 1,000 Units by mouth Once per day. 90 capsule 3 5 Active Ketotifen Fumarate 0.035 % solutionIndication s:Allergic conjunctivitis of both eyes Administer 1 drop into affected eye(s) if needed in the morning and at bedtime (eye itching and redness). 10 mL 2 5 Active Diclofenac Sodium 1 % gel Apply thin layer by topical route (quantity as directed on package insert) to affected area of pain 3 times daily as needed. 50 g 3 5 Active propranolol (Inderal) 40 MG tablet TAKE 1 TABLET BY MOUTH EVERY TWELVE HOURS 180 tablet 1 5 Active Active Problems Problem Noted Date [...] both knees 06/10/2024 Overview (06/12/2024): Following with [facility] Mela Lorenzana. Received steroid injection left knee in Mar 2024 XR January 2024: Degenerative joint narrowing of the femoral tibial joint. (Bilateral) Plantar fascial fibromatosis 03/06/2024 Overview (06/12/2024): Followed by Dr. Vegas - [facility] Podiatry Received injection of right heel [...] breast - BIRADS 4, recommended biopsy. 12/08/23: [facility] General Surgeons - Dr. Murray. Referred for [...] infection or ruptured epidermal inclusion cyst. 12/15/23: [facility] Surgery - Dr. Murray. Pathology benign, incision [...] to specialist. Voltaren gel prescribed. -Referral to [facility] Ortho - Hand Specialist for further eval Assessment & Plan (07/05/2023 10:13 PM EST): -Reviewed XR results, encouraged symptomatic management and discussed consideration of referral to specialist. -Referral to [facility] Ortho - Hand Specialist for further eval DDD (degenerative disc disease), lumbar 07/05/20 Overview (10/20/2023): May 2023: Lumbar XR: 1. There is mild degenerative disc disease at L4-L5. 2. There is mild anterior spondylosis at L1-L2. 3. There is facet arthropathy at L5-S1. 4. There is a slight thoracolumbar dextroscoliosis. Referral to [facility] Pain Management placed 07/05/23: [facility] Pain Mangement - Dr. Peoples. Eval for spondylosis - completed diagnostic medial branch block L3, L4 dorsal ramus L5 bialteral. Assessment & Plan (07/05/2023 10:16 PM EST): -Discussed options including symptomatic management, physical therapy, physiatry. -Pt interested in referral to [facility] Pain Management, referral sent Healthcare maintenance 06/12/2023 Overview (01/20/2025): Pap: NILM, HPV neg December 2020. Due December 2025 Mammo: BIRADS 2 in November 2024 Colonoscopy: 10/17/2024 at [facility], hyperplastic polyps. Repeat 10 years. Last PE: [...] for nodes. Biopsy as indicated. -Following with [facility] -01/06/23: Breast, right, 1 [...] returning. Referral placed to renew PT services: [facility] [place] Phone number: Essential tremor 07/01/2022 Assessment & Plan (03/11/2023 8:55 AM EDT): -Continue following with Neurology, renewal for referral placed 03/11/23 -Cont propranolol 40mg BID Assessment & Plan (07/02/2022 10:41 AM EST): -Continue following with Neurology -Cont propranolol 40mg BID Vitamin D deficiency 06/13/2022 Assessment & Plan (01/20/2025 1:02 PM EDT): Lab Results Component Value Date [id number] 76.8 02/23/2024 - Continues on preventative dose [...] AM EST): -Currently recieving vestibular therapy at [facility], interested in possibly switching locations -Meclizine PRN -Pt to call with new referral info Obesity 11/20/2015 Palpitations 11/20/2015 TRENTON (obstructive sleep apnea) 11/20/2015 Overview (06/12/2024): 05/20/23: [facility] Neurology & Sleep - JUDY Forbes. Started on APAP 5-15cm H20 2 weeks prior to PSG sleep study sig for mild degree sleep apnea. pt feeling better, less snoring, feels refreshed, and has more daytime energy. Consult Feb 2024: compliance data reviewed. Cont with current settings, using > 4 hrs/night. Supply company: Formerly [facility] Assessment & Plan (01/20/2025 1:03 PM EDT): - Cont following with specialist Assessment & Plan (03/11/2023 8:52 AM EDT): -History of TRENTON -Home sleep study through [facility] 11/26/22 did not meet criteria for sleep apnea -Upcoming follow up scheduled with [facility] Neuro and Sleep for further discussion (Feb [...] Type Department Care Team Description 02/28/2025 Telephone [facility] [address] [place] [phone] Neema Landon FNP Med Refill 02/27/2025 Refill [facility] [address] [place] [address] Nadja Gonzáles MD 01/26/2025 1:00 PM EDT Clinical Support [facility] [address] [place] [address] Courtney Ayers RN Impacted cerumen of right ear [H61.21] 01/26/2025 Results Follow-Up [facility] [address] [place] [address] Neema Landon FNP Rheumatoid Factor, C-reactive Protein, Sed Rate by Modified Westergren, ANAYA Screen,IFA, with Reflex to Titer and Pattern 01/26/2025 Travel 01/20/2025 11:30 AM EDT Office Visit [facility] [address] [place] [address] Neema Landon FNP Localized primary osteoarthritis of carpometacarpal (CMC) joint of right wrist (Primary Dx); Allergic conjunctivitis of both eyes; Polyarthralgia; Prediabetes; Vitamin D deficiency; TRENTON (obstructive sleep apnea); Healthcare maintenance; Excessive cerumen in right ear canal 01/20/2025 Patient Outreach [facility] [address] [place] [address] Neema Landon FNP Care Coordination (CHW outreach for SDOH PT-1 and food needs-LVM ) 01/20/2025 Travel 01/03/2025 Telephone [facility] [address] [place], [place] [phone] Neema Landon FNP January01/03/2025 Travel 01/01/2025 Refill [facility] [address] [place] [address] Patricia Figueroa FNP 01/01/2025 Refill [facility] [address] [place] [address] Neema Landon FNP from Last 3 Months [...] 04/17/2025 10:30 AM EDT Office Visit [facility] [address] [place] [address] Neema Landon, SUSAN [address] [place] [address] Health Maintenance Due Date Last Done Comments CT Colonography 1965 FIT 1965 Sigmoidoscopy 1965 Disability Screening 1965 Alcohol/Substance Use Screening 1977 Pneumococcal Vaccine: 50+ Years (1 of 1 - PCV) 2015 Pap Smear 01/02/2024 01/01/2021 SDOH Screening 02/21/2025 02/22/2024 Influenza Vaccine (#1) 2025 , 06/12/2023, 05/23/2022, Additional history exists FOBT 07/22/2025 07/22/2024 Depression Screening 10/21/2025 10/21/2024, 10/22/19 25 Diabetes: [...] Sedimentation Rate 18 0 - 20 MM/HR [facility] Comment:Patients with polycy themia and many hemoglobin abnormalitiesmay have depressed sed rates whereas patients with anemiamay have elevated sed rates. Blood Venous blood specimen / Unknown 01/20/2025 12:47 PM EDT 01/20/2025 2:10 PM EDT Neema Landon BOBBIN TRUCKER LAB BLOOD ORDERABLES Final Res ult Performing Organization Address [facility] Co de Phone Number [facility] [address] [place] [phone] * (ABNORMAL) Rheumatoid Factor (01/20/2025 12:47 PM EDT) Rheumatoid Factor 15.2(H) <15.0 IU/mL [facility] Blood Venous blood specimen / Unknown 01/20/2025 12:47 PM EDT 01/20/2025 2:10 PM EDT Neema Landon BOBBIN TRUCKER LAB BLOOD ORDERABLES Final Res ult Performing Organization Address [facility] Co de Phone Number [facility] [address] [place] [phone] * (ABNORMAL) C-reactive Protein (01/20/2025 12:47 PM EDT) Pathologist [facility] C Reactive Protein 0.58(H) < or = 0.50 mg/dL [facility] Blood Venous blood specimen / Unknown 01/20/2025 12:47 PM EDT 01/20/2025 2:05 PM EDT Neema Landon BOBBIN TRUCKER LAB BLOOD ORDERABLES Final Res ult Performing Organization Address [facility] Co de Phone Number [facility] [address] [place] [phone] * ANAYA Screen,IFA, with Reflex to Titer and Pattern (01/20/2025 12:47 PM EDT) Pathologist [facility] Anti Nuclear Antibody Screen NEGATIVE NEGATIVE [facility] Comment:ANAYA IFA is a first l [...] clinicallysuspected inflammatory myopathies.AC-0: NegativeInternational Consensus on ANAYA Patterns(https://doi.org/10.1515/pqok-9236-7315)For additional information, please refer tohttp://education.Paxata/faq/SMM493(This link is being provided for informational/educational purposes only.)THIS TEST WAS PERFORMED AT:[facility] [place] [phone] FIGUEROA MD ANAYA Titer TNP [facility] ANAYA Pattern TNP [facility] ANAYA TITER 2 (REF LAB) [facility] ANA[facility] Pattern 2 TNP [facility] ANAYA TITER 3 [facility] ANAYA PATTERN 3 [facility] Blood Venous blood specimen / Unknown 01/20/2025 12:47 PM EDT 01/20/2025 2:10 PM EDT us Neema DAVIS LAB BLOOD ORDERABLES Final Res ult [facility] [address] [place] [phone] [phone] * BI Mammogram Screening Tomosynthesis Bilateral (12/23/2024 12:47 PM EDT) Anatomical Region Laterality Modality Breast Bilateral Mammography 12/23/2024 12:4 7 PM EDT Narrative 12/31/2024 11:24 AM EDT [facility] [address] [place] [address] Mammography Report Signed Patient: Nadege Whitney MR#: [id number] 02 : 1965 Acct:[id number] Age/Sex: 59 / F ADM Date: 12/23/24 Loc: HO.MAMMO Attending Dr: Neema DAVIS Ordering Physician: Neema Landon Results: 2Benig n Findings Date of Service: 12/23/24 Follow Up: 1 Year From Orig inal Mammogram Procedure(s): MM tomosynthesis screening BI Accession Number(s): [id number] cc: Neema Landon EXAMINATION: MM SCREENING DIGITAL [...] 12/31/24 1121 DD/ 1247 TD/TT: 12/23/24 1305 Carpet Weaver: Procedure Note Donotuseinterpreter, Image - 12/31/2024 [facility] [address] [place] [address] Mammography Report Signed Patient: Nadege WhitneyMR#: [id number] 02 : 1965Acct:[id number] Age/Sex: 59 / FADM Date: 12/23/24 Loc: HO.MAMMO Attending Dr: Neema Landon BOBBIN TRUCKER Ordering Physician: Neema LandonPResults: 2Benig n Findings Date of Service: 12/23/24Follow Up: 1 Year From Orig inal Mammogram Procedure(s): MM tomosynthesis screening BI Accession Number(s): [id number] cc: Neema Landon EXAMINATION: MM SCREENING DIGITAL [...] 12/31/24 1121 DD/ 1247 TD/TT: 12/23/24 1305 Carpet Weaver: Neema DAVIS IMG BI PROCEDURES Edited Resul t - Final * Hemoglobin A1c (10/21/2024 3:42 PM EDT) Hemoglobin A1c 5.8 <6.0 % [facility] Comment:Hemoglobin A1C Refer ence Range Adults: 4.8 - 6.0 % Non diabetic: < 6.0 % Goal: < 7.0 %Additional Action Suggested: > 8.0 %Note: Hemoglobin A1c results are invalid for patients with abnormal amounts of HbF. Blood transfusions may impact the HbA1c concentration in the patient sample. Estimated Average Glucose 120 mg/dL [facility] Comment:eAG = Estimated ave rage glucose which is %A1C expressed asaverage glucose, using the formula of the N8L-ThoyndkQeszimx Glucose study (ADAG), Diabetes Care, Vol.31,#8,2007 Blood Venous blood specimen / Unknown 10/21/2024 3:42 PM EDT 10/21/2024 5:57 PM EDT Neema Landon BOBBIN TRUCKER LAB BLOOD ORDERABLES Final Res ult [facility] [address] [place] [phone] [phone] * Hm Colonoscopy (10/17/2024 7:22 AM EDT) Historical Provider MD HEALTH MAINTENANCE Final Result * (ABNORMAL) Cologuard?? colon cancer screening (07/22/2024 1:50 PM EST) Cologuard Result Positive( A) Negative 07/27/2024 5:01 AM EST [facility] (CLIA #:[id number]) Comment: POSITIVE TEST RESULT. A positive Cologuard [...] (Dave Wilson al, N Engl J Med 2014;370(14):8594-8432.) Cologuard may produce a false negative or false positive result (no colorectal cancer or precancerous polyp present at colonoscopy follow up). A negative Cologuard test result does not guarantee the absence of CRC or advanced adenoma (pre-cancer). The current Cologuard screening interval is every 3 years. ([place] Cancer Society and U.S. Multi-Society Task Force). Cologuard performance data in a 10,000 patient pivotal study using colonoscopy as the reference method can be accessed at the following location: www.VIVA.CoreFlow/results. Additional description of the Cologuard test process, warnings and precautions can be found at www.iPaymentrd.CoreFlow. Stool specimen (specimen) 07/22/2024 1:50 PM EST 2024 12:04 PM EST Neema Landon [facility] VANITA RAM Final Result [facility] (CLIA #:[id number]) [address] [place] [address], * Hepatitis C Viral RNA, Quantitative, Real-Time PCR (10/19/2023 1:00 PM EDT) Hepatitis C Viral Load <15 NOT DETECTED NOT DETECTED IU/mL [facility] HCV Log PCR <1.18 NOT DETECTED NOT DETECTED Log IU/mL [facility] Comment:This test was perfor med using Real-Time Polymerase ChainReaction.Reportable Range: 15 IU/mL to 100,000,000 IU/mL(1.18 Log IU/mL to 8.00 Log IU/mL).The analytical performance characteristics of thisassay have been determined by [employer].The modifications have not been cleared or approved bythe FDA. This assay has been validated pursuant to theCLIA regulations and is used for clinical purposes.For more information on this test, go to:http://education.Ziva Software/faq/CRR04e8(This link is being provided for informational/educational purposes only.)THIS TEST WAS PERFORMED AT:[facility] [place] [phone] FIGUEROA MD Blood 10/19/2023 1:00 PM EDT 10/19/2023 3:55 PM EDT Neema Landon [facility] BLOOD ORDERABLES Final Res ult Performing Organization Address City/[facility]/ZIP Co de Phone Number [facility] [address] [place] [address] [phone] * HIV-1/2 Antigen and Antibodies, Fourth Generation, with Reflexes (10/19/2023 1:00 PM EDT) Pathologist [facility] HIV AB/AG Nonreactive Nonreactive [facility] Comment:HIV-1 p24 Ag and/or HIV-1/HIV-2 Ab not detected.A test result that is nonreactive does not exclude thepossibility of exposure to or infection with HIV-1 and/orHIV-2. Nonreactive results in this assay for individualswith prior exposure to HIV-1 and/or HIV-2 may be due toantigen and antibody levels that are below the limit ofdetection of this assay.The [employer] HIV Ag/Ab Combo assay result andsupplemental assay results should be interpreted inconjunction with the patient's clinical presentation,history and other laboratory results. If the results areinconsistent with clinical evidence, additional testing issuggested to confirm the result. Blood Venous blood specimen / Unknown 10/19/2023 1:00 PM EDT 10/19/2023 3:55 PM EDT Neema Landon [facility] BLOOD ORDERABLES Final Res ult Performing Organization Address City/[facility]/ZIP Co de Phone Number [facility] [address] [place] [address] [phone] * (ABNORMAL) Lipid Panel, Standard (10/19/2023 1:00 PM EDT) Pathologist [facility] Triglycerides 151(H) <150 mg/dL [facility] Comment:Desirable Triglyceri de: less than 150 mg/dLBorderline High Triglyceride 150-199 mg/dLHigh Triglyceride: 200-499 mg/dLVery High Triglyceride: greater than or equal to 5OO mg/dL Cholesterol 181 <200 mg/dL [facility] Comment:Desirable Cholestero l: less than 200 mg/dLBorderline High Cholesterol: 200-239 mg/dLHigh Cholesterol: greater than 239 mg/dL LDL Cholesterol Calculated 107(H) <100 mg/dL [facility] Comment:Desirable LDL: less than 100 mg/dLNear Optimal/Above Optimal LDL: 110- 129 mg/dLBorderline High LDL: 130-159 mg/dLHigh LDL: 160-189 mg/dLVery High LDL: greater than or equal to 190 mg/dL HDL Cholesterol 44 >40 mg/dL [facility] Comment:Desirable HDL: great er than 40 mg/dL Note: This HDL assay may give artificially low results in patients with liver disease. Blood Venous blood specimen / Unknown 10/19/2023 1:00 PM EDT 10/19/2023 3:55 PM EDT Neema Landon [facility] LAB BLOOD ORDERABLES Final Res ult [facility] [address] [place] [phone] * THINPREP PAP (01/01/2021 6:38 PM EDT) Clinical Information: None given [facility] COMMENT SEE COMMENT [facility] [...] along with historic and current clinical information. Crop Adjuster : SEE COMMENT [facility] Comment: YP, CT(ASCP) CT screening location: [address] [address] Interpretation/R esult: Negative for intraepithelial lesion or malignancy. [facility] LMP: NONE GIVEN [facility] Prev. BX: NONE GIVEN [facility] Prev. PAP: NONE GIVEN [facility] SOURCE: None given [facility] Statement Of Adequacy: SEE COMMENT [facility] Comment: Satisfactory for evaluation. Endocervical/transformation zone component present. Age and/or menstrual status not provided 01/01/2021 6:38 PM EDT Jing Sanya JIMÉNEZ LAB PATHOLOGY ORDERABLES Final Result Performing Organization Address [facility] de Phone Number [facility] [address] * HPV mRNA E6/E7 (01/01/2021 6:38 PM EDT) HPV nRNA E6/E7 Not Detected Not Detected [facility] Comment: Methodology: Propagator Laborer-Mediated Amplification This assay detects E6/E7 viral messenger RNA (mRNA) from 14 high-risk HPV types (16,18,31,33,35,39,45,51,52,56,58,59,66,68). The analytical performance characteristics of this assay have been determined by [employer]. The modifications have not been cleared or approved by the FDA. This assay has been validated pursuant to the CLIA regulations and is used for clinical purposes. For additional information, please refer to http://education.Total-trax.CoreFlow/faq/MMP521v1 (This link if provided for information/ educational purposes only.) NO COLLECTION DATE RECEIVED. WE HAVE USED THE DATE THE SPECIMEN WAS RECEIVED BY THIS LABORATORY THE COLLECTION DATE. IF THIS IS INCORRECT, PLEASE CONTACT CLIENT SERVICES. PHONE NUMBER: 01/01/2021 6:38 PM EDT Jing Segundo NP LAB BLOOD ORDERABLES Final Res ult Performing Organization Address [facility] Co de Phone Number [facility] [address] from Last 3 Months or Most Recently Relevant to Health Maintenance Insurance C3 Care Teams Industrial Laborer Relationship Specialty Start Date End Date Neema Landon FNP [address] [place] [phone] PCP - General Family Medicine 03/26/22 Avis Benson [address] [place] [phone] Sleep Medicine 06/12/24 Ciro Vegas DPM [address] [place] [phone] Podiatry 06/12/24 Lara Lorenzana PA [address] [place] [phone] Orthopaedic Surgery 06/12/24
--- OUTSIDE RECORDS SUMMARY | 2025-03-30 10:12 | XMS_ITS | Encounter Summary ---
Author Organization [employer] Address [address] [facility] 7t [place] [address] Care Team Providers Care Atomic Physics Professor Name Role Phone PujaNeema laguna PIGMENT PUSHER Primary Care Provider [phone] Avis Benson Unavailable [phone] Ciro Vegas DPM Unavailable [phone] Lara Lorenzana Unavailable Reason for Visit * Reason Comments Med Refill Encounter Details Date Type Department Care Team (Late st Contact Info) Description 07/04/2023 Refill [facility] WALK-IN CENTER [address] [place] [address] Belia Duckworth MD [address] [place] [address] Social History Tobacco Use Types Packs/Day Years [...] Upcoming Encounters Date Type Department Care Team ([facility] st Contact Info) Description 04/17/2025 10:30 AM EDT Office Visit [facility] MED & PEDS [address] [place] [address] Neema Landon FNP 505 [place] [address] documented as of this encounter Visit Diagnoses Not on filedocumented in this encounter Additional Health Concerns Assessment Noted Time PHQ-9 Depression Total Score: 6 07/01/20 22 9:18 AM EST documented as of this encounter Care Teams Atomic Physics Professor Relationship Specialty Start Date End Date Neema Landon FNP [address] [place] [address] PCP - General Family Medicine 03/26/22 Avis Benson [address] [place] [address] [address] [place] [address] Sleep Medicine 06/12/24 Ciro Vegas DPM [address] [address] Podiatry 06/12/24 Lara Lorenzana PA [address] 3RD FLOOR [place] [address] Orthopaedic Surgery 06/12/24 documented as of this encounter
--- OUTSIDE RECORDS SUMMARY | 2025-03-30 10:12 | XMS_ITS | Encounter Summary ---
Author Organization [employer] Address [address] [facility] 7t [place] [address] Care Team Providers Care Sports Information Director Name Role Phone Neema Landon Primary Care Provider [phone] Avis Benson Unavailable Ciro Vegas DPM Unavailable [phone] Lara Lorenzana Unavailable Reason for Visit * Reason Onset Date Comments status on script 07/02/2022 Encounter Details Date Type Department Care Team (Late st Contact Info) Description 07/02/2022 Telephone [facility] MEDICINE [address] [place] [address] Neema Landon FNP [address] [place], [place] [phone] status on script Social History Tobacco Use [...] Description 04/17/2025 10:30 AM EDT Office Visit [facility] MED & PEDS [address] [place] [address] Neema Landon FNP [address] [place] [address] documented as of this encounter Visit Diagnoses Not on filedocumented in this encounter Additional Health Concerns Assessment Noted Time PHQ-9 Depression Total Score: 6 07/01/20 22 9:18 AM EST documented as of this encounter Care Teams Sports Information Director Relationship Specialty Start Date End Date Neema Landon FNP [address] [place] [address] PCP - General Family Medicine 03/26/22 Avis Benson [address] [place] [address] Sleep Medicine 06/12/24 Ciro Vegas DPM [address] [place] [address] Podiatry 06/12/24 Lara Lorenzana PA [address] [place] [id number] Orthopaedic Surgery 06/12/24 documented as of this encounter
--- OUTSIDE RECORDS SUMMARY | 2025-03-30 10:12 | XMS_ITS | Encounter Summary ---
Author Organization [employer] Address [address] [facility] [address] 7t [place] [address] Care Team Providers Care Automatic Lehr Operator Name Role Phone PujaNeema laguna ENVIRONMENTAL HEALTH INSPECTOR Primary Care Provider [phone] Avis Benson Unavailable [phone] Ciro Vegas DPM Unavailable [phone] Lara Lorenzana Unavailable Encounter Details Date Type Department Care Team (Late st Contact Info) Description 10/21/2024 Orders Only [facility] MED & PEDS [address] [place] [address] Provider, MD Brent Social History Tobacco Use Types Packs/Day Years [...] AM EDT documented as of this encounter Functional Status * Over the past 2 weeks, how often have you been bothered by any of the following problems? Question Answer Date of Assessment Author Patient Health Questionnaire-2 Score 1 10/21/2024 2:20 PM EDT Nica Mann [place] * Little interest or pleasure in doing things Answer Date of Assessment Author Several days 10/21/2024 2:20 PM EDT Nica Napier [place] * Feeling down, depressed, or hopeless Answer Date of Assessment Author Not at all 10/21/2024 2:20 PM EDT Nica Napier [place] * Trouble falling or staying asleep, or sleeping too much Answer Date of Assessment Author More than half the days 10/21/2024 2:20 PM EDT Nica Zapien [place] * Feeling tired or having little energy Answer Date of Assessment Author Several days 10/21/2024 2:20 PM EDT Nica Napier [place] * Poor appetite or overeating Answer Date of Assessment Author Not at all 10/21/2024 2:20 PM EDT Nica Napier [place] * Feeling bad about yourself - or that you are a failure or have let yourself or your family down Answer Date of Assessment Author Not at all 10/21/2024 2:20 PM EDT Nica Napire MA * Trouble concentrating on things, such as reading the newspaper or watching television Answer Date of Assessment Author Not at all 10/21/2024 2:20 PM EDT Nica Napier MA * Moving or speaking so slowly that other people could have noticed? Or the opposite - being so fidgety or restless that you have been moving around a lot more than usual. Answer Date of Assessment Author Not at all 10/21/2024 2:20 PM EDT Nica Napier MA * Thoughts that you would be better off or hurting yourself in some way Answer Date of Assessment Author Not at all 10/21/2024 2:20 PM EDT Nica Napier MA * Patient Health Questionnaire-9 Score Answer Date of Assessment Author 4 10/21/2024 2:20 PM EDT Nica Napier MA * How difficult have these problems made it for you to do your work, take care of things at home, or get along with other people? Answer Date of Assessment Author Very difficult 10/21/2024 2:20 PM EDT Nica Napier [place] documented as of this encounter Plan of Treatment Upcoming Encounters Date Type Department Care Team (Late st Contact Info) Description 04/17/2025 10:30 AM EDT Office Visit [facility] MED & PEDS [address] [place] [address] Neema Landon FNP [address] [place] [address] documented as of this encounter Procedures Procedure Name Priority Date/Time Associated Diagnosis Comments HM COLONOSCOPY Routine 10/17/2024 7:22 AM EDT documented in this encounter Results * Hm Colonoscopy (10/17/2024 7:22 AM EDT) us Historical Provider HEALTH MAINTENANCE Final Result documented in this encounter Visit Diagnoses Not on filedocumented in this encounter Additional Health Concerns Assessment Noted Time PHQ-9 Depression Total Score: 4 10/22/19 25 2:20 PM EDT documented as of this encounter Care Teams Automatic Lehr Operator Relationship Specialty Start Date End Date Neema Landon FNP [address] [place] [address] PCP - General Family Medicine 03/26/22 Avis Benson [address] [place] [address] Sleep Medicine 06/12/24 Ciro Vegas DPM [address] [address] Podiatry 06/12/24 Lara Lorenzana PA [address] [place] [address] Orthopaedic Surgery 06/12/24 documented as of this encounter
--- OUTSIDE RECORDS SUMMARY | 2025-03-30 10:12 | XMS_ITS | Encounter Summary ---
Author Organization [employer] Address [address] [place] [address] 7t [place] [address] Care Team Providers Care Form Drafter Name Role Phone Neema Landon Primary Care Provider [phone] Avis Benson Unavailable [phone] Ciro Vegas DPM Unavailable Lara Lorenzana Unavailable Encounter Details Date Type Department Care Team (Latest Contact Info) Description 04/04/2019 Abstract [facility] CONVERSIONS Dental, Provider, DDS Social History [...] Description 04/17/2025 10:30 AM EDT Office Visit [facility] MED & PEDS [address] [place] [address] Neema Landon FNP [address] [place] [address] documented as of this encounter Visit Diagnoses Not on filedocumented in this encounter Care Teams Form Drafter Relationship Specialty Start Date End Date Neema Landon FNP [address] [place] [address] PCP - General Family Medicine 03/26/22 Avis Benson [address] [place] [address] Sleep Medicine 06/12/24 Ciro Vegas DPM [address] [place] [address] Podiatry 06/12/24 Lara Lorenzana PA [address] [place] [address] Orthopaedic Surgery 06/12/24 documented as of this encounter
[2025-03-30 10:29] LABS: Hematocrit 36.7 % (37.0-47.0); Hemoglobin 12.7 g/dl (12.0-16.0); Imm Gran Abs Auto 0.01 X10*3/uL (0.00-0.03); Imm Gran Pct Auto 0.2 % (0.0-0.4); Lymphocytes Absolute Auto 1.8 X10*3/uL (1.2-4.9); Mean Corpuscular HGB Conc 34.6 g/dl (31.0-35.0); Mean Corpuscular Hemoglobin 31.7 pg (27.0-33.0); Mean Corpuscular Volume 91.5 fL (80.0-98.0); NRBC Abs Auto 0.000 X10*3/uL (0.0-0.012); NRBC Pct Auto 0.0 /100WBC (0.0-0.2); Platelet Count 274 X10*3/uL (160-400); Red Blood Count 4.01 X10*6/uL (4.20-5.50); White Blood Count 4.6 X10*3/uL (4.8-10.8)
[2025-03-30 11:06] LABS: Alanine Aminotransferase 21 U/L (0-31); Albumin Level 4.9 g/dL (3.5-5.0); Alkaline Phosphatase 77 U/L (39-117); Anion Gap 14 (12-20); Aspartate Amino Transferase 24 U/L (5-31); Blood Urea Nitrogen 16 mg/dL (9-16); Calcium 9.7 mg/dL (8.4-10.2); Carbon Dioxide 29 mmol/L (22-29); Chloride 104 mmol/L (96-108); Estimated Glomerular Filt Rate > 60; Iron 88 mcg/dL (30-160); Magnesium 2.2 mg/dL (1.6-2.6); Percent Iron Saturation 31 % (15-50); Potassium 4.2 mmol/L (3.3-5.1); Sodium 143 mmol/L (135-145); Total Iron Binding Capacity 283 mcg/dL (228-428); Total Protein 8.1 g/dL (6.5-8.0); Unsaturated Iron Binding 195 ug/dL
[2025-03-30 11:27] LABS: Ferritin 92 ng/mL (10-250)
[2025-03-30 11:33] LABS: Folate 9.5 ng/mL (> or = 4.0); Vitamin B12 239 pg/mL (200-900)
[2025-04-05 08:59] LABS: Vitamin D 25-OH, D2 <4 ng/mL; Vitamin D 25-OH, D3 45 ng/mL; Vitamin D 25-OH, Total 45 ng/mL (30-100)
== END 2025-03-30 09:28 | disposition home or self-care (01) ==
LOC: HO.LAB 09:27
PROVIDERS: PCP Registered Nurse; Visit Provider Nurse Practitioner Family
DX: M62.838 Other muscle spasm (principal); D64.9 Anemia, unspecified; M17.12 Unilateral primary osteoarthritis, left knee; E78.5 Hyperlipidemia, unspecified; I10 Essential (primary) hypertension; E51.9 Thiamine deficiency, unspecified; E55.9 Vitamin D deficiency, unspecified
CPT/HCPCS: 36415; 80053; 82306; 82607; 82728; 82746; 83090; 83540; 83735; 83921; 84207; 84425; 85025; 86140

== ENCOUNTER 2025-04-07 13:00 | Outpatient (RCR) | payer MEDICAID, SELFPAY ==
--- NOTE | 2025-03-17 14:58 | MHC.OT.EP ---
[facility] Office [address] [facility] 2[address] [facility] [phone] F: [phone] F: [phone] Occupational Therapy Plan of Care Patient Name: Nadege Whitney Date of Evaluation: 03/17/25 Diagnosis: R CMC J OA R DE QUERVAINS Pain Location: radial wrist/thumb Pain Score: 6 Pain Scale Used: Numeric (0 - 10) Aggravating Factors: Alleviating Factors: Assessment: Pt is a 59 yr old R hand dominant female who reports pain in the radial side of her R wrist and thumb. She has a previous dx. of Tenosynovitis of her 1st DC and returned to the MD w/ pain to her R CMC J and MP J of her R thumb. She is observed wearing a comfort cool OTC splint and reports minimal improvement. She presents today w/ atrophy of her thenar, (+) palpation of her R CMC J , and a positive finklestein. She would benefit from skilled OT therapy for education on joint protection, ROM, & strength to increase the functional use of her R hand Frequency and Duration: The patient will be seen 1 x a week for 4 weeks Short Term Goals: Foot Press Operator Goals: Pt will report being compliant w/ HEP Pt will be compliant w/ jt protection techniques Pt will report 2/10 pain w/ activity Treatment Plan: Therapeutic Activity Home Exercise Program Splinting Neuro Re-ed Patient Education Desensitization/Sensory Re-ed Edema Control ADL Training Ultrasound NMES Paraffin Fluidotherapy MHP Cold Packs Joint Mobilization Soft Tissue Mobilization Kinesiotaping Electronically Signed By: Antonia Sandoval OTR/L Please Sign and return to therapist. Thank you once again for your referral.
== END 2025-05-22 11:29 | disposition home or self-care (01) ==
LOC: HO.OT 13:00
PROVIDERS: PCP Registered Nurse
DX: M18.11 Unilateral primary osteoarthritis of first carpometacarpal joint, right hand (principal); M65.4 Radial styloid tenosynovitis [de Quervain]
CPT/HCPCS: 97035; 97110; 97140; 97165; 97535

== ENCOUNTER 2025-05-01 10:17 | Outpatient (REF) | payer MEDICAID, SELFPAY ==
--- OUTSIDE RECORDS SUMMARY | 2024-10-17 06:50 | XMS_ITS ---
Author Organization [facility] Address [address] [place] [phone] Care Team Providers Care Division Officer Weapons Department Name Role Phone ABRAHAM CANELA MD Primary Care Provider Xavier Banda [phone] REASON FOR VISIT screening colonoscopy/reflux Encounters Encounter Location Date Provider Diagnosis [facility] [place] [address] [place] [id number] 10/17/2024 Xavier Valverde Colon cancer scree jorge Z12.11 ; Colon polyps K63.5 ; Diverticulosis of large intestine without perforation or abscess without bleeding K57.30 ; Other hemorrhoids K64.8 ; Hiatal hernia K44.9 and Gastro-esophageal reflux disease without esophagitis K21.9 Assessments Encounter Date Diagnosis (ICD Code) Assessment Notes Treatment Notes Treatment Clinical Notes Section Notes 10/17/2024 Colon cancer screening (ICD-10 - Z12.11) 10/17/2024 Colon polyps (ICD-10 - K63.5) 10/17/2024 Diverticulosis of large intestine without perforation or abscess without bleeding (ICD-10 - K57.30) 10/17/2024 Other hemorrhoids (ICD-10 - K64.8) 10/17/2024 Hiatal hernia (ICD-10 - K44.9) 10/17/2024 Gastro-esophageal reflux disease without esophagitis (ICD-10 - K21.9) Plan Of Treatment No Information Progress Notes * HERMINIO MONGEB: 5 (59 yo F)Acc No.[id number]:10/17/2024 EGD and COL/MAC Patient: JESUSITA OWUSU Provider: Nabor Valverde MD :1965 A ge:59 Y S ex:Female Date:10/17/2024 Address:[facility] [place], [id number] Pcp:ABRAHAM CANELA MD Subjective: * Chief Complaints: * 1 . Screening colonoscopy/reflux. * Medical History: Objective: * Vitals: Assessment: * Assessment: 1. C olon cancer screening - Z12.11 (Primary) 2 . C olon polyps - K63.5? 3. D iverticulosis of large intestine without perforation or abscess without bleeding - K57.30 4 . O ther hemorrhoids - K64.8 5 . H iatal hernia - K44.9 6 . G juanita-esophageal reflux disease without esophagitis - K21.9? Plan: * Treatment: * Procedure Codes: 4 5380 COLONOSCOPY AND BIOPSY, Modifiers: [place] , [address] UPPER GI ENDOSCOPY, BIOPSY * * The named appointment provid er may or may not be the originator of this progress note, and it is not deemed complete until electronically signed by the appointment provider. Sign off status: Pending * Provider: Nabor Valverde MD Date: 0 10/17/2024 Generated for Judi castro/Chuck/eTphilipsmitting on: 1 12:03 PM EDT
--- OUTSIDE RECORDS SUMMARY | 2025-05-01 12:03 | XMS_ITS | Encounter Summary ---
Author Organization [employer] Address [address] [place] [address] 7t [place] [address] Care Team Providers Care Barrel Racer Name Role Phone Neema Landon Primary Care Provider [phone] Avis Benson Unavailable Ciro Vegas DPM Unavailable [phone] Lara Lorenzana Unavailable Reason for Visit * Reason Comments Med Refill Encounter Details Date Type Department Care Team ([facility] st Contact Info) Description 08/08/2024 Refill [facility] MED & PEDS [address] [place] [address] Neema Landon FNP [address] [place] [address] Social History Tobacco Use Types Packs/Day Years [...] Female 06/12/2023 7:10 AM EST Sexual Orientation Straight 04/17/2025 10 :42 AM EDT documented as of this encounter Plan of Treatment Upcoming Encounters Date Type Department Care Team ([facility] st Contact Info) Description 07/17/2025 11:30 AM EST Office Visit [facility] MED & PEDS [address] [place] [address] Neema Landon FNP [address] [place] [address] documented as of this encounter Visit Diagnoses Not on filedocumented in this encounter Additional Health Concerns Assessment Noted Time PHQ-9 Depression Total Score: 6 10/19/19 24 10:03 AM EDT documented as of this encounter Care Teams Barrel Racer Relationship Specialty Start Date End Date Neema Landon FNP [address] [place] [address] PCP - General Family Medicine 03/26/22 Avis Benson [address] [place] [address] 3[address] [place] [address] Sleep Medicine 06/12/24 Ciro Vegas DPM [address] [place] [address] Podiatry 06/12/24 Lara Lorenzana PA [address] [place] [address] Orthopaedic Surgery 06/12/24 documented as of this encounter
--- OUTSIDE RECORDS SUMMARY | 2025-05-01 12:03 | XMS_ITS | Encounter Summary ---
Author Organization [employer] Address [address] [place] [address] 7 [place] [address] Care Team Providers Care Administrative Nursing Supervisor Name Role Phone Neema Landon Primary Care Provider Avis Benson Unavailable Ciro Vegas DPM Unavailable Lara Lorenzana Unavailable Reason for Visit * Reason Onset Date Comments status on script 07/02/2022 Encounter Details Date Type Department Care Team (Late st Contact Info) Description 07/02/2022 Telephone [facility] MEDICINE [address] [place] [address] Neema Landon FNP [address] [place], [place] [phone] status on script Social History Tobacco Use [...] Orientation Straight 04/17/2025 10 :42 AM EDT COVID-19 Exposure Response Date Recorded [...] Care Team (Late st Contact Info) Description 07/17/2025 11:30 AM EST Office Visit [facility] MED & PEDS [address] [place] [address] Neema Landon FNP [address] [place] [address] documented as of this encounter Visit Diagnoses Not on filedocumented in this encounter Additional Health Concerns Assessment Noted Time PHQ-9 Depression Total Score: 6 07/01/20 22 9:18 AM EST documented as of this encounter Care Teams Administrative Nursing Supervisor Relationship Specialty Start Date End Date Neema Landon FNP [address] [place] [address] PCP - General Family Medicine 03/26/22 Avis Benson [address] [place] [address] Sleep Medicine 06/12/24 Ciro Vegas DPM [address] [place] [address] Podiatry 06/12/24 Lara Lorenzana PA [address] [place] [address] Orthopaedic Surgery 06/12/24 documented as of this encounter
--- OUTSIDE RECORDS SUMMARY | 2025-05-01 12:03 | XMS_ITS | Clinical Summary ---
Author Organization [employer] Address [address] [place] [address] [address] [place] [address] Care Team Providers Care Sander Hand Name Role Phone PujaNeema laguna COMMUNITY CASE MANAGER Primary Care Provider [phone] Avis Benson Unavailable [phone] Ciro Vegas DPM Unavailable [phone] Lara Lorenzana Unavailable Allergies No known active allergies Medications fluticasone (Flonase) 50 MCG/ACT nasal spray inhale 1 spray (50MCG) by intranasal route every day in each nostril Active sodium chloride ([place]) 0.65 % nasal spray 1 spray if needed in the morning, at noon, and at bedtime. 018 Active Skin Protectants, Misc. (eucerin) cream Apply topically every 12 (twelve) hours. 019 Active Capsaicin 0.025 % lotionIndications :Pain Apply 2 mg topically in the morning, at noon, and at bedtime. 60 mL 1 022 Active meclizine (Antivert) 25 MG tabletIndications :Meniere's disease, unspecified laterality Take 0.5 tablets (12.5 mg) by mouth if needed in the morning, at noon, and at bedtime for dizziness. 60 tablet 1 022 Active albuterol (Ventolin HFA) 108 (90 Base) MCG/ACT inhaler INHALE 2 PUFFS BY MOUTH EVERY 6 HOURS NEEDED FOR WHEEZING 18 g 11 023 Active ibuprofen 600 MG tablet Take 1 tablet (600 mg) by mouth every 8 (eight) hours if needed for moderate pain or fever. 100 tablet 3 023 Active Multiple Vitamin (Multivitamin) tabletIndications :Routine health maintenance TAKE 1 TABLET BY MOUTH EVERY DAY WITH FOOD 90 tablet 3 024 Active simethicone (Mylicon) 80 MG tabletIndications :Flatulence Take 1-2 tablets (80-160 mg) by mouth every 8 (eight) hours if needed (bloating, gasses). 60 tablet 3 024 Active pravastatin (Pravachol) 80 MG tabletIndications :Other hyperlipidemia TAKE 1 TABLET BY MOUTH AT BEDTIME 90 tablet 3 025 Active naproxen (Naprosyn) 500 MG tabletIndications :Pain TAKE 1 TABLET BY MOUTH TWICE DAILY NEEDED FOR PAIN TAKE WITH FOOD AND A FULL GLASS OF WATER 60 tablet 2 025 Active Acetaminophen Extra Strength 500 MG tabletIndications :Pain TAKE 2 TABLETS BY MOUTH EVERY 8 HOURS NEEDED FOR MILD PAIN, MODERATE PAIN, FEVER OR HEADACHE 100 tablet 2 025 Active lidocaine (Lidoderm) 5 % patchIndications: Pain Remove & discard patch within 12 hours or as directed by MD.APPLY 1 PATCH TOPICALLY TO SKIN, LEAVE ON FOR 12 HOURS AND OFF FOR 12 HOURS DIRECTED 30 patch 2 025 Active methocarbamol (Robaxin) 750 MG tabletIndications :Pain Take 1 tablet (750 mg) by mouth every 8 (eight) hours if needed for muscle spasms. 60 tablet 1 025 Active levothyroxine (Synthroid, Levoxyl) 125 MCG tabletIndications :Other specified hypothyroidism TAKE 1 TABLET BY MOUTH EVERY DAY BEFORE BREAKFAST 90 tablet 1 025 Active omeprazole (PriLOSEC) [address] capsule TAKE 1 CAPSULE BY MOUTH EVERY DAY BEFORE BREAKFAST, DO NOT BREAK, CRUSH, DISSOLVE OR CHEW 90 capsule 3 025 Active loratadine (Claritin) 10 MG tablet TAKE 1 TABLET BY MOUTH EVERY DAY NEEDED 90 tablet 3 025 Active cholecalciferol 1000 units capsule Take 1,000 Units by mouth Once per day. 90 capsule 3 025 Active Ketotifen Fumarate 0.035 % solutionIndicatio ns:Allergic conjunctivitis of both eyes Administer 1 drop into affected eye(s) if needed in the morning and at bedtime (eye itching and redness). 10 mL 2 025 Active propranolol (Inderal) 40 MG tablet TAKE 1 TABLET BY MOUTH EVERY TWELVE HOURS 180 tablet 1 025 Active Bisacodyl EC 5 MG EC tablet TAKE 2 TABLETS BY MOUTH TWICE DAILY, AT 3 IN THE AFTERNOON AND AT 7 IN THE EVENING BEFORE COLONOSCOPY 025 Active Diclofenac Sodium 1 % gelIndications:De generation of intervertebral disc of lumbar region with discogenic back pain Apply thin layer by topical route (quantity as directed on package insert) to affected area of pain 3 times daily as needed. 50 g 3 025 Active docusate sodium (Colace) 100 MG capsuleIndication s:Constipation, unspecified constipation type Take 1 capsule (100 mg) by mouth if needed each day for constipation. 90 capsule 1 025 Active TRUEplus Lancets 33G miscIndications:I mpaired glucose tolerance USE TO TEST BLOOD SUGAR EVERY DAY 100 each 11 025 Active glucose blood (FREESTYLE LITE) test stripIndications: Impaired glucose tolerance USE TO TEST BLOOD SUGAR EVERY DAY 100 each 11 025 Active sennosides (Senokot) 8.6 MG tablet Take 1-2 tablets by mouth if needed at bedtime for constipation. 018 2024 Discontinued(T herapy completed) Diclofenac Sodium 1 % creamIndications: Chronic pain of left knee Apply 3x daily to the left knee for pain 50 g 2 023 2024 Discontinued(D uplicate order (will not trigger notification to Pharmacy)) ibuprofen 600 MG tabletIndications :Pain Take 1 tablet by mouth four times a day as needed for pain 60 tablet 2 023 2024 Discontinued(T herapy completed) glucose blood (FREESTYLE LITE) test stripIndications: Impaired glucose tolerance 1 each by Other route Once daily. 100 each 11 024 2024 Discontinued(R eorder (will not trigger notification to Pharmacy)) TRUEplus Lancets 33G miscIndications:I mpaired glucose tolerance Place 1 each on the skin Once daily. 100 each 11 024 2024 Discontinued(R eorder (will not trigger notification to Pharmacy)) Diclofenac Sodium 1 % gel Apply thin layer by topical route (quantity as directed on package insert) to affected area of pain 3 times daily as needed. 50 g 3 025 2024 Discontinued(R eorder (will not trigger notification to Pharmacy)) Active Problems Problem Noted Date Diagnosed Date Hypertension 04/17/2025 Lateral epicondylitis, right elbow 04/17/2025 Muscle spasm of back 04/17/2025 Sacroiliac joint pain 04/17/2025 Vertigo 04/17/2025 Lumbosacral spondylosis 04/17/2025 Constipation 04/17/2025 Assessment & Plan (04/17/2025 2:51 PM EDT): - Previous trial of senna but DC d/t diarrhea - Plan: start colace daily prn. Reviewed med safety and SE GERD (gastroesophageal reflux disease) Overview (10/23/2024): Cont omeprazole 20mg daily PRN EGD September 2024 - There was no sign of any esophagitis nor Cerrato esophagus. There was a small hiatal hernia visible Path demonstrated Antral-type mucosa with mild chronic inactive inflammation; no Helicobacter organisms seen. Primary osteoarthritis of both knees 06/10/2024 Overview (06/12/2024): [place] [facility] [place]ela Lorenzana. Received steroid injection left knee in Mar 2024 XR January 2024: Degenerative joint narrowing of the femoral tibial joint. (Bilateral) Plantar fascial fibromatosis 03/06/2024 Overview (06/12/2024): Followed by Dr. Vegas - [facility] Received injection of right heel plantar fascia in October 2023 & Apr 2024. reports symptom relief s/p injection Assessment & Plan (03/06/2024 9:17 PM EDT): - Received injection of right heel plantar fascia in October 2023, reports symptom relief s/p injection Localized primary osteoarthr itis of carpometacarpal (CMC) joint of right wrist 07/05/2023 Overview (04/16/2025): - XR Right hand 06/12/23: mild osteoarthritic change of the right first carpometacarpal joint. - Established with [facility] Cont Feb 2025 w/ plan for OT and bracing to address right basal joint arthritis and tenosynovitis Assessment & Plan (01/20/2025 1:03 PM EDT): -Reviewed XR results, encouraged symptomatic management and discussed consideration of referral to specialist. Voltaren gel prescribed. -Referral to [facility] - Hand Specialist for further eval Assessment & Plan (07/05/2023 10:13 PM EST): -Reviewed XR results, encouraged symptomatic management and discussed consideration of referral to specialist. -Referral to [facility] - Hand Specialist for further eval DDD (degenerative disc disease), lumbar 07/05/20 Overview (10/20/2023): May 2023: Lumbar XR: 1. There is mild degenerative disc disease at L4-L5. 2. There is mild anterior spondylosis at L1-L2. 3. There is facet arthropathy at L5-S1. 4. There is a slight thoracolumbar dextroscoliosis. Referral to [facility] Pain Management placed 07/05/23: [facility] [place] Mang[facility] - Dr. Peoples. Eval for spondylosis - completed diagnostic medial branch block L3, L4 dorsal ramus L5 bialteral. Assessment & Plan (04/16/2025 3:42 PM EDT): -Discussed options including symptomatic management, physical therapy, physiatry. -Pt interested in referral to [facility], referral sent Assessment & Plan (07/05/2023 10:16 PM EST): -Discussed options including symptomatic management, physical therapy, physiatry. -Pt interested in referral to [facility], referral sent Healthcare maintenance 06/12/2023 Overview (04/17/2025): Pap: NILM, HPV neg December 2020. Due December 2025 Mammo: BIRADS 2 on 12/23/24 Colonoscopy: 10/17/2024 [place] [facility], hyperplastic polyps. Repeat 10 years. Last PE: 04/17/25 Health Care Proxy: paperwork given 04/17/25 Assessment & Plan (10/20/2023 8:07 PM EDT): [...] for nodes. Biopsy as indicated. -Following with [facility] -01/06/23: Breast, right, 1 [...] returning. Referral placed to renew PT services: [facility] [place] Phone number: Essential tremor 07/01/2022 Assessment & Plan (04/17/2025 2:50 PM EDT): -Continue following with Neurology, renewal for referral placed 03/11/23 -Cont propranolol 40mg BID Assessment & Plan (03/11/2023 8:55 AM EDT): -Continue following with Neurology, renewal for referral placed 03/11/23 -Cont propranolol 40mg BID Assessment & Plan (07/02/2022 10:41 AM EST): -Continue following with Neurology -Cont propranolol 40mg BID Vitamin D deficiency 06/13/2022 Assessment & Plan (04/17/2025 2:48 PM EDT): Lab Results Component Value Date [id number] 45 03/30/2025 - Continues on preventative dose of 1000 units daily, may consider dc Assessment & Plan (01/20/2025 1:02 PM EDT): Lab Results Component Value Date [id number] 76.8 02/23/2024 - Continues on preventative dose of 1000 units daily, may consider dc Assessment & Plan (07/02/2022 10:42 AM EST): -Check Vit D levels Allergic rhinitis 11/20/2015 Hyperlipidemia 11/20/2015 Overview (04/16/2025): Lab Results Component Value Date TRIG 151 (H) 10/19/2023 TRIG 273 (H) 08/19/2022 CHOL 181 10/19/2023 LDLCHOLCAL 107 (H) 10/19/2023 HDL 44 10/19/2023 Assessment & Plan (04/17/2025 2:46 PM EDT): -Continue with pravastatin nightly and low fat diet -Repeat fasting lipid panel Assessment & Plan (07/02/2022 10:41 AM EST): -Continue with pravastatin nightly and low fat diet Hypothyroidism 11/20/2015 Overview (04/16/2025): -Continue with levothyroxine 125mcg daily Lab Results Component Value Date TSH 0.71 10/21/2024 Assessment & Plan (06/12/2024 7:01 PM EST): [...] 150mg daily Prediabetes 11/20/2015 Assessment & Plan (04/17/2025 2:48 PM EDT): Lab Results Component Value Date HGBA1C 5.8 10/21/2024 - Lifestyle interventions encouraged Assessment & Plan (01/20/2025 1:01 PM EDT): Lab Results Component Value Date HGBA1C 5.8 10/21/2024 - Lifestyle interventions encouraged Assessment & Plan (07/02/2022 10:41 AM EST): -Referral to Nutrition Meniere's disease 11/20/2015 Assessment & Plan (07/02/2022 10:41 AM EST): -Currently recieving vestibular therapy at [facility], interested in possibly switching locations -Meclizine PRN -Pt to call with new referral info Obesity 11/20/2015 Palpitations 11/20/2015 TRENTON (obstructive sleep apnea) 11/20/2015 Overview (04/16/2025): Following with [facility] Sleep (JESSY Forbes/JESSY Benson) Cont APAP 5-15 cm H20 with goal using > 4 hrs/night Supply company: [facility] Assessment & Plan (04/16/2025 3:42 PM EDT): - last available consult Feb 2025. Good compliance and good response to therapy. Cont with current therapy. Assessment & Plan (01/20/2025 1:03 PM EDT): - Cont following with specialist Assessment & Plan (03/11/2023 8:52 AM EDT): -History of TRENTON -[place] sleep study through [facility] 11/26/22 did not meet criteria for sleep apnea -Upcoming follow up scheduled with [facility] Sleep for further discussion (Feb 2023) Assessment & Plan (07/02/2022 10:54 AM EST): -Last sleep study in 2014 -Pt reporting snoring at night, repeat sleep study to see if CPAP indicated at this time Resolved Problems Problem Noted Date Diagnosed Date Resolved Date Excessive daytime sleepiness 04/17/2025 04/17/2025 Soft tissue mass 04/17/2025 04/17/2025 Osteoarthritis of knees, bilateral 04/17/2025 04/17/2025 Osteoarthritis of left knee 04/17/2025 04/17/2025 Snoring 04/17/2025 04/17/2025 Lumbar degenerative disc disease 04/17/2025 04/17/2025 Abnormal finding on mammography 03/06/2024 04/17/2025 Overview (03/06/2024): 11/20/23: Mammo diagnostic bilateral, BIRADS 3. Recommended repeat diagnostic US of right axilla in 3 weeks. 12/07/23: US diagnostic right breast - BIRADS 4, recommended biopsy. 12/08/23: [facility] General [...] infection or ruptured epidermal inclusion cyst. 12/15/23: [facility] Surgery - Dr. Murray. Pathology benign, incision healing well. Plan: follow up right breast upper outer quadrant ultrasound and direct further therapy based on this in 6 months. Next mammo due: May 2024 Bronchitis 05/22/2023 06/12/2023 Assessment & Plan (05/22/2023 [...] Encounters Date Type Department Care Team Description 04/24/2025 Refill [facility] [address] [place] [address] Neema Landon FNP Impaired glucose tolerance 04/17/2025 10:30 AM EDT Office Visit [facility] [address] [place] [address] Neema Landon FNP Encounter for routine history and physical examination of adult (Primary Dx); Dietary counseling; Exercise counseling; TRENTON (obstructive sleep apnea); Degeneration of intervertebral disc of lumbar region with discogenic back pain; Essential tremor; Localized primary osteoarthritis of carpometacarpal (CMC) joint of right wrist; Plantar fascial fibromatosis; Primary osteoarthritis of both knees; Healthcare maintenance; Gastroesophageal reflux disease without esophagitis; Other specified hypothyroidism; Prediabetes; Vitamin D deficiency; Other hyperlipidemia; Constipation, unspecified constipation type 04/17/2025 Travel 04/16/2025 Travel 04/14/2025 Telephone [facility] [address] [place] [address] Neema Landon FNP Chart Prep 04/10/2025 Patient Outreach [address] [address] Neema Landon FNP Pre-visit Planning (SDOH screening negative and Tobacco screening negative) 03/30/2025 Orders Only GENERIC EXTERNAL DATA DEPARTMENT Provider, Generic External Data 02/28/[address] [address] Neema Landon FNP Med Refill 02/27/[address] [address] Nadja Gonzáles MD from Last 3 Months Immunizations Immunization Administration Dates Next Due Hep B, adult 06/29/2008,01/31/2008,11/10/2007 Influenza injectable quadriv alent IIV4 with preservative 04/22/2019,07/09/2017,05/21/2015 Influenza injectable quadriv alent preservative free 06/12/2023,05/23/2022,05/08/2021,2017,07/01/2016 Influenza, IIV3, injectable 06/02/2014, 1 Influenza, Injectable, MDCK, preservative free 04/17/2025 Influenza, Split (incl. sameera fied surface antigen) 04/21/2013,04/09/2012 Influenza, seasonal, injecta ble, preservative free 08/12/2024 Moderna Covid-19 Vaccine 12+ 08/21/2021,01/08/20 21,12/14/2020 Pfizer Covid-19 Vaccine 12+ 08/12/2024 Pfizer Covid-19 Vaccine 12+ Bivalent 05/23/2022 Pneumococcal Conjugate PCV 20 04/17/2025 TD (adult), 2 Lf tetanus tox oid, [...] housing situation today? I have clara melo 04/10/[address] you li ve. Do you have problems with any of the following? None of the above 04/10/2025 Food Insecurity Answer Date Recorded Within the past 12 months, y ou worried that your food would run out before you got money to buy more: Never True 04/10/2025 Within the past 12 months,th e food you bought just didn't last and you didn't have enough money to get more: Never True Transportation Answer Date Recorded In the past 12 months, has l ack of transportation kept you from medical appts, meetings, work or from getting things needed for daily living? No 04/10/2025 Utilities Answer Date Recorded In the past 12 months, has t he electric, gas, oil or water company threatened to shut off services in your home? No 04/10/2025 Depression Answer Date Recorded Patient Health Questionnaire-2 Score 1 10/21/2024 Internet Access Answer Date Recorded Internet Access Q1 Yes 04/10/2025 Internet Access Q2 Not on file 04/10/2025 Comments Unknown Sex and Gender Information Value Date Recorded Sex Assigned at Female 05/26/2022 10:15 AM EDT Legal Sex Female 10:15 AM EDT Gender Identity Female 06/12/2023 7:10 AM EST Sexual Orientation Straight 04/17/2025 10 :42 AM EDT Last Filed Vital Signs Vital Sign Reading Time Taken Comments Blood Pressure 116/70 04/17/2025 10:53 AM EDT Pulse 62 04/17/2025 10:53 AM EDT Temperature 36.3 C (97.3 F) 04/17/2025 10:53 AM EDT Respiratory Rate 10 04/17/2025 10:53 AM EDT Oxygen Saturation 96% 04/17/2025 10:53 AM EDT Inhaled Oxygen Concentration - - Weight 81.2 kg (179 lb) 04/17/2025 10:53 AM EDT Height 151.1 cm (4' 11.5 ) 04/17/2025 10:53 AM E DT Body Mass Index 35.55 04/17/2025 10:53 AM EDT Plan of Treatment Upcoming Encounters Date Type Department Care Team (Late st Contact Info) Description 07/17/2025 11:30 AM EST Office Visit [facility] [address] [place] [address] Neema Landon, SUSAN [address] [place] [address] Health Maintenance Due Date Last Done Comments CT Colonography 1965 FIT 1965 Sigmoidoscopy 1965 Pap Smear 01/02/2024 01/01/2021 FOBT 07/22/2025 07/22/2024 Depression Screening 10/21/2025 10/21/2024, 10/22/19 Diabetes: Hemoglobin A1C 10/21/2025 025, 10/19/2023, 05/08/2020 Tobacco Screening 10/21/2025 10/21/2024 Mammogram 12/23/2025 12/23/2024, 08/27, 12/07/2023, Additional history exists Cervical Cancer Screening 01/01/2026 HPV/Cotest 01/01/2026 01/01/2021 SDOH Screening 04/10/2026 04/10/2025 Alcohol/Substance Use Screening 04/17/2026 04/17/2025 Disability Screening 04/17/2026 04/17/2025 FIT DNA/Cologuard 07/22/2027 07/22/2024 Lipid Panel 10/18/2028 [...] 08/21/2021, Additional history exists Influenza Vaccine Completed 04/17/2025, , 06/12/2023, Additional history exists Pneumococcal Vaccine: 50+ Years Completed 04/17/2025 HIB Vaccines Aged Out No longer eligi [...] Procedure Name Priority Date/Time Associated Diagnosis Comments VITAMIN B6 Routine 03/30/2025 10:00 AM EDT VITAMIN D 25-OH (D2 AND D3) Routine 03/30/2025 10:00 AM EDT VITAMIN B1 Routine 03/30/2025 10:00 AM EDT METHYLMALONIC ACID Routine 03/30/2025 10 :00 AM EDT HOMOCYSTEINE Routine 03/30/2025 10:00 AM EDT VITAMIN B12/FOLATE, SERUM PANEL Routine 03/30/2025 10:00 AM EDT FERRITIN Routine 03/30/2025 10:00 AM EDT C-REACTIVE PROTEIN Routine 03/30/2025 10 :00 AM EDT IRON AND TOTAL IRON BINDING CAPACITY Routine 03/30/2025 10:00 AM EDT MAGNESIUM Routine 03/30/2025 10:00 AM EDT COMPREHENSIVE METABOLIC PANEL, FASTING Routine 03/30/2025 10:00 AM EDT CBC WITH AUTO DIFFERENTIAL Routine 03/30/2025 10:00 AM EDT BI MAMMOGRAM SCREENING TOMOSYNTHESIS BILATERAL Routine 12/23/2024 [...] Recently Relevant to Health Maintenance Results * (ABNORMAL) Comprehensive Metabolic Panel, Fasting (03/30/2025 10:00 AM EDT) Sodium 143 135 - 145 mmol/L [facility] Potassium 4.2 3.3 - 5.1 mmol/L [facility] Chloride 104 96 - 108 mmol/L [facility] Carbon Dioxide 29 22 - 29 mmol/L [facility] Anion Gap 14 12 - 20 [facility] Urea Nitrogen (BUN) 16 9 - 16 mg/dL [facility] Creatinine, Serum 0.74 0.5 - 1.4 mg/dL [facility] Estimated Glomerular Filt Rate >60 [facility] Comment:Chronic Kidney Disea se: Estimated GFR < 60 mL/min/1.40v0Skuiio Kidney Disease: Estimated GFR < 15 mL/min/1.73m2 Glucose Fasting 105(H) 60 - 99 mg/dL [facility] Comment:A fasting glucose fr om 100-125 mg/dl is considered impaired(pre-diabetes). Calcium 9.7 8.4 - 10.2 mg/dL [facility] Bilirubin, Total 0.8 0.0 - 1.0 mg/dL [facility] Aspartate Amino Transferase 24 5 - 31 U/L [facility] Alanine Aminotransferase 21 0 - 31 U/L [facility] Total Protein 8.1(H) 6.5 - 8.0 g/dL [facility] Albumin Level 4.9 3.5 - 5.0 g/dL [facility] Alkaline Phosphatase 77 39 - 117 U/L [facility] 03/30/2025 10:0 0 AM EDT 03/30/2025 10:00 AM EDT us Generic External Data Provider LAB BLOOD ORDERAB LES Final Result [facility] [address] [place] [phone] * VITAMIN D 25-OH (D2 AND D3) (03/30/2025 10:00 AM EDT) Vitamin D, 25-OH, D2 <4 ng/mL [facility] Comment:This test was develo rose and its analytical performancecharacteristics have been determined by [employer] [place], [place]. It hasnot been cleared or approved by the U.S. Food and DrugAdministration. This assay has been validated pursuantto the CLIA regulations and is used for clinicalpurposes.THIS TEST WAS PERFORMED AT:[facility] [id number] [place] [id number] ZHONG MD,PHD Vitamin D, 25-OH, D3 45 ng/mL [facility] Comment:This test was leóno ped and its analytical performancecharacteristics have been determined by [facility] [place], [place]. It hasnot been cleared or approved by the U.S. Food and DrugAdministration. This assay has been validated pursuantto the CLIA regulations and is used for clinicalpurposes. Vitamin D, 25-OH, Total 45 30 - 100 ng/mL [facility] Comment:Vitamin D, 25-Hydrox y reports concentrations of twocommon forms, 25-OHD2 and 25-OHD3. 25-OHD3 indicatesboth endogenous production and supplementation.25-OHD2 is an indicator of exogenous sources such asdiet or supplementation. Therapy is based onmeasurement of Total 25-OHD, with levels <20 ng/mLindicative of Vitamin D deficiency, while levelsbetween 20 ng/mL and 30 ng/mL suggest insufficiency.Optimal levels are > or = 30 ng/mL.For additional information, please refer [email or web address](This link is being provided for informational/educational purposes only.) 03/30/2025 10:0 0 AM EDT 03/30/2025 10:00 AM EDT us Generic External Data Provider LAB BLOOD ORDERAB LES Final Result [facility] [address] [place] [phone] * Vitamin B12 (Cobalamin) and Folate Panel, Serum (03/30/2025 10:00 AM EDT) Vitamin B12 239 200 - 900 pg/mL [facility] Comment:NORMAL 200-900 PG/ML INDETERMINATE 160-199 PG/ML DEFICIENT < 160 PG/ML Folate 9.5 > or = 4.0 ng/mL [facility] Comment:Reference Values:> o r = 4.0 ng/mL< 4.0 ng/mL suggests folate deficiency Methotrexate, aminopterin and folinic acid(leucovorin) are chemotherapeutic agents whose molecularstructures are similar to folate; therefore, the Architectfolate assay cannot be used for patients using these drugs. 03/30/2025 10:0 0 AM EDT 03/30/2025 10:00 AM EDT us Generic External Data Provider LAB BLOOD ORDERAB LES Final Result [facility] [address] [place], [place] [phone] * (ABNORMAL) CBC auto differential (03/30/2025 10:00 AM EDT) White Blood Count 4.6(L) 4.8 - 10.8 X10*3/uL [facility] Red Blood Count 4.01(L) 4.20 - 5.50 X10*6/uL [facility] Hemoglobin 12.7 12.0 - 16.0 g/dl [facility] Hematocrit 36.7(L) 37.0 - 47.0 % [facility] Mean Corpuscular Volume 91.5 80.0 - 98.0 fL [facility] Mean Corpuscular Hemoglobin 31.7 27.0 - 33.0 pg [facility] Mean Corpuscular HGB Conc 34.6 31.0 - 35.0 g/dl [facility] Red Cell Distribution Width 12.3 11.0 - 16.0 % [facility] Platelet Count 274 160 - 400 X10*3/uL [facility] Mean Platelet Volume 9.4 9.4 - 12.3 fL [facility] Neutrophils Percent Auto 47.6 45 - 73 % [facility] Imm Gran Pct Auto 0.2 0.0 - 0.4 % [facility] Lymphocytes Percent Auto 38.8 20 - 40 % [facility] Monocytes Percent Auto 9.0 2 - 11 % [facility] Eosinophils Percent Auto 3.7 0 - 4 % [facility] Basophils Percent Auto 0.7 0 - 2 % [facility] NRBC Pct Auto 0.0 0.0 - 0.2 /100WBC [facility] Neutrophils Absolute Auto 2.2 2.0 - 8.3 x10*3/uL [facility] Imm Gran Abs Auto 0.01 0.00 - 0.03 X10*3/uL [facility] Lymphocytes Absolute Auto 1.8 1.2 - 4.9 X10*3/uL [facility] Monocytes Absolute Auto 0.4 0.1 - 1.2 X10*3/uL [facility] Eosinophils Absolute Auto 0.2 0.0 - 0.4 X10*3/uL [facility] Basophils Absolute Auto 0.0 0.0 - 0.2 X10*3/uL [facility] NRBC Abs Auto 0.000 0.0 - 0.012 X10*3/uL [facility] 03/30/2025 10:0 0 AM EDT 03/30/2025 10:00 AM EDT us Generic External Data Provider LAB BLOOD ORDERAB LES Final Result [facility] [address] [place] [phone] * Methylmalonic Acid (03/30/2025 10:00 AM EDT) Methylmalonic Acid 96 55 - 335 nmol/L [facility] Comment: Serum methylmalonic acid (MMA) levels are used todiagnose and monitor several rare inborn errors ofmetabolism, including methylmalonic aciduria. Theenzymatic conversion of MMA to succinic acid requiresvitamin B12 (adenosyl-cobalamin) as a cofactor. SerumMMA levels are also used for assessing functionalvitamin B12 deficiency. Vitamin B12 is essential forfetal neurodevelopment, particularly early inpregnancy. Undiagnosed maternal vitamin B12 deficiencymay be associated with adverse / outcomes,such as neural tube defects and intrauterine growthrestriction.[facility] utilized Multi-Modal Decomposition(MMD) analysis to establish first and second trimester-specific MMA reference intervals in , as givenbelow:MMA, First trimester (<13 wks gestation): 58-167 nmol/LMMA, Second trimester (13-23 wks gestation):63-241 nmol/LThis test was developed and its analytical performancecharacteristics have been determined by [employer]. It has not been cleared or approved by theA. This assay has been validated pursuant to the CLIAregulations and is used for clinical purposes.THIS TEST WAS PERFORMED AT:LPATH/[facility] [id number] [place] [address]LVBODPRVIC ZHONG MD,PHD 03/30/2025 10:0 0 AM EDT 03/30/2025 10:00 AM EDT Generic External Data Provider LAB BLOOD ORDERAB LES Final Result Performing Organization Address [facility]/ZIP Co de Phone Number [facility] [address] [place] [phone] * Iron And Total Iron Binding Capacity (03/30/2025 10:00 AM EDT) Iron 88 30 - 160 mcg/dL [facility] Total Iron Binding Capacity 283 228 - 428 mcg/dL [facility] Percent Iron Saturation 31 15 - 50 % [facility] Unsaturated Iron Binding 195 ug/dL [facility] 03/30/2025 10:0 0 AM EDT 03/30/2025 10:00 AM EDT us Generic External Data Provider LAB BLOOD ORDERAB LES Final Result Performing Organization Address [facility] de Phone Number [facility] [address] [place] [phone] * (ABNORMAL) C-reactive Protein (03/30/2025 10:00 AM EDT) C Reactive Protein 0.56(H) < or = 0.50 mg/dL [facility] 03/30/2025 10:0 0 AM EDT 03/30/2025 10:00 AM EDT Generic External Data Provider LAB BLOOD ORDERAB LES Final Result Performing Organization Address [facility] de Phone Number [facility] [address] [place] [phone] * Vitamin B1 (03/30/2025 10:00 AM EDT) Vitamin B1 19 8 - 30 nmol/L [facility] Comment:Vitamin supplementat ion within 24 hours prior toblood draw may affect the accuracy of the results.This test was developed and its analytical performancecharacteristics have been determined by [place]. It hasnot been cleared or approved by the U.S. Food and DrugAdministration. This assay has been validated pursuantto the CLIA regulations and is used for clinicalpurposes.THIS TEST WAS PERFORMED AT:[id number] [place] [address]RJGKAJLVIC ZHONG MD,PHD 03/30/2025 10:0 0 AM EDT 03/30/2025 10:00 AM EDT Generic External Data Provider LAB BLOOD ORDERAB LES Final Result Performing Organization Address [facility] de Phone Number [facility] [address] [place] [phone] * Vitamin B6, Plasma (03/30/2025 10:00 AM EDT) Vitamin B6 12.5 2.1 - 21.7 ng/mL [facility] Comment:Vitamin supplementat ion within 24 hours prior toblood draw may affect the accuracy of the results.This test was developed and its analytical performancecharacteristics have been determined by [place]. It hasnot been cleared or approved by the U.S. Food and DrugAdministration. This assay has been validated pursuantto the CLIA regulations and is used for clinicalpurposes.THIS TEST WAS PERFORMED AT:[id number] [place] [address]DKCLQREVIC ZHONG MD,PHD 03/30/2025 10:0 0 AM EDT 03/30/2025 10:00 AM EDT Generic External Data Provider LAB BLOOD ORDERAB LES Final Result Performing Organization Address [facility]/ZIP Co de Phone Number [facility] [address] [place] [phone] * Magnesium (03/30/2025 10:00 AM EDT) Magnesium 2.2 1.6 - 2.6 mg/dL [facility] 03/30/2025 10:0 0 AM EDT 03/30/2025 10:00 AM EDT Generic External Data Provider LAB BLOOD ORDERAB LES Final Result Performing Organization Address [facility] Co de Phone Number [facility] [address] [place] [phone] [phone] * Homocysteine (03/30/2025 10:00 AM EDT) Homocysteine 10.3 < or = 13.4 umol/L [facility] Comment:Homocysteine is incr eased by functional deficiency offolate or vitamin B12. Testing for methylmalonic aciddifferentiates between these deficiencies. Other causesof increased homocysteine include renal failure, folateantagonists such as methotrexate and phenytoin, andexposure to nitrous oxide.Lora Escobar et al., Nu Audio Visual Technician Med. 1999;131(5):331-9.THIS TEST WAS PERFORMED AT:[facility] [address] [address]QGGQLKENNA FIGUEROA MD 03/30/2025 10:0 0 AM EDT 03/30/2025 10:00 AM EDT us Generic External Data Provider LAB BLOOD ORDERAB LES Final Result Performing Organization Address City/[facility]/ZIP Co de Phone Number [facility] [address] [place] [phone] * Ferritin (03/30/2025 10:00 AM EDT) Ferritin 92 10 - 250 ng/mL [facility] 03/30/2025 10:0 0 AM EDT 03/30/2025 10:00 AM EDT Generic External Data Provider LAB BLOOD ORDERAB LES Final Result Performing Organization Address [facility] de Phone Number [facility] [address] [place] [phone] * BI Mammogram Screening Tomosynthesis Bilateral (12/23/2024 12:47 PM EDT) Anatomical Region Laterality Modality Breast Bilateral Mammography 12/23/2024 12:4 7 PM EDT Narrative 12/31/2024 11:24 AM EDT [facility] [address] [place] [address] Mammography Report Signed Patient: Nadege Whitney MR#: [id number] [birth year] : 1965 Acct:[id number] Age/Sex: 59 / F ADM Date: 12/23/24 Loc: HO.MAMMO Attending Dr: Neema Landon COMMUNITY CASE MANAGER Ordering Physician: Neema Landon Results: 2Benig n Findings Date of Service: 12/23/24 Follow Up: 1 Year From Orig inal Mammogram Procedure(s): MM tomosynthesis screening BI Accession Number(s): [id number] cc: Neema Landon EXAMINATION: MM SCREENING DIGITAL [...] 12/31/24 1121 DD/ 1247 TD/TT: 12/23/24 1305 Computer Operations Technician: Procedure Note Donotuseinterpreter, Image - 12/31/20[facility] [address] [place] [address] Mammography Report Signed Patient: Nadege WhitneyMR#: [id number] 02 : 1965Acct:[id number] Age/Sex: 59 / FADM Date: 12/23/24 Loc: HO.MAMMO Attending Dr: Neema Landon COMMUNITY CASE MANAGER Ordering Physician: Neema Landon FNPResults: 2Benig n Findings Date of Service: 12/23/24Follow Up: 1 Year From Orig inal Mammogram Procedure(s): MM tomosynthesis screening BI Accession Number(s): [id number] cc: Neema Landon EXAMINATION: MM SCREENING DIGITAL [...] Sherry Reyes DO 12/31/2024 11:21 AM EDT RP Dictated By: Sherry Reyes DO Signed By: <Electronically signed by Sherry Reyes DO in OV> 12/31/24 1121 DD/ 1247 TD/TT: 12/23/24 1305 Computer Operations Technician: us Neema PADILLAP IMG BI PROCEDURES Edited Resul t - Final * Hemoglobin A1c (10/21/2024 3:42 PM EDT) Hemoglobin A1c 5.8 <6.0 % [facility] Comment:Hemoglobin A1C Refer ence Range Adults: 4.8 - 6.0 % Non diabetic: < 6.0 % Goal: < 7.0 %Additional Action Suggested: > 8.0 %Note: Hemoglobin A1c results are invalid for patients with abnormal amounts of HbF. Blood transfusions may impact the HbA1c concentration in the patient sample. Estimated Average Glucose 120 mg/dL [facility] Comment:eAG = Estimated ave rage glucose which is %A1C expressed asaverage glucose, using the formula of the L0O-HpdcefgLfbabaz Glucose study (ADAG), Diabetes Care, Vol.31,#8,Feb. 2007 Blood Venous blood specimen / Unknown 10/21/2024 3:42 PM EDT 10/21/2024 5:57 PM EDT us Neema DAVIS LAB BLOOD ORDERABLES Final Res ult [facility] [address] [place] [phone] [phone] * Colonoscopy (10/17/2024 7:22 AM EDT) us Historical Provider HEALTH MAINTENANCE Final Result * (ABNORMAL) Cologuard?? colon cancer screening (07/22/2024 1:50 PM EST) Cologuard Result Positive( A) Negative 07/27/2024 5:01 AM EST [facility] (CLIA #:[id number]) Comment: POSITIVE TEST RESULT. A positive Cologuard [...] (Dave Wilson al, N Engl J Med 2014;370(14):8533-8263.) Cologuard may produce a false negative or false positive result (no colorectal cancer or precancerous polyp present at colonoscopy follow up). A negative Cologuard test result does not guarantee the absence of CRC or advanced adenoma (pre-cancer). The current Cologuard screening interval is every 3 years. ([place] Cancer Society and U.S. Multi-Society Task Force). Cologuard performance data in a 10,000 patient pivotal study using colonoscopy as the reference method can be accessed at the following location: [email or web address]/results. Additional description of the Cologuard test process, warnings and precautions can be found at [email or web address].com. Stool specimen (specimen) 07/22/2024 1:50 PM EST 2024 12:04 PM EST Neema Landon [facility] VANITA RAM Final Result [facility] (CLIA #:[id number]) [address] [place] [address], * Hepatitis C Viral RNA, Quantitative, Real-Time PCR (10/19/2023 1:00 PM EDT) Hepatitis C Viral Load <15 NOT DETECTED NOT DETECTED IU/mL [facility] HCV Log PCR <1.18 NOT DETECTED NOT DETECTED Log IU/mL [facility] Comment:This test was perfor med using Real-Time Polymerase ChainReaction.Reportable Range: 15 IU/mL to 100,000,000 IU/mL(1.18 Log IU/mL to 8.00 Log IU/mL).The analytical performance characteristics of thisassay have been determined by [facility].The modifications have not been cleared or approved bythe FDA. This assay has been validated pursuant to theCLIA regulations and is used for clinical purposes.For more information on this test, go to:http://education.[employer]/faq/JIB77x9(This link is being provided for informational/educational purposes only.)THIS TEST WAS PERFORMED AT:[employer] [place] [address]XIZMNKENNA FIGUEROA MD Blood 10/19/2023 1:00 PM EDT 10/19/2023 3:55 PM EDT Neema Landon [facility] BLOOD ORDERABLES Final Res ult Performing Organization Address [facility] Co de Phone Number [facility] [address] [place] [phone] [phone] * HIV-1/2 Antigen and Antibodies, Fourth Generation, with Reflexes (10/19/2023 1:00 PM EDT) HIV AB/AG Nonreactive Nonreactive [facility] Comment:HIV-1 p24 Ag and/or HIV-1/HIV-2 Ab not detected.A test result that is nonreactive does not exclude thepossibility of exposure to or infection with HIV-1 and/orHIV-2. Nonreactive results in this assay for individualswith prior exposure to HIV-1 and/or HIV-2 may be due toantigen and antibody levels that are below the limit ofdetection of this assay.The [employer] HIV Ag/Ab Combo assay result andsupplemental assay results should be interpreted inconjunction with the patient's clinical presentation,history and other laboratory results. If the results areinconsistent with clinical evidence, additional testing issuggested to confirm the result. Blood Venous blood specimen / Unknown 10/19/2023 1:00 PM EDT 10/19/2023 3:55 PM EDT Neema Landon [facility] BLOOD ORDERABLES Final Res ult Performing Organization Address City/[facility]/ZIP Co de Phone Number [facility] [address] [place] [phone] * (ABNORMAL) Lipid Panel, Standard (10/19/2023 1:00 PM EDT) Triglycerides 151(H) <150 mg/dL [facility] Comment:Desirable Triglyceri de: less than 150 mg/dLBorderline High Triglyceride 150-199 mg/dLHigh Triglyceride: 200-499 mg/dLVery High Triglyceride: greater than or equal to 5OO mg/dL Cholesterol 181 <200 mg/dL [facility] Comment:Desirable Cholestero l: less than 200 mg/dLBorderline High Cholesterol: 200-239 mg/dLHigh Cholesterol: greater than 239 mg/dL LDL Cholesterol Calculated 107(H) <100 mg/dL [facility] Comment:Desirable LDL: less than 100 mg/dLNear Optimal/Above Optimal LDL: 110- 129 mg/dLBorderline High LDL: 130-159 mg/dLHigh LDL: 160-189 mg/dLVery High LDL: greater than or equal to 190 mg/dL HDL Cholesterol 44 >40 mg/dL [facility] Comment:Desirable HDL: great er than 40 mg/dL Note: This HDL assay may give artificially low results in patients with liver disease. Blood Venous blood specimen / Unknown 10/19/2023 1:00 PM EDT 10/19/2023 3:55 PM EDT us Neema Landon COMMUNITY CASE MANAGER LAB BLOOD ORDERABLES Final Res ult [facility] [address] [place] [phone] * THINPREP PAP (01/01/2021 6:38 PM [...] along with historic and current clinical information. Web Applications Developer : SEE COMMENT [facility] Comment: YP, CT(ASCP) CT screening location: [place] [address] Interpretation/R esult: Negative for intraepithelial lesion or malignancy. [facility] LMP: NONE [facility] Prev. BX: NONE [facility] Prev. PAP: NONE [facility] SOURCE: None given [facility] Statement Of Adequacy: SEE COMMENT [facility] Comment: Satisfactory for evaluation. Endocervical/transformation zone component present. Age and/or menstrual status not provided 01/01/2021 6:38 PM EDT Jing Segundo NP LAB PATHOLOGY ORDERABLES Final Result Performing Organization Address [facility] de Phone Number [facility] [address] * HPV mRNA E6/E7 (01/01/2021 6:38 PM EDT) HPV nRNA E6/E7 Not Detected Not Detected [facility] Comment: Methodology: Sales Service Supervisor-Mediated Amplification This assay detects E6/E7 viral messenger RNA (mRNA) from 14 high-risk HPV types (16,18,31,33,35,39,45,51,52,56,58,59,66,68). The analytical performance characteristics of this assay have been determined by [facility]. The modifications have not been cleared or approved by the FDA. This assay has been validated pursuant to the CLIA regulations and is used for clinical purposes. For additional information, please refer to http://education.[employer]/faq/DIO717c3 (This link if provided for information/ educational purposes only.) NO COLLECTION DATE RECEIVED. WE HAVE USED THE DATE THE SPECIMEN WAS RECEIVED BY THIS LABORATORY THE COLLECTION DATE. IF THIS IS INCORRECT, PLEASE CONTACT CLIENT SERVICES. PHONE NUMBER: 01/01/2021 6:38 PM EDT Jing Segundo NP LAB BLOOD ORDERABLES Final Res ult Performing Organization Address [facility] Co de Phone Number [facility] [address] from Last 3 Months or Most Recently Relevant to Health Maintenance Insurance * Guarantor: Nadege Whitney Account Type Relation to Patient Date of Phone Billing Address Personal/Family Self [address] Care Teams Sander Hand Relationship Specialty Start Date End Date Neema Landon FNP [address] [place] [phone] PCP - General Family Medicine 03/26/22 Avis Benson [address] [place] [phone] Sleep Medicine 06/12/24 Ciro Vegas DPM [address] [place] [phone] Podiatry 06/12/24 Lara Lorenzana PA [address] [place] [phone] Orthopaedic Surgery 06/12/24
--- OUTSIDE RECORDS SUMMARY | 2025-05-01 12:03 | XMS_ITS | Encounter Summary ---
Author Organization [employer] Address [address] [place] [address] [address] [place] [address] Care Team Providers Care Ordnance Handler Name Role Phone Neema Landon Primary Care Provider Avis Benson Unavailable [phone] Ciro Vegas DPM Unavailable Lara Lorenzana Unavailable Encounter Details Date Type Department Care Team (Latest Contact Info) Description 04/04/2019 Abstract [facility] CONVERSIONS Dental, Provider, DDS Social History Tobacco [...] Description 07/17/2025 11:30 AM EST Office Visit [facility] [address] [place], [place] [phone] Neema Landon FNP [address] [place], [place] [phone] documented as of this encounter Visit Diagnoses Not on filedocumented in this encounter Care Teams Ordnance Handler Relationship Specialty Start Date End Date Neema Landon FNP [address] [place] [phone] PCP - General Family Medicine 03/26/22 Avis Benson [address] [place] [phone] Sleep Medicine 06/12/24 Ciro Vegas DPM [address] [place] [phone] Podiatry 06/12/24 Lara Lorenzana PA [address] [place] [phone] Orthopaedic Surgery 06/12/24 documented as of this encounter
--- OUTSIDE RECORDS SUMMARY | 2025-05-01 12:03 | XMS_ITS | Patient Health Record ---
Author Organization [facility] Address [address] [place] [address] Care Team Providers Care Security Site Supervisor Name Role Phone ABRAHAM CANELA MD Primary Care Provider Xavier Banda [phone] Allergies No Known Allergies Results Component Value Reference Range Notes US abdomen complete Reviewed date:10/16/2024 08:36:38 PM Interpretation: Performing Lab: Notes/Report: [address] [address] Ultrasound Report Signed Patient: Jesusita Monge MR#: [id number] 02 : 1965 Acct:[id number] Age/Sex: 59 / F ADM Date: 07/28/24 Loc: HO.US Attending Dr: Xavier Valverde MD Ordering Physician: Xavier Valverde MD Date of Service: 07/28/24 Procedure(s): US abdomen complete Accession Number(s): [id number] cc: Abraham Canela AVIATION MANAGER; Xavier Valverde MD CLINICAL HISTORY: ABD DISTENTION [...] OV> 07/30/24 0800 DD/ 8 TD/TT: 07/30/24758 Welcome Center Attendant: Glucose, Whole Blood Reviewed date:10/17/2024 10:29:37 PM Interpretation: Performing Lab:[facility], [address] [place] [id number] Notes/Report: Glucose, Whole Blood 108 60-115 mg/dL METER # : [id number] Pathology (Not yet reviewed by provider) Interpretation: Performing Lab:[address] [address] Notes/Report: Reason For Referral Referring Provider First Name ABRAHAM Referring Provider Last Name [facility] Referred Organization [facility] Referred Provider Xavier Valverde Referred Address [address] [place] [address],[address],[address], Referred Provider Specialty Gastroentero logy Referral Priority [...] FOR 12 HOURS DIRECTED External for 30 [id number],Unavai lable Active Acetaminophen Extra Strength 500 MG [...] Status Risk Notes Problem Colon cancer screening (677786735) Colon cancer screening (Z12.11) Active confirmed Problem Abdominal bloating (441365142) Abdominal bloating (R14.0) Active confirmed Problem Epigastric pain (02199837) Abdominal discomfort, epigastric (R10.13) Active confirmed Problem Chronic constipation (575326118) Chronic constipation (K59.09) Active confirmed Problem Gastroesophageal reflux disease (disorder) (410232723) Chronic GERD (K21.9) Active confirmed Vital Signs Blood pressure diastolic 00 mm Hg 07/08/2024 Height 4 ft 11 in in 07/08/2024 Blood pressure systolic 00 mm Hg 07/08/2024 Weight 170 lbs 07/08/2024 BMI 34.33 kg/m2 07/08/2024 Encounters Encounter Location Date Provider Diagnosis [facility] [address] [place] [phone] 10/17/2024 Xavier Valverde Colon cancer screeni ng Z12.11 ; Colon polyps K63.5 ; Diverticulosis of large intestine without perforation or abscess without bleeding K57.30 ; Other hemorrhoids K64.8 ; Hiatal hernia K44.9 and Gastro-esophageal reflux disease without esophagitis K21.9 [facility] [address] [place] [address] 07/08/2024 Xavier Valverde Colon cancer screeni ng Z12.11 ; Chronic GERD K21.9 ; Chronic constipation K59.09 ; Abdominal bloating R14.0 and Abdominal discomfort, epigastric R10.13 [facility] [address] [place] [address] 10/14/2024 Xavier Valverde [facility] [address] [place] [address] 10/17/2024 Xavier Valverde Assessments Encounter Date Diagnosis [...] well. Of note, we will have a biomedical technician present on the day of her procedures [...] well. Of note, we will have a biomedical technician present on the day of her procedures [...] well. Of note, we will have a biomedical technician present on the day of her procedures [...] well. Of note, we will have a biomedical technician present on the day of her procedures [...] well. Of note, we will have a biomedical technician present on the day of her procedures [...] Start Date Coverage End Date [facility] [address] [place] [phone] [id number] SALEEM JESUSITA Self - patient is the insured Medical (General) History Medical History History ICD Code Heart papitations Pre-diabeteic Arthritis Hypothyroidism Hyperlipidemia Denies DE,DM,CVA,renal disease Asthma GERD Surgical History Surgery Date(Month/Year) BTL
--- OUTSIDE RECORDS SUMMARY | 2025-05-01 12:03 | XMS_ITS | Encounter Summary ---
Author Organization [employer] Address [address] [facility] 7t [place] [address] Care Team Providers Care Data Security Consultant Name Role Phone PujaNeema laguna REFINERY OPERATOR REFORMING UNIT Primary Care Provider [phone] Avis Benson Unavailable Ciro Vegas DPM Unavailable [phone] Lara Lorenzana Unavailable Reason for Visit * Reason Comments Med Refill Encounter Details Date Type Department Care Team (Late st Contact Info) Description 07/04/2023 Refill [facility] [address] [place], [place] [phone] Belia Duckworth MD [address] [place], [place] [phone] Social History Tobacco Use Types Packs/Day Years Used Date Smoking Tobacco: Never Passive Smoke Exposure: Never Smokeless Tobacco: Never Alcohol Use Standard Drinks/Week Comments Never 0 (1 standard drink = 0.6 oz pur e alcohol) Depression Answer Date Recorded Patient Health Questionnaire-9 Score 6 07/01/2022 Housing Stability Answer Date Recorded What is your housing situation today? I have clara melo 05/11/[address] you li [...] Description 07/17/2025 11:30 AM EST Office Visit [facility] [address] [place] [address] Neema Landon FNP [address] [place] [address] documented as of this encounter Visit Diagnoses Not on filedocumented in this encounter Additional Health Concerns Assessment Noted Time PHQ-9 Depression Total Score: 6 07/01/20 22 9:18 AM EST documented as of this encounter Care Teams Data Security Consultant Relationship Specialty Start Date End Date Neema Landon FNP [address] [place] [address] PCP - General Family Medicine 03/26/22 Avis Benson [address] [place] [address] Sleep Medicine 06/12/24 Ciro Vegas DPM [address] [address] Podiatry 06/12/24 Lara Lorenzana PA [address] [place] [address] [address] [place] [address] Orthopaedic Surgery 06/12/24 documented as of this encounter
--- OUTSIDE RECORDS SUMMARY | 2025-05-01 12:03 | XMS_ITS | Encounter Summary ---
Author Organization [employer] Address [address] [facility] 7[address] [place] [address] Care Team Providers Care Professional Golf Tournament Player Name Role Phone PujaNeema laguna MICROFILM DUPLICATING UNIT SUPERVISOR Primary Care Provider [phone] Avis Benson Unavailable [phone] Ciro Vegas DPM Unavailable [phone] Lara Lorenzana Unavailable Encounter Details Date Type Department Care Team (Late st Contact Info) Description 10/21/2024 Orders Only [facility] [address] [place] [address] Provider, MD Brent Social History Tobacco Use [...] the past 12 months, has t he [employer], gas, oil or water company threatened to [...] Questionnaire-2 Score 1 10/21/2024 2:20 PM EDT iNca Mann [place] * Little interest or pleasure [...] PM EDT Nica Napier [place] * Trouble concentrating on things, such [...] Description 07/17/2025 11:30 AM EST Office Visit [facility] MED [facility] PED[facility] [address] [place] [address] Neema Landon FNP [address] [place] [address] documented as of this encounter Procedures Procedure [...] documented as of this encounter Care Teams Professional Golf Tournament Player Relationship Specialty Start Date End Date Neema Landon FNP [address] [place] [address] PCP - General Family Medicine 03/26/22 Avis Benson [address] [place] [address] Sleep Medicine 06/12/24 Ciro Vegas DPM [address] [address] Podiatry 06/12/24 Lara Lorenzana PA [address] [place] [address] Orthopaedic Surgery 06/12/24 documented as of this encounter
[2025-05-01 14:01] LABS: Cholesterol 204 mg/dL (<200); HDL Cholesterol 43 mg/dL (>40); Triglycerides 181 mg/dL (<150)
== END 2025-05-01 10:18 | disposition home or self-care (01) ==
LOC: HO.HHCL 10:17
PROVIDERS: PCP Registered Nurse; Visit Provider Registered Nurse
DX: Z00.00 Encounter for general adult medical examination without abnormal findings (principal); E03.8 Other specified hypothyroidism
CPT/HCPCS: 36415; 80061; 83036; 84443